=== PATIENT | female | born 1975 | race Caucasian/White ===

== ENCOUNTER 2021-12-11 10:50 | Outpatient (REF) | payer BC, SELFPAY ==
[2021-12-11 10:55] LABS: MANUAL DIFF FLAG NO
[2021-12-11 11:07] LABS: Basophils Absolute Auto 0.1 X10*3/uL (0.0-0.2); Basophils Percent Auto 0.5 % (0-2); Eosinophils Absolute Auto 0.2 X10*3/uL (0.0-0.4); Eosinophils Percent Auto 2.1 % (0-4); Hemoglobin 12.8 g/dl (12.0-16.0); Imm Gran Abs Auto 0.04 X10*3/uL (0.00-0.03); Imm Gran Pct Auto 0.4 % (0.0-0.4); Lymphocytes Absolute Auto 2.3 X10*3/uL (1.2-4.9); Lymphocytes Percent Auto 25.3 % (20-40); Mean Corpuscular Hemoglobin 31.3 pg (27.0-33.0); Mean Corpuscular Volume 97.8 fL (80.0-98.0); Mean Platelet Volume 9.9 fL (9.4-12.3); Monocytes Absolute Auto 0.8 X10*3/uL (0.1-1.2); Monocytes Percent Auto 8.7 % (2-11); Neutrophils Absolute Auto 5.8 x10*3/uL (2.0-8.3); Platelet Count 385 X10*3/uL (160-400); Red Blood Count 4.09 X10*6/uL (4.20-5.50); Red Cell Distribution Width 13.3 % (11.0-16.0); White Blood Count 9.2 X10*3/uL (4.8-10.8)
[2021-12-11 11:18] LABS: Alanine Aminotransferase 53 U/L (0-31); Albumin Level 4.5 g/dL (3.5-5.0); Alkaline Phosphatase 79 U/L (39-117); Anion Gap 13 (12-20); Aspartate Amino Transferase 45 U/L (5-31); Bilirubin Total 0.3 mg/dL (0.0-1.0); Blood Urea Nitrogen 18 mg/dL (9-16); Calcium 9.5 mg/dL (8.4-10.2); Carbon Dioxide 22 mmol/L (22-29); Chloride 108 mmol/L (96-108); Cholesterol 228 mg/dL; Estimated Glomerular Filt Rate > 60; Glucose Fasting 88 mg/dL (60-99); HDL Cholesterol 63 mg/dL; LDL Cholesterol Calculated 144 mg/dl; Potassium 4.3 mmol/L (3.3-5.1); Sodium 139 mmol/L (135-145); Total Protein 7.5 g/dL (6.5-8.0); Triglycerides 109 mg/dL
[2021-12-11 11:35] LABS: Appearance Urine HAZY; Color Urine YELLOW; Glucose Urine UA NEG (NEG); Leukocyte Esterase Urine NEG (NEG); Nitrite Urine NEG (NEG); Specific Gravity - Urine 1.015 (1.005-1.025); Urine Blood TRACE (NEG); Urine Ketones NEG (NEG); Urine Protein NEG (NEG-TRACE)
[2021-12-11 13:19] LABS: Bacteria Urine TRACE /LPF; Squamous Epithelial Cell Urine 3+ /LPF
[2021-12-11 13:20] LABS: RBC Urine 0 /HPF (0)
== END 2021-12-11 10:51 | disposition home or self-care (01) ==
LOC: HO.LNP 10:50
PROVIDERS: Visit Provider Internal Medicine
DX: Z00.00 Encounter for general adult medical examination without abnormal findings (principal); D72.828 Other elevated white blood cell count
CPT/HCPCS: 80053; 80061; 81001; 85025

== ENCOUNTER 2021-12-18 11:25 | Outpatient (REF) | payer BC, SELFPAY ==
[2021-12-18 12:05] LABS: Alanine Aminotransferase 49 U/L (0-31); Albumin Level 4.2 g/dL (3.5-5.0); Alkaline Phosphatase 90 U/L (39-117); Aspartate Amino Transferase 74 U/L (5-31); Bilirubin Direct < 0.2 mg/dL (0.0-0.5); Bilirubin Total 0.3 mg/dL (0.0-1.0)
== END 2021-12-18 11:26 | disposition home or self-care (01) ==
LOC: HO.LNP 11:25
PROVIDERS: PCP Internal Medicine; Visit Provider Internal Medicine
DX: R79.89 Other specified abnormal findings of blood chemistry (principal)
CPT/HCPCS: 80076

== ENCOUNTER 2023-07-31 13:59 | Inpatient (IN) | payer BC, SELFPAY ==
[2023-07-31] VITALS (38 sets, daily range): BP systolic 72–162; BP diastolic 30–130; PULSE 24–98; RESP 16–24; TEMP 32.5–36.4; O2SAT 58–100; BMI 22.1
--- NOTE | 2023-07-31 | ECG_ITS ---
Test Reason : arrythmia Blood Pressure : / mmHG Vent. Rate : 099 BPM Atrial Rate : 099 BPM P-R Int : 192 ms QRS Dur : 114 ms QT Int : 456 ms P-R-T Axes : 069 066 187 degrees QTc Int : 585 ms Sinus rhythm with sinus arrhythmia with Fusion complexes some beats suggestive of idioventricular rhythm Marked ST abnormality, possible inferior subendocardial injury Marked ST abnormality, possible anterior subendocardial injury Prolonged QT Abnormal ECG When compared to the previous EKG of same day, changes noted. Referred By: Agueda Doan Electronically Signed By:TERRANCE MCGILL
--- NOTE | ~2023-07-31 | XR_ITS ---
EXAMINATION: XR CHEST CLINICAL INFORMATION: Intubation. COMPARISON: CT chest 07/31/2023 at 7:00 PM. TECHNIQUE: Frontal view of the chest was obtained. FINDINGS: Endotracheal tube terminates at 2.7 cm above the bella. Normal appearance of the cardiomediastinal silhouette. Multifocal airspace opacities, more prominent in the right lower lobe are again noted best visualized on CT chest from earlier on same day. No pleural effusion. No pneumothorax. No acute osseous findings. XR/XR chest 1V IMPRESSION: 1. Endotracheal tube terminates at 2.7 cm above the bella. 2. Multifocal airspace opacities, more prominent in the right lower lobe are better visualized on CT chest from earlier on same day.
--- NOTE | ~2023-07-31 | XR_ITS ---
EXAMINATION: XR CHEST CLINICAL INFORMATION: Line placement. COMPARISON: Chest radiograph 07/31/2023 at 9:24 PM. TECHNIQUE: Frontal view of the chest was obtained. FINDINGS: The endotracheal tube terminates at 3.5 cm above the bella. Left IJ CVC catheter tip projects at the level of the superior cavoatrial junction. An enteric tube courses into the abdomen and terminates outside of the field of view. Normal appearance of the cardiomediastinal silhouette. Multifocal airspace opacities, more prominent in the right lower lobe are no significantly changed, and best characterized on recent CT chest from earlier on the same day. No pleural effusion or pneumothorax. No acute osseous findings. XR/XR chest 1V IMPRESSION: 1. The endotracheal tube terminates at 3.5 cm above the bella. 2. Left IJ CVC catheter tip projects at the level of the superior cavoatrial junction. 3. No significant change in the multifocal airspace opacities. 4. No pneumothorax.
--- NOTE | ~2023-07-31 | CT_ITS ---
EXAMINATION: CT ABDOMEN AND PELVIS WITH CONTRAST CLINICAL INFORMATION: Leukocytosis and transaminitis. COMPARISON: None available. TECHNIQUE: Multidetector volumetric images were obtained from the superior aspect of the liver through the pubic symphysis following administration 85 mL of Omnipaque 350 intravenous contrast. Sagittal and coronal reformatted images were obtained on the technologist's workstation. Oral contrast: No This CT examination was performed using dose optimization techniques as appropriate, variously including the following: *Automated exposure control *Adjustment of mA and/or kV according to patient size (this includes techniques or standardized protocols for targeted exams where dose is matched to indication/reason for exam; i.e. extremities or head) *Use of iterative reconstruction technique DLP: 330 mGy-cm FINDINGS: LUNG BASES: There are bibasilar scattered groundglass opacities. LIVER, GALLBLADDER, AND BILIARY TREE: There is hepatomegaly, with a longitudinal span of 28.0 cm (7:38). There is geographic hepatic steatosis. No focal hepatic lesion or biliary ductal dilatation is present. The gallbladder is unremarkable with no evidence of radiopaque gallstones, gallbladder wall thickening, or obvious pericholecystic inflammatory changes. PANCREAS: There is fat stranding adjacent to the pancreatic head. Within the pancreatic body, a 1.9 x 1.4 cm low-attenuation fluid collection is seen, likely a pseudocyst. There are peripancreatic fluid collections, most pronounced adjacent to pancreatic head, the tail portion and within the central mesentery. These show respective dimensions of 2.2 x 1.4 cm, 4.9 x 4.1 cm and 3.9 x 2.3 cm (3:40, 26 and 45). No pancreatic mass or ductal dilatation is noted. SPLEEN: Unremarkable. ADRENAL GLANDS: The right adrenal gland is unremarkable. The lateral limb of the left adrenal gland contains a 1.7 x 1.2 cm nodule (3:23). KIDNEYS AND URETERS: The kidneys are normal in size, shape, and attenuation. No hydronephrosis, hydroureter, or calculi seen. No perinephric stranding. BLADDER: Unremarkable. GASTROINTESTINAL TRACT: The small and large bowel are unremarkable. The appendix is unremarkable. ABDOMINAL WALL: There is a small fat-containing umbilical hernia. LYMPH NODES: Adjacent to the left iliac bifurcation (7:45), a 2.6 x 1.9 cm reniform lymph node is seen. VASCULAR: There is moderate aortoiliac atherosclerotic calcification. No abdominal aortic aneurysm or dissection is seen. PELVIC VISCERA: The uterus and adnexa are unremarkable. An intrauterine device is noted. OSSEOUS STRUCTURES: There is mild anterior spondylosis at T9-T10. There is no acute or aggressive osseous finding. FREE FLUID: A further low to intermediate density fluid collection is seen within the left paracolic gutter. A tiny amount of free fluid tracks adjacent to the ascending colon. CT/CT abdomen pelvis w IV con IMPRESSION: 1. Findings are consistent with acute pancreatitis, with scattered acute fluid collections adjacent to the pancreatic head and tail, in the mesenteric root and in the bilateral paracolic gutters, left greater than right. 2. A 1.9 cm pancreatic body probable pseudocyst is noted. 3. There is marked hepatomegaly, and hepatic steatosis is seen. 4. A 1.7 cm nodule is seen within the lateral limb of the left adrenal gland. Current ACR WHITE PAPER RECOMMENDATIONS regarding incidental adrenal mass is include; - Imaging can characterize adrenal adenomas with high accuracy but cannot be used to distinguish hyperfunctioning from nonhyperfunctioning masses - Current guidelines from the [place] Association of Clinical Endocrinologists and the [place] Association of Endocrine Surgeons recommend an initial biochemical evaluation of all adrenal incidentalomas to exclude pheochromocytoma, subclinical Stuyvesant?s syndrome, and hyperaldosteronism. 5. Adjacent to the left iliac bifurcation, a 1.9 cm in short axis diameter lymph node is seen. This is nonspecific and should be managed on a clinical basis. Recommend continued attention on imaging follow-up. 6. No acute or aggressive osseous finding is seen. Fleischner guidelines were followed.
--- NOTE | ~2023-07-31 | XR_ITS ---
EXAMINATION: CHEST 2 VIEWS CLINICAL INFORMATION: pain. COMPARISON: No recent pertinent prior studies are available for comparison. TECHNIQUE: AP frontal and lateral views of the chest obtained FINDINGS: The lungs are well expanded. Linear basilar markings more likely due to scarring or atelectasis at the right base. No focal infiltrate, effusion, edema, or pneumothorax. Cardiac and mediastinal silhouettes are within normal limits for technique. No acute bony abnormality seen XR/XR chest 2V IMPRESSION: Linear basilar markings more likely due to scarring or atelectasis.
--- NOTE | ~2023-07-31 | XR_ITS ---
EXAMINATION: XR CHEST CLINICAL INFORMATION: Hypoxia COMPARISON: Multiple priors with the last chest x-ray of 07/31/2023 TECHNIQUE: Frontal view of the chest was obtained. FINDINGS: An endotracheal tube terminates 3.7 cm above the bella. An enteric tube courses below the diaphragm, the tip is external to the [id number]; the tube is coiled into the gastric fundus. Multiple cardiac leads and wires overlie the chest. Left internal jugular approach central venous catheter tip projects over the expected location of the superior cavoatrial junction. Cardiomediastinal silhouette is stable with normal cardiac size. There is no evidence of pneumothorax or significant pleural effusions. The lungs are mildly hypoexpanded. Patchy opacities are noted at the lung bases; multifocal groundglass opacities are better seen on the CT scan of the chest obtained on 07/31/2023. The findings are not as well appreciated on the plain radiographs. Mild interstitial and pulmonary vasculature prominence is noted which may suggest mild interstitial edema/pulmonary congestion. XR/XR chest 1V IMPRESSION: Endotracheal tube terminates 3.7 cm above the bella. Patchy bibasilar opacities. Multifocal groundglass opacities with basilar prominence are better seen on the chest CT of 07/31/2023. Probable mild interstitial edema/pulmonary venous congestion.
--- NOTE | ~2023-07-31 | CT_ITS ---
EXAMINATION: CT CHEST WITHOUT CONTRAST CLINICAL INFORMATION: Shortness of breath. COMPARISON: CT scan the abdomen which included the lung bases are clear this evening. TECHNIQUE: Multidetector volumetric imaging was performed from the thoracic inlet through the lung bases without contrast. Sagittal and coronal reformatted images were obtained on the technologist workstation. Soft tissue and lung algorithms evaluated. Thick slab MIP images were performed to increase nodule conspicuity. This CT examination was performed using dose optimization techniques as appropriate, variously including the following: *Automated exposure control *Adjustment of mA and/or kV according to patient size (this includes techniques or standardized protocols for targeted exams where dose is matched to indication/reason for exam; i.e. extremities or head) *Use of iterative reconstruction technique DLP: 207 mGy-cm. FINDINGS: LUNG: There is worsened patchy bilateral groundglass airspace disease more so on the right lower lobe be present as well in the right middle lobe, right upper lobe, dependent left lower lobe, and left upper lobe/lingula infectious or inflammatory causes would be strongly favored with this distribution. Subtle air bronchograms are now seen at the right lung base which is new from earlier today suggesting interval worsening. MEDIASTINUM: The central vascular structures are unremarkable. No hilar or mediastinal lymphadenopathy. CORONARY ARTERY CALCIFICATION: Absent PERICARDIUM/PLEURA: No significant effusion. No pleural mass or thickening. THYROID/VISUALIZED LOWER NECK: Unremarkable. CHEST WALL/AXILLA: Unremarkable. VISUALIZED UPPER ABDOMEN: Diffuse fatty infiltration of the liver with peripancreatic changes better seen on the abdominal CT scan performed earlier today BONES: Unremarkable CT/CT chest wo IV con IMPRESSION: Worsening patchy bilateral groundglass airspace disease more so in the right lower lobe. Infectious or inflammatory causes would be strongly favored with this distribution.
--- NOTE | 2023-07-31 15:47 | ED.GENADULT ---
HPI - General Adult General Chief complaint: General Medical Stated complaint: cold like symptoms Time Seen by Provider: 07/31/23 16:32 Source: patient, family and RN notes reviewed Mode of arrival: wheelchair Limitations: no limitations History of Present Illness HPI narrative: 47-year-old female with past medical history of asthma, GERD, tobacco use, alcohol abuse, chronic back pains, leg numbness is here today for increased fatigue, insomnia and feeling of weakness. Patient states that her in May and she has been grieving his that since. Patient states that she did not eat anything for over 3 weeks. In the last 4 days patient started eating and getting her appetite back. Patient experienced nausea without vomiting. Denies any abdominal pain or cramping. Denies any urinary frequency, however patient reports that she has been incontinent of both stool and urine due to inability to make it quickly to the bathroom. Patient states that she is very weak. Patient smokes heavily every day. Patient states that she used to drink alcohol, however she reports that she has not for the last month or so. Patient denies using any drugs. Takes omeprazole [id number] for GERD, has been taking ibuprofen for her back pain. Related Data Home Medications Medication Instructions Recorded Confirmed albuterol sulfate 90 mcg/actuation 2 puff inhalation Q4H PRN 08/01/23 08/01/23 aerosol inhaler Shortness Of Breath Or Wheezing fluticasone 250 mcg-salmeterol 50 1 ea inhalation BID 08/01/23 08/01/23 mcg/dose blistr powdr for inhalation (Advair Diskus) ibuprofen 800 mg tablet 800 mg PO QID PRN Pain 08/01/23 08/01/23 loratadine 10 mg tablet (Claritin) 10 mg PO DAILY PRN Allergy Symptoms 08/01/23 08/01/23 omeprazole 20 mg capsule,delayed 20 mg PO DAILY@0630 08/01/23 08/01/23 release Allergies Allergy/AdvReac Type Severity Reaction Status Date / Time amoxicillin Allergy Gastrointestinal Verified 07/31/23 15:47 Upset avocado Allergy Anaphylaxis Verified 07/31/23 15:47 honey Allergy Anaphylaxis Verified 07/31/23 15:47 Review of Systems Constitutional: Constitutional: Reports fatigue, Reports malaise, Denies weight gain, Denies weight loss and Reports other Eyes: Eyes: Reports as per HPI ENT: Reports system reviewed and no additional complaints, except as documented, Denies dysphagia and Denies odynophagia Cardiovascular: Cardiovascular: Reports no additional cardiovascular complaints and Reports dyspnea Respiratory: Respiratory: Reports cough and Reports dyspnea Gastrointestinal: Gastrointestinal: Denies abdominal pain, Denies belching, Denies melena, Denies bloating, Denies change in bowel habits, Denies dysphagia, Denies excessive flatus, Denies dyspepsia, Denies heartburn, Denies diarrhea, Denies loose stools, Reports nausea, Denies odynophagia and Denies vomiting Genitourinary: Genitourinary: Reports no additional female genitourinary complaints Musculoskeletal: Musculoskeletal: Reports no additional musculoskeletal complaints Integumentary/Breasts: Skin/Breast: Reports system reviewed and no additional complaints, except as docu Neurologic: Reports system reviewed and no additional complaints, except as documented Psychiatric: Psychiatric: Reports no additional psychiatric complaints Endocrine: Endocrine: Reports no additional endocrine complaints and Reports fatigue PMFSH Past Medical History Medical History (Updated 08/02/23 @ 10:24 by Timmy Lujan MD) GERD (gastroesophageal reflux disease) Back problem Asthma Social History Social History Household Members Other:: none recent loss of Housing: House Unable to assess alcohol history related to: Unable to respond Patient Tobacco Use Status: Current everyday Tobacco user Tobacco use type: Cigarette Smoked in Last 30 Days: Yes Use of substances other than those prescribed or required for medical reasons: Unable to respond Currently Displaying Signs/Symptoms of Drug Intoxication Withdrawal: No Spiritual Healthcare Practices: unable to respond Islam Healthcare Practices: unable to assess Advance Directives: No Advance Directives Information Provided: Yes (health care proxy daughter) Recently lost weight without trying: Yes Nutrition Risks: Anorexia, Emaciation/Cachexia and Poor intake 0-25% >4 days Patient : No : No Poor oral hygiene: No service: No Physical Exam ED Vital Signs: Vital Signs - 24 hr 07/31/23 17:49 07/31/23 18:14 07/31/23 18:27 Temperature 97.5 F Pulse Rate 62 66 66 Respiratory Rate 16 16 18 Blood Pressure 88/41 L 95/45 L Pulse Oximetry 100 95 Oxygen Delivery Method Room Air Room Air Oxygen Flow Rate 07/31/23 19:21 07/31/23 19:25 07/31/23 19:26 Temperature 97.5 F Pulse Rate 67 Respiratory Rate 20 Blood Pressure 85/43 L Pulse Oximetry 94 74 L 100 Oxygen Delivery Method Room Air Room Air Non-Rebreather Mask Oxygen Flow Rate 10 07/31/23 19:35 07/31/23 19:43 07/31/23 19:51 Temperature Pulse Rate 67 68 67 Respiratory Rate 23 H 18 Blood Pressure 84/41 L 85/43 L 92/38 L Pulse Oximetry 100 100 Oxygen Delivery Method Non-Rebreather Mask Non-Rebreather Mask Oxygen Flow Rate 10 10 07/31/23 20:06 Temperature Pulse Rate 66 Respiratory Rate 16 Blood Pressure 83/41 L Pulse Oximetry 100 Oxygen Delivery Method Non-Rebreather Mask Oxygen Flow Rate 10 BMI result Body Mass Index 22.1 Const General: ill appearing Nutritional Appearance: thin Orientation/consciousness: patient oriented x3 HENMT Head: Yes normal to inspection, Yes normocephalic and Yes atraumatic Face and sinus: Yes normal facial exam Mouth: Normal oral and palatal mucosa present Throat: Yes posterior oropharynx normal, Yes tonsils normal and Yes uvula midline Eyes General: appearance normal, both eyes and all related structures Eyelids: Yes eyelids normal Conjunctivae: conjunctivae normal Sclerae: sclerae normal Pupils: Equal, round and reactive pupils present Neck Neck: Yes normal visual inspection, Yes full ROM and Yes trachea midline Thyroid: Thyroid normal Chest Chest palpation & inspection: normal inspection of the chest Resp Effort & Inspection: normal respiratory effort, able to speak in complete sentences, no tracheal deviation and symmetric chest movement Auscultation: diminished lung sounds (Bilateral bases) Cardio Rate: bradycardic Rhythm: regular rhythm Heart sounds: S1 normal heart sound present and S2 normal heart sound present GI Inspection: Yes normal to inspection and No distended Palpation (GI): Soft to palpation, not firm, nontender and Hepatosplenomegaly present Auscultation: normal bowel sounds General: Yes no CVA tenderness Back/Spine/Pelvis Back: no CVA tenderness Skin General skin exam: elasticity normal, turgor normal and dry skin Neuro General: patient oriented x3 Cranial nerves: Yes Equal, round and reactive pupils present Extrem General: Yes normal to inspection, Yes no clubbing, cyanosis or edema, Yes no pedal edema and Yes no calf tenderness Psych Appearance: grossly normal Mental Status: mental status grossly normal Affect: Labile affect present Attitude: cooperative Thought content: Normal thought content present Course Course Course Narrative: RME- 47 year old female presents for evaluation of failure to thrive. She reports increasing weakness and poor PO intake since her in May. She reports that she is now unable to ambulate without assistance due to weakness. She reports chronic back pain and soiling herself. She is not truly incontinent but cannot get up to get to the bathroom. Plan for labs and a UA. She is not suicidal 47-year-old female with past medical history of asthma, GERD, tobacco use, alcohol abuse, chronic back pains, leg numbness is here today for increased fatigue, insomnia and feeling of weakness. Patient states that her in May and she has been grieving his that since. Patient states that she did not eat anything for over 3 weeks. In the last 4 days patient started eating and getting her appetite back. Patient experienced nausea without vomiting. Denies any abdominal pain or cramping. Denies any urinary frequency, however patient reports that she has been incontinent of both stool and urine due to inability to make it quickly to the bathroom. Patient states that she is very weak. Patient smokes heavily every day. Patient states that she used to drink alcohol, however she reports that she has not for the last month or so. Patient denies using any drugs. Takes omeprazole [id number] for GERD, has been taking ibuprofen for her back pain. Reevaluation(s) Reevaluation #1: Leukocytosis with shift, bicarb 10, lactic acid 9.8, anion gap 29, AST 196, ALT 79. Sepsis protocol started at 17:16, will repeat CT scan of the chest suspicion for atypical pneumonia. CT of abdomen showed pancreatitis. Lipase is normal. Spoke with Dr. Quesada who came and assessed patient. Patient will be admitted to ICU. Patient is getting weaker, respiratory rate declining. Blood pressure continues to be low, Levophed started. Awaiting ICU bed and admission. Respiratory rate dropped to 12. Patient's mentation is decreasing. Page to retirement benefits specialist, working on admission. Patient's heart rate down to 24, PEA and CPR was started. Dr. West in to help intubate the patient. Patient was intubated premedicated with etomidate and rocuronium. Glidoscope used to intubate the patient. Patient returned to spontaneous circulation with heart rate 80s to 90s. Critical care/retirement benefits specialist CHILANGO Romeo at the bedside. Patient will be transferred to ICU for placement of central line. Spoke to patient's daughter and discussed with her patient's condition. Still unsure the real source of infection suspicion for atypical pneumonia and pancreatitis. Will treat with antibiotics accordingly. Patient did receive a 1st antibiotic immediately after receiving results of her 1st lactic acid. Spoke with Dr. Quesada and made him aware of patient's condition. Levophed drip continues, blood pressure frequently monitored. Chest x-ray post intubation showed accurate placement. Reevaluation #2: Dr. West's Note: infrastructure technician noted that the patient heart rate went down to 24 beats per minute. When I got to the room, the patient had no pulse and CPR was started. She was given a mg of epinephrine IV dye assisted her breathing with the [id number]. Respiratory therapy then took over supporting respirations. The patient's jaw was clenched tight and I was not able to intubate her without RSI. She was given etomidate 20 mg IV and rocuronium 40 mg IV. Patient was then intubated using the glide scope, cords were visualized and the ET tube was passed through the cords. There was a positive color change on the end-tidal CO2 device. Patient then had return of spontaneous circulation in a normal heart rate. Patient's blood pressures were 160/130, Levophed was decreased from 0.15 to 10 but then needed to be increased again secondary to hypotension. ICU is aware of the patient's change in condition. Time: 21:03 Medications Administered Generic Name Dose Route Start Last Admin Trade Name Ina PRN Reason Stop Dose Admin Albuterol/Ipratropium 3 ml 08/01/23 12:00 08/02/23 07:59 Albuterol/Iprat 2.5/0.5mg 3 Ml Ampul.Neb INHALE 3 ml RQ4H WHILE AWAKE REESE Administration Chlorhexidine Gluconate 15 ml 08/01/23 09:00 08/02/23 09:03 Chlorhexidine Gluc Oral Rinse 15 Ml Mouthwash BUCCAL 15 ml TID REESE Administration Heparin Sodium (Porcine) 5,000 unit 08/01/23 23:00 08/02/23 11:21 Heparin Sodium,Porcine 5,000 Unit/Ml Vial SUBCUT 5,000 unit Q12H REESE Administration Norepinephrine Bitartrate 8 mg in 250 mls @ 0 mls/hr 07/31/23 19:45 08/02/23 10:19 Levophed IV 0.18 mcg/kg/min .Q0M REESE 19.14 mls/hr Administration Protocol Per Protocol Propofol 1,000 mg in 100 mls @ 0 mls/hr 07/31/23 22:45 08/02/23 11:15 Diprivan IVCONT 0 mcg/kg/min .Q0M REESE 0 mls/hr Titration Protocol Per Protocol Potassium Phosphate 15 mmol in 250 mls @ 62.5 mls/hr 08/02/23 08:00 08/02/23 07:54 Kphos IV 08/02/23 11:59 62.5 mls/hr ONCE ONE Administration Ceftriaxone Sodium 1 gm/ 50 mls @ 100 mls/hr 08/02/23 08:30 08/02/23 09:47 Sodium Chloride IV Infused Q24H REESE Infusion Omeprazole 40 mg 08/02/23 06:30 08/02/23 05:16 Omeprazole/Na Bicarb Oral Susp 20 Mg/10 Ml Ud Cup PO 40 mg DAILY@0630 REESE Administration Thiamine HCl 100 mg 08/02/23 09:00 08/02/23 09:03 Thiamine Hcl 100 Mg Tablet PO 100 mg DAILY REESE Administration Discontinued Medications Generic Name Dose Route Start Last Admin Trade Name Freq PRN Reason Stop Dose Admin Albuterol Sulfate 2.5 mg 07/31/23 18:10 07/31/23 18:13 Albuterol Sulfate (0.083%) 2.5 Mg/3 Ml Vial.Neb INHALE 07/31/23 18:11 2.5 mg ONCE ONE Administration Etomidate 20 mg 07/31/23 22:21 07/31/23 20:54 Etomidate 20 Mg/10 Ml Vial IVPUSH 07/31/23 22:22 20 mg ONCE ONE Administration Heparin Sodium (Porcine) 5,000 unit 07/31/23 21:00 08/01/23 14:17 Heparin Sodium,Porcine 5,000 Unit/Ml Vial SUBCUT 5,000 unit Q8H REESE Administration Hydrocortisone Sodium Succinate 100 mg 07/31/23 23:31 07/31/23 23:49 Hydrocortisone Sod Succ/Pf 100 Mg Vial IVPUSH 07/31/23 23:32 100 mg ONCE ONE Administration Sodium Chloride 1,000 mls @ 999 mls/hr 07/31/23 17:00 07/31/23 17:56 Ns IV 07/31/23 18:00 Infused .Q1H1M REESE Infusion Sodium Chloride 1,700.97 mls @ 1,700.97 mls/hr 07/31/23 17:16 07/31/23 19:46 Ns 30 ml/kg infuse over 1 hr (1700.97 ml) 07/31/23 18:15 Infused IV Infusion .Q1H STA Ceftriaxone Sodium 1 gm/ 100 mls @ 200 mls/hr 07/31/23 17:16 07/31/23 18:16 Sodium Chloride IV 07/31/23 17:45 Infused ONCE ONE Infusion Meropenem 1 gm/ Sodium 100 mls @ 200 mls/hr 07/31/23 21:00 08/01/23 00:10 Chloride IV 07/31/23 21:29 Infused ONCE ONE Infusion Doxycycline Hyclate 100 mg/ 250 mls @ 166.67 mls/hr 07/31/23 19:51 07/31/23 21:01 Sodium Chloride IV 07/31/23 21:20 0 mls/hr ONCE ONE Infusion Epinephrine 5 mg/ Dextrose 255 mls @ 0 mls/hr 07/31/23 22:15 08/01/23 17:38 IVCONT Infused .Q0M REESE Titration Protocol Per Protocol Sodium Bicarbonate 150 meq/ 1,000 mls @ 100 mls/hr 07/31/23 23:00 08/01/23 08:30 Dextrose IV Infused .Q10H REESE Infusion Potassium Chloride 40 meq in 100 mls @ 50 mls/hr 07/31/23 23:43 08/01/23 01:51 Potassium Chloride/H20 IV 08/01/23 01:42 Infused ONCE ONE Infusion Potassium Chloride 40 meq in 100 mls @ 50 mls/hr 08/01/23 02:03 08/01/23 04:20 Potassium Chloride/H20 IV 08/01/23 04:02 Infused ONCE ONE Infusion Potassium Chloride 40 meq in 100 mls @ 50 mls/hr 08/01/23 04:58 08/01/23 08:01 Potassium Chloride/H20 IV 08/01/23 06:57 Infused ONCE ONE Infusion Sodium Bicarbonate 150 meq/ 1,000 mls @ 100 mls/hr 08/01/23 08:00 08/01/23 17:32 Dextrose IV 08/01/23 17:59 Infused .Q10H ONE Infusion Doxycycline Hyclate 100 mg/ 250 mls @ 166.67 mls/hr 08/01/23 08:45 08/02/23 09:03 Sodium Chloride IV Infused Q12H REESE Infusion Meropenem 1 gm/ Sodium 100 mls @ 200 mls/hr 08/01/23 10:00 08/02/23 02:42 Chloride IV Infused Q8H REESE Infusion Thiamine HCl 100 mg/ Sodium 101 mls @ 202 mls/hr 08/01/23 09:30 08/01/23 10:20 Chloride IV Infused DAILY REESE Infusion Potassium Chloride 40 meq in 100 mls @ 50 mls/hr 08/01/23 10:59 08/01/23 13:18 Potassium Chloride/H20 IV 08/01/23 12:58 Infused ONCE ONE Infusion Linezolid 600 mg in 300 mls @ 300 mls/hr 08/01/23 13:00 08/02/23 01:49 Zyvox/D5w IV Infused Q12H REESE Infusion Potassium Chloride 40 meq in 100 mls @ 50 mls/hr 08/01/23 18:05 08/01/23 19:34 Potassium Chloride/H20 IV 08/01/23 20:04 Infused ONCE ONE Infusion Potassium Chloride 40 meq in 100 mls @ 50 mls/hr 08/01/23 19:30 08/01/23 21:44 Potassium Chloride/H20 IV 08/01/23 21:29 Infused ONCE ONE Infusion Potassium Phosphate 15 mmol in 250 mls @ 62.5 mls/hr 08/01/23 22:50 08/02/23 03:04 Kphos IV 08/02/23 02:49 Infused ONCE ONE Infusion Albumin Human 100 mls @ 100 mls/hr 08/02/23 08:00 08/02/23 10:21 Kedbumin 25 % IV 08/02/23 09:59 Infused Q1H REESE Infusion Iohexol 85 ml 07/31/23 17:42 07/31/23 17:42 Iohexol 350 Mg/Ml 100 Ml Infus..Btl IV 07/31/23 17:43 85 ml ONCE ONE Administration Lorazepam 1 mg 08/01/23 14:00 08/01/23 14:17 Lorazepam 2 Mg/Ml Vial IVPUSH 1 mg Q4H REESE Administration Pantoprazole Sodium 40 mg 08/01/23 06:30 08/01/23 05:56 Pantoprazole Sodium 40 Mg/10 Ml Vial IVPUSH 40 mg DAILY@0630 REESE Administration Potassium Chloride 40 meq 07/31/23 23:38 07/31/23 23:49 Potassium Chloride Packet 20 Meq Packet OG-TUBE 07/31/23 23:39 40 meq ONCE ONE Administration Potassium Chloride 40 meq 08/01/23 02:03 08/01/23 02:13 Potassium Chloride Packet 20 Meq Packet OG-TUBE 08/01/23 02:04 40 meq ONCE ONE Administration Potassium Chloride 40 meq 08/01/23 04:58 08/01/23 05:14 Potassium Chloride Packet 20 Meq Packet OG-TUBE 08/01/23 04:59 40 meq ONCE ONE Administration Potassium Chloride 40 meq 08/01/23 10:59 08/01/23 11:15 Potassium Chloride Packet 20 Meq Packet PO 08/01/23 11:00 40 meq ONCE ONE Administration Potassium Chloride 40 meq 08/01/23 17:10 08/01/23 17:25 Potassium Chloride Packet 20 Meq Packet PO 08/01/23 17:11 40 meq ONCE STA Administration Rocuronium [place] 40 mg 07/31/23 22:21 07/31/23 20:54 Rocuronium [place] 50 Mg/5 Ml Vial IVPUSH 07/31/23 22:22 40 mg ONCE ONE Administration Sodium Bicarbonate 50 meq 07/31/23 22:54 07/31/23 23:15 Sodium Bicarbonate 8.4% 50 Meq/50 Ml Syringe IVPUSH 07/31/23 22:55 50 meq ONCE ONE Administration Procedures Intubation Time out performed: No sedative: Etomidate Mg Given: 20 paralytic: Rocuronium Mg Given: 40 Laryngoscope: fiber optic video scope ET Tube Size: 7.5 ET Tube Uncuffed: No Tube Secured Depth (cm): 23 Tube Placement Confirmation: visualized tube passing through cords Patient Tolerated Procedure: no complications Intubation Complications: none Medical Decision Making Medical Decision Making MDM Narrative: 47-year-old female with past medical history of asthma, GERD, tobacco use, alcohol abuse, chronic back pains, leg numbness is here today for increased fatigue, insomnia and feeling of weakness. Patient states that her in May and she has been grieving his that since. Patient states that she did not eat anything for over 3 weeks. In the last 4 days patient started eating and getting her appetite back. Patient experienced nausea without vomiting. Denies any abdominal pain or cramping. Denies any urinary frequency, however patient reports that she has been incontinent of both stool and urine due to inability to make it quickly to the bathroom. Patient states that she is very weak. Patient smokes heavily every day. Patient states that she used to drink alcohol, however she reports that she has not for the last month or so. Patient denies using any drugs. Takes omeprazole [id number] for GERD, has been taking ibuprofen for her back pain. Patient is hypotensive her, labs ordered in triage. Will order chest x-ray, CT scan of abdomen and pelvis. Leukocytosis with shift, bicarb 10, lactic acid 9.8, anion gap 29, AST 196, ALT 79. Sepsis protocol started at 17:16, will repeat CT scan of the chest suspicion for atypical pneumonia. CT of abdomen showed pancreatitis. Lipase is normal. Spoke with Dr. Quesada who came and assessed patient. Patient will be admitted to ICU. Patient is getting weaker, respiratory rate declining. Blood pressure continues to be low, Levophed started. Awaiting ICU bed and admission. Respiratory rate dropped to 12. Patient's mentation is decreasing. Page to retirement benefits specialist, working on admission. Patient's heart rate down to 24, PEA and CPR was started. Dr. West in to help intubate the patient. Differential Diagnosis Differential Diagnoses: The differential diagnosis associated with the presentation includes Atypical Pneumonia, UTI, pancreatitis, sepsis, Congestive heart failure, Admission/Observation Consideration of admission/observation: Escalation of care including admission/observation considered Consult Healthcare Provider Management of the patient was discussed with: Applique Cutter (General Dentist/Owner) Lab Data [facility] Lab Attestation statement: I reviewed the patient's lab results. 08/02/23 05:22 08/02/23 05:22 Labs: Lab Results 07/31/23 07/31/23 07/31/23 Range/Units 16:17 16:53 18:16 WBC 34.0 H* (4.8-10.8) X10*3/uL RBC 3.14 L D (4.20-5.50) X10*6/uL Hgb 10.2 L D (12.0-16.0) g/dl Hct 28.5 L D (37.0-47.0) % MCV 90.8 (80.0-98.0) fL MCH 32.5 (27.0-33.0) pg MCHC 35.8 H (31.0-35.0) g/dl RDW 15.5 (11.0-16.0) % Plt Count 351 (160-400) X10*3/uL MPV 10.1 (9.4-12.3) fL Immature Gran % (Auto) 2.1 H (0.0-0.4) % Neut % (Auto) 91.5 H (45-73) % Lymph % (Auto) 4.5 L (20-40) % [place] % (Auto) 1.5 L (2-11) % Eos % (Auto) 0.0 (0-4) % Baso % (Auto) 0.4 (0-2) % Lymph # (Auto) 1.5 (1.2-4.9) X10*3/uL [place] # (Auto) 0.5 (0.1-1.2) X10*3/uL Eos # (Auto) 0.0 (0.0-0.4) X10*3/uL Baso # (Auto) 0.1 (0.0-0.2) X10*3/uL Abs Immat Gran (auto) 0.70 H (0.00-0.03) X10*3/uL Absolute Neuts (auto) 31.1 H (2.0-8.3) x10*3/uL Absolute Nucleated RBC 0.140 H (0.0-0.012) X10*3/uL Nucleated RBC % (auto) 0.4 H (0.0-0.2) /100WBC VBG pH (7.32-7.43) VBG pCO2 mmHg VBG pO2 mmHg VBG HCO3 (22-26) mmol/L VBG O2 Saturation % VBG Base Excess mmol/L Sodium 127 L (135-145) mmol/L Potassium 3.4 D (3.3-5.1) mmol/L Chloride 90 L (96-108) mmol/L Carbon Dioxide 11 L (22-29) mmol/L Anion Gap 29 H (12-20) BUN 18 H (9-16) mg/dL Creatinine 1.14 (0.5-1.4) mg/dL Estim Creat Clear Calc 51.5 Estimated GFR 52 Random Glucose 142 H (60-115) mg/dL Lactic Acid 9.8 H* (0.5-2.0) mmol/L Lactic Acid F/U @ 2Hr (0.5-2.0) mmol/L Calcium 7.8 L D (8.4-10.2) mg/dL Total Bilirubin 1.1 H 0.9 (0.0-1.0) mg/dL AST 196 H (5-31) U/L ALT 79 H (0-31) U/L Alkaline Phosphatase 181 H (39-117) U/L Total Protein 7.3 (6.5-8.0) g/dL Albumin 3.3 L (3.5-5.0) g/dL Lipase 50 (8-78) U/L Salicylates < 5.0 L (15-30) mg/dL Acetaminophen < 3 (<30) mcg/mL Ethyl Alcohol < 10 mg/dL Influenza Type A (PCR) NEGATIVE (Negative) Influenza Type B (PCR) NEGATIVE (Negative) RSV RNA Qual (PCR) NEGATIVE (Negative) SARS-CoV-2 RNA (RT-PCR) NEGATIVE (Negative) 07/31/23 07/31/23 Range/Units 19:27 19:31 WBC (4.8-10.8) X10*3/uL RBC (4.20-5.50) X10*6/uL Hgb (12.0-16.0) g/dl Hct (37.0-47.0) % MCV (80.0-98.0) fL MCH (27.0-33.0) pg MCHC (31.0-35.0) g/dl RDW (11.0-16.0) % Plt Count (160-400) X10*3/uL MPV (9.4-12.3) fL Immature Gran % (Auto) (0.0-0.4) % Neut % (Auto) (45-73) % Lymph % (Auto) (20-40) % [place] % (Auto) (2-11) % Eos % (Auto) (0-4) % Baso % (Auto) (0-2) % Lymph # (Auto) (1.2-4.9) X10*3/uL [place] # (Auto) (0.1-1.2) X10*3/uL Eos # (Auto) (0.0-0.4) X10*3/uL Baso # (Auto) (0.0-0.2) X10*3/uL Abs Immat Gran (auto) (0.00-0.03) X10*3/uL Absolute Neuts (auto) (2.0-8.3) x10*3/uL Absolute Nucleated RBC (0.0-0.012) X10*3/uL Nucleated RBC % (auto) (0.0-0.2) /100WBC VBG pH 7.19 L* (7.32-7.43) VBG pCO2 30 mmHg VBG pO2 70 mmHg VBG HCO3 12 L (22-26) mmol/L VBG O2 Saturation 92.0 % VBG Base Excess -14.7 mmol/L Sodium (135-145) mmol/L Potassium (3.3-5.1) mmol/L Chloride (96-108) mmol/L Carbon Dioxide (22-29) mmol/L Anion Gap (12-20) BUN (9-16) mg/dL Creatinine (0.5-1.4) mg/dL Estim Creat Clear Calc Estimated GFR Random Glucose (60-115) mg/dL Lactic Acid (0.5-2.0) mmol/L Lactic Acid F/U @ 2Hr 7.1 H* (0.5-2.0) mmol/L Calcium (8.4-10.2) mg/dL Total Bilirubin (0.0-1.0) mg/dL AST (5-31) U/L ALT (0-31) U/L Alkaline Phosphatase (39-117) U/L Total Protein (6.5-8.0) g/dL Albumin (3.5-5.0) g/dL Lipase (8-78) U/L Salicylates (15-30) mg/dL Acetaminophen (<30) mcg/mL Ethyl Alcohol mg/dL Influenza Type A (PCR) (Negative) Influenza Type B (PCR) (Negative) RSV RNA Qual (PCR) (Negative) SARS-CoV-2 RNA (RT-PCR) (Negative) Independent Interpretation I performed an independent interpretation of an: EKG Radiology Impression Discussion of test interpretation with radiology: I have reviewed the radiologist's reading. Radiologist Impression: Chest x-ray FINDINGS: The lungs are well expanded. Linear basilar markings more likely due to scarring or atelectasis at the right base. No focal infiltrate, effusion, edema, or pneumothorax. Cardiac and mediastinal silhouettes are within normal limits for technique. No acute bony abnormality seen XR/XR chest 2V IMPRESSION: Linear basilar markings more likely due to scarring or atelectasis. Discharge Plan Discharge Clinical Impression: Sepsis, Atypical pneumonia, Pancreatitis, acute Patient Disposition: Admitted As Inpatient Interventions: Admission Worksheet (ED) Last Done: 07/31/23 21:50 Discharge Date/Time: 07/31/23 22:00
--- NOTE | 2023-07-31 15:49 | ECG_ITS ---
Test Reason : WEAKNESS Blood Pressure : / mmHG Vent. Rate : 052 BPM Atrial Rate : 052 BPM P-R Int : 110 ms QRS Dur : 108 ms QT Int : 486 ms P-R-T Axes : -13 056 -16 degrees QTc Int : 451 ms Sinus bradycardia with short CA ST & T wave abnormality, consider inferolateral ischemia Abnormal ECG No previous ECGs available Referred By: Lan Jones Electronically Signed By:TERRANCE MCGILL
[2023-07-31 16:47] LABS: Alanine Aminotransferase 79 U/L (0-31); Albumin Level 3.3 g/dL (3.5-5.0); Alkaline Phosphatase 181 U/L (39-117); Anion Gap 29 (12-20); Aspartate Amino Transferase 196 U/L (5-31); Bilirubin Total 1.1 mg/dL (0.0-1.0); Blood Urea Nitrogen 18 mg/dL (9-16); Calcium 7.8 mg/dL (8.4-10.2); Carbon Dioxide 11 mmol/L (22-29); Chloride 90 mmol/L (96-108); Creatinine Clr Calc Pharmacy 51.5; Estimated Glomerular Filt Rate 52; Ethanol < 10 mg/dL; Glucose Random 142 mg/dL (60-115); Lipase 50 U/L (8-78); Potassium 3.4 mmol/L (3.3-5.1); Sodium 127 mmol/L (135-145); Total Protein 7.3 g/dL (6.5-8.0)
[2023-07-31 16:52] LABS: Acetaminophen LAB < 3 mcg/mL (<30); Salicylate < 5.0 mg/dL (15-30)
[2023-07-31] MEDS: 0.9 % Sodium Chloride 1,000 ML 999 ML IV (16:55)
--- NOTE | 2023-07-31 16:55 | PC.NURSE ---
IV placed in left fore arm by VACUUM DRIER OPERATOR, verbal order from VACUUM DRIER OPERATOR to give 1 liter NS using pressure bag. BP 75/52, Paper Folding Machine Operator aware of low Bp`WS
[2023-07-31 16:58] LABS: MANUAL DIFF FLAG NO
[2023-07-31 17:00] LABS: Influenza A PCR NEGATIVE (Negative); Influenza B PCR NEGATIVE (Negative); Resp Syncy Virus RNA Qual PCR NEGATIVE (Negative); SARS COV2 PCR INHOUSE NEGATIVE (Negative)
[2023-07-31 17:00] LABS: Basophils Absolute Auto 0.1 X10*3/uL (0.0-0.2); Basophils Percent Auto 0.4 % (0-2); Hematocrit 28.5 % (37.0-47.0); Hemoglobin 10.2 g/dl (12.0-16.0); Imm Gran Pct Auto 2.1 % (0.0-0.4); Lymphocytes Absolute Auto 1.5 X10*3/uL (1.2-4.9); Lymphocytes Percent Auto 4.5 % (20-40); Mean Corpuscular HGB Conc 35.8 g/dl (31.0-35.0); Mean Corpuscular Hemoglobin 32.5 pg (27.0-33.0); Mean Corpuscular Volume 90.8 fL (80.0-98.0); Mean Platelet Volume 10.1 fL (9.4-12.3); Monocytes Absolute Auto 0.5 X10*3/uL (0.1-1.2); Monocytes Percent Auto 1.5 % (2-11); NRBC Pct Auto 0.4 /100WBC (0.0-0.2); Neutrophils Absolute Auto 31.1 x10*3/uL (2.0-8.3); Neutrophils Percent Auto 91.5 % (45-73); Platelet Count 351 X10*3/uL (160-400); Red Blood Count 3.14 X10*6/uL (4.20-5.50); Red Cell Distribution Width 15.5 % (11.0-16.0); SCAN SMEAR FLAG 1
[2023-07-31 17:16] LABS: Lactic Acid 9.8 mmol/L (0.5-2.0)
[2023-07-31] MEDS: iohexoL 350 MG/ML 100 ML INFUS..BTL 85 ML IV (17:42)
[2023-07-31] MEDS: 0.9 % Sodium Chloride 1,700.97 ML 1700.97 ML IV (17:45)
[2023-07-31] MEDS: cefTRIAXone sodium 1 GM in 0.9 % Sodium Chloride 100 ML IV (17:46)
--- NOTE | 2023-07-31 17:50 | PC.NURSE ---
pt a&ox3, iv abx hung per order, ivf hung per order, monitor and storage bin tender intact sinus jerry 60s, pt continues to be hypotensive as noted in vitals, call wu within reach, will continue to monitor
[2023-07-31] MEDS: Albuterol Sulfate (0.083%) 2.5 MG/3 ML VIAL.NEB INHALE (18:13)
--- NOTE | 2023-07-31 18:27 | PC.NURSE ---
patient a&ox3, nutrition therapist sinus jerry 60s, ivf running additional iv site started by RN CLINICAL APPEALS, pt continues to be hypotensive, family at bedside, call wu within reach, will continue to monitor
[2023-07-31 18:31] LABS: Bilirubin Total 0.9 mg/dL (0.0-1.0)
[2023-07-31 18:57] LABS: Reflex Lactate? Lactic Acid Added
--- NOTE | 2023-07-31 19:30 | PC.NURSE ---
this rn and credit adjuster at bedside pt noted to to have spo2 of 74% RA. this rn placed pt on non rebreather at 10lpm rachel test clerk and dr hannah to bedside. on non rebreather pt spo2 100%
[2023-07-31 19:39] LABS: Venous Blood Gas Refer to POC result
[2023-07-31 19:40] LABS: VBG Base Excess -14.7 mmol/L; VBG HCO3 12 mmol/L (22-26); VBG pCO2 30 mmHg; VBG pH 7.19 (7.32-7.43); VBG pO2 70 mmHg
[2023-07-31] MEDS: Norepinephrine Bitartrate/D5W 8 MG/250 ML PLAST..BAG 5.32 MG IV (19:43)
[2023-07-31 19:51] LABS: ~Lactic Acid-LAB USE ONLY 7.1 mmol/L (0.5-2.0)
--- NOTE | 2023-07-31 19:52 | P.HPCC_ITS ---
History of Present Illness Date of Service: 07/31/23 Attending physician on admission: Josue Quesada Chief Complaint: weakness 47-year-old female who was a chronic alcoholic but claims to have stopped a few weeks ago has had actually more of a subacute story where she has had anorexia progressive weakness to the point where then she had to be on cane but it was a diffuse weakness ultimately having to be supported by other people at her home and then finally came here because she could not even make it to the bathroom anymore but she was not complaining of dyspnea and was not in respiratory distress she had a sort of a slow drawl to her speech and a funny movement as though she could not support her head when talking to me but the disc claimed outside of asthma any other active history she said no diabetes no thyroid replacement and adeno she is she is lost weight as result of this combined issue and when looking at her vital sign she had an excellent oxygen saturation she was not making significant respiratory effort and metabolically the renal function was preserved and that she was mildly hyponatremic and only mildly hypokalemic initially with potassium of 3.4 after going to see another patient I was called again saying that she looked worse oxygen saturation had dropped into the 80s and she had to be placed on a non-rebreather and again she did not look distressed but just all of a sudden weaker and more lethargic she was supine with eyes closed and then again briefly thereafter after stepping away they called a rapid response she became bradycardic more hypoxic and she needed urgently to be intubated at that point and was given a IV epinephrine dose and and then eventually came to the ICU where central line was placed without complications and after a sepsis protocol was called because because of relative hypotension along with the 34,000 white count and that and no apparent origin she received 30 cc/kilos of normal saline and her CT scan of her chest I reviewed and there was a right basilar infiltrate which appear to be a mixture of ground-glass and some nodularity no true consolidation mainly right base ever so slightly left base and the abdominal CT did definitely was some fat stranding surrounding the pancreas and the looked like there was a walled-off fluid collection in the in the body of the pancreas and even a little closer to the tail upon read drawing the blood we found that she had a profound metabolic acidosis with positive anion gap is certainly mainly consisting of lactic acidosis and had a potassium of 1.1 with an EKG demonstrating very severe diffuse ST segment depression with prolonged QT interval probably due to the U wave and the and but it was about 560 to almost 600 milliseconds and we were having a lot of accelerated idioventricular rhythm episodes all nonsustained and clearly an electrolyte repletion was necessary and we were giving potassium at the rate of 20 mEq per hour +40 mEq once every 2-3 hours in her GI tract in addition and patient is now sedated and intubated with ectopy calming ST segment depression is calming as the potassium gradually replete but the origin of this given her history still skates me know is 3 of laxative abuse or or diuretic use or abuse and her urine tox screen was negative I thought surely her bradycardia and relatively hypokinesia the no response to that degree of metabolic acidosis I thought for sure responses were blunted by some substance abuse everything was negative including alcohol salicylate and acetaminophen Review of Systems 2 Review of Systems: Yes Unobtainable due to mental status PMFSH Past Medical History Medical History (Updated 07/31/23 @ 21:[address] [facility]) GERD (gastroesophageal reflux disease) Back problem Asthma Social History Social History Smoked in Last 30 Days: Yes Use of substances other than those prescribed or required for medical reasons: No Advance Directives: No Advance Directives Information Provided: Yes Patient : No Meds Allergies Allergy/AdvReac Type Severity Reaction Status Date / Time amoxicillin Allergy Gastrointestinal Verified 07/31/23 15:47 Upset avocado Allergy Anaphylaxis Verified 07/31/23 15:47 honey Allergy Anaphylaxis Verified 07/31/23 15:47 Active Medications: Current Medications Norepinephrine Bitartrate (Levophed) 8 mg in 250 mls @ 0 mls/hr IV .Q0M [facility]; Protocol Last Admin: 07/31/23 19:43 Dose: 0.05 mcg/kg/min, 5.32 mls/hr Physical Exam 2 Vital Signs: Vital Signs: Last Vital Signs Temp 97.5 F 07/31/23 19:21 Pulse 68 07/31/23 19:43 Resp 20 07/31/23 19:21 BP 85/43 L 07/31/23 19:43 Pulse Ox 94 07/31/23 19:21 O2 Del Method Room Air 07/31/23 19:21 BMI result Body Mass Index 22.1 she was hypotensive requiring Levophed support normal sinus rhythm sedated and intubated positive neck vein distension and eventually after central line CVP was approximately 10 palpable bilateral carotid upstrokes no rubs no gallops abdominal exam nontender but she had an immense liver which felt like it was replaced and clearly by CT scan there was significant steatosis skin without significant livedo or acrocyanosis Results Labs 07/31/23 16:53 08/01/23 05:14 Labs: Laboratory Results - last 24 hr 07/31/23 07/31/23 07/31/23 16:17 16:53 18:16 MCV 90.8 MCH 32.5 MCHC 35.8 H RDW 15.5 Plt Count 351 MPV 10.1 Immature Gran % (Auto) 2.1 H Neut % (Auto) 91.5 H Lymph % (Auto) 4.5 L Love % (Auto) 1.5 L Eos % (Auto) 0.0 Baso % (Auto) 0.4 Lymph # (Auto) 1.5 Love # (Auto) 0.5 Eos # (Auto) 0.0 Baso # (Auto) 0.1 Abs Immat Gran (auto) 0.70 H Absolute Neuts (auto) 31.1 H Absolute Nucleated RBC 0.140 H Nucleated RBC % (auto) 0.4 H VBG pH VBG pCO2 VBG pO2 VBG HCO3 VBG O2 Saturation VBG Base Excess Anion Gap 29 H Estim Creat Clear Calc 51.5 Estimated GFR 52 Random Glucose 142 H Lactic Acid 9.8 H* Lactic Acid F/U @ 2Hr Calcium 7.8 L D Total Bilirubin 1.1 H 0.9 AST 196 H ALT 79 H Alkaline Phosphatase 181 H Total Protein 7.3 Albumin 3.3 L Lipase 50 Salicylates < 5.0 L Acetaminophen < 3 Ethyl Alcohol < 10 Influenza Type A (PCR) NEGATIVE Influenza Type B (PCR) NEGATIVE RSV RNA Qual (PCR) NEGATIVE SARS-CoV-2 RNA (RT-PCR) NEGATIVE 07/31/23 07/31/23 19:27 19:31 MCV MCH MCHC RDW Plt Count MPV Immature Gran % (Auto) Neut % (Auto) Lymph % (Auto) Love % (Auto) Eos % (Auto) Baso % (Auto) Lymph # (Auto) Love # (Auto) Eos # (Auto) Baso # (Auto) Abs Immat Gran (auto) Absolute Neuts (auto) Absolute Nucleated RBC Nucleated RBC % (auto) VBG pH 7.19 L* VBG pCO2 30 VBG pO2 70 VBG HCO3 12 L VBG O2 Saturation 92.0 VBG Base Excess -14.7 Anion Gap Estim Creat Clear Calc Estimated GFR Random Glucose Lactic Acid Lactic Acid F/U @ 2Hr 7.1 H* Calcium Total Bilirubin AST ALT Alkaline Phosphatase Total Protein Albumin Lipase Salicylates Acetaminophen Ethyl Alcohol Influenza Type A (PCR) Influenza Type B (PCR) RSV RNA Qual (PCR) SARS-CoV-2 RNA (RT-PCR) Imaging Radiologist's Impressions: Impressions Chest X-Ray 07/31/23 17:06 IMPRESSION: Linear basilar markings more likely due to scarring or atelectasis. Abdomen/Pelvis CT 07/31/23 17:48 IMPRESSION: 1. Findings are consistent with acute pancreatitis, with scattered acute fluid collections adjacent to the pancreatic head and tail, in the mesenteric root and in the bilateral paracolic gutters, left greater than right. 2. A 1.9 cm pancreatic body probable pseudocyst is noted. 3. There is marked hepatomegaly, and hepatic steatosis is seen. 4. A 1.7 cm nodule is seen within the lateral limb of the left adrenal gland. Current ACR WHITE PAPER RECOMMENDATIONS regarding incidental adrenal mass is include; - Imaging can characterize adrenal adenomas with high accuracy but cannot be used to distinguish hyperfunctioning from nonhyperfunctioning masses - Current guidelines from the [place] [employer] of Clinical Endocrinologists and the [place] Association of Endocrine Surgeons recommend an initial biochemical evaluation of all adrenal incidentalomas to exclude pheochromocytoma, subclinical Henrieville?s syndrome, and hyperaldosteronism. 5. Adjacent to the left iliac bifurcation, a 1.9 cm in short axis diameter lymph node is seen. This is nonspecific and should be managed on a clinical basis. Recommend continued attention on imaging follow-up. 6. No acute or aggressive osseous finding is seen. Fleischner guidelines were followed. Chest CT 07/31/23 19:11 IMPRESSION: Worsening patchy bilateral groundglass airspace disease more so in the right lower lobe. Infectious or inflammatory causes would be strongly favored with this distribution. Assessment and Plan (1) Pancreatitis, acute: Status: Acute (2) Atypical pneumonia: Status: Acute (3) Sepsis: Status: Acute Plan replete potassium as aggressively as I can and watch for resolution of the elevated lactate but empirically until cultures return cover her for this atypical pneumonia as well as the possibility that the process in the liver Total time managing care of this patient today: 120 minutes.
[2023-07-31] MEDS: Doxycycline Hyclate 100 MG in 0.9 % Sodium Chloride 250 ML 166.67 MG IV (20:06)
--- NOTE | 2023-07-31 20:25 | PC.NURSE ---
this rn assumed care of pt @ 1900. this rn to bedside pt daughter at bedside. ed techs attempting blood work. this rn discussed low bps with rachel vice squad police officer. vice squad police officer contacted seam finisher regarding plan [plan to admit to iuc. per daughter pt less responsive this rn made vice squad police officer aware of this statement by daughter as this rn unsure of level of responsiveness prior to coming on to shift. pt medicated according to dairn COOK HELPER PRESERVES to bedside. this rn and media relations director changed pt at this time pt incontinence urine and bm. this rn and media relations director placed 16 hungarian temp sensing wade catheter 10ml balloon inflated with 300ml immediate urine output.
[2023-07-31] MEDS: Rocuronium Bromide 50 MG/5 ML VIAL 40 MG IVPUSH (20:54)
[2023-07-31] MEDS: Etomidate 20 MG/10 ML VIAL IVPUSH (20:54)
[2023-07-31] MEDS: EPINEPHrine 5 MG in Dextrose 5 % 250 ML 34.7 MG IVCONT (21:01)
--- NOTE | 2023-07-31 21:30 | PC.NURSE ---
this rn, 2 additional rns, and dredge hand at bedside bp @ 2038 72/32 HR 61 @ 2043 HR 24 on monitor returning to 70s multiple RNs attempted pulse checks at this time no unable to find pulse. miguel a lopez called at this time chest compressions initiated. rachel clinical research director and dr damon to bedside. respiratory called @2044 epi given, vtach on the monitor bp 84/33 @2046 pulse present at pulse check @2048 HR 128 RR 21 BP 151/111 @2050 HR 97 RR 13 @2052 HR 95 BP 157/122 @2053 HR 95 100% bagged- 20mg etomidate given, 40mg Rocuronium given @2055 intubated 7.5, 22 @ the lip. provider did not place OG tube-HR 96 RR 21 100% @2100 epi gtt initiated- due to pharmacist order placement unable to scan med pharmacist called charge entry and ICU nurse aware @2101 doxycycline held due to limited iv access and pt need for high alert meds not compatible
[2023-07-31 21:31] LABS: Reflex Lactate? 2 Y
[2023-07-31 21:42] LABS: Appearance Urine Cloudy; Color Urine Dark Yellow; Glucose Urine UA Negative (Negative); Leukocyte Esterase Urine Trace (Negative); Nitrite Urine Negative (Negative); Specific Gravity - Urine 1.015 (1.005-1.025); UMIC TRIGGER UACC YES; Urine Blood Large (3+) (Negative); Urine Ketones Negative (Negative); Urine Protein 100 (2+) mg/dL (Neg-Trace)
[2023-07-31 21:48] LABS: Bacteria Urine None Seen (None Seen); RBC Urine 0-2 /HPF (0-2); WBC Urine 0-5 /HPF (0-5)
--- NOTE | 2023-07-31 22:00 | PC.NURSE ---
bedside report given to agricultural agent. this carnallite plant operatormedical collector delvin rn and RT for transport. unable to hang and administer potassium due to lack of of pump nurse discharge and icu nurse aware. unable to scan epi gtt due to pharmacy placement of order this rn contacted icu to relay message then spoke with pharmacist pharmacist assisted this rn in documentation in mar manually under document unscheduled nurse discharge made aware
[2023-07-31 22:25] LABS: Amphetamine Screen Urine Not Detected (Not Detect); Barbiturates, Urine Not Detected (Not Detect); Benzodiazepines Screen Urine Not Detected (Not Detect); Cannabinoid Screen Urine Not Detected (Not Detect); Cocaine Screen Urine Not Detected (Not Detect); Fentanyl, urine Not Detected (Not Detect); Opiate Screen Urine Not Detected (Not Detect); Phencyclidine Screen Urine Not Detected (Not Detect)
--- NOTE | 2023-07-31 22:31 | W.PM.CCHP ---
Procedures Date of Service Date of Service: 07/31/23 <Agueda Doan NP - Last Filed: 07/31/23 23:12> 08/01/23 <Josue Quesada MD - Last Filed: 08/01/23 08:34> Central Line Placement Left IJ: Central Line Comments: The left neck was widely prepped and draped in full sterile fashion.? Under US? guidance, the left IJ vein was cannulated on the 1st pass of the 18 g thin wall needle, with return of dark, nonpulsatile blood. ? The wire was threaded without incident.? The 16 cm x 7 Kinyarwanda triple-lumen CVC was advanced into the vein up to the hub via the Seldinger technique without incident.? There was good blood return x3.? The catheter was sutured x2 and a Biopatch and dry sterile dressing were applied. <Agueda Doan NP - Last Filed: 07/31/23 23:12> Consent for Procedure: Emergent-no informed consent obtained <Agueda Doan NP - Last Filed: 07/31/23 23:12> Time out performed: Yes <Agueda Doan NP - Last Filed: 07/31/23 23:12> Sterile Technique Used: Yes <Agueda Doan NP - Last Filed: 07/31/23 23:12> Patient placed on monitor/pulse ox: Yes <Agueda Doan NP - Last Filed: 07/31/23 23:12> prep: mask, gown and gloves <Agueda Doan NP - Last Filed: 07/31/23 23:12> Central line prep: Chlorhexidine scrub and sterile drapes applied <Agueda Doan NP - Last Filed: 07/31/23 23:12> Ultrasound used for placement: Yes <Agueda Doan NP - Last Filed: 07/31/23 23:12> Central line lumen inserted: triple <Agueda Doan NP - Last Filed: 07/31/23 23:12> Post procedure: sutured in place, good blood return, all ports aspirated, flushed, capped and sterile dressing applied <Agueda Doan NP - Last Filed: 07/31/23 23:12> Post procedure x-ray: tip of catheter in good position and no pneumothorax seen <Agueda Doan NP - Last Filed: 07/31/23 23:12> Patient tolerated procedure: well and no complications <Agueda Doan NP - Last Filed: 07/31/23 23:12> Complications: none <Agueda Doan NP - Last Filed: 07/31/23 23:12>
[2023-07-31 22:57] LABS: VBG Base Excess -17.8 mmol/L; VBG HCO3 11 mmol/L (22-26); VBG pCO2 35 mmHg; VBG pH 7.08 (7.32-7.43); VBG pO2 77 mmHg
[2023-07-31 23:08] LABS: ~Lactic Acid-LAB USE ONLY 7.5 mmol/L (0.5-2.0)
[2023-07-31] MEDS: Sodium Bicarbonate 8.4% 150 MEQ in Dextrose 5 % 850 ML 100 MEQ IV (23:12)
[2023-07-31] MEDS: Sodium Bicarbonate 8.4% 50 MEQ/50 ML SYRINGE IVPUSH (23:15)
[2023-07-31 23:21] LABS: Troponin-I High Sensitivity 21.7 ng/L (<3.5-17.0)
[2023-07-31] MEDS: Heparin Sodium,Porcine 5,000 UNIT/ML VIAL 5000 UNIT SUBCUT (23:26)
[2023-07-31 23:32] LABS: Erythrocyte Sedimentation Rate 9 MM/HR (0-20)
[2023-07-31 23:34] LABS: Blood Urea Nitrogen 17 mg/dL (9-16); Creatinine Clr Calc Pharmacy 54.9; Estimated Glomerular Filt Rate 55; Glucose Random 217 mg/dL (60-115); Phosphorus 5.7 mg/dL (2.7-4.5)
[2023-07-31 23:35] LABS: Sodium 130 mmol/L (135-145)
[2023-07-31 23:35] LABS: Cortisol Random 36.6 ug/dL
[2023-07-31 23:36] LABS: Anion Gap 22 (12-20); Carbon Dioxide 11 mmol/L (22-29); Chloride 98 mmol/L (96-108)
[2023-07-31 23:37] LABS: Calcium 6.1 mg/dL (8.4-10.2); Potassium 1.1 mmol/L (3.3-5.1)
[2023-07-31 23:44] LABS: Amylase 70 U/L (28-100); Magnesium 2.4 mg/dL (1.6-2.6)
[2023-07-31 23:49] LABS: Venous Blood Gas Refer to POC result
[2023-07-31] MEDS: Potassium Chloride/H20 40 MEQ/100 ML PIGGYBACK 50 MEQ IV (23:49)
[2023-07-31] MEDS: Potassium Chloride Packet 20 MEQ PACKET 40 MEQ OG-TUBE (23:49)
[2023-07-31] MEDS: Hydrocortisone Sod Succ/PF 100 MG VIAL IVPUSH (23:49)
[2023-07-31 23:50] LABS: Venous Blood Gas Refer to POC result
[2023-08-01] VITALS (64 sets, daily range): BP systolic 81–125; BP diastolic 42–72; PULSE 68–107; RESP 14–26; TEMP 32.5–38.2; O2SAT 95–100; BMI 21.0
--- NOTE | 2023-08-01 | ECG_ITS ---
Test Reason : rhythm change Blood Pressure : / mmHG Vent. Rate : 075 BPM Atrial Rate : 000 BPM P-R Int : 000 ms QRS Dur : 108 ms QT Int : 356 ms P-R-T Axes : 000 066 232 degrees QTc Int : 397 ms Atrial fibrillation Incomplete left bundle branch block Nonspecific ST and T wave abnormality Abnormal ECG When compared to the previous EKG of Jul, rhythm change Referred By: Agueda Doan Electronically Signed By:TERRANCE MCGILL
[2023-08-01 01:08] LABS: Anion Gap 21 (12-20); Blood Urea Nitrogen 17 mg/dL (9-16); Calcium 6.2 mg/dL (8.4-10.2); Carbon Dioxide 14 mmol/L (22-29); Chloride 98 mmol/L (96-108); Creatinine Clr Calc Pharmacy 54.9; Estimated Glomerular Filt Rate 55; Glucose Random 197 mg/dL (60-115); Potassium 1.3 mmol/L (3.3-5.1); Sodium 132 mmol/L (135-145)
[2023-08-01 01:26] LABS: TSH reflex Free T4 0.67 uIU/mL (0.32-4.0)
[2023-08-01] MEDS: Potassium Chloride Packet 20 MEQ PACKET 40 MEQ OG-TUBE ×2 (02:13→05:14)
[2023-08-01] MEDS: Potassium Chloride/H20 40 MEQ/100 ML PIGGYBACK 50 MEQ IV ×4 (02:15→19:43)
[2023-08-01] MEDS: propofoL 1,000 MG/100 ML VIAL 10.21 MG IVCONT (02:34)
[2023-08-01 03:15] LABS: VBG Base Excess -10.9 mmol/L; VBG HCO3 15 mmol/L (22-26); VBG pCO2 36 mmHg; VBG pH 7.23 (7.32-7.43); VBG pO2 68 mmHg
[2023-08-01 03:15] LABS: Venous Blood Gas Refer to POC result
[2023-08-01 03:26] LABS: Lactic Acid 7.1 mmol/L (0.5-2.0)
[2023-08-01 03:32] LABS: Anion Gap 24 (12-20); Blood Urea Nitrogen 18 mg/dL (9-16); Calcium 6.3 mg/dL (8.4-10.2); Carbon Dioxide 15 mmol/L (22-29); Chloride 99 mmol/L (96-108); Creatinine Clr Calc Pharmacy 52.9; Estimated Glomerular Filt Rate 53; Glucose Random 243 mg/dL (60-115); Potassium 1.6 mmol/L (3.3-5.1); Sodium 136 mmol/L (135-145)
[2023-08-01] MEDS: Norepinephrine Bitartrate/D5W 8 MG/250 ML PLAST..BAG 49.97 MG IV (03:44)
--- NOTE | 2023-08-01 04:30 | PC.NURSE ---
2130 pt arrived to the ICU via own bed, intubated, sedated, on levo drip at 0.14mcg/kg/min and Epi drip at 0.2mcg
--- NOTE | 2023-08-01 04:40 | PC.NURSE ---
Addendum entered by Gretchen Hoffman RN 08/01/23 05:26: approximately 0230- propofol drip was started at 30mcg/kg, bec pt started to move.Levo drip titrated according to protocol d/t low MAP. EPI drip was paused at 2241 and never been resumed. Potassium level is improving slowly from 1.1 to 1.3 and 1.6. Last rechecked done approx 0515am pending results. Turned and repositioned in bed. Mouth care done. pt had dry blood to her mouth. Original Note: Acquired care at 2130. Pt arrived to ICU via own bed from ED,accompanied by ED staff and RT. Intubated in ED, size 7.5 ETT tube cuffed ,23 to the lip. came with Levo drip at rate of 0.14mcg/kg/min and EPI drip at 0.2mcg/kg/min. NSR on monitor with frequent artifacts. Had few beats of Vtach intermittently around 2200. MD Benitez and CHILANGO Romeo at bedside. 12 leads EKG done and showed NSR with arrythmias. Had only 2 peripheral IV G22 on both arms. TLC to left IJ was inserted successfully under sterile technique.Grossman with core temp was inserted in ED. OG was also inserted and placement was verified by xray to both.Labs were drawn thru the TLC. Potassium level was critical 1.1. Pt given Potassium replacement of 40meq powder and 40 meq IV infusion times 2. Sodium bicarb 50 meq IVP was given and 150 meq IV infusion given at 100ml an hour subsequently. Approximately 2355 pt went into afib which was confirmed by another EKG then converted back to NSR at 0055.
[2023-08-01 05:07] LABS: Reflex Lactate? Lactic Acid Added
[2023-08-01] MEDS: Heparin Sodium,Porcine 5,000 UNIT/ML VIAL 5000 UNIT SUBCUT ×3 (05:14→23:00)
[2023-08-01 05:21] LABS: VBG Base Excess -9.9 mmol/L; VBG HCO3 15 mmol/L (22-26); VBG pCO2 31 mmHg; VBG pH 7.29 (7.32-7.43); VBG pO2 64 mmHg
[2023-08-01 05:52] LABS: Anion Gap 22 (12-20); Beta-Hydroxybutyrate 0.16 mmol/L (0.02-0.27); Blood Urea Nitrogen 17 mg/dL (9-16); Calcium 6.3 mg/dL (8.4-10.2); Carbon Dioxide 16 mmol/L (22-29); Chloride 98 mmol/L (96-108); Creatinine Clr Calc Pharmacy 52.9; Estimated Glomerular Filt Rate 53; Glucose Random 262 mg/dL (60-115); Magnesium 2.1 mg/dL (1.6-2.6); Potassium 1.7 mmol/L (3.3-5.1); Sodium 134 mmol/L (135-145)
[2023-08-01] MEDS: Pantoprazole Sodium 40 MG/10 ML VIAL IVPUSH (05:56)
[2023-08-01 07:27] LABS: Reflex Lactate? 2 Y
[2023-08-01 07:44] LABS: Venous Blood Gas Refer to POC result
[2023-08-01] MEDS: propofoL 1,000 MG/100 ML VIAL 17.01 MG IVCONT ×2 (07:50→23:52)
[2023-08-01] MEDS: Sodium Bicarbonate 8.4% 150 MEQ in Dextrose 5 % 850 ML 100 MEQ IV (08:31)
[2023-08-01] MEDS: Chlorhexidine Gluc Oral Rinse 15 ML MOUTHWASH BUCCAL ×3 (08:31→19:50)
[2023-08-01] MEDS: Norepinephrine Bitartrate/D5W 8 MG/250 ML PLAST..BAG 45.71 MG IV (08:40)
--- NOTE | 2023-08-01 08:49 | P.PNCC_ITS ---
Subjective Subjective Date of Service: 08/01/23 Interval History: this 47-year-old female who presented with a subacute story of progressive weakness anorexia and weight loss unable to hold things down with a background of asthma as well as alcoholism that claiming she stopped a month ago because of abdominal discomfort noted to have a huge liver with steatosis and CT scan showing fat stranding surrounding the pancreas implying pancreatitis but with negative lipase and amylase but evidence of what looks like some walled-off either adeno cyst or phlegmon in the pancreas and will probably have to get a GI opinion and aggressively following the potassium repletion as well as hopeful resolution of the lactic acid as I would check a procalcitonin to screen for evidence of a bacterial source of infection and it more complete respiratory pathogen panel by PCR is pending and I am covering with doxycycline for the chest and with meropenem for the for the abdomen Critical Care Time (minutes): 45 Physical Exam 2 Vital Signs: Vital Signs: Last Vital Signs Temp 99.5 F 08/01/23 07:00 Pulse 87 08/01/23 08:40 Resp 24 H 08/01/23 07:00 BP 90/46 L 08/01/23 08:40 Pulse Ox 100 08/01/23 07:00 O2 Del Method Mechanical Ventil ation 08/01/23 07:00 O2 Flow Rate 10 07/31/23 20:45 FiO2 30 08/01/23 08:02 BMI result Body Mass Index 21.0 vital signs stable just 107/57 with a mean of 7 the and pressure on Levophed with an oxygen saturation of 100% and normal sinus rhythm at rate 88 with what looks like some resolution of those ST segments and no ectopy will sedated and intubated marked hepatomegaly but abdomen is soft with positive bowel sounds nontender and chest without adventitious sounds bedside echo with the preserved LV and RV function no primary valve or pericardial disease Objective Data Labs 07/31/23 16:53 08/01/23 05:14 Labs: Laboratory Results - last 24 hr 07/31/23 07/31/23 07/31/23 16:17 16:53 18:16 WBC 34.0 H* RBC 3.14 L D Hgb 10.2 L D Hct 28.5 L D MCV 90.8 MCH 32.5 MCHC 35.8 H RDW 15.5 Plt Count 351 MPV 10.1 Immature Gran % (Auto) 2.1 H Neut % (Auto) 91.5 H Lymph % (Auto) 4.5 L Mchenry % (Auto) 1.5 L Eos % (Auto) 0.0 Baso % (Auto) 0.4 Lymph # (Auto) 1.5 Mchenry # (Auto) 0.5 Eos # (Auto) 0.0 Baso # (Auto) 0.1 Abs Immat Gran (auto) 0.70 H Absolute Neuts (auto) 31.1 H Absolute Nucleated RBC 0.140 H Nucleated RBC % (auto) 0.4 H ESR Hold Purple Top VBG pH VBG pCO2 VBG pO2 VBG HCO3 VBG O2 Saturation VBG Base Excess Sodium 127 L Potassium 3.4 D Chloride 90 L Carbon Dioxide 11 L Anion Gap 29 H BUN 18 H Creatinine 1.14 Estim Creat Clear Calc 51.5 Estimated GFR 52 Random Glucose 142 H Lactic Acid 9.8 H* Lactic Acid F/U @ 2Hr Lactic Acid F/U @ 4Hr Calcium 7.8 L D Phosphorus Magnesium Total Bilirubin 1.1 H 0.9 AST 196 H ALT 79 H Alkaline Phosphatase 181 H Troponin I High Sens Total Protein 7.3 Albumin 3.3 L Amylase Lipase 50 Beta-Hydroxybutyrate TSH Random Cortisol Urine Color Urine Appearance Urine pH Ur Specific [place] Urine Protein Urine Glucose (UA) Urine Ketones Urine Blood Urine Nitrite Ur Leukocyte Esterase Urine RBC Urine WBC Ur Squamous Epith Cells Urine Bacteria Hyaline Casts Salicylates < 5.0 L Urine Opiates Screen Urine Fentanyl Screen Acetaminophen < 3 Ur Barbiturates Screen Ur Phencyclidine Scrn Ur Amphetamines Screen U Benzodiazepines Scrn Urine Cocaine Screen U Marijuana (THC) Screen Ethyl Alcohol < 10 Influenza Type A (PCR) NEGATIVE Influenza Type B (PCR) NEGATIVE RSV RNA Qual (PCR) NEGATIVE SARS-CoV-2 RNA (RT-PCR) NEGATIVE 07/31/23 07/31/23 07/31/23 19:27 19:31 21:33 WBC RBC Hgb Hct MCV MCH MCHC RDW Plt Count MPV Immature Gran % (Auto) Neut % (Auto) Lymph % (Auto) Mchenry % (Auto) Eos % (Auto) Baso % (Auto) Lymph # (Auto) Mchenry # (Auto) Eos # (Auto) Baso # (Auto) Abs Immat Gran (auto) Absolute Neuts (auto) Absolute Nucleated RBC Nucleated RBC % (auto) ESR Hold Purple Top VBG pH 7.19 L* VBG pCO2 30 VBG pO2 70 VBG HCO3 12 L VBG O2 Saturation 92.0 VBG Base Excess -14.7 Sodium Potassium Chloride Carbon Dioxide Anion Gap BUN Creatinine Estim Creat Clear Calc Estimated GFR Random Glucose Lactic Acid Lactic Acid F/U @ 2Hr 7.1 H* Lactic Acid F/U @ 4Hr Calcium Phosphorus Magnesium Total Bilirubin AST ALT Alkaline Phosphatase Troponin I High Sens Total Protein Albumin Amylase Lipase Beta-Hydroxybutyrate TSH Random Cortisol Urine Color Dark Yellow Urine Appearance Cloudy Urine pH 6.0 Ur Specific [place] 1.015 Urine Protein 100 (2+) H Urine Glucose (UA) Negative Urine Ketones Negative Urine Blood Large (3+) H Urine Nitrite Negative Ur Leukocyte Esterase Trace H Urine RBC 0-2 Urine WBC 0-5 Ur Squamous Epith Cells 11-20 Urine Bacteria None Seen Hyaline Casts 3-5 Salicylates Urine Opiates Screen Not Detected Urine Fentanyl Screen Not Detected Acetaminophen Ur Barbiturates Screen Not Detected Ur Phencyclidine Scrn Not Detected Ur Amphetamines Screen Not Detected U Benzodiazepines Scrn Not Detected Urine Cocaine Screen Not Detected U Marijuana (THC) Screen Not Detected Ethyl Alcohol Influenza Type A (PCR) Influenza Type B (PCR) RSV RNA Qual (PCR) SARS-CoV-2 RNA (RT-PCR) 07/31/23 07/31/23 08/01/23 22:45 22:47 00:37 WBC RBC Hgb Hct MCV MCH MCHC RDW Plt Count MPV Immature Gran % (Auto) Neut % (Auto) Lymph % (Auto) Mchenry % (Auto) Eos % (Auto) Baso % (Auto) Lymph # (Auto) Mchenry # (Auto) Eos # (Auto) Baso # (Auto) Abs Immat Gran (auto) Absolute Neuts (auto) Absolute Nucleated RBC Nucleated RBC % (auto) ESR 9 Hold Purple Top VBG pH 7.08 L* VBG pCO2 35 VBG pO2 77 VBG HCO3 11 L VBG O2 Saturation 90.0 VBG Base Excess -17.8 Sodium 130 L 132 L Potassium 1.1 L* D 1.3 L* Chloride 98 98 Carbon Dioxide 11 L 14 L Anion Gap 22 H 21 H BUN 17 H 17 H Creatinine 1.07 1.07 Estim Creat Clear Calc 54.9 54.9 Estimated GFR 55 55 Random Glucose 217 H 197 H Lactic Acid Lactic Acid F/U @ 2Hr Lactic Acid F/U @ 4Hr 7.5 H* Calcium 6.1 L D 6.2 L Phosphorus 5.7 H Magnesium 2.4 Total Bilirubin AST ALT Alkaline Phosphatase Troponin I High Sens 21.7 H Total Protein Albumin Amylase 70 Lipase Beta-Hydroxybutyrate TSH Cancelled 0.67 Random Cortisol 36.6 Urine Color Urine Appearance Urine pH Ur Specific [place] Urine Protein Urine Glucose (UA) Urine Ketones Urine Blood Urine Nitrite Ur Leukocyte Esterase Urine RBC Urine WBC Ur Squamous Epith Cells Urine Bacteria Hyaline Casts Salicylates Urine Opiates Screen Urine Fentanyl Screen Acetaminophen Ur Barbiturates Screen Ur Phencyclidine Scrn Ur Amphetamines Screen U Benzodiazepines Scrn Urine Cocaine Screen U Marijuana (THC) Screen Ethyl Alcohol Influenza Type A (PCR) Influenza Type B (PCR) RSV RNA Qual (PCR) SARS-CoV-2 RNA (RT-PCR) 08/01/23 08/01/23 08/01/23 03:03 03:08 05:14 WBC RBC Hgb Hct MCV MCH MCHC RDW Plt Count MPV Immature Gran % (Auto) Neut % (Auto) Lymph % (Auto) Mchenry % (Auto) Eos % (Auto) Baso % (Auto) Lymph # (Auto) Mchenry # (Auto) Eos # (Auto) Baso # (Auto) Abs Immat Gran (auto) Absolute Neuts (auto) Absolute Nucleated RBC Nucleated RBC % (auto) ESR Hold Purple Top VBG pH 7.23 L 7.29 L VBG pCO2 36 31 VBG pO2 68 64 VBG HCO3 15 L 15 L VBG O2 Saturation 94.0 90.0 VBG Base Excess -10.9 -9.9 Sodium 136 134 L Potassium 1.6 L* D 1.7 L* Chloride 99 98 Carbon Dioxide 15 L 16 L Anion Gap 24 H 22 H BUN 18 H 17 H Creatinine 1.11 1.11 Estim Creat Clear Calc 52.9 52.9 Estimated GFR 53 53 Random Glucose 243 H 262 H Lactic Acid 7.1 H* Lactic Acid F/U @ 2Hr 8.0 H* Lactic Acid F/U @ 4Hr Calcium 6.3 L 6.3 L Phosphorus Magnesium 2.1 Total Bilirubin AST ALT Alkaline Phosphatase Troponin I High Sens Total Protein Albumin Amylase Lipase Beta-Hydroxybutyrate 0.16 TSH Random Cortisol Urine Color Urine Appearance Urine pH Ur Specific [place] Urine Protein Urine Glucose (UA) Urine Ketones Urine Blood Urine Nitrite Ur Leukocyte Esterase Urine RBC Urine WBC Ur Squamous Epith Cells Urine Bacteria Hyaline Casts Salicylates Urine Opiates Screen Urine Fentanyl Screen Acetaminophen Ur Barbiturates Screen Ur Phencyclidine Scrn Ur Amphetamines Screen U Benzodiazepines Scrn Urine Cocaine Screen U Marijuana (THC) Screen Ethyl Alcohol Influenza Type A (PCR) Influenza Type B (PCR) RSV RNA Qual (PCR) SARS-CoV-2 RNA (RT-PCR) 08/01/23 07:59 WBC RBC Hgb Hct MCV MCH MCHC RDW Plt Count MPV Immature Gran % (Auto) Neut % (Auto) Lymph % (Auto) Mchenry % (Auto) Eos % (Auto) Baso % (Auto) Lymph # (Auto) Mchenry # (Auto) Eos # (Auto) Baso # (Auto) Abs Immat Gran (auto) Absolute Neuts (auto) Absolute Nucleated RBC Nucleated RBC % (auto) ESR Hold Purple Top SEE NOTE VBG pH VBG pCO2 VBG pO2 VBG HCO3 VBG O2 Saturation VBG Base Excess Sodium Potassium Chloride Carbon Dioxide Anion Gap BUN Creatinine Estim Creat Clear Calc Estimated GFR Random Glucose Lactic Acid Lactic Acid F/U @ 2Hr Lactic Acid F/U @ 4Hr Calcium Phosphorus Magnesium Total Bilirubin AST ALT Alkaline Phosphatase Troponin I High Sens Total Protein Albumin Amylase Lipase Beta-Hydroxybutyrate TSH Random Cortisol Urine Color Urine Appearance Urine pH Ur Specific [place] Urine Protein Urine Glucose (UA) Urine Ketones Urine Blood Urine Nitrite Ur Leukocyte Esterase Urine RBC Urine WBC Ur Squamous Epith Cells Urine Bacteria Hyaline Casts Salicylates Urine Opiates Screen Urine Fentanyl Screen Acetaminophen Ur Barbiturates Screen Ur Phencyclidine Scrn Ur Amphetamines Screen U Benzodiazepines Scrn Urine Cocaine Screen U Marijuana (THC) Screen Ethyl Alcohol Influenza Type A (PCR) Influenza Type B (PCR) RSV RNA Qual (PCR) SARS-CoV-2 RNA (RT-PCR) Progress Note: A&P Assessment and plan (1) Pancreatitis, acute: Status: Acute (2) Atypical pneumonia: Status: Acute (3) Sepsis: Status: Acute (4) Hypokalemia due to loss of potassium: Status: Acute (5) Hyponatremia: Status: Acute (6) Nonsustained ventricular tachycardia: Status: Acute Plan continued electrolyte replacement mainly the potassium and following lactic acid initiating a procalcitonin as we await culture results and the respiratory pathogen panel towards which and I am going to continue with the doxycycline and meropenem IV fluid replacement and Levophed support of blood pressure and ventilator support Quality Stroke Does the patient have a stroke diagnosis?: No VTE Prior VTE?: No VTE Risk Level:: Medical - moderate - high VTE Device Contraindication: N/A - Device Ordered VTE Drug Contraindication: N/A - Med Ordered
--- NOTE | 2023-08-01 08:54 | PHA.MEDREC ---
Pharmacy Consult ? Medication Reconciliation Pharmacy has completed the medication reconciliation. Called patient's daughter to confirm meds. Daughter knows pt's meds.
[2023-08-01] MEDS: Doxycycline Hyclate 100 MG in 0.9 % Sodium Chloride 250 ML 166.67 MG IV ×2 (08:58→19:44)
[2023-08-01 09:16] LABS: ~Lactic Acid-LAB USE ONLY 9.3 mmol/L (0.5-2.0)
[2023-08-01 09:26] LABS: Hemoglobin 8.1 g/dl (12.0-16.0); NRBC Pct Auto 0.6 /100WBC (0.0-0.2)
[2023-08-01 09:31] LABS: Hematocrit 21.9 % (37.0-47.0); Mean Corpuscular Hemoglobin 33.1 pg (27.0-33.0); Mean Corpuscular Volume 89.4 fL (80.0-98.0); Mean Platelet Volume 10.2 fL (9.4-12.3); Platelet Count 310 X10*3/uL (160-400); Red Blood Count 2.45 X10*6/uL (4.20-5.50); Red Cell Distribution Width 15.8 % (11.0-16.0)
[2023-08-01 09:42] LABS: WBC ABN SCTR FOR CBC 1
[2023-08-01] MEDS: Thiamine HCL 100 MG in 0.9 % Sodium Chloride 100 ML 202 MG IV (09:49)
[2023-08-01 09:51] LABS: White Blood Count 38.8 X10*3/uL (4.8-10.8)
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
[2023-08-01 10:01] LABS: Potassium Urine Random 39.8 mmol/L
[2023-08-01 10:03] LABS: TSH reflex Free T4 0.47 uIU/mL (0.32-4.0)
[2023-08-01 10:09] LABS: VBG Base Excess -9.7 mmol/L; VBG HCO3 15 mmol/L (22-26); VBG pCO2 28 mmHg; VBG pH 7.32 (7.32-7.43); VBG pO2 92 mmHg
[2023-08-01 10:09] LABS: Venous Blood Gas Refer to POC result
[2023-08-01 10:19] LABS: Anion Gap 23 (12-20); Beta-Hydroxybutyrate 0.17 mmol/L (0.02-0.27); Blood Urea Nitrogen 16 mg/dL (9-16); Calcium 6.2 mg/dL (8.4-10.2); Carbon Dioxide 16 mmol/L (22-29); Chloride 100 mmol/L (96-108); Creatinine Clr Calc Pharmacy 55.9; Estimated Glomerular Filt Rate 57; Glucose Random 255 mg/dL (60-115); Lipase 47 U/L (8-78); Magnesium 2.1 mg/dL (1.6-2.6); Potassium 2.1 mmol/L (3.3-5.1); Sodium 137 mmol/L (135-145)
[2023-08-01 10:20] LABS: Adenovirus PCR Not Detected (Not Detect.); Bordetella parapertussis PCR Not Detected (Not Detect.); Bordetella pertussis PCR Not Detected (Not Detect.); Chlamydia pneumoniae PCR Not Detected (Not Detect.); Coronavirus 229E PCR Not Detected (Not Detect.); Coronavirus HKU1 PCR Not Detected (Not Detect.); Coronavirus NL63 PCR Not Detected (Not Detect.); Coronavirus OC43 PCR Not Detected (Not Detect.); Human metapneumovirus PCR Not Detected (Not Detect.); Influenza A PCR Not Detected (Not Detect.); Influenza B PCR Not Detected (Not Detect.); Mycoplasma pneumoniae PCR Not Detected (Not Detect.); Parainfluenza 1 PCR Not Detected (Not Detect.); Parainfluenza 2 PCR Not Detected (Not Detect.); Parainfluenza 3 PCR Not Detected (Not Detect.); Parainfluenza 4 PCR Not Detected (Not Detect.); RSV PCR Not Detected (Not Detect.); Rhino/Enterovirus PCR Not Detected (Not Detect.); SARS-CoV-2 PCR Not Detected (Not Detect.)
[2023-08-01 10:30] LABS: Procalcitonin 2.03 ng/mL
[2023-08-01] MEDS: Potassium Chloride Packet 20 MEQ PACKET 40 MEQ PO ×2 (11:15→17:25)
[2023-08-01 11:22] LABS: Band Neutrophils Percent 33 % (3-5); Lymphocytes Absolute Manual 0.8 X10*3/uL (1.2-4.9); Lymphocytes Percent Manual 2 % (20-40); Macrocytosis 1+ (5-14) /OIF; Microcytosis 1+ (5-14) /OIF; Neutrophils Percent Manual 65 % (45-73); RBC Morphology NOTED
[2023-08-01 11:23] LABS: Large Platelet PRESENT; Platelet Estimate NORMAL (NORMAL); Platelet Morphology Comment NOTED
[2023-08-01 11:24] LABS: Basophilic Stippling 1+ (0-2) /OIF; Hypochromasia 1+ (5-14) /OIF; Stomatocytes 1+ (5-14) /OIF; Target Cells 1+ (5-14) /OIF; Toxic Vacuolation PRESENT
[2023-08-01] MEDS: Albuterol/Iprat 2.5/0.5MG 3 ML AMPUL.NEB INHALE ×3 (11:40→19:17)
[2023-08-01] MEDS: propofoL 1,000 MG/100 ML VIAL 20.41 MG IVCONT (13:11)
[2023-08-01] MEDS: Norepinephrine Bitartrate/D5W 8 MG/250 ML PLAST..BAG 47.84 MG IV (13:44)
[2023-08-01] MEDS: LORazepam 2 MG/ML VIAL 1 MG IVPUSH (14:17)
[2023-08-01] MEDS: Linezolid/D5W 600 MG/300 ML PIGGYBACK 300 MG IV (14:18)
[2023-08-01 14:25] LABS: Venous Blood Gas Refer to POC result
[2023-08-01 14:25] LABS: VBG HCO3 23 mmol/L (22-26); VBG pCO2 31 mmHg; VBG pH 7.47 (7.32-7.43); VBG pO2 62 mmHg
[2023-08-01 14:28] LABS: INTERNATIONAL NORM RATIO 1.3 (0.9-1.1); Prothrombin Time 16.4 SEC (11.1-13.3)
[2023-08-01 14:30] LABS: D Dimer High Sensitivity 631 NG/ML
[2023-08-01 14:31] LABS: Partial Thromboplastin Time 24.4 SEC (26.0-36.4)
[2023-08-01 14:38] LABS: Anion Gap 21 (12-20); Blood Urea Nitrogen 18 mg/dL (9-16); Calcium 6.3 mg/dL (8.4-10.2); Carbon Dioxide 21 mmol/L (22-29); Chloride 99 mmol/L (96-108); Creatinine Clr Calc Pharmacy 55.9; Estimated Glomerular Filt Rate 57; Glucose Random 125 mg/dL (60-115); Lactate Dehydrogenase 555 U/L (122-220); Potassium 2.8 mmol/L (3.3-5.1); Sodium 138 mmol/L (135-145)
[2023-08-01 14:45] LABS: Lactic Acid 5.9 mmol/L (0.5-2.0)
[2023-08-01 16:16] LABS: Reflex Lactate? Lactic Acid Added
[2023-08-01 17:03] LABS: Cancel Lactic Acid Canceled
[2023-08-01 17:28] LABS: Venous Blood Gas Refer to POC result
[2023-08-01 17:29] LABS: VBG Base Excess -1.5 mmol/L; VBG HCO3 21 mmol/L (22-26); VBG pCO2 31 mmHg; VBG pH 7.44 (7.32-7.43); VBG pO2 60 mmHg
[2023-08-01 17:32] LABS: Hemoglobin 7.6 g/dl (12.0-16.0); Mean Corpuscular HGB Conc 37.1 g/dl (31.0-35.0); Mean Corpuscular Volume 89.1 fL (80.0-98.0); Mean Platelet Volume 10.4 fL (9.4-12.3); NRBC Pct Auto 0.4 /100WBC (0.0-0.2); Platelet Count 246 X10*3/uL (160-400); Red Cell Distribution Width 15.9 % (11.0-16.0)
[2023-08-01 17:34] LABS: White Blood Count 34.2 X10*3/uL (4.8-10.8)
[2023-08-01 17:35] LABS: Hematocrit 20.5 % (37.0-47.0)
[2023-08-01 18:02] LABS: Alanine Aminotransferase 52 U/L (0-31); Albumin Level 2.4 g/dL (3.5-5.0); Alkaline Phosphatase 158 U/L (39-117); Anion Gap 22 (12-20); Aspartate Amino Transferase 115 U/L (5-31); Bilirubin Total 0.7 mg/dL (0.0-1.0); Blood Urea Nitrogen 19 mg/dL (9-16); Calcium 6.2 mg/dL (8.4-10.2); Carbon Dioxide 20 mmol/L (22-29); Chloride 97 mmol/L (96-108); Creatinine Clr Calc Pharmacy 50.2; Estimated Glomerular Filt Rate 50; Glucose Random 102 mg/dL (60-115); Magnesium 1.9 mg/dL (1.6-2.6); Phosphorus 1.3 mg/dL (2.7-4.5); Potassium 2.3 mmol/L (3.3-5.1); Sodium 137 mmol/L (135-145)
[2023-08-01] MEDS: Potassium Chloride/H20 40 MEQ/100 ML PIGGYBACK 100 MEQ IV (18:19)
[2023-08-01] MEDS: propofoL 1,000 MG/100 ML VIAL 13.61 MG IVCONT (18:19)
[2023-08-01] MEDS: Norepinephrine Bitartrate/D5W 8 MG/250 ML PLAST..BAG 36.15 MG IV (18:32)
[2023-08-01 22:10] LABS: VBG Base Excess -0.8 mmol/L; VBG HCO3 21 mmol/L (22-26); VBG pCO2 28 mmHg; VBG pH 7.49 (7.32-7.43); VBG pO2 41 mmHg
[2023-08-01 22:38] LABS: Anion Gap 21 (12-20); Blood Urea Nitrogen 19 mg/dL (9-16); Calcium 6.3 mg/dL (8.4-10.2); Carbon Dioxide 20 mmol/L (22-29); Chloride 101 mmol/L (96-108); Creatinine Clr Calc Pharmacy 49.7; Estimated Glomerular Filt Rate 50; Glucose Random 109 mg/dL (60-115); Magnesium 1.8 mg/dL (1.6-2.6); Phosphorus < 0.7 mg/dL (2.7-4.5); Potassium 4.9 mmol/L (3.3-5.1); Sodium 137 mmol/L (135-145)
[2023-08-01] MEDS: Potassium Phosphate/NS 15 MMOL/250 ML PLAST..BAG 62.5 MMOL IV (23:02)
[2023-08-02] VITALS (45 sets, daily range): BP systolic 85–125; BP diastolic 48–76; PULSE 86–103; RESP 12–21; TEMP 35–37.7; O2SAT 94–100; BMI 22.8
[2023-08-02 00:28] LABS: Venous Blood Gas Refer to POC result
[2023-08-02] MEDS: Norepinephrine Bitartrate/D5W 8 MG/250 ML PLAST..BAG 38.27 MG IV (00:45)
[2023-08-02] MEDS: Linezolid/D5W 600 MG/300 ML PIGGYBACK 300 MG IV (00:47)
[2023-08-02 02:36] LABS: Anion Gap 19 (12-20); Blood Urea Nitrogen 19 mg/dL (9-16); Calcium 6.2 mg/dL (8.4-10.2); Carbon Dioxide 19 mmol/L (22-29); Chloride 102 mmol/L (96-108); Creatinine Clr Calc Pharmacy 51.5; Estimated Glomerular Filt Rate 52; Glucose Random 121 mg/dL (60-115); Magnesium 1.7 mg/dL (1.6-2.6); Phosphorus 1.8 mg/dL (2.7-4.5); Potassium 4.5 mmol/L (3.3-5.1); Sodium 135 mmol/L (135-145)
[2023-08-02] MEDS: propofoL 1,000 MG/100 ML VIAL 17.01 MG IVCONT (03:51)
[2023-08-02] MEDS: Omeprazole/Na Bicarb Oral Susp 20 MG/10 ML UD Cup 40 MG PO (05:16)
[2023-08-02 05:29] LABS: VBG Base Excess -0.9 mmol/L; VBG HCO3 22 mmol/L (22-26); VBG pCO2 30 mmHg; VBG pH 7.47 (7.32-7.43); VBG pO2 46 mmHg
[2023-08-02 05:33] LABS: Venous Blood Gas Refer to POC result
[2023-08-02 06:24] LABS: Basophils Absolute Auto 0.1 X10*3/uL (0.0-0.2); Basophils Percent Auto 0.5 % (0-2); Eosinophils Absolute Auto 0.2 X10*3/uL (0.0-0.4); Eosinophils Percent Auto 0.7 % (0-4); Hemoglobin 7.5 g/dl (12.0-16.0); Imm Gran Abs Auto 1.33 X10*3/uL (0.00-0.03); Imm Gran Pct Auto 4.7 % (0.0-0.4); Lymphocytes Absolute Auto 4.2 X10*3/uL (1.2-4.9); Lymphocytes Percent Auto 14.9 % (20-40); MANUAL DIFF FLAG SCAN; Mean Corpuscular HGB Conc 36.9 g/dl (31.0-35.0); Mean Corpuscular Hemoglobin 33.6 pg (27.0-33.0); Mean Platelet Volume 10.7 fL (9.4-12.3); Monocytes Absolute Auto 0.7 X10*3/uL (0.1-1.2); Monocytes Percent Auto 2.5 % (2-11); NRBC Pct Auto 0.4 /100WBC (0.0-0.2); Neutrophils Absolute Auto 21.7 x10*3/uL (2.0-8.3); Neutrophils Percent Auto 76.7 % (45-73); Platelet Count 212 X10*3/uL (160-400); Red Blood Count 2.23 X10*6/uL (4.20-5.50); Red Cell Distribution Width 15.9 % (11.0-16.0); SCAN SMEAR FLAG 1; White Blood Count 28.3 X10*3/uL (4.8-10.8)
[2023-08-02 06:28] LABS: Alanine Aminotransferase 48 U/L (0-31); Albumin Level 2.4 g/dL (3.5-5.0); Alkaline Phosphatase 177 U/L (39-117); Anion Gap 20 (12-20); Aspartate Amino Transferase 119 U/L (5-31); Bilirubin Total 0.7 mg/dL (0.0-1.0); Blood Urea Nitrogen 19 mg/dL (9-16); Calcium 6.3 mg/dL (8.4-10.2); Carbon Dioxide 19 mmol/L (22-29); Chloride 102 mmol/L (96-108); Creatinine Clr Calc Pharmacy 58.7; Estimated Glomerular Filt Rate 60; Glucose Random 95 mg/dL (60-115); Magnesium 1.8 mg/dL (1.6-2.6); Phosphorus 1.7 mg/dL (2.7-4.5); Potassium 4.3 mmol/L (3.3-5.1); Sodium 137 mmol/L (135-145); Total Protein 5.2 g/dL (6.5-8.0)
[2023-08-02 06:33] LABS: Hematocrit 20.3 % (37.0-47.0)
[2023-08-02 07:41] LABS: SLIDE REVIEW VERIFIED
[2023-08-02] MEDS: Albumin Human 25 % 100 ML IV ×2 (07:52→09:03)
[2023-08-02] MEDS: Potassium Phosphate/NS 15 MMOL/250 ML PLAST..BAG 62.5 MMOL IV (07:54)
[2023-08-02] MEDS: Doxycycline Hyclate 100 MG in 0.9 % Sodium Chloride 250 ML 166.67 MG IV (07:57)
[2023-08-02] MEDS: Albuterol/Iprat 2.5/0.5MG 3 ML AMPUL.NEB INHALE ×4 (07:59→20:30)
[2023-08-02] MEDS: Thiamine HCL 100 MG TABLET PO (09:03)
[2023-08-02] MEDS: cefTRIAXone sodium 1 GM in 0.9 % Sodium Chloride 50 ML IV (09:03)
[2023-08-02] MEDS: Chlorhexidine Gluc Oral Rinse 15 ML MOUTHWASH BUCCAL (09:03)
[2023-08-02] MEDS: propofoL 1,000 MG/100 ML VIAL 8.51 MG IVCONT (10:18)
[2023-08-02] MEDS: Norepinephrine Bitartrate/D5W 8 MG/250 ML PLAST..BAG 19.14 MG IV (10:19)
--- NOTE | 2023-08-02 10:21 | P.PNCC_ITS ---
Subjective Subjective Date of Service: 08/02/23 Interval History: 47-year-old lady with underlying anorexia with progressive weakness admitted on 08/01/2023 with failure to thrive with profound hypophosphatemia and hypokalemia further complicated by hypoxia and acute respiratory failure requiring intubation and ventilatory/pressor support. No events overnight. Critical Care Time (minutes): 60 Physical Exam 2 Vital Signs: Vital Signs: Last Vital Signs Temp 98.1 F 08/02/23 10:00 Pulse 92 08/02/23 10:19 Resp 15 08/02/23 10:00 BP 99/66 08/02/23 10:19 Pulse Ox 100 08/02/23 10:00 O2 Del Method Mechanical Ventil ation 08/02/23 10:00 O2 Flow Rate 10 07/31/23 20:45 FiO2 21 08/02/23 10:00 BMI result Body Mass Index 22.8 Const: General: no acute distress and other (Sedated on the vent) N utritional Appearance: cachectic Eyes: Sclerae: sclerae normal EOM: EOMs intact bilaterally Neck: Neck: Yes no lymphadenopathy, Yes trachea midline and Yes supple Resp: Effort & Inspection: normal respiratory effort and no respiratory distress Auscultation: clear to auscultation bilaterally Cardio: Rate: regular rate Rhythm: regular rhythm Heart sounds: no gallops, no murmurs and no rubs GI: Palpation (GI): Soft to palpation and Other GI palpation findings present ( Nontender) Auscultation: normal bowel sounds Extrem: General: Yes no pedal edema, No clubbing and No cyanosis Objective Data Labs 08/02/23 05:22 08/02/23 05:22 Labs: Laboratory Results - last 24 hr 08/01/23 08/01/23 08/01/23 09:14 09:17 14:10 WBC RBC Hgb Hct MCV MCH MCHC RDW Plt Count MPV Immature Gran % (Auto) Neut % (Auto) Lymph % (Auto) [place] % (Auto) Eos % (Auto) Baso % (Auto) Lymph # (Auto) [place] # (Auto) Eos # (Auto) Baso # (Auto) Abs Immat Gran (auto) Absolute Neuts (auto) Absolute Nucleated RBC Nucleated RBC % (auto) Neutrophils % (Manual) 65 Band Neutrophils % 33 H Lymphocytes % (Manual) 2 L Abs Neuts (Manual) 38.0 H Lymphocytes # (Manual) 0.8 L Toxic Vacuolation PRESENT Platelet Estimate NORMAL Large Platelets PRESENT Plt Morphology Comment NOTED RBC Morphology NOTED Hypochromasia 1+ (5-14) Basophilic Stippling 1+ (0-2) Microcytosis 1+ (5-14) Macrocytosis 1+ (5-14) Target Cells 1+ (5-14) Stomatocytes 1+ (5-14) Smear Tech's Comments PT 16.4 H INR 1.3 H APTT 24.4 L D-Dimer High Sensitivty 631 VBG pH VBG pCO2 VBG pO2 VBG HCO3 VBG O2 Saturation VBG Base Excess Sodium 138 Potassium 2.8 L D Chloride 99 Carbon Dioxide 21 L Anion Gap 21 H BUN 18 H Creatinine 1.05 Estim Creat Clear Calc 55.9 Estimated GFR 57 Random Glucose 125 H Lactic Acid 5.9 H* Lactic Acid F/U @ 2Hr Calcium 6.3 L Phosphorus Magnesium Total Bilirubin AST ALT Alkaline Phosphatase Lactate Dehydrogenase 555 H Total Protein Albumin Procalcitonin 2.03 Respiratory Panel [place] See Note Adenovirus (Rapid PCR) Not Detected B.pert (TEM-PCR) Not Detected B.parapertussis DNA PCR Not Detected C. pneumoniae DNA (PCR) Not Detected Coronavirus OC43 (PCR) Not Detected Coronavirus HKU1 (PCR) Not Detected Coronavirus 229E (PCR) Not Detected Coronavirus NL63 (PCR) Not Detected Human Metapneumovir PCR Not Detected Influenza A (RT-PCR) Not Detected Influenza B (RT-PCR) Not Detected M. pneumoniae (PCR) Not Detected Parainfluenza 1 (PCR) Not Detected Parainfluenza 2 (PCR) Not Detected Parainfluenza 3 (PCR) Not Detected Parainfluenza 4 (PCR) Not Detected RSV (PCR) Not Detected Entero/Rhino (PCR) Not Detected SARS-CoV-2 RNA (RT-PCR) Not Detected Blood Type Antibody Screen 08/01/23 08/01/23 08/01/23 14:18 16:26 17:19 WBC 34.2 H* RBC 2.30 L Hgb 7.6 L Hct 20.5 L* MCV 89.1 MCH 33.0 MCHC 37.1 H RDW 15.9 Plt Count 246 MPV 10.4 Immature Gran % (Auto) Neut % (Auto) Lymph % (Auto) [place] % (Auto) Eos % (Auto) Baso % (Auto) Lymph # (Auto) [place] # (Auto) Eos # (Auto) Baso # (Auto) Abs Immat Gran (auto) Absolute Neuts (auto) Absolute Nucleated RBC 0.120 H Nucleated RBC % (auto) 0.4 H Neutrophils % (Manual) Band Neutrophils % Lymphocytes % (Manual) Abs Neuts (Manual) Lymphocytes # (Manual) Toxic Vacuolation Platelet Estimate Large Platelets Plt Morphology Comment RBC Morphology Hypochromasia Basophilic Stippling Microcytosis Macrocytosis Target Cells Stomatocytes Smear Tech's Comments PT INR APTT D-Dimer High Sensitivty VBG pH 7.47 H VBG pCO2 31 VBG pO2 62 VBG HCO3 23 VBG O2 Saturation 97.0 VBG Base Excess 0.0 Sodium 137 Potassium 2.3 L* Chloride 97 Carbon Dioxide 20 L Anion Gap 22 H BUN 19 H Creatinine 1.17 Estim Creat Clear Calc 50.2 Estimated GFR 50 Random Glucose 102 Lactic Acid Lactic Acid F/U @ 2Hr 8.0 H* Calcium 6.2 L Phosphorus 1.3 L Magnesium 1.9 Total Bilirubin 0.7 AST 115 H ALT 52 H Alkaline Phosphatase 158 H Lactate Dehydrogenase Total Protein 5.0 L Albumin 2.4 L Procalcitonin Respiratory Panel [place] Adenovirus (Rapid PCR) B.pert (TEM-PCR) B.parapertussis DNA PCR C. pneumoniae DNA (PCR) Coronavirus OC43 (PCR) Coronavirus HKU1 (PCR) Coronavirus 229E (PCR) Coronavirus NL63 (PCR) Human Metapneumovir PCR Influenza A (RT-PCR) Influenza B (RT-PCR) M. pneumoniae (PCR) Parainfluenza 1 (PCR) Parainfluenza 2 (PCR) Parainfluenza 3 (PCR) Parainfluenza 4 (PCR) RSV (PCR) Entero/Rhino (PCR) SARS-CoV-2 RNA (RT-PCR) Blood Type Antibody Screen 08/01/23 08/01/23 08/02/23 17:24 22:05 02:05 WBC RBC Hgb Hct MCV MCH MCHC RDW Plt Count MPV Immature Gran % (Auto) Neut % (Auto) Lymph % (Auto) [place] % (Auto) Eos % (Auto) Baso % (Auto) Lymph # (Auto) [place] # (Auto) Eos # (Auto) Baso # (Auto) Abs Immat Gran (auto) Absolute Neuts (auto) Absolute Nucleated RBC Nucleated RBC % (auto) Neutrophils % (Manual) Band Neutrophils % Lymphocytes % (Manual) Abs Neuts (Manual) Lymphocytes # (Manual) Toxic Vacuolation Platelet Estimate Large Platelets Plt Morphology Comment RBC Morphology Hypochromasia Basophilic Stippling Microcytosis Macrocytosis Target Cells Stomatocytes Smear Tech's Comments PT INR APTT D-Dimer High Sensitivty VBG pH 7.44 H 7.49 H VBG pCO2 31 28 VBG pO2 60 41 VBG HCO3 21 L 21 L VBG O2 Saturation 92.0 72.0 VBG Base Excess -1.5 -0.8 Sodium 137 135 Potassium 4.9 D 4.5 Chloride 101 102 Carbon Dioxide 20 L 19 L Anion Gap 21 H 19 BUN 19 H 19 H Creatinine 1.18 1.14 Estim Creat Clear Calc 49.7 51.5 Estimated GFR 50 52 Random Glucose 109 121 H Lactic Acid Lactic Acid F/U @ 2Hr Calcium 6.3 L 6.2 L Phosphorus < 0.7 L* 1.8 L Magnesium 1.8 1.7 Total Bilirubin AST ALT Alkaline Phosphatase Lactate Dehydrogenase Total Protein Albumin Procalcitonin Respiratory Panel [place] Adenovirus (Rapid PCR) B.pert (TEM-PCR) B.parapertussis DNA PCR C. pneumoniae DNA (PCR) Coronavirus OC43 (PCR) Coronavirus HKU1 (PCR) Coronavirus 229E (PCR) Coronavirus NL63 (PCR) Human Metapneumovir PCR Influenza A (RT-PCR) Influenza B (RT-PCR) M. pneumoniae (PCR) Parainfluenza 1 (PCR) Parainfluenza 2 (PCR) Parainfluenza 3 (PCR) Parainfluenza 4 (PCR) RSV (PCR) Entero/Rhino (PCR) SARS-CoV-2 RNA (RT-PCR) Blood Type Antibody Screen 08/02/23 08/02/23 08/02/23 05:22 05:24 07:00 WBC 28.3 H RBC 2.23 L Hgb 7.5 L Hct 20.3 L* MCV 91.0 MCH 33.6 H MCHC 36.9 H RDW 15.9 Plt Count 212 MPV 10.7 Immature Gran % (Auto) 4.7 H Neut % (Auto) 76.7 H Lymph % (Auto) 14.9 L [place] % (Auto) 2.5 Eos % (Auto) 0.7 Baso % (Auto) 0.5 Lymph # (Auto) 4.2 [place] # (Auto) 0.7 Eos # (Auto) 0.2 Baso # (Auto) 0.1 Abs Immat Gran (auto) 1.33 H Absolute Neuts (auto) 21.7 H Absolute Nucleated RBC 0.120 H Nucleated RBC % (auto) 0.4 H Neutrophils % (Manual) Band Neutrophils % Lymphocytes % (Manual) Abs Neuts (Manual) Lymphocytes # (Manual) Toxic Vacuolation Platelet Estimate Large Platelets Plt Morphology Comment RBC Morphology Hypochromasia Basophilic Stippling Microcytosis Macrocytosis Target Cells Stomatocytes Smear Tech's Comments VERIFIED PT INR APTT D-Dimer High Sensitivty VBG pH 7.47 H VBG pCO2 30 VBG pO2 46 VBG HCO3 22 VBG O2 Saturation 77.0 VBG Base Excess -0.9 Sodium 137 Potassium 4.3 Chloride 102 Carbon Dioxide 19 L Anion Gap 20 BUN 19 H Creatinine 1.00 Estim Creat Clear Calc 58.7 Estimated GFR 60 Random Glucose 95 Lactic Acid Lactic Acid F/U @ 2Hr Calcium 6.3 L Phosphorus 1.7 L Magnesium 1.8 Total Bilirubin 0.7 AST 119 H ALT 48 H Alkaline Phosphatase 177 H Lactate Dehydrogenase Total Protein 5.2 L Albumin 2.4 L Procalcitonin Respiratory Panel [place] Adenovirus (Rapid PCR) B.pert (TEM-PCR) B.parapertussis DNA PCR C. pneumoniae DNA (PCR) Coronavirus OC43 (PCR) Coronavirus HKU1 (PCR) Coronavirus 229E (PCR) Coronavirus NL63 (PCR) Human Metapneumovir PCR Influenza A (RT-PCR) Influenza B (RT-PCR) M. pneumoniae (PCR) Parainfluenza 1 (PCR) Parainfluenza 2 (PCR) Parainfluenza 3 (PCR) Parainfluenza 4 (PCR) RSV (PCR) Entero/Rhino (PCR) SARS-CoV-2 RNA (RT-PCR) Blood Type O Positive Antibody Screen NEGATIVE Microbiology Microbiology Results: Microbiology 07/31/23 16:53 Blood - Venous Blood Culture - Preliminary No growth after 24 hours. 07/31/23 16:17 Blood - Venous Blood Culture - Preliminary No growth after 24 hours. Progress Note: A&P Assessment and plan (1) Failure to thrive in adult: Status: Acute (2) Hypophosphatemia: Status: Acute (3) Refeeding syndrome: Status: Acute (4) Acute respiratory failure: Status: Acute Plan Assessment: 47-year-old lady with underlying anorexia admitted with failure to thrive, profound hypokalemia and hypophosphatemia, now requiring vasopressor and ventilatory support Plan: Neuro: No acute issues. Cardiac: Continue to titrate off pressors as tolerated Pulmonary: Continue to titrate off ventilatory support as tolerated. Renal: Hyperkalemia and hyperphosphatemia improving. Continue to monitor electrolytes, renal indices, and urine output. Endo: No acute issues. GI: No acute issues. ID: No acute issues Heme/Onc: No acute issues. Psych: No acute issues. Miscellaneous: No acute issues. Prophylaxis: Heparin, famotidine Diet: Tube feeds Critical care time spent: 60 minutes Quality Stroke Does the patient have a stroke diagnosis?: No VTE Prior VTE?: No VTE Risk Level:: Medical - moderate - high VTE Device Contraindication: N/A - Device Ordered VTE Drug Contraindication: N/A - Med Ordered
[2023-08-02] MEDS: Heparin Sodium,Porcine 5,000 UNIT/ML VIAL 5000 UNIT SUBCUT ×2 (11:21→23:00)
--- NOTE | 2023-08-02 11:36 | MHC.CLN ---
Addendum entered by Rossy Gama RD 08/02/23 11:42: PATIENT EXTUBATED; TUBE FEEDING DISCONTINUED. FOLLOW FOR DIET ADVANCEMENT AND PO INTAKE. Original Note: NUTRITION PATIENT IS INTUBATED AND SEDATED. DX INCLUDE PANCREATITIS, SEPSIS, REFEEDING SYNDROME, ACUTE RESPIRATORY FAILURE. TUBE FEED=JEVITY 1.0 AT MAX RATE 40 ML PER HOUR. PROVIDES 1018 KCALS (1243 KCALS WITH SEDATION, 21.3 KCALS/KG; 43 G PROTEIN (.74 G/KG); 819 ML FREE WATER (14 ML/KG). MONITOR FOR REFEEDING. ADVANCE TUBE FEEDING ABLE TO MEET ESTIMATED NUTRITIONAL NEEDS. FOLLOW WITH TEAM.
[2023-08-02 12:32] LABS: Anion Gap 18 (12-20); Blood Urea Nitrogen 17 mg/dL (9-16); Calcium 6.5 mg/dL (8.4-10.2); Carbon Dioxide 20 mmol/L (22-29); Chloride 105 mmol/L (96-108); Creatinine Clr Calc Pharmacy 68.3; Estimated Glomerular Filt Rate > 60; Glucose Random 91 mg/dL (60-115); Magnesium 1.8 mg/dL (1.6-2.6); Potassium 3.9 mmol/L (3.3-5.1); Sodium 139 mmol/L (135-145)
[2023-08-03] VITALS (35 sets, daily range): BP systolic 88–150; BP diastolic 49–75; PULSE 89–107; RESP 13–20; TEMP 36.8–37.6; O2SAT 87–98; BMI 24.3
[2023-08-03] MEDS: Norepinephrine Bitartrate/D5W 8 MG/250 ML PLAST..BAG 14.88 MG IV (01:31)
[2023-08-03 06:24] LABS: Venous Blood Gas Refer to POC result
[2023-08-03 06:24] LABS: VBG Base Excess 0.2 mmol/L; VBG HCO3 23 mmol/L (22-26); VBG pCO2 30 mmHg; VBG pH 7.48 (7.32-7.43); VBG pO2 65 mmHg
[2023-08-03 06:37] LABS: Hemoglobin 7.2 g/dl (12.0-16.0); Mean Corpuscular HGB Conc 34.6 g/dl (31.0-35.0); Mean Corpuscular Hemoglobin 32.4 pg (27.0-33.0); Mean Corpuscular Volume 93.7 fL (80.0-98.0); Mean Platelet Volume 10.7 fL (9.4-12.3); NRBC Pct Auto 0.4 /100WBC (0.0-0.2); Platelet Count 158 X10*3/uL (160-400); Red Blood Count 2.22 X10*6/uL (4.20-5.50); White Blood Count 21.8 X10*3/uL (4.8-10.8)
[2023-08-03 06:40] LABS: Hematocrit 20.8 % (37.0-47.0)
[2023-08-03 06:47] LABS: Alanine Aminotransferase 54 U/L (0-31); Albumin Level 2.8 g/dL (3.5-5.0); Alkaline Phosphatase 185 U/L (39-117); Anion Gap 18 (12-20); Aspartate Amino Transferase 166 U/L (5-31); Bilirubin Total 0.9 mg/dL (0.0-1.0); Blood Urea Nitrogen 11 mg/dL (9-16); Calcium 7.2 mg/dL (8.4-10.2); Carbon Dioxide 21 mmol/L (22-29); Chloride 106 mmol/L (96-108); Creatinine Clr Calc Pharmacy 85.2; Estimated Glomerular Filt Rate > 60; Glucose Random 113 mg/dL (60-115); Magnesium 1.6 mg/dL (1.6-2.6); Phosphorus 2.3 mg/dL (2.7-4.5); Potassium 3.1 mmol/L (3.3-5.1); Sodium 142 mmol/L (135-145); Total Protein 5.3 g/dL (6.5-8.0)
--- NOTE | 2023-08-03 07:00 | CA_ITS ---
Transthoracic Echocardiogram Patient (Last, First, Middle): Melissa Hopper, Gender: Female Date of : 1975 Age: 47 Procedure Date: 08/03/2023 Procedure Type: Transthoracic Echocardiogram Location: ICU Height: 160.02 cm Weight: 62.14 kg BSA: 1.65 m2 Heart Rate: bpm BP: 95 / 57 mmHg Sales Technician: AMOS Referring MD: Timmy Lujan MD Symptoms: ? cardiomyopathy Study Quality: Adequate Conclusions: - Normal left ventricular size, thickness, systolic function, and wall motion. The visually estimated ejection fraction is between 55-60%. Diastolic function is normal for age. - Normal right ventricular cavity size and systolic function. Findings Left Ventricle Normal left ventricular size, thickness, systolic function, and wall motion. The visually estimated ejection fraction is between 55-60%. Diastolic function is normal for age. Right Ventricle Normal right ventricular cavity size and systolic function. Atria Both atria are normal in size. Aortic Valve Normal aortic valve structure and function. There is no aortic valve stenosis. There is no aortic valve regurgitation. Mitral Valve Normal mitral valve structure and function. There is no mitral valve regurgitation. There is no mitral valve stenosis. Pulmonic Valve The pulmonic valve is likely normal. Tricuspid Valve Normal tricuspid valve structure. There is no tricuspid valve regurgitation. Normal right atrial pressure. There is no evidence of pulmonary hypertension. Venous The inferior vena cava is normal in size and collapses greater than 50% with inspiration. Pericardium/Pleural There is no evidence of pericardial effusion. Prior Study Comparison No prior study available for comparison. Measurements 2D Linear Measurements IVSd: 0.67 0.6-0.9/0.6-1.0 cm LVIDd: 4.58 3.9-5.3/4.2-5.9 cm LVIDd Index: 2.78 2.4-3.2/2.2-3.1 cm/m2 LVIDs: 2.72 2.0-3.6 cm LVPWd: 0.82 0.7-1.1 cm LA Diam: 3.00 2.7-3.8/3.0-4.0 cm LAIDs Index: 1.82 1.5-2.3 cm/m2 LV Mass: 132.79 67-162/88-224 g LV Mass Index: 80.48 43-95/49-115 g/m2 LVOT Diam: 1.80 3.0+(-)1.3 cm 2D Systolic Function EF 4C: 56.40 >55% EF 2C: 62.40 >55% EF BiP: 59.00 >55% Mitral Valve MV Pk E: 0.84 MV PK A: 0.67 MV Decel Time: 234.00 E/A: 1.30 E'Lateral: 13.30 E'Medial: 10.60 E/E' Med: 8.00 E/E' Lat: 6.30 PHT: 68.00 MVA PHT: 3.24 Decel [place]: 3.61 Aortic Valve AoV Pk Valentín: 1.42 AoV Mn Valentín: 1.03 AoV VTI: 0.26 AoV Pk Grad: 8.00 Aov Mn Grad: 5.00 LVOT LVOT Diam: 1.80 LVOT Area: 2.54 Diastolic Function MV Pk E: 0.84 MV Pk A: 0.67 E/A: 1.30 E'Medial: 10.60 E/E' Med: 8.00 E' Laterial: 13.30 E/E' Lat: 6.30 Right Ventricle TAPSE (mm): 23.30 TVS' Valentín: 11.80 Tricuspid Valve TR Pk Valentín: 2.29 TR Pk Grad: 21.00 RVSP: 24.00 Great Vessels Aorta Sinus of Valsalva: 2.80 2.0-3.5 cm Ao Asc: 2.60 2.1-3.4 cm Pulmonary Valve PV Pk Valentín: 0.92 Peak PV Grad: 3.00 Updated in Other Vendor System with Status of Final Noble West MD electronically signed on 08/03/2023 12:51:35 PM with status of Final
[2023-08-03] MEDS: cefTRIAXone sodium 1 GM in 0.9 % Sodium Chloride 50 ML IV (07:22)
[2023-08-03 07:32] LABS: Band Neutrophils Percent 8 % (3-5); Eosinophils Absolute Manual 0.2 X10*3/uL (0.0-0.4); Eosinophils Percent Manual 1 % (0-4); Lymphocytes Absolute Manual 2.6 X10*3/uL (1.2-4.9); Lymphocytes Percent Manual 12 % (20-40); Metamyelocytes Absolute 0.2 X10*3/uL; Metamyelocytes Percent 1 %; Monocytes Absolute Manual 0.4 X10*3/uL (0.1-1.2); Monocytes Percent Manual 2 % (2-11); Neutrophils Absolute Manual 18.3 X10*3/uL (2.0-8.3); Neutrophils Percent Manual 76 % (45-73)
[2023-08-03 07:33] LABS: Macrocytosis 1+ (5-14) /OIF; RBC Morphology NOTED
[2023-08-03 07:35] LABS: Stomatocytes 1+ (5-14) /OIF; Target Cells 1+ (5-14) /OIF
[2023-08-03 07:36] LABS: Toxic Vacuolation PRESENT
[2023-08-03 07:37] LABS: Large Platelet PRESENT; Platelet Estimate NORMAL (NORMAL); Platelet Morphology Comment NOTED
[2023-08-03] MEDS: Albuterol/Iprat 2.5/0.5MG 3 ML AMPUL.NEB INHALE ×4 (07:49→18:26)
[2023-08-03] MEDS: Thiamine HCL 100 MG TABLET PO (08:30)
[2023-08-03] MEDS: Potassium Phosphate/NS 15 MMOL/250 ML PLAST..BAG 62.5 MMOL IV ×2 (08:30→12:54)
[2023-08-03] MEDS: Heparin Sodium,Porcine 5,000 UNIT/ML VIAL 5000 UNIT SUBCUT ×2 (09:55→22:59)
--- NOTE | 2023-08-03 10:26 | P.PNCC_ITS ---
Subjective Subjective Date of Service: 08/03/23 Interval History: 47-year-old lady with underlying anorexia with progressive weakness admitted on 08/01/2023 with failure to thrive with profound hypophosphatemia and hypokalemia further complicated by hypoxia and acute respiratory failure requiring intubation and ventilatory/pressor support. Extubated 08/02/2023. Continues to require pressor support. No events overnight. Critical Care Time (minutes): 60 Physical Exam 2 Vital Signs: Vital Signs: Last Vital Signs Temp 99.5 F 08/03/23 10:00 Pulse 97 08/03/23 10:00 Resp 18 08/03/23 10:00 BP 99/61 08/03/23 10:00 Pulse Ox 95 08/03/23 10:00 O2 Del Method Room Air 08/03/23 10:00 O2 Flow Rate 10 07/31/23 20:45 FiO2 21 08/02/23 11:38 BMI result Body Mass Index 24.3 Const: General: no acute distress, alert and awake Eyes: Sclerae: sclerae normal EOM: EOMs intact bilaterally Neck: Neck: Yes no lymphadenopathy, Yes trachea midline and Yes supple Resp: Effort & Inspection: normal respiratory effort and no respiratory distress Auscultation: clear to auscultation bilaterally Cardio: Rate: tachycardic Rhythm: regular rhythm Heart sounds: no gallops, no murmurs and no rubs GI: Palpation (GI): Soft to palpation and Other GI palpation findings present ( Nontender) Auscultation: normal bowel sounds Extrem: General: Yes no pedal edema, No clubbing and No cyanosis Objective Data Labs 08/03/23 06:06 08/03/23 06:06 Labs: Laboratory Results - last 24 hr 08/02/23 08/03/23 08/03/23 12:09 06:06 06:18 WBC 21.8 H RBC 2.22 L Hgb 7.2 L Hct 20.8 L* MCV 93.7 MCH 32.4 MCHC 34.6 RDW 16.0 Plt Count 158 L D MPV 10.7 Immature Gran % (Auto) Cancelled Neut % (Auto) Cancelled Lymph % (Auto) Cancelled [place] % (Auto) Cancelled Eos % (Auto) Cancelled Baso % (Auto) Cancelled Lymph # (Auto) Cancelled [place] # (Auto) Cancelled Eos # (Auto) Cancelled Baso # (Auto) Cancelled Abs Immat Gran (auto) Cancelled Absolute Neuts (auto) Cancelled Absolute Nucleated RBC 0.080 H Nucleated RBC % (auto) 0.4 H Neutrophils % (Manual) 76 H Band Neutrophils % 8 H Lymphocytes % (Manual) 12 L Monocytes % (Manual) 2 Eosinophils % (Manual) 1 Metamyelocytes % 1 Abs Neuts (Manual) 18.3 H Lymphocytes # (Manual) 2.6 Monocytes # (Manual) 0.4 Eosinophils # (Manual) 0.2 Metamyelocytes # 0.2 Toxic Vacuolation PRESENT Platelet Estimate NORMAL Large Platelets PRESENT Plt Morphology Comment NOTED RBC Morphology NOTED Macrocytosis 1+ (5-14) Target Cells 1+ (5-14) Stomatocytes 1+ (5-14) VBG pH 7.48 H VBG pCO2 30 VBG pO2 65 VBG HCO3 23 VBG O2 Saturation Not Reportable VBG Base Excess 0.2 Sodium 139 142 Potassium 3.9 3.1 L D Chloride 105 106 Carbon Dioxide 20 L 21 L Anion Gap 18 18 BUN 17 H 11 Creatinine 0.86 0.69 Estim Creat Clear Calc 68.3 85.2 Estimated GFR > 60 > 60 Random Glucose 91 113 Calcium 6.5 L 7.2 L D Phosphorus 3.0 2.3 L Magnesium 1.8 1.6 Total Bilirubin 0.9 AST 166 H ALT 54 H Alkaline Phosphatase 185 H Total Protein 5.3 L Albumin 2.8 L Microbiology Microbiology Results: Microbiology 07/31/23 16:53 Blood - Venous Blood Culture - Preliminary No growth after 48 hours. 07/31/23 16:17 Blood - Venous Blood Culture - Preliminary No growth after 48 hours. Progress Note: A&P Assessment and plan (1) Refeeding syndrome: Status: Acute (2) Hypophosphatemia: Status: Acute (3) Failure to thrive in adult: Status: Acute (4) Nonsustained ventricular tachycardia: Status: Acute (5) Pancreatitis, acute: Status: Acute Plan Assessment: 47-year-old lady with underlying anorexia admitted with failure to thrive, profound hypokalemia and hypophosphatemia, now requiring vasopressor and ventilatory support Plan: Neuro: No acute issues. Cardiac: Continue to titrate off pressors as tolerated. Possible underlying anorexia related cardiomyopathy. 2D echocardiogram is pending. Pulmonary: Respiratory failure resolved, extubated on 08/02/2023. Renal: Hypokalemia and hypophosphatemia are improving. Continue to monitor electrolytes, renal indices, and urine output. Endo: No acute issues. GI: No acute issues. ID: No acute issues Heme/Onc: No acute issues. Psych: No acute issues. Miscellaneous: No acute issues. Prophylaxis: Heparin Diet: Regular Critical care time spent: 60 minutes Quality Stroke Does the patient have a stroke diagnosis?: No VTE Prior VTE?: No VTE Risk Level:: Medical - moderate - high VTE Device Contraindication: N/A - Device Ordered VTE Drug Contraindication: N/A - Med Ordered
--- NOTE | 2023-08-03 10:56 | MHC.CLN ---
F/U PT IS MODERATE MALNOURISHED PT WITH MILDLY DEPLETED SUBCUTANEOUS FAT AND MUSCLE MASS WITH CHRONIC POOR PO INTAKE FOR 3 WEEKS PER PT. DISCUSSED AT ROUNDS WITH [id number] NSG REPORTED PT ONLY TAKING BITES DIET RX: CHOPPED-APPROPRIATE PT RECEIVING ENSURE TID TO INCREASE KCALS SPOKE WITH PT REGARDING NUTRITION STATUS PT REPORTED POOR INTAKE X 3 WEEKS R/T LOSS OF SPOUSE ENCOURAGED PT TO DRINK NUTRITION SUPPLEMENT AND DISCUSSED POSSIBILITY OF PPN IF PO INTAKE DOES NOT IMPROVE MONITOR PO INTAKE CLOSELY, LYTES K+, MG, PHOS R/T RE-FEEDING
--- NOTE | 2023-08-03 12:04 | P.CDIM_ITS ---
PROVIDER RESPONSE TEXT: To clarify, the appropriate diagnosis supported by the clinical indicators: Atypical pneumonia: Ruled out QUERY TEXT: PHYSICIAN'S DOCUMENTATION REQUEST Date of Query: 08/03/2023 11:43 AM EST Patient Name: Melissa Hopper Admit Date: 08/01/2023 Dear Timmy Lujan, A review of the medical record indicates additional documentation may be needed. Please review below and update the documentation accordingly. Clinical Indicators: ICU H&P 07/31 & ICU progress note 08/01 - Atypical pneumonia oxygen dropped into the 80's, non-breather, became more hypoxic, urgently intubated, ICU admit. CT 07/31 - Worsening patchy bilateral ground glass airspace disease more so in the right lower lobe. Based on the above, could you clarify in the Progress Notes further specificity regarding the pneumon ia: Atypical pneumonia suspected, probable, possible, resolving, not treating etc. Other (explain) Clinically unable to determine (explain) Thank you, Orin Zaldivar, CCS, CDIS Use of terms such as suspected, likely, concern for, or probable (associated with a specific diagnosi s that is being evaluated, monitored, or treated as if it exists) are acceptable and can be coded in the inpatient se tting, when documented at the time of discharge. Please use your independent medical judgment in providing your response. THIS QUERY IS PART OF THE PERMANENT MEDICAL RECORD
[2023-08-03 12:08] LABS: Calcium, Ionized 3.6 mg/dL (4.7-5.5)
--- NOTE | 2023-08-03 15:26 | MHC.CM.PN ---
Pt has been extubated: extremely weak/deconditioned and with continued electrolyte abnormalities: RD following for anorexia - pt may require PPN or TPN - MD to review needs on 08/04. D/C plan was for a return to home: this will depend on pt's functional abilities which cannot be accurately tested at this time. CM to follow.
[2023-08-04] VITALS (35 sets, daily range): BP systolic 79–109; BP diastolic 33–67; PULSE 63–111; RESP 15–94; TEMP 36.4–37.7; O2SAT 88–94; BMI 23.5
[2023-08-04] MEDS: Norepinephrine Bitartrate/D5W 8 MG/250 ML PLAST..BAG 6.38 MG IV (02:02)
[2023-08-04 05:26] LABS: Hemoglobin 7.5 g/dl (12.0-16.0); NRBC Pct Auto 0.7 /100WBC (0.0-0.2); PLT CLUMP 1
[2023-08-04 05:28] LABS: Hematocrit 22.4 % (37.0-47.0); Mean Corpuscular HGB Conc 33.5 g/dl (31.0-35.0); Mean Corpuscular Hemoglobin 32.3 pg (27.0-33.0); Mean Corpuscular Volume 96.6 fL (80.0-98.0); Red Blood Count 2.32 X10*6/uL (4.20-5.50); Red Cell Distribution Width 15.9 % (11.0-16.0)
[2023-08-04 05:39] LABS: WBC ABN SCTR FOR CBC 1; White Blood Count 24.2 X10*3/uL (4.8-10.8)
[2023-08-04 05:41] LABS: Alanine Aminotransferase 50 U/L (0-31); Albumin Level 2.6 g/dL (3.5-5.0); Alkaline Phosphatase 217 U/L (39-117); Anion Gap 14 (12-20); Aspartate Amino Transferase 110 U/L (5-31); Bilirubin Total 0.8 mg/dL (0.0-1.0); Blood Urea Nitrogen 7 mg/dL (9-16); Calcium 7.4 mg/dL (8.4-10.2); Carbon Dioxide 23 mmol/L (22-29); Chloride 109 mmol/L (96-108); Creatinine Clr Calc Pharmacy 101.3; Estimated Glomerular Filt Rate > 60; Glucose Random 129 mg/dL (60-115); Magnesium 1.5 mg/dL (1.6-2.6); Phosphorus 2.7 mg/dL (2.7-4.5); Potassium 2.7 mmol/L (3.3-5.1); Sodium 143 mmol/L (135-145); Total Protein 5.2 g/dL (6.5-8.0)
[2023-08-04] MEDS: Potassium Phosphate/NS 15 MMOL/250 ML PLAST..BAG 62.5 MMOL IV (06:04)
[2023-08-04] MEDS: Magnesium Sulfate/D5W 1 GM/100 ML PIGGYBACK IV (06:05)
[2023-08-04] MEDS: Albumin Human 25 % 100 ML IV ×3 (06:07→17:05)
[2023-08-04] MEDS: Omeprazole 20 MG CAPSULE.DR PO (06:29)
[2023-08-04 06:37] LABS: Band Neutrophils Percent 5 % (3-5); Lymphocytes Absolute Manual 2.9 X10*3/uL (1.2-4.9); Lymphocytes Percent Manual 12 % (20-40); Metamyelocytes Absolute 0.2 X10*3/uL; Metamyelocytes Percent 1 %; Monocytes Absolute Manual 0.2 X10*3/uL (0.1-1.2); Monocytes Percent Manual 1 % (2-11); Myelocytes Absolute 0.2 X10*/uL; Myelocytes Percent 1 %; Neutrophils Absolute Manual 20.6 X10*3/uL (2.0-8.3); Neutrophils Percent Manual 80 % (45-73)
[2023-08-04 06:39] LABS: Basophilic Stippling 1+ (0-2) /OIF; Target Cells 1+ (5-14) /OIF; Toxic Granulation PRESENT
[2023-08-04 06:40] LABS: Large Platelet PRESENT; Macrocytosis 1+ (5-14) /OIF; Platelet Estimate SLIGHTLY DECREASED (NORMAL); Platelet Morphology Comment NOTED; Polychromasia 1+ (0-2) /OIF; RBC Morphology NOTED; Spherocytes 1+ (0-2) /OIF
[2023-08-04 06:41] LABS: Mean Platelet Volume 11.6 fL (9.4-12.3); Platelet Count 118 X10*3/uL (160-400)
[2023-08-04] MEDS: Potassium Chloride/H20 10 MEQ/100 ML PIGGYBACK 100 MEQ IV (07:45)
[2023-08-04] MEDS: cefTRIAXone sodium 1 GM in 0.9 % Sodium Chloride 50 ML IV (07:57)
[2023-08-04] MEDS: Albuterol/Iprat 2.5/0.5MG 3 ML AMPUL.NEB INHALE ×2 (07:59→13:58)
[2023-08-04] MEDS: Heparin Sodium,Porcine 5,000 UNIT/ML VIAL 5000 UNIT SUBCUT (09:46)
[2023-08-04] MEDS: Thiamine HCL 100 MG TABLET PO (09:46)
--- NOTE | 2023-08-04 10:33 | MHC.CLN ---
F/U PT IS MODERATE MALNOURISHED PT WITH MILDLY DEPLETED SUBCUTANEOUS FAT AND MUSCLE MASS WITH CHRONIC POOR PO INTAKE FOR 3 WEEKS PER PT. DISCUSSED AT ROUNDS WITH [id number] NSG REPORTED PT CONTINUES TO ONLY TAKE BITES WITH MEALS DIET RX: CHOPPED-APPROPRIATE PT RECEIVING ENSURE TID TO INCREASE KCALS SPOKE WITH PT REGARDING NUTRITION STATUS PT REPORTED POOR INTAKE X 3 WEEKS R/T LOSS OF SPOUSE ENCOURAGED PT TO DRINK NUTRITION SUPPLEMENT TPN TO START TODAY PER MD DISCUSSED WITH PHARMACY RECOMMEND TPN AT 35ML/HR TO PROVIDE 596KCALS, 126G DEXTROSE, 42G PROTEIN MONITOR PO INTAKE CLOSELY, LYTES K+, MG, PHOS R/T RE-FEEDING SEE ALSO FULL CLINICAL NUTRITION ASSESSMENT
--- NOTE | 2023-08-04 11:00 | MHC.CM.PN ---
EMR REVIEWED, PER ICU ROUNDS PT EXTUBATED 08/02, PT REMAINS ON LEVOPHED, PLAN TO CONT ELECTROLYTE REPLACEMENT AND ANTIC PT WILL BE STARTED ON TPN, PT WILL NEED PT EVAL FOR DISPO, CM WILL CONT TO FOLLOW DC NEEDS.
--- NOTE | 2023-08-04 11:40 | PM.CCPN ---
Subjective Subjective Date of Service: 08/04/23 Interval History: 47-year-old lady with underlying anorexia with progressive weakness admitted on 08/01/2023 with failure to thrive with profound hypophosphatemia and hypokalemia further complicated by hypoxia and acute respiratory failure requiring intubation and ventilatory/pressor support. Extubated 08/02/2023. Continues to require pressor support. No events overnight. Pressor support requirements are improving. Critical Care Time (minutes): 45 Physical Exam Vital Signs: Vital Signs: Last Vital Signs Temp 97.5 F 08/04/23 08:00 Pulse 92 08/04/23 11:02 Resp 16 08/04/23 11:00 BP 95/57 L 08/04/23 11:02 Pulse Ox 88 L 08/04/23 11:00 O2 Del Method Room Air 08/04/23 11:00 O2 Flow Rate 1 08/04/23 06:00 FiO2 21 08/02/23 11:38 BMI result Body Mass Index 23.5 Const: General: no acute distress, alert and awake Eyes: Sclerae: sclerae normal EOM: EOMs intact bilaterally Neck: Neck: Yes no lymphadenopathy, Yes trachea midline and Yes supple Resp: Effort & Inspection: normal respiratory effort and no respiratory distress Auscultation: clear to auscultation bilaterally Cardio: Rate: regular rate Rhythm: regular rhythm Heart sounds: no gallops, no murmurs and no rubs GI: Palpation (GI): Soft to palpation and Other GI palpation findings present ( Nontender) Auscultation: normal bowel sounds Extrem: General: Yes no pedal edema, No clubbing and No cyanosis Objective Data Labs 08/04/23 04:37 08/04/23 04:33 Labs: Laboratory Results - last 24 hr 08/01/23 08/02/23 08/04/23 09:14 05:22 04:33 WBC RBC Hgb Hct MCV MCH MCHC RDW Plt Count MPV Immature Gran % (Auto) Neut % (Auto) Lymph % (Auto) [place] % (Auto) Eos % (Auto) Baso % (Auto) Lymph # (Auto) [place] # (Auto) Eos # (Auto) Baso # (Auto) Abs Immat Gran (auto) Absolute Neuts (auto) Absolute Nucleated RBC Nucleated RBC % (auto) Neutrophils % (Manual) Band Neutrophils % Lymphocytes % (Manual) Monocytes % (Manual) Metamyelocytes % Myelocytes % Abs Neuts (Manual) Lymphocytes # (Manual) Monocytes # (Manual) Metamyelocytes # Myelocytes # Toxic Granulation Platelet Estimate Large Platelets Plt Morphology Comment RBC Morphology Polychromasia Basophilic Stippling Macrocytosis Spherocytes Target Cells Smear Path Review Sodium 143 Potassium 2.7 L Chloride 109 H Carbon Dioxide 23 Anion Gap 14 BUN 7 L Creatinine 0.58 Estim Creat Clear Calc 101.3 Estimated GFR > 60 Random Glucose 129 H Calcium 7.4 L Ionized Calcium 3.6 L Phosphorus 2.7 Magnesium 1.5 L Total Bilirubin 0.8 AST 110 H ALT 50 H Alkaline Phosphatase 217 H Total Protein 5.2 L Albumin 2.6 L 08/04/23 04:37 WBC 24.2 H RBC 2.32 L Hgb 7.5 L Hct 22.4 L MCV 96.6 MCH 32.3 MCHC 33.5 RDW 15.9 Plt Count 118 L D MPV 11.6 Immature Gran % (Auto) Cancelled Neut % (Auto) Cancelled Lymph % (Auto) Cancelled [place] % (Auto) Cancelled Eos % (Auto) Cancelled Baso % (Auto) Cancelled Lymph # (Auto) Cancelled [place] # (Auto) Cancelled Eos # (Auto) Cancelled Baso # (Auto) Cancelled Abs Immat Gran (auto) Cancelled Absolute Neuts (auto) Cancelled Absolute Nucleated RBC 0.180 H Nucleated RBC % (auto) 0.7 H Neutrophils % (Manual) 80 H Band Neutrophils % 5 Lymphocytes % (Manual) 12 L Monocytes % (Manual) 1 L Metamyelocytes % 1 Myelocytes % 1 Abs Neuts (Manual) 20.6 H Lymphocytes # (Manual) 2.9 Monocytes # (Manual) 0.2 Metamyelocytes # 0.2 Myelocytes # 0.2 Toxic Granulation PRESENT Platelet Estimate SLIGHTLY DECREASED Large Platelets PRESENT Plt Morphology Comment NOTED RBC Morphology NOTED Polychromasia 1+ (0-2) Basophilic Stippling 1+ (0-2) Macrocytosis 1+ (5-14) Spherocytes 1+ (0-2) Target Cells 1+ (5-14) Smear Path Review Sodium Potassium Chloride Carbon Dioxide Anion Gap BUN Creatinine Estim Creat Clear Calc Estimated GFR Random Glucose Calcium Ionized Calcium Phosphorus Magnesium Total Bilirubin AST ALT Alkaline Phosphatase Total Protein Albumin Microbiology Microbiology Results: Microbiology 07/31/23 16:53 Blood - Venous Blood Culture - Preliminary No growth after 48 hours. 07/31/23 16:17 Blood - Venous Blood Culture - Preliminary No growth after 48 hours. Progress Note: A&P Assessment and plan (1) Refeeding syndrome: Status: Acute (2) Failure to thrive in adult: Status: Acute Plan Assessment: 47-year-old lady with underlying anorexia admitted with failure to thrive, profound hypokalemia and hypophosphatemia, initially requiring vasopressor and ventilatory support Plan: Neuro: No acute issues. Cardiac: Continue to titrate off pressors as tolerated. 2D echocardiogram is normal. Pulmonary: Respiratory failure resolved, extubated on 08/02/2023. Renal: Hypokalemia and hypophosphatemia are improving. Continue to monitor electrolytes, renal indices, and urine output. Endo: No acute issues. GI: No acute issues. ID: No acute issues Heme/Onc: No acute issues. Psych: No acute issues. Miscellaneous: No acute issues. Prophylaxis: Heparin Diet: Regular/TPN Critical care time spent: 45 minutes Quality Stroke Does the patient have a stroke diagnosis?: No VTE Prior VTE?: No VTE Risk Level:: Medical - moderate - high VTE Device Contraindication: N/A - Device Ordered VTE Drug Contraindication: N/A - Med Ordered
[2023-08-04 19:51] LABS: Anion Gap 13 (12-20); Blood Urea Nitrogen 7 mg/dL (9-16); Calcium 7.8 mg/dL (8.4-10.2); Carbon Dioxide 22 mmol/L (22-29); Chloride 110 mmol/L (96-108); Creatinine Clr Calc Pharmacy 99.5; Estimated Glomerular Filt Rate > 60; Glucose Random 106 mg/dL (60-115); Magnesium 1.7 mg/dL (1.6-2.6); Phosphorus 2.4 mg/dL (2.7-4.5); Potassium 2.7 mmol/L (3.3-5.1); Sodium 142 mmol/L (135-145)
--- NOTE | 2023-08-04 20:13 | PM.EVENT ---
Documented by User: Saurav Haro NP 08/04/23 20:14 Event Note Date of Service: 08/04/23 Event Note: Patient lactic elevated to 3.2, No evidence of severe infection. Patient xray showing pulmonary edema. Will treat with lasix. Time Spent With Patient Time: Total time managing care of this patient today ____ minutes. Documented by User: Timmy Lujan MD 08/05/23 10:26 Event Note Date of Service: 08/05/23
[2023-08-05] VITALS (37 sets, daily range): BP systolic 85–168; BP diastolic 58–90; PULSE 96–113; RESP 18–32; TEMP 37.3–38; O2SAT 86–99; BMI 21.9
[2023-08-05] MEDS: Albumin Human 25 % 100 ML IV (00:48)
[2023-08-05 04:33] LABS: VBG Base Excess 0.9 mmol/L; VBG HCO3 23 mmol/L (22-26); VBG pCO2 30 mmHg; VBG pH 7.49 (7.32-7.43); VBG pO2 38 mmHg
[2023-08-05 04:52] LABS: Mean Corpuscular Hemoglobin 32.4 pg (27.0-33.0); Mean Platelet Volume 11.3 fL (9.4-12.3); Red Blood Count 2.04 X10*6/uL (4.20-5.50); Red Cell Distribution Width 15.7 % (11.0-16.0)
[2023-08-05 04:59] LABS: Hemoglobin 6.6 g/dl (12.0-16.0); NRBC Pct Auto 1.3 /100WBC (0.0-0.2); Platelet Count 84 X10*3/uL (160-400); White Blood Count 31.4 X10*3/uL (4.8-10.8)
[2023-08-05 05:01] LABS: HBc Num1 0.11 S/CO (0.00-0.79); HBsAGNum1 0.32 S/CO (0.00-0.99); HIV Num 1 3.44 S/CO (0.00-0.99); Hepatitis A Antibody IgM 0.13 Index (0-0.79); Hepatitis B Core Antibody Nonreactive (Nonreactive); Hepatitis B Surface Antigen Negative (Negative); ~HepC Num1 0.14 S/CO (0.00-0.79); ~Hepatitis A Antibody IgM Nonreactive (Nonreactive); ~Hepatitis B Surface Antibody NONREACTIVE (Nonreactive); ~Hepatitis C Antibody Nonreactive (Nonreactive)
[2023-08-05 05:10] LABS: Alanine Aminotransferase 36 U/L (0-31); Albumin Level 3.8 g/dL (3.5-5.0); Alkaline Phosphatase 174 U/L (39-117); Anion Gap 19 (12-20); Aspartate Amino Transferase 64 U/L (5-31); Bilirubin Total 1.2 mg/dL (0.0-1.0); Blood Urea Nitrogen 8 mg/dL (9-16); Calcium 8.2 mg/dL (8.4-10.2); Carbon Dioxide 21 mmol/L (22-29); Chloride 106 mmol/L (96-108); Cholesterol 131 mg/dL (<200); Creatinine Clr Calc Pharmacy 97.9; Estimated Glomerular Filt Rate > 60; Glucose Random 140 mg/dL (60-115); HDL Cholesterol 7 mg/dL (>40); LDL Cholesterol Calculated 59 mg/dL (<100); Magnesium 1.5 mg/dL (1.6-2.6); Potassium 2.7 mmol/L (3.3-5.1); Sodium 143 mmol/L (135-145); Total Protein 6.1 g/dL (6.5-8.0); Triglycerides 327 mg/dL (<150)
[2023-08-05 05:18] LABS: Venous Blood Gas Refer to POC result
[2023-08-05 05:42] LABS: Band Neutrophils Percent 5 % (3-5); Lymphocytes Absolute Manual 2.2 X10*3/uL (1.2-4.9); Lymphocytes Percent Manual 7 % (20-40); Metamyelocytes Absolute 1.6 X10*3/uL; Metamyelocytes Percent 5 %; Monocytes Absolute Manual 1.3 X10*3/uL (0.1-1.2); Monocytes Percent Manual 4 % (2-11); Neutrophils Absolute Manual 26.4 X10*3/uL (2.0-8.3); Neutrophils Percent Manual 79 % (45-73)
[2023-08-05 05:43] LABS: RBC Morphology NOTED
[2023-08-05 05:45] LABS: Hypochromasia 1+ (5-14) /OIF; Macrocytosis 1+ (5-14) /OIF; Polychromasia 1+ (0-2) /OIF; Target Cells 1+ (5-14) /OIF
[2023-08-05 05:46] LABS: Basophilic Stippling 1+ (0-2) /OIF; Stomatocytes 1+ (5-14) /OIF
[2023-08-05 05:47] LABS: Large Platelet PRESENT; Platelet Estimate DECREASED (NORMAL); Platelet Morphology Comment NOTED; Spherocytes 1+ (0-2) /OIF; Toxic Granulation PRESENT
[2023-08-05 06:12] LABS: HIV AB/AG Nonreactive (Nonreactive); HIV Num 2 0.04 S/CO; HIV Num 3 0.04 S/CO
[2023-08-05] MEDS: cefTRIAXone sodium 1 GM in 0.9 % Sodium Chloride 50 ML IV (08:14)
[2023-08-05] MEDS: Thiamine HCL 100 MG TABLET PO (08:14)
--- NOTE | 2023-08-05 10:26 | PM.CCPN ---
Subjective Subjective Date of Service: 08/05/23 Interval History: 47-year-old lady with underlying anorexia with progressive weakness admitted on 08/01/2023 with failure to thrive with profound hypophosphatemia and hypokalemia further complicated by hypoxia and acute respiratory failure requiring intubation and ventilatory/pressor support. Extubated 08/02/2023. Continues to require pressor support. No events overnight. Critical Care Time (minutes): 45 Physical Exam Vital Signs: Vital Signs: Last Vital Signs Temp 99.3 F 08/05/23 10:00 Pulse 109 H 08/05/23 10:00 Resp 18 08/05/23 10:00 BP 118/72 08/05/23 10:00 Pulse Ox 89 L 08/05/23 10:00 O2 Del Method Oxymask 08/05/23 10:00 O2 Flow Rate 7 08/05/23 10:00 FiO2 21 08/02/23 11:38 BMI result Body Mass Index 21.9 Const: General: no acute distress, alert and awake Eyes: Sclerae: sclerae normal EOM: EOMs intact bilaterally Neck: Neck: Yes no lymphadenopathy, Yes trachea midline and Yes supple Resp: Effort & Inspection: normal respiratory effort and no respiratory distress Auscultation: clear to auscultation bilaterally Cardio: Rate: tachycardic Rhythm: regular rhythm Heart sounds: no gallops, no murmurs and no rubs GI: Palpation (GI): Soft to palpation and Other GI palpation findings present ( Nontender) Auscultation: normal bowel sounds Extrem: General: Yes no pedal edema, No clubbing and No cyanosis Objective Data Labs 08/05/23 04:28 08/05/23 04:28 Labs: Laboratory Results - last 24 hr 08/02/23 08/04/23 08/04/23 07:00 14:23 19:14 WBC RBC Hgb Hct MCV MCH MCHC RDW Plt Count MPV Immature Gran % (Auto) Neut % (Auto) Lymph % (Auto) [place] % (Auto) Eos % (Auto) Baso % (Auto) Lymph # (Auto) [place] # (Auto) Eos # (Auto) Baso # (Auto) Abs Immat Gran (auto) Absolute Neuts (auto) Absolute Nucleated RBC Nucleated RBC % (auto) Neutrophils % (Manual) Band Neutrophils % Lymphocytes % (Manual) Monocytes % (Manual) Eosinophils % (Manual) Basophils % (Manual) Metamyelocytes % Abs Neuts (Manual) Lymphocytes # (Manual) Monocytes # (Manual) Eosinophils # (Manual) Basophils # (Manual) Metamyelocytes # Nucleated RBCs Toxic Granulation Dohle Bodies Platelet Estimate Large Platelets Plt Morphology Comment RBC Morphology Polychromasia Hypochromasia Basophilic Stippling Microcytosis Macrocytosis Spherocytes Target Cells Ovalocytes Stomatocytes VBG pH VBG pCO2 VBG pO2 VBG HCO3 VBG O2 Saturation VBG Base Excess Sodium 142 Potassium 2.7 L Chloride 110 H Carbon Dioxide 22 Anion Gap 13 BUN 7 L Creatinine 0.59 Estim Creat Clear Calc 99.5 Estimated GFR > 60 Random Glucose 106 Lactic Acid Lactic Acid F/U @ 2Hr Calcium 7.8 L Phosphorus 2.4 L Magnesium 1.7 Total Bilirubin AST ALT Alkaline Phosphatase Total Protein Albumin Triglycerides Cholesterol LDL Cholesterol, Calc HDL Cholesterol Stool Occult Blood Hepatitis A IgM Ab Nonreactive Hep Bs Antigen Negative Hep Bs Antibody NONREACTIVE Hep B Core Total Ab Nonreactive Hepatitis C Ab (EIA) Nonreactive HIV 1&2 Ab/P24 Ag 4thGn Nonreactive Blood Type O Positive Antibody Screen NEGATIVE Crossmatch See Detail 08/04/23 08/04/23 08/04/23 19:22 21:48 23:25 WBC 24.5 H 32.8 H* RBC 1.91 L 2.18 L Hgb 6.2 L* 7.2 L Hct 18.8 L* 21.3 L MCV 98.4 H 97.7 MCH 32.5 33.0 MCHC 33.0 33.8 RDW 16.1 H 15.9 Plt Count 85 L D 86 L MPV 10.4 11.3 Immature Gran % (Auto) Cancelled Cancelled Neut % (Auto) Cancelled Cancelled Lymph % (Auto) Cancelled Cancelled [place] % (Auto) Cancelled Cancelled Eos % (Auto) Cancelled Cancelled Baso % (Auto) Cancelled Cancelled Lymph # (Auto) Cancelled Cancelled [place] # (Auto) Cancelled Cancelled Eos # (Auto) Cancelled Cancelled Baso # (Auto) Cancelled Cancelled Abs Immat Gran (auto) Cancelled Cancelled Absolute Neuts (auto) Cancelled Cancelled Absolute Nucleated RBC 0.270 H 0.390 H Nucleated RBC % (auto) 1.1 H 1.2 H Neutrophils % (Manual) 83 H 85 H Band Neutrophils % 4 2 L Lymphocytes % (Manual) 8 L 11 L Monocytes % (Manual) 4 1 L Eosinophils % (Manual) 1 Basophils % (Manual) 1 Metamyelocytes % Abs Neuts (Manual) 21.3 H 28.5 H Lymphocytes # (Manual) 2.0 3.6 Monocytes # (Manual) 1.0 0.3 Eosinophils # (Manual) 0.2 Basophils # (Manual) 0.3 H Metamyelocytes # Nucleated RBCs 2 H Toxic Granulation PRESENT Dohle Bodies PRESENT Platelet Estimate DECREASED DECREASED Large Platelets PRESENT Plt Morphology Comment NORMAL NOTE RBC Morphology NOTED NOTED Polychromasia 1+ (0-2) 1+ (0-2) Hypochromasia 3+ (>30) 1+ (5-14) Basophilic Stippling 1+ (0-2) 1+ (0-2) Microcytosis 1+ (5-14) 1+ (5-14) Macrocytosis 1+ (5-14) 1+ (5-14) Spherocytes Target Cells 3+ (>30) Ovalocytes 1+ (5-14) Stomatocytes 1+ (5-14) VBG pH VBG pCO2 VBG pO2 VBG HCO3 VBG O2 Saturation VBG Base Excess Sodium Potassium Chloride Carbon Dioxide Anion Gap BUN Creatinine Estim Creat Clear Calc Estimated GFR Random Glucose Lactic Acid 3.2 H* Lactic Acid F/U @ 2Hr 2.0 Calcium Phosphorus Magnesium Total Bilirubin AST ALT Alkaline Phosphatase Total Protein Albumin Triglycerides Cholesterol LDL Cholesterol, Calc HDL Cholesterol Stool Occult Blood Hepatitis A IgM Ab Hep Bs Antigen Hep Bs Antibody Hep B Core Total Ab Hepatitis C Ab (EIA) HIV 1&2 Ab/P24 Ag 4thGn Blood Type Antibody Screen Crossmatch 08/05/23 08/05/23 08/05/23 04:27 04:28 08:04 WBC 31.4 H* RBC 2.04 L Hgb 6.6 L* Hct 20.0 L* MCV 98.0 MCH 32.4 MCHC 33.0 RDW 15.7 Plt Count 84 L MPV 11.3 Immature Gran % (Auto) Cancelled Neut % (Auto) Cancelled Lymph % (Auto) Cancelled [place] % (Auto) Cancelled Eos % (Auto) Cancelled Baso % (Auto) Cancelled Lymph # (Auto) Cancelled [place] # (Auto) Cancelled Eos # (Auto) Cancelled Baso # (Auto) Cancelled Abs Immat Gran (auto) Cancelled Absolute Neuts (auto) Cancelled Absolute Nucleated RBC 0.420 H Nucleated RBC % (auto) 1.3 H Neutrophils % (Manual) 79 H Band Neutrophils % 5 Lymphocytes % (Manual) 7 L Monocytes % (Manual) 4 Eosinophils % (Manual) Basophils % (Manual) Metamyelocytes % 5 Abs Neuts (Manual) 26.4 H Lymphocytes # (Manual) 2.2 Monocytes # (Manual) 1.3 H Eosinophils # (Manual) Basophils # (Manual) Metamyelocytes # 1.6 Nucleated RBCs Toxic Granulation PRESENT Dohle Bodies Platelet Estimate DECREASED Large Platelets PRESENT Plt Morphology Comment NOTED RBC Morphology NOTED Polychromasia 1+ (0-2) Hypochromasia 1+ (5-14) Basophilic Stippling 1+ (0-2) Microcytosis Macrocytosis 1+ (5-14) Spherocytes 1+ (0-2) Target Cells 1+ (5-14) Ovalocytes Stomatocytes 1+ (5-14) VBG pH 7.49 H VBG pCO2 30 VBG pO2 38 VBG HCO3 23 VBG O2 Saturation 59.0 VBG Base Excess 0.9 Sodium 143 Potassium 2.7 L Chloride 106 Carbon Dioxide 21 L Anion Gap 19 BUN 8 L Creatinine 0.60 Estim Creat Clear Calc 97.9 Estimated GFR > 60 Random Glucose 140 H Lactic Acid Lactic Acid F/U @ 2Hr Calcium 8.2 L Phosphorus 3.0 Magnesium 1.5 L Total Bilirubin 1.2 H AST 64 H ALT 36 H Alkaline Phosphatase 174 H Total Protein 6.1 L Albumin 3.8 Triglycerides 327 H Cholesterol 131 LDL Cholesterol, Calc 59 HDL Cholesterol 7 L Stool Occult Blood POSITIVE Hepatitis A IgM Ab Hep Bs Antigen Hep Bs Antibody Hep B Core Total Ab Hepatitis C Ab (EIA) HIV 1&2 Ab/P24 Ag 4thGn Blood Type Antibody Screen Crossmatch Microbiology Microbiology Results: Microbiology 07/31/23 16:53 Blood - Venous Blood Culture - Preliminary No growth after 48 hours. 07/31/23 16:17 Blood - Venous Blood Culture - Preliminary No growth after 48 hours. Progress Note: A&P Assessment and plan (1) Acute respiratory failure: Status: Acute (2) Refeeding syndrome: Status: Acute (3) Hypophosphatemia: Status: Acute (4) Failure to thrive in adult: Status: Acute Plan Assessment: 47-year-old lady with underlying anorexia admitted with failure to thrive, profound hypokalemia and hypophosphatemia, initially requiring vasopressor and ventilatory support Plan: Neuro: No acute issues. Cardiac: Continue to titrate off pressors as tolerated. 2D echocardiogram is normal. Pulmonary: Respiratory failure resolved, extubated on 08/02/2023. Renal: Hypokalemia and hypophosphatemia are improving. Continue to monitor electrolytes, renal indices, and urine output. Endo: No acute issues. GI: No acute issues. ID: No acute issues Heme/Onc: No acute issues. Psych: ?MDD, psychiatry evaluation requested. Miscellaneous: No acute issues. Prophylaxis: Heparin Diet: Regular/TPN Critical care time spent: 45 minutes Quality Stroke Does the patient have a stroke diagnosis?: No VTE Prior VTE?: No VTE Risk Level:: Medical - moderate - high VTE Device Contraindication: N/A - Device Ordered VTE Drug Contraindication: N/A - Med Ordered
--- NOTE | 2023-08-05 10:33 | MHC.CLN ---
F/U PT IS MODERATE MALNOURISHED SEE FULL CLINICAL NUTRITION ASSESSMENT dated 08/04/23 DISCUSSED AT ROUNDS WITH [id number] NSG REPORTED CONTINUES WITH POOR PO PT WITH CHRONIC DIARRHEA AND +BLOOD IN STOOL DIET RX: CHOPPED-APPROPRIATE PT RECEIVING ENSURE TID TO INCREASE KCALS PROVIDES 1050KCALS, 60G PROTEIN WITH 100% ACCEPTANCE DISCUSSED WITH PHARMACY RECOMMEND TPN CONTINUE AT 35ML/HR PROVIDES 596KCALS (10.2KCALS/KG FOR RE-FEEDING), 126G DEXTROSE, 42G PROTEIN MONITOR PO INTAKE CLOSELY, LYTES K+, MG, PHOS R/T RE-FEEDING
--- NOTE | 2023-08-05 14:13 | MHC.SL.SWA ---
Speech Pathologist Impression: Risk of Aspiration Due to: Poor PO Intake Dysphasia Diet Status: Liquid Consistency and Strategies for Safe Swallow: Liquid Intake Recommendation: Thin Liquid Intake Strategies: Unrestricted Solid Food Consistency: Dietary Recommendations: Chopped/Advanced (NDD3) Additional Modifications to Solid Foods: Patient can advance to regular diet as tolerated. Currently on NDD3 per MD selection. Patient should take frequent O2 breaks with mask during meal due to respiratory status. Patient is able to feed self, however recommend periodic supervision due to food avoidance behaviors and need to monitor O2 sats and oxygen breaks. Oral Medication Intake: Whole with Liquid Please contact the pharmacy regarding appropriate crushable or liquid drug formulations that are available whenever modified delivery is recommended. Compensatory Strategies and Precautions to be Taken for Safe Swallow: Sitting Upright (90 deg) Alternate Liquids/Solids Supervision While Eating and Drinking for Safe Swallow: Intermittent Supervision Foods to Avoid: Swallowing Recommended Treatments: Recommendation for Speech: NA:Typical Evaluation Comment: Patient presents with all aspects of oral motor function WFL. Patient presents with swallow function mostly WFL, with the exception of slow mastication on more advanced solids. Patient noted to have oxygen desaturation during evaluation, requires frequent breaks for O2 when eating. Patient has history of eating disorder/anorexia/FTT. Recommend patient continue on current diet elected by physician (NDD3) but can advance to regular as tolerated, along with thin liquids, pills whole with puree. Patient will require at least periodic supervision during meals due to need for O2 mask breaks and food avoidance issues. No further [facility] services recommended at this time and will D/C. MD and RN advised of recommendations in person. Frequency/Duration: Date Range for Service Req: Timeline to reassess: Business Account Specialist Clinican/Clinical Fellow: No Supervisory Statement: I have reviewed and agree with the student/clinical fellow's documentation: No Speech Language Pathologist: Raven Felix M.A., [facility]
--- NOTE | 2023-08-05 15:03 | PM.PSYCN ---
History of Present Illness Date of Service: 08/05/2023 Chief Complaint: sepsis/atypical pneumonia/pancreatitis Reason for Consult: ?MDD Requesting physician: Timmy Lujan Sources of Information: patient interviewed and chart reviewed HPI Narrative: Patient is a 47-year-old female with underlying anorexia with progressive weakness admitted on 08/01/2023 with failure to thrive with profound hypophosphatemia and hypokalemia further complicated by hypoxia and acute respiratory failure requiring intubation and ventilatory/pressor support. Extubated 08/02/2023. Continues to require pressor support. Consult was place for ?MDD. During psychiatric consult, patient presents calm, cooperative and guarded. Pt reports after the passing of her in May 2023 she has not been able to eat or sleep. Pt stated, the sight of food was making me sick and I was sleeping for only an hour . Pt reports she was drinking four to six shots of alcohol a night but I stopped Halloween weekend because I knew I had to . She states seeing a grief counselor for a few sessions but stopped since her insurance would no longer cover the cost. denies any hx of inpatient psychiatric hospitalizations, psychiatric medications or therapy. Patient stated she would be open to seeing a therapist again but does not want any psychiatric medications at this time. denies suicidal ideation at this time. Past Psychiatric History: Pt reports grief counseling after the passing of her but ran out of sessions . Review of Systems Constitutional: Reports as per HPI Eyes: Reports as per HPI Reports as per HPI Cardiovascular: Reports as per HPI Respiratory: Reports as per HPI Gastrointestinal: Reports as per HPI Genitourinary: Reports as per HPI Musculoskeletal: Reports as per HPI Skin/Breast: Reports as per HPI Reports as per HPI Psychiatric: Reports as per HPI Endocrine: Reports as per HPI Hematologic/Lymphatic: Reports as per HPI Allergic/Immunologic: Reports as per HPI [facility] Medical History (Updated 08/05/23 @ 15:05 by Maritza Patterson NP) GERD (gastroesophageal reflux disease) Back problem Asthma Family History: denies. Social History: Lives alone, has 4 children. (1 biological and 3 step)y, works fulltime. Substance History: denies. reports drinking 4-6 shots of ETOH in May but stopped at the end of May. Trauma History: unknown. Diagnostics Vital Signs (24Hr): Vital Signs - 24 hr 08/04/23 15:30 08/04/23 15:42 08/04/23 16:00 Temperature 98.1 F Pulse Rate 97 100 102 H Respiratory Rate 18 21 H Blood Pressure 100/56 L 94/54 L Pulse Oximetry 90 L Oxygen Delivery Method Nasal Cannula Oxygen Flow Rate 2 08/04/23 17:00 08/04/23 17:28 08/04/23 17:39 Temperature Pulse Rate 97 63 96 Respiratory Rate 20 Blood Pressure 97/55 L 85/46 L Pulse Oximetry 91 L Oxygen Delivery Method Nasal Cannula Oxygen Flow Rate 2 08/04/23 18:00 08/04/23 19:00 08/04/23 20:00 Temperature 99.9 F Pulse Rate 99 102 H 107 H Respiratory Rate 20 23 H 21 H Blood Pressure 109/52 L 101/51 L 96/57 L Pulse Oximetry 90 L 90 L 94 Oxygen Delivery Method Nasal Cannula Nasal Cannula Nasal Cannula Oxygen Flow Rate 2 2 2 08/04/23 20:04 08/04/23 20:10 08/04/23 20:36 Temperature Pulse Rate 104 H 105 H 108 H Respiratory Rate 23 H Blood Pressure 91/43 L 79/33 L Pulse Oximetry Oxygen Delivery Method Oxygen Flow Rate 08/04/23 21:00 08/04/23 22:00 08/04/23 22:08 Temperature 99.9 F 100 F Pulse Rate 111 H 109 H 108 H Respiratory Rate 25 H 22 H Blood Pressure 107/67 107/62 107/62 Pulse Oximetry 91 L 92 Oxygen Delivery Method Oxymask Oxymask Oxygen Flow Rate 2 5 08/04/23 22:08 08/04/23 23:00 08/05/23 00:00 Temperature 99.9 F 99.9 F Pulse Rate 108 H 107 H 98 Respiratory Rate 33 H 19 Blood Pressure 107/62 104/63 113/68 Pulse Oximetry 93 94 Oxygen Delivery Method Oxymask Oxymask Oxygen Flow Rate 5 5 08/05/23 01:00 08/05/23 02:00 08/05/23 03:00 Temperature 100.0 F 100.0 F 99.9 F Pulse Rate 101 H 105 H 98 Respiratory Rate 24 H 24 H 20 Blood Pressure 98/64 117/58 L 122/69 Pulse Oximetry 91 L 92 92 Oxygen Delivery Method Oxymask Oxymask Oxymask Oxygen Flow Rate 5 5 5 08/05/23 04:00 08/05/23 05:00 08/05/23 05:48 Temperature 99.9 F 100.0 F Pulse Rate 105 H 104 H 110 H Respiratory Rate 25 H 24 H Blood Pressure 117/67 126/69 168/90 H Pulse Oximetry 90 L 90 L Oxygen Delivery Method Oxymask Oxymask Oxygen Flow Rate 5 5 08/05/23 06:00 08/05/23 06:13 08/05/23 06:33 Temperature 99.5 F 99.5 F 99.5 F Pulse Rate 104 H 101 H 98 Respiratory Rate 27 H 24 H 22 H Blood Pressure 131/68 130/71 123/78 Pulse Oximetry 93 Oxygen Delivery Method Oxymask Oxygen Flow Rate 5 08/05/23 07:00 08/05/23 08:00 08/05/23 08:07 Temperature 99.5 F 99.3 F Pulse Rate 96 113 H 96 Respiratory Rate 22 H 28 H Blood Pressure 128/86 116/67 85/66 L Pulse Oximetry 88 L 88 L Oxygen Delivery Method Room Air Oxymask Oxygen Flow Rate 7 08/05/23 08:39 08/05/23 08:46 08/05/23 09:00 Temperature 99.3 F 99.1 F Pulse Rate 109 H 105 H 109 H Respiratory Rate 23 H 20 29 H Blood Pressure 135/84 136/88 Pulse Oximetry 90 L Oxygen Delivery Method Oxymask Oxygen Flow Rate 7 08/05/23 10:00 08/05/23 11:00 08/05/23 12:00 Temperature 99.3 F 99.5 F 100.2 F Pulse Rate 109 H 99 102 H Respiratory Rate 18 28 H 27 H Blood Pressure 118/72 118/77 129/84 Pulse Oximetry 89 L 94 94 Oxygen Delivery Method Oxymask Oxymask Oxymask Oxygen Flow Rate 7 7 7 08/05/23 12:21 08/05/23 13:00 08/05/23 14:00 Temperature 99.7 F 99.9 F Pulse Rate 103 H 108 H 113 H Respiratory Rate 18 25 H 21 H Blood Pressure 124/80 135/69 Pulse Oximetry 90 L 86 L Oxygen Delivery Method Oxymask Oxymask Oxygen Flow Rate 7 10 BMI result Body Mass Index 21.9 Labs 08/05/23 04:28 08/05/23 04:28 Labs: Laboratory Results - last 48 hr 01/08/2508/02/23 08/04/23 05:22 07:00 04:33 WBC RBC Hgb Hct MCV MCH MCHC RDW Plt Count MPV Immature Gran % (Auto) Neut % (Auto) Lymph % (Auto) [place] % (Auto) Eos % (Auto) Baso % (Auto) Lymph # (Auto) [place] # (Auto) Eos # (Auto) Baso # (Auto) Abs Immat Gran (auto) Absolute Neuts (auto) Absolute Nucleated RBC Nucleated RBC % (auto) Neutrophils % (Manual) Band Neutrophils % Lymphocytes % (Manual) Monocytes % (Manual) Eosinophils % (Manual) Basophils % (Manual) Metamyelocytes % Myelocytes % Abs Neuts (Manual) Lymphocytes # (Manual) Monocytes # (Manual) Eosinophils # (Manual) Basophils # (Manual) Metamyelocytes # Myelocytes # Nucleated RBCs Toxic Granulation Dohle Bodies Platelet Estimate Large Platelets Plt Morphology Comment RBC Morphology Polychromasia Hypochromasia Basophilic Stippling Microcytosis Macrocytosis Spherocytes Target Cells Ovalocytes Stomatocytes Smear Path Review VBG pH VBG pCO2 VBG pO2 VBG HCO3 VBG O2 Saturation VBG Base Excess Sodium 143 Potassium 2.7 L Chloride 109 H Carbon Dioxide 23 Anion Gap 14 BUN 7 L Creatinine 0.58 Estim Creat Clear Calc 101.3 Estimated GFR > 60 Random Glucose 129 H Lactic Acid Lactic Acid F/U @ 2Hr Calcium 7.4 L Phosphorus 2.7 Magnesium 1.5 L Total Bilirubin 0.8 AST 110 H ALT 50 H Alkaline Phosphatase 217 H Total Protein 5.2 L Albumin 2.6 L Triglycerides Cholesterol LDL Cholesterol, Calc HDL Cholesterol Stool Occult Blood Hepatitis A IgM Ab Hep Bs Antigen Hep Bs Antibody Hep B Core Total Ab Hepatitis C Ab (EIA) HIV 1&2 Ab/P24 Ag 4thGn Blood Type O Positive Antibody Screen NEGATIVE Crossmatch See Detail 08/04/23 08/04/23 08/04/23 04:37 14:23 19:14 WBC 24.2 H RBC 2.32 L Hgb 7.5 L Hct 22.4 L MCV 96.6 MCH 32.3 MCHC 33.5 RDW 15.9 Plt Count 118 L D MPV 11.6 Immature Gran % (Auto) Cancelled Neut % (Auto) Cancelled Lymph % (Auto) Cancelled [place] % (Auto) Cancelled Eos % (Auto) Cancelled Baso % (Auto) Cancelled Lymph # (Auto) Cancelled [place] # (Auto) Cancelled Eos # (Auto) Cancelled Baso # (Auto) Cancelled Abs Immat Gran (auto) Cancelled Absolute Neuts (auto) Cancelled Absolute Nucleated RBC 0.180 H Nucleated RBC % (auto) 0.7 H Neutrophils % (Manual) 80 H Band Neutrophils % 5 Lymphocytes % (Manual) 12 L Monocytes % (Manual) 1 L Eosinophils % (Manual) Basophils % (Manual) Metamyelocytes % 1 Myelocytes % 1 Abs Neuts (Manual) 20.6 H Lymphocytes # (Manual) 2.9 Monocytes # (Manual) 0.2 Eosinophils # (Manual) Basophils # (Manual) Metamyelocytes # 0.2 Myelocytes # 0.2 Nucleated RBCs Toxic Granulation PRESENT Dohle Bodies Platelet Estimate SLIGHTLY DECREASED Large Platelets PRESENT Plt Morphology Comment NOTED RBC Morphology NOTED Polychromasia 1+ (0-2) Hypochromasia Basophilic Stippling 1+ (0-2) Microcytosis Macrocytosis 1+ (5-14) Spherocytes 1+ (0-2) Target Cells 1+ (5-14) Ovalocytes Stomatocytes Smear Path Review VBG pH VBG pCO2 VBG pO2 VBG HCO3 VBG O2 Saturation VBG Base Excess Sodium 142 Potassium 2.7 L Chloride 110 H Carbon Dioxide 22 Anion Gap 13 BUN 7 L Creatinine 0.59 Estim Creat Clear Calc 99.5 Estimated GFR > 60 Random Glucose 106 Lactic Acid Lactic Acid F/U @ 2Hr Calcium 7.8 L Phosphorus 2.4 L Magnesium 1.7 Total Bilirubin AST ALT Alkaline Phosphatase Total Protein Albumin Triglycerides Cholesterol LDL Cholesterol, Calc HDL Cholesterol Stool Occult Blood Hepatitis A IgM Ab Nonreactive Hep Bs Antigen Negative Hep Bs Antibody NONREACTIVE Hep B Core Total Ab Nonreactive Hepatitis C Ab (EIA) Nonreactive HIV 1&2 Ab/P24 Ag 4thGn Nonreactive Blood Type Antibody Screen Crossmatch 08/04/23 08/04/23 08/04/23 19:22 21:48 23:25 WBC 24.5 H 32.8 H* RBC 1.91 L 2.18 L Hgb 6.2 L* 7.2 L Hct 18.8 L* 21.3 L MCV 98.4 H 97.7 MCH 32.5 33.0 MCHC 33.0 33.8 RDW 16.1 H 15.9 Plt Count 85 L D 86 L MPV 10.4 11.3 Immature Gran % (Auto) Cancelled Cancelled Neut % (Auto) Cancelled Cancelled Lymph % (Auto) Cancelled Cancelled [place] % (Auto) Cancelled Cancelled Eos % (Auto) Cancelled Cancelled Baso % (Auto) Cancelled Cancelled Lymph # (Auto) Cancelled Cancelled [place] # (Auto) Cancelled Cancelled Eos # (Auto) Cancelled Cancelled Baso # (Auto) Cancelled Cancelled Abs Immat Gran (auto) Cancelled Cancelled Absolute Neuts (auto) Cancelled Cancelled Absolute Nucleated RBC 0.270 H 0.390 H Nucleated RBC % (auto) 1.1 H 1.2 H Neutrophils % (Manual) 83 H 85 H Band Neutrophils % 4 2 L Lymphocytes % (Manual) 8 L 11 L Monocytes % (Manual) 4 1 L Eosinophils % (Manual) 1 Basophils % (Manual) 1 Metamyelocytes % Myelocytes % Abs Neuts (Manual) 21.3 H 28.5 H Lymphocytes # (Manual) 2.0 3.6 Monocytes # (Manual) 1.0 0.3 Eosinophils # (Manual) 0.2 Basophils # (Manual) 0.3 H Metamyelocytes # Myelocytes # Nucleated RBCs 2 H Toxic Granulation PRESENT Dohle Bodies PRESENT Platelet Estimate DECREASED DECREASED Large Platelets PRESENT Plt Morphology Comment NORMAL NOTE RBC Morphology NOTED NOTED Polychromasia 1+ (0-2) 1+ (0-2) Hypochromasia 3+ (>30) 1+ (5-14) Basophilic Stippling 1+ (0-2) 1+ (0-2) Microcytosis 1+ (5-14) 1+ (5-14) Macrocytosis 1+ (5-14) 1+ (5-14) Spherocytes Target Cells 3+ (>30) Ovalocytes 1+ (5-14) Stomatocytes 1+ (5-14) Smear Path Review VBG pH VBG pCO2 VBG pO2 VBG HCO3 VBG O2 Saturation VBG Base Excess Sodium Potassium Chloride Carbon Dioxide Anion Gap BUN Creatinine Estim Creat Clear Calc Estimated GFR Random Glucose Lactic Acid 3.2 H* Lactic Acid F/U @ 2Hr 2.0 Calcium Phosphorus Magnesium Total Bilirubin AST ALT Alkaline Phosphatase Total Protein Albumin Triglycerides Cholesterol LDL Cholesterol, Calc HDL Cholesterol Stool Occult Blood Hepatitis A IgM Ab Hep Bs Antigen Hep Bs Antibody Hep B Core Total Ab Hepatitis C Ab (EIA) HIV 1&2 Ab/P24 Ag 4thGn Blood Type Antibody Screen Crossmatch 08/05/23 08/05/23 08/05/23 04:27 04:28 08:04 WBC 31.4 H* RBC 2.04 L Hgb 6.6 L* Hct 20.0 L* MCV 98.0 MCH 32.4 MCHC 33.0 RDW 15.7 Plt Count 84 L MPV 11.3 Immature Gran % (Auto) Cancelled Neut % (Auto) Cancelled Lymph % (Auto) Cancelled [place] % (Auto) Cancelled Eos % (Auto) Cancelled Baso % (Auto) Cancelled Lymph # (Auto) Cancelled [place] # (Auto) Cancelled Eos # (Auto) Cancelled Baso # (Auto) Cancelled Abs Immat Gran (auto) Cancelled Absolute Neuts (auto) Cancelled Absolute Nucleated RBC 0.420 H Nucleated RBC % (auto) 1.3 H Neutrophils % (Manual) 79 H Band Neutrophils % 5 Lymphocytes % (Manual) 7 L Monocytes % (Manual) 4 Eosinophils % (Manual) Basophils % (Manual) Metamyelocytes % 5 Myelocytes % Abs Neuts (Manual) 26.4 H Lymphocytes # (Manual) 2.2 Monocytes # (Manual) 1.3 H Eosinophils # (Manual) Basophils # (Manual) Metamyelocytes # 1.6 Myelocytes # Nucleated RBCs Toxic Granulation PRESENT Dohle Bodies Platelet Estimate DECREASED Large Platelets PRESENT Plt Morphology Comment NOTED RBC Morphology NOTED Polychromasia 1+ (0-2) Hypochromasia 1+ (5-14) Basophilic Stippling 1+ (0-2) Microcytosis Macrocytosis 1+ (5-14) Spherocytes 1+ (0-2) Target Cells 1+ (5-14) Ovalocytes Stomatocytes 1+ (5-14) Smear Path Review VBG pH 7.49 H VBG pCO2 30 VBG pO2 38 VBG HCO3 23 VBG O2 Saturation 59.0 VBG Base Excess 0.9 Sodium 143 Potassium 2.7 L Chloride 106 Carbon Dioxide 21 L Anion Gap 19 BUN 8 L Creatinine 0.60 Estim Creat Clear Calc 97.9 Estimated GFR > 60 Random Glucose 140 H Lactic Acid Lactic Acid F/U @ 2Hr Calcium 8.2 L Phosphorus 3.0 Magnesium 1.5 L Total Bilirubin 1.2 H AST 64 H ALT 36 H Alkaline Phosphatase 174 H Total Protein 6.1 L Albumin 3.8 Triglycerides 327 H Cholesterol 131 LDL Cholesterol, Calc 59 HDL Cholesterol 7 L Stool Occult Blood POSITIVE Hepatitis A IgM Ab Hep Bs Antigen Hep Bs Antibody Hep B Core Total Ab Hepatitis C Ab (EIA) HIV 1&2 Ab/P24 Ag 4thGn Blood Type Antibody Screen Crossmatch Imaging Radiology Impressions: ITS Impressions Chest X-Ray 07/31/23 17:06 IMPRESSION: Linear basilar markings more likely due to scarring or atelectasis. Abdomen/Pelvis CT 07/31/23 17:48 IMPRESSION: 1. Findings are consistent with acute pancreatitis, with scattered acute fluid collections adjacent to the pancreatic head and tail, in the mesenteric root and in the bilateral paracolic gutters, left greater than right. 2. A 1.9 cm pancreatic body probable pseudocyst is noted. 3. There is marked hepatomegaly, and hepatic steatosis is seen. 4. A 1.7 cm nodule is seen within the lateral limb of the left adrenal gland. Current ACR [employer] RECOMMENDATIONS regarding incidental adrenal mass is include; - Imaging can characterize adrenal adenomas with high accuracy but cannot be used to distinguish hyperfunctioning from nonhyperfunctioning masses - Current guidelines from the [place] [employer]ocrinologists and the [place] [employer] recommend an initial biochemical evaluation of all adrenal incidentalomas to exclude pheochromocytoma, subclinical Dawn?s syndrome, and hyperaldosteronism. 5. Adjacent to the left iliac bifurcation, a 1.9 cm in short axis diameter lymph node is seen. This is nonspecific and should be managed on a clinical basis. Recommend continued attention on imaging follow-up. 6. No acute or aggressive osseous finding is seen. Fleischner guidelines were followed. Chest CT 07/31/23 19:11 IMPRESSION: Worsening patchy bilateral groundglass airspace disease more so in the right lower lobe. Infectious or inflammatory causes would be strongly favored with this distribution. Chest X-Ray 07/31/23 21:40 IMPRESSION: 1. Endotracheal tube terminates at 2.7 cm above the bella. 2. Multifocal airspace opacities, more prominent in the right lower lobe are better visualized on CT chest from earlier on same day. Chest X-Ray 07/31/23 22:45 IMPRESSION: 1. The endotracheal tube terminates at 3.5 cm above the belal. 2. Left IJ CVC catheter tip projects at the level of the superior cavoatrial junction. 3. No significant change in the multifocal airspace opacities. 4. No pneumothorax. Chest X-Ray 08/01/23 09:44 IMPRESSION: Endotracheal tube terminates 3.7 cm above the bella. Patchy bibasilar opacities. Multifocal groundglass opacities with basilar prominence are better seen on the chest CT of 07/31/2023. Probable mild interstitial edema/pulmonary venous congestion. Mental Status Exam Mental Status Exam Narrative: Pt is alert and oriented; behavior is cooperative and calm; mood is described as okay ; eye contact appropriate; Speech is normal rate, volume and prosody and not pressured; thought process is organized; denies SI/HI. There is no evidence of perceptual disturbance. Medications Medications Current Medications Acetaminophen (Acetaminophen 325 Mg Tablet) 650 mg PO Q4H PRN PRN Reason: Pain, Mild (Pain Scale 1-3) Last Admin: 08/04/23 17:05 Dose: 650 mg Albuterol/Ipratropium (Albuterol/Iprat 2.5/0.5mg 3 Ml Ampul.Neb) 3 ml INHALE RQ4H WHILE AWAKE [facility] Last Admin: 08/05/23 12:20 Dose: 3 ml Heparin Sodium (Porcine) (Heparin Sodium,Porcine 5,000 Unit/Ml Vial) 5,000 unit SUBCUT Q12H [facility] Last Admin: 08/05/23 08:56 Dose: Not Given Norepinephrine Bitartrate (Levophed) 8 mg in 250 mls @ 0 mls/hr IV .Q0M [facility]; Protocol Last Titration: 08/05/23 08:07 Dose: 0.11 mcg/kg/min, 11.69 mls/hr Ceftriaxone Sodium 1 gm/ (Sodium Chloride) 50 mls @ 100 mls/hr IV Q24H [facility] Last Infusion: 08/05/23 08:54 Dose: Infused Nutrition (Parenteral) (Parenteral Nutrition) 840 mls @ 35 mls/hr IV .Q24H [facility]; Protocol Stop: 08/05/23 20:59 Last Admin: 08/04/23 21:57 Dose: 35 mls/hr Nutrition (Parenteral) (Parenteral Nutrition) 840 mls @ 35 mls/hr IV .Q24H [facility]; Protocol Stop: 08/06/23 20:59 Multivitamins/Minerals (Multivitamin With Minerals Liq 15 Ml Liquid) 15 ml PO DAILY [facility] Last Admin: 08/05/23 08:14 Dose: 15 ml Omeprazole (Omeprazole 20 Mg Jaquan.) 20 mg PO DAILY@0630 [facility] Last Admin: 08/05/23 06:35 Dose: 20 mg Pharmacy Consult (Consult Rx Parenteral Nutrition Ordering) 1 each MISCELLANE DAILY PRN PRN Reason: Consult order Thiamine HCl (Thiamine Hcl 100 Mg Tablet) 100 mg PO DAILY [facility] Last Admin: 08/05/23 08:14 Dose: 100 mg Allergies Allergies Allergy/AdvReac Type Severity Reaction Status Date / Time amoxicillin Allergy Gastrointestinal Verified 07/31/23 15:47 Upset avocado Allergy Anaphylaxis Verified 07/31/23 15:47 honey Allergy Anaphylaxis Verified 07/31/23 15:47 Assessment & Plan Assessment & Plan (1) Grief: Status: Acute Code(s): F43.21 - Adjustment disorder with depressed mood Plan Consult was place for ?MDD. During psychiatric consult, patient presents calm, cooperative and guarded. Pt reports after the passing of her in May 2023 she has not been able to eat or sleep. Pt stated, the sight of food was making me sick and I was sleeping for only an hour . Pt reports she was drinking four to six shots of alcohol a night but I stopped Halloween weekend because I knew I had to . She states seeing a grief counselor for a few sessions but stopped since her insurance would no longer cover the cost. denies any hx of inpatient psychiatric hospitalizations, psychiatric medications or therapy. Patient stated she would be open to seeing a therapist again but does not want any psychiatric medications at this time. denies suicidal ideation at this time. Recommendations: Referral to outpatient therapy. Referral to group grief counseling. Would recommend Care Team consult to determine if needing psychiatric inpatient level of care prior to discharge. Recommend obtaining collateral from family to determine if pt has ever expressed thought of self harm since loss of . Total time managing care of this patient today _30___ minutes. Patient educated on: medication risk/benefits and therapeutic strategies Informed Consent: understands
[2023-08-05] MEDS: Loratadine 10 MG TABLET PO (17:03)
[2023-08-06] VITALS (34 sets, daily range): BP systolic 94–129; BP diastolic 40–84; PULSE 94–116; RESP 18–32; TEMP 36.6–37.6; O2SAT 90–99; BMI 19.6
[2023-08-06 05:34] LABS: Legionella Ag Urine Not Detected (Not Detected)
[2023-08-06] MEDS: cefTRIAXone sodium 1 GM in 0.9 % Sodium Chloride 50 ML IV (07:50)
[2023-08-06] MEDS: Thiamine HCL 100 MG TABLET PO (08:23)
--- NOTE | 2023-08-06 10:37 | MHC.CLN ---
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
--- NOTE | 2023-08-06 11:21 | PM.CCPN ---
Subjective Subjective Date of Service: 08/06/23 Interval History: 47-year-old lady with underlying anorexia with progressive weakness admitted on 08/01/2023 with failure to thrive with profound hypophosphatemia and hypokalemia further complicated by hypoxia and acute respiratory failure requiring intubation and ventilatory/pressor support. Extubated 08/02/2023. No events overnight. Titrated off pressor support. Evaluated by Psychiatry. Critical Care Time (minutes): 45 Physical Exam Vital Signs: Vital Signs: Last Vital Signs Temp 99.0 F 08/06/23 11:00 Pulse 98 08/06/23 11:20 Resp 31 H 08/06/23 11:00 BP 94/40 L 08/06/23 11:20 Pulse Ox 94 08/06/23 11:00 O2 Del Method Nasal Cannula 08/06/23 11:00 O2 Flow Rate 6 08/06/23 11:00 FiO2 21 08/02/23 11:38 BMI result Body Mass Index 19.6 Const: General: no acute distress, alert and awake Eyes: Sclerae: sclerae normal EOM: EOMs intact bilaterally Neck: Neck: Yes no lymphadenopathy, Yes trachea midline and Yes supple Resp: Effort & Inspection: normal respiratory effort and no respiratory distress Auscultation: clear to auscultation bilaterally Cardio: Rate: regular rate Rhythm: regular rhythm Heart sounds: no gallops, no murmurs and no rubs GI: Palpation (GI): Soft to palpation and Other GI palpation findings present ( Nontender) Auscultation: normal bowel sounds Extrem: General: Yes no pedal edema, No clubbing and No cyanosis Objective Data Labs 08/06/23 04:58 08/06/23 04:58 Labs: Laboratory Results - last 24 hr 07/31/23 08/05/23 08/05/23 21:34 19:30 19:57 WBC 40.5 H* RBC 2.51 L D Hgb 8.2 L D Hct 24.2 L D MCV 96.4 MCH 32.7 MCHC 33.9 RDW 17.7 H Plt Count 103 L MPV TNP Immature Gran % (Auto) Cancelled Neut % (Auto) Cancelled Lymph % (Auto) Cancelled [place] % (Auto) Cancelled Eos % (Auto) Cancelled Baso % (Auto) Cancelled Lymph # (Auto) Cancelled [place] # (Auto) Cancelled Eos # (Auto) Cancelled Baso # (Auto) Cancelled Abs Immat Gran (auto) Cancelled Absolute Neuts (auto) Cancelled Absolute Nucleated RBC 0.740 H Nucleated RBC % (auto) 1.8 H Neutrophils % (Manual) 77 H Band Neutrophils % 3 Lymphocytes % (Manual) 16 L Monocytes % (Manual) 4 Metamyelocytes % Myelocytes % Abs Neuts (Manual) 32.4 H Lymphocytes # (Manual) 6.5 H Monocytes # (Manual) 1.6 H Metamyelocytes # Myelocytes # Nucleated RBCs Toxic Granulation PRESENT Dohle Bodies PRESENT Platelet Estimate SLIGHTLY DECREASED Large Platelets PRESENT Plt Morphology Comment NOTED RBC Morphology NOTED Polychromasia 1+ (0-2) Microcytosis 1+ (5-14) Macrocytosis 1+ (5-14) Spherocytes 1+ (0-2) Target Cells 1+ (5-14) Stomatocytes 1+ (5-14) Acanthocytes (Spur) 1+ (0-2) VBG pH VBG pCO2 VBG pO2 VBG HCO3 VBG O2 Saturation VBG Base Excess Sodium 141 Potassium 3.0 L Chloride 108 Carbon Dioxide 20 L Anion Gap 16 BUN 10 Creatinine 0.57 Estim Creat Clear Calc 103.0 Estimated GFR > 60 Random Glucose 158 H Calcium 9.0 D Phosphorus 2.2 L Magnesium 1.6 Total Bilirubin AST ALT Alkaline Phosphatase Total Protein Albumin 3.4 L Prealbumin C. difficile Tox B Gene NEGATIVE Ur L.pneumophila Ag Not Detected 08/06/23 08/06/23 04:58 04:59 WBC 37.4 H* RBC 2.39 L Hgb 7.6 L Hct 22.9 L MCV 95.8 MCH 31.8 MCHC 33.2 RDW 17.2 H Plt Count 114 L MPV 12.6 H Immature Gran % (Auto) Cancelled Neut % (Auto) Cancelled Lymph % (Auto) Cancelled [place] % (Auto) Cancelled Eos % (Auto) Cancelled Baso % (Auto) Cancelled Lymph # (Auto) Cancelled [place] # (Auto) Cancelled Eos # (Auto) Cancelled Baso # (Auto) Cancelled Abs Immat Gran (auto) Cancelled Absolute Neuts (auto) Cancelled Absolute Nucleated RBC 0.480 H Nucleated RBC % (auto) 1.3 H Neutrophils % (Manual) 73 Band Neutrophils % 13 H Lymphocytes % (Manual) 8 L Monocytes % (Manual) 2 Metamyelocytes % 3 Myelocytes % 1 Abs Neuts (Manual) 32.2 H Lymphocytes # (Manual) 3.0 Monocytes # (Manual) 0.7 Metamyelocytes # 1.1 Myelocytes # 0.4 Nucleated RBCs 1 H Toxic Granulation PRESENT Dohle Bodies PRESENT Platelet Estimate SLIGHTLY DECREASED Large Platelets PRESENT Plt Morphology Comment NOTED RBC Morphology NOTED Polychromasia 1+ (0-2) Microcytosis 1+ (5-14) Macrocytosis 1+ (5-14) Spherocytes 1+ (0-2) Target Cells 1+ (5-14) Stomatocytes 1+ (5-14) Acanthocytes (Spur) VBG pH 7.48 H VBG pCO2 33 VBG pO2 43 VBG HCO3 25 VBG O2 Saturation 68.0 VBG Base Excess 2.1 Sodium 142 Potassium 2.7 L Chloride 103 Carbon Dioxide 24 Anion Gap 18 BUN 11 Creatinine 0.55 Estim Creat Clear Calc 106.8 Estimated GFR > 60 Random Glucose 113 Calcium 9.2 Phosphorus 3.3 Magnesium 1.4 L* Total Bilirubin 1.8 H AST 63 H ALT 29 Alkaline Phosphatase 224 H Total Protein 6.5 Albumin 4.1 Prealbumin < 3.0 L C. difficile Tox B Gene Ur L.pneumophila Ag Microbiology Microbiology Results: Microbiology 08/04/23 19:21 Blood - Venous Blood Culture - Preliminary No growth after 24 hours. 08/04/23 19:29 Blood - Venous Blood Culture - Preliminary No growth after 24 hours. 07/31/23 16:53 Blood - Venous Blood Culture - Final No growth after 5 days. 07/31/23 16:17 Blood - Venous Blood Culture - Final No growth after 5 days. Progress Note: A&P Assessment and plan (1) Acute respiratory failure: Status: Acute (2) Grief: Status: Acute (3) Refeeding syndrome: Status: Acute (4) Hypophosphatemia: Status: Acute (5) Failure to thrive in adult: Status: Acute Plan Assessment: 47-year-old lady with underlying anorexia admitted with failure to thrive, profound hypokalemia and hypophosphatemia, initially requiring vasopressor and ventilatory support Plan: Neuro: No acute issues. Cardiac: Titrated off pressors. 2D echocardiogram is normal. Pulmonary: Respiratory failure resolved, extubated on 08/02/2023. Renal: Hypokalemia and hypophosphatemia are improving. Continue to monitor electrolytes, renal indices, and urine output. Endo: No acute issues. GI: No acute issues. ID: No acute issues Heme/Onc: No acute issues. Psych: Psychiatry evaluation appreciated. Miscellaneous: No acute issues. Prophylaxis: Heparin Diet: Regular/TPN Critical care time spent: 45 minutes Quality Stroke Does the patient have a stroke diagnosis?: No VTE Prior VTE?: No VTE Risk Level:: Medical - moderate - high VTE Device Contraindication: N/A - Device Ordered VTE Drug Contraindication: N/A - Med Ordered
--- NOTE | 2023-08-06 11:57 | MHC.CM.PN ---
Pt continues care in ICU: very fragile nutritional / electrolyte status d/t refeeding syndrome. Pt will need to be seen by psych once medically stable for ? inpt needs d/t profound depression. Pt had lived w/family and had no services prior to admission. CM to follow for changes in d/c plan
[2023-08-06] MEDS: Heparin Sodium,Porcine 5,000 UNIT/ML VIAL 5000 UNIT SUBCUT (23:09)
[2023-08-07] VITALS (29 sets, daily range): BP systolic 92–129; BP diastolic 49–74; PULSE 95–111; RESP 18–28; TEMP 36.7–37.6; O2SAT 90–99; BMI 21.0
[2023-08-07] MEDS: cefTRIAXone sodium 1 GM in 0.9 % Sodium Chloride 50 ML IV (08:14)
[2023-08-07] MEDS: Thiamine HCL 100 MG TABLET PO (08:17)
--- NOTE | 2023-08-07 10:02 | PM.CCPN ---
Subjective Subjective Date of Service: 08/07/23 Interval History: 47-year-old lady with underlying anorexia with progressive weakness admitted on 08/01/2023 with failure to thrive with profound hypophosphatemia and hypokalemia further complicated by hypoxia and acute respiratory failure requiring intubation and ventilatory/pressor support. Extubated 08/02/2023. Continues to require pressor support on and off. No events overnight. Back on pressor support. Critical Care Time (minutes): 45 Physical Exam Vital Signs: Vital Signs: Last Vital Signs Temp 98.8 F 08/07/23 09:00 Pulse 96 08/07/23 09:00 Resp 26 H 08/07/23 09:00 BP 109/70 08/07/23 09:00 Pulse Ox 97 08/07/23 09:00 O2 Del Method Oxymask 08/07/23 09:00 O2 Flow Rate 8 08/07/23 09:00 FiO2 21 08/02/23 11:38 BMI result Body Mass Index 21.0 Const: General: no acute distress, alert and awake Eyes: Sclerae: sclerae normal EOM: EOMs intact bilaterally Neck: Neck: Yes no lymphadenopathy, Yes trachea midline and Yes supple Resp: Effort & Inspection: normal respiratory effort and no respiratory distress Auscultation: clear to auscultation bilaterally Cardio: Rate: regular rate Rhythm: regular rhythm Heart sounds: no gallops, no murmurs and no rubs GI: Palpation (GI): Soft to palpation and Other GI palpation findings present ( Nontender) Auscultation: normal bowel sounds Extrem: General: Yes no pedal edema, No clubbing and No cyanosis Objective Data Labs 08/07/23 05:04 08/07/23 05:04 Labs: Laboratory Results - last 24 hr 08/06/23 08/06/23 08/07/23 11:34 19:14 05:04 WBC 33.8 H* RBC 2.33 L Hgb 7.5 L Hct 22.6 L MCV 97.0 MCH 32.2 MCHC 33.2 RDW 17.1 H Plt Count 204 D MPV 11.9 Immature Gran % (Auto) Cancelled Neut % (Auto) Cancelled Lymph % (Auto) Cancelled [place] % (Auto) Cancelled Eos % (Auto) Cancelled Baso % (Auto) Cancelled Lymph # (Auto) Cancelled [place] # (Auto) Cancelled Eos # (Auto) Cancelled Baso # (Auto) Cancelled Abs Immat Gran (auto) Cancelled Absolute Neuts (auto) Cancelled Absolute Nucleated RBC 0.470 H Nucleated RBC % (auto) 1.4 H Neutrophils % (Manual) 80 H Band Neutrophils % 14 H Lymphocytes % (Manual) 2 L Monocytes % (Manual) 1 L Basophils % (Manual) 1 Metamyelocytes % 1 Myelocytes % 1 Abs Neuts (Manual) 31.8 H Lymphocytes # (Manual) 0.7 L Monocytes # (Manual) 0.3 Basophils # (Manual) 0.3 H Metamyelocytes # 0.3 Myelocytes # 0.3 Nucleated RBCs 2 H Toxic Granulation PRESENT Toxic Vacuolation PRESENT Dohle Bodies PRESENT Platelet Estimate NORMAL Large Platelets PRESENT Plt Morphology Comment NOTED RBC Morphology NOTED Polychromasia 2+ (3-5) Macrocytosis 1+ (5-14) Spherocytes 1+ (0-2) Target Cells 1+ (5-14) VBG pH VBG pCO2 VBG pO2 VBG HCO3 VBG O2 Saturation VBG Base Excess Sodium 141 139 Potassium 3.8 D 3.7 Chloride 109 H 109 H Carbon Dioxide 19 L 18 L Anion Gap 17 16 BUN 11 11 Creatinine 0.52 0.49 L Estim Creat Clear Calc 108.0 119.9 Estimated GFR > 60 > 60 Random Glucose 125 H 121 H Calcium 9.7 9.5 Phosphorus 2.7 2.9 Magnesium 1.8 1.8 Total Bilirubin 1.1 H AST 72 H ALT 25 Alkaline Phosphatase 238 H Total Protein 6.5 Albumin 3.9 Blood Type O Positive Antibody Screen NEGATIVE 08/07/23 05:05 WBC RBC Hgb Hct MCV MCH MCHC RDW Plt Count MPV Immature Gran % (Auto) Neut % (Auto) Lymph % (Auto) [place] % (Auto) Eos % (Auto) Baso % (Auto) Lymph # (Auto) [place] # (Auto) Eos # (Auto) Baso # (Auto) Abs Immat Gran (auto) Absolute Neuts (auto) Absolute Nucleated RBC Nucleated RBC % (auto) Neutrophils % (Manual) Band Neutrophils % Lymphocytes % (Manual) Monocytes % (Manual) Basophils % (Manual) Metamyelocytes % Myelocytes % Abs Neuts (Manual) Lymphocytes # (Manual) Monocytes # (Manual) Basophils # (Manual) Metamyelocytes # Myelocytes # Nucleated RBCs Toxic Granulation Toxic Vacuolation Dohle Bodies Platelet Estimate Large Platelets Plt Morphology Comment RBC Morphology Polychromasia Macrocytosis Spherocytes Target Cells VBG pH 7.46 H VBG pCO2 28 VBG pO2 49 VBG HCO3 20 L VBG O2 Saturation 79.0 VBG Base Excess -2.4 Sodium Potassium Chloride Carbon Dioxide Anion Gap BUN Creatinine Estim Creat Clear Calc Estimated GFR Random Glucose Calcium Phosphorus Magnesium Total Bilirubin AST ALT Alkaline Phosphatase Total Protein Albumin Blood Type Antibody Screen Microbiology Microbiology Results: Microbiology 08/04/23 19:21 Blood - Venous Blood Culture - Preliminary No growth after 48 hours. 08/04/23 19:29 Blood - Venous Blood Culture - Preliminary No growth after 48 hours. 07/31/23 16:53 Blood - Venous Blood Culture - Final No growth after 5 days. 07/31/23 16:17 Blood - Venous Blood Culture - Final No growth after 5 days. Progress Note: A&P Assessment and plan (1) Grief: Status: Acute (2) Refeeding syndrome: Status: Acute (3) Hypophosphatemia: Status: Acute (4) Failure to thrive in adult: Status: Acute Plan Assessment: 47-year-old lady with underlying anorexia admitted with failure to thrive, profound hypokalemia and hypophosphatemia, initially requiring vasopressor and ventilatory support Plan: Neuro: No acute issues. Cardiac: Continue to titrate off pressors. 2D echocardiogram is normal. Pulmonary: Respiratory failure resolved, extubated on 08/02/2023. Renal: Hypokalemia and hypophosphatemia are improving. Continue to monitor electrolytes, renal indices, and urine output. Endo: No acute issues. GI: No acute issues. ID: No acute issues Heme/Onc: No acute issues. Psych: Psychiatry evaluation appreciated. Miscellaneous: No acute issues. Prophylaxis: Heparin Diet: Regular/TPN Critical care time spent: 45 minutes Quality Stroke Does the patient have a stroke diagnosis?: No VTE Prior VTE?: No VTE Risk Level:: Medical - moderate - high VTE Device Contraindication: N/A - Device Ordered VTE Drug Contraindication: N/A - Med Ordered
--- NOTE | 2023-08-07 10:40 | MHC.CLN ---
F/U CONTINUES WITH LITTLE TO NO PO INTAKE-HX ANOREXIA, PANCREATITIS, HX ETOH ABUSE, FTT, AND RE-FEEDING REVIEWED LABS-IMPROVED DISCUSSED WITH PHARMACY YESTERDAY PT RECEIVED TPN AT 45ML/HR PROVIDED 767KCALS (13KCALS/KG FOR RE-FEEDING), 162G DEXTROSE, 54G PROTEIN (.9G/KG) RECOMMEND TPN INCREASE TO 60ML/HR TODAY TO PROVIDE 1022KCALS (19KCALS/KG), 216G DEXTROSE, 72G PROTEIN (1.35G/KG) HOLD LIPIDS, CHECK TRIG LEVEL MONITOR PO INTAKE CLOSELY, LYTES K+, MG, PHOS R/T RE-FEEDING
[2023-08-08] VITALS (28 sets, daily range): BP systolic 92–126; BP diastolic 44–90; PULSE 94–110; RESP 16–26; TEMP 36.8–37.6; O2SAT 91–99; BMI 20.7
[2023-08-08 05:29] LABS: Hematocrit 22.7 % (37.0-47.0); Hemoglobin 7.3 g/dl (12.0-16.0); Mean Corpuscular HGB Conc 32.2 g/dl (31.0-35.0); Mean Corpuscular Hemoglobin 32.3 pg (27.0-33.0); Mean Corpuscular Volume 100.4 fL (80.0-98.0); Mean Platelet Volume 11.6 fL (9.4-12.3); Platelet Count 306 X10*3/uL (160-400); Red Blood Count 2.26 X10*6/uL (4.20-5.50); Red Cell Distribution Width 17.2 % (11.0-16.0); White Blood Count 29.3 X10*3/uL (4.8-10.8)
[2023-08-08 05:58] LABS: Band Neutrophils Percent 7 % (3-5); Eosinophils Percent Manual 1 % (0-4); Lymphocytes Absolute Manual 0.9 X10*3/uL (1.2-4.9); Lymphocytes Percent Manual 3 % (20-40); Metamyelocytes Absolute 2.1 X10*3/uL; Metamyelocytes Percent 7 %; Monocytes Absolute Manual 1.5 X10*3/uL (0.1-1.2); Monocytes Percent Manual 5 % (2-11); Myelocytes Absolute 0.3 X10*/uL; Myelocytes Percent 1 %; Neutrophils Absolute Manual 24.3 X10*3/uL (2.0-8.3); Neutrophils Percent Manual 76 % (45-73)
[2023-08-08 05:59] LABS: Eosinophils Absolute Manual 0.3 X10*3/uL (0.0-0.4)
[2023-08-08 06:00] LABS: Macrocytosis 1+ (5-14) /OIF; Platelet Estimate NORMAL (NORMAL); RBC Morphology NOTED
[2023-08-08 06:01] LABS: Large Platelet PRESENT; Platelet Morphology Comment NOTED
[2023-08-08 06:02] LABS: Spherocytes 1+ (0-2) /OIF
[2023-08-08 06:03] LABS: Target Cells 1+ (5-14) /OIF
[2023-08-08 06:04] LABS: Dohle Bodies PRESENT; Polychromasia 1+ (0-2) /OIF
[2023-08-08 06:07] LABS: Stomatocytes 1+ (5-14) /OIF
[2023-08-08] MEDS: Thiamine HCL 100 MG TABLET PO (08:06)
[2023-08-08] MEDS: Midodrine HCl 10 MG TABLET PO (09:50)
--- NOTE | 2023-08-08 10:02 | PM.CCPN ---
Subjective Subjective Date of Service: 08/08/23 Interval History: 47-year-old lady with underlying anorexia with progressive weakness admitted on 08/01/2023 with failure to thrive with profound hypophosphatemia and hypokalemia further complicated by hypoxia and acute respiratory failure requiring intubation and ventilatory/pressor support. Extubated 08/02/2023. Continues to require pressor support on and off. No events overnight. On/off pressor support. Critical Care Time (minutes): 45 Physical Exam Vital Signs: Vital Signs: Last Vital Signs Temp 98.6 F 08/08/23 09:00 Pulse 97 08/08/23 09:48 Resp 24 H 08/08/23 09:00 BP 110/58 L 08/08/23 09:48 Pulse Ox 94 08/08/23 09:00 O2 Del Method Oxymask 08/08/23 09:00 O2 Flow Rate 4 08/08/23 09:00 FiO2 21 08/02/23 11:38 BMI result Body Mass Index 20.7 Const: General: no acute distress and alert Nutritional Appearance: not obese Orientation/consciousness: Other orientation findings ( oriented) HEENT: Head: Yes atraumatic Eyes: General: appearance normal, both eyes and all related structures Sclerae: sclerae normal EOM: EOMs intact bilaterally Neck: Neck: Yes supple Lymphatic: no lymphadenopathy noted Resp: Effort & Inspection: normal respiratory effort and no use of accessory muscles Auscultation: clear to auscultation bilaterally Cardio: Rate: regular rate Rhythm: regular rhythm Heart sounds: no gallops, no murmurs and no rubs Skin: General skin exam: other ( warm) Extrem: General: No clubbing, No cyanosis and No edema Objective Data Labs 08/08/23 05:17 08/08/23 05:17 Labs: Laboratory Results - last 24 hr 08/08/23 08/08/23 05:17 05:21 WBC 29.3 H RBC 2.26 L Hgb 7.3 L Hct 22.7 L MCV 100.4 H MCH 32.3 MCHC 32.2 RDW 17.2 H Plt Count 306 D MPV 11.6 Immature Gran % (Auto) TNP Neut % (Auto) TNP Lymph % (Auto) TNP [place] % (Auto) TNP Eos % (Auto) TNP Baso % (Auto) TNP Lymph # (Auto) TNP [place] # (Auto) TNP Eos # (Auto) TNP Baso # (Auto) TNP Abs Immat Gran (auto) TNP Absolute Neuts (auto) TNP Absolute Nucleated RBC TNP Nucleated RBC % (auto) TNP Neutrophils % (Manual) 76 H Band Neutrophils % 7 H Lymphocytes % (Manual) 3 L Atypical Lymphs % (Man) Not Reportable Monocytes % (Manual) 5 Eosinophils % (Manual) 1 Basophils % (Manual) Not Reportable Metamyelocytes % 7 Myelocytes % 1 Promyelocytes % Not Reportable Blast Cells % (Manual) Not Reportable Plasma Cell % (Manual) Not Reportable Abs Neuts (Manual) 24.3 H Lymphocytes # (Manual) 0.9 L Atyp Lymphs # (Manual) MEDICAL COLLECTIONS REPRESENTATIVE Monocytes # (Manual) 1.5 H Eosinophils # (Manual) 0.3 Basophils # (Manual) MEDICAL COLLECTIONS REPRESENTATIVE Metamyelocytes # 2.1 Myelocytes # 0.3 Promyelocytes # MEDICAL COLLECTIONS REPRESENTATIVE Blast Cells # MEDICAL COLLECTIONS REPRESENTATIVE Plasma Cell # (Manual) MEDICAL COLLECTIONS REPRESENTATIVE Nucleated RBCs TNP Hypersegmented Neuts MEDICAL COLLECTIONS REPRESENTATIVE Smudge Cells MEDICAL COLLECTIONS REPRESENTATIVE Toxic Granulation MEDICAL COLLECTIONS REPRESENTATIVE Toxic Vacuolation MEDICAL COLLECTIONS REPRESENTATIVE Dohle Bodies PRESENT [place] Rods MEDICAL COLLECTIONS REPRESENTATIVE WBC Morphology Comment MEDICAL COLLECTIONS REPRESENTATIVE Platelet Estimate NORMAL Large Platelets PRESENT Giant Platelets MEDICAL COLLECTIONS REPRESENTATIVE Plt Morphology Comment NOTED RBC Morphology NOTED Polychromasia 1+ (0-2) Hypochromasia MEDICAL COLLECTIONS REPRESENTATIVE Basophilic Stippling MEDICAL COLLECTIONS REPRESENTATIVE Microcytosis MEDICAL COLLECTIONS REPRESENTATIVE Macrocytosis 1+ (5-14) Spherocytes 1+ (0-2) Pappenheimer Bodies MEDICAL COLLECTIONS REPRESENTATIVE Sickle Cells MEDICAL COLLECTIONS REPRESENTATIVE Target Cells 1+ (5-14) Tear Drop Cells MEDICAL COLLECTIONS REPRESENTATIVE Ovalocytes MEDICAL COLLECTIONS REPRESENTATIVE Stomatocytes 1+ (5-14) [place] Bodies MEDICAL COLLECTIONS REPRESENTATIVE [place] Cells MEDICAL COLLECTIONS REPRESENTATIVE Acanthocytes (Spur) MEDICAL COLLECTIONS REPRESENTATIVE Rouleaux MEDICAL COLLECTIONS REPRESENTATIVE Schistocytes MEDICAL COLLECTIONS REPRESENTATIVE VBG pH 7.39 VBG pCO2 34 VBG pO2 53 VBG HCO3 21 L VBG O2 Saturation 80.0 VBG Base Excess -2.6 Sodium 136 Potassium 3.3 Chloride 104 Carbon Dioxide 22 Anion Gap 13 BUN 13 Creatinine 0.46 L Estim Creat Clear Calc 127.8 Estimated GFR > 60 Random Glucose 119 H Calcium 9.1 Phosphorus 3.6 Magnesium 1.7 Total Bilirubin 0.9 AST 96 H ALT 29 Alkaline Phosphatase 213 H Total Protein 6.6 Albumin 3.6 Triglycerides 270 H Microbiology Microbiology Results: Microbiology 08/04/23 19:21 Blood - Venous Blood Culture - Preliminary No growth after 48 hours. 08/04/23 19:29 Blood - Venous Blood Culture - Preliminary No growth after 48 hours. 07/31/23 16:53 Blood - Venous Blood Culture - Final No growth after 5 days. 07/31/23 16:17 Blood - Venous Blood Culture - Final No growth after 5 days. Progress Note: A&P Assessment and plan (1) Grief: Status: Acute (2) Refeeding syndrome: Status: Acute (3) Hypophosphatemia: Status: Acute (4) Failure to thrive in adult: Status: Acute Plan Assessment: 47-year-old lady with underlying anorexia admitted with failure to thrive, profound hypokalemia and hypophosphatemia, initially requiring vasopressor and ventilatory support Plan: Neuro: No acute issues. Cardiac: Continue to titrate off pressors. 2D echocardiogram is normal. Started on midodrine. Pulmonary: Respiratory failure resolved, extubated on 08/02/2023. Renal: Hypokalemia and hypophosphatemia are improving. Continue to monitor electrolytes, renal indices, and urine output. Endo: No acute issues. GI: No acute issues. ID: No acute issues Heme/Onc: No acute issues. Psych: Psychiatry evaluation appreciated. Miscellaneous: No acute issues. Prophylaxis: Heparin Diet: Regular/TPN Critical care time spent: 45 minutes Quality Stroke Does the patient have a stroke diagnosis?: No VTE Prior VTE?: No VTE Risk Level:: Medical - moderate - high VTE Device Contraindication: N/A - Device Ordered VTE Drug Contraindication: N/A - Med Ordered
[2023-08-09] VITALS (17 sets, daily range): BP systolic 90–112; BP diastolic 46–68; PULSE 89–104; RESP 14–27; TEMP 36–37.3; O2SAT 92–99; BMI 19.6
[2023-08-09 05:19] LABS: Alanine Aminotransferase 34 U/L (0-31); Albumin Level 3.5 g/dL (3.5-5.0); Alkaline Phosphatase 219 U/L (39-117); Anion Gap 15 (12-20); Aspartate Amino Transferase 119 U/L (5-31); Bilirubin Total 0.8 mg/dL (0.0-1.0); Blood Urea Nitrogen 15 mg/dL (9-16); Calcium 9.2 mg/dL (8.4-10.2); Carbon Dioxide 19 mmol/L (22-29); Chloride 107 mmol/L (96-108); Estimated Glomerular Filt Rate > 60; Glucose Random 98 mg/dL (60-115); Magnesium 1.9 mg/dL (1.6-2.6); Phosphorus 3.2 mg/dL (2.7-4.5); Sodium 137 mmol/L (135-145); Total Protein 6.5 g/dL (6.5-8.0); Triglycerides 306 mg/dL (<150)
--- NOTE | 2023-08-09 08:05 | PM.CCPN ---
Subjective Subjective Date of Service: 08/09/23 Critical Care Time (minutes): 60 Physical Exam Vital Signs: Vital Signs: Last Vital Signs Temp 98.5 F 08/09/23 07:00 Pulse 99 08/09/23 07:45 Resp 20 08/09/23 07:00 BP 90/48 L 08/09/23 07:45 Pulse Ox 93 08/09/23 07:00 O2 Del Method Nasal Cannula, Hu midified O2 08/09/23 07:00 O2 Flow Rate 4 08/09/23 07:00 FiO2 21 08/02/23 11:38 BMI result Body Mass Index 19.6 Const: General: cooperative, healthy appearing, comfortable, no acute distress, well developed, alert, awake and Physically active Orientation/consciousness: patient oriented x3 HEENT: Head: Yes normal to inspection, Yes normocephalic and Yes atraumatic Eyes: General: appearance normal, both eyes and all related structures Neck: Neck: Yes normal visual inspection, Yes full ROM and Yes supple Chest: Chest palpation & inspection: normal inspection of the chest Resp: Other: no appreciable rales, rhonchi, wheezing Cardio: Rate: regular rate Rhythm: regular rhythm GI: Inspection: Yes normal to inspection, No Abdominal wall edema and No distended Palpation (GI): Soft to palpation, not firm, nontender, no guarding and not rigid Skin: General skin exam: no rashes or lesions noted Neuro: General: patient oriented x3, tone normal, moves all extremities and no focal motor deficits Extrem: General: Yes normal to inspection, Yes capillary refill normal and Yes no clubbing, cyanosis or edema Psych: Appearance: grossly normal Affect: Indifferent affect present Objective Data Labs 08/09/23 04:31 08/09/23 04:31 Labs: Laboratory Results - last 24 hr 08/09/23 08/09/23 04:31 04:52 WBC 29.3 H RBC 2.33 L Hgb 7.5 L Hct 23.4 L MCV 100.4 H MCH 32.2 MCHC 32.1 RDW 17.4 H Plt Count 417 H D MPV 10.8 Immature Gran % (Auto) Cancelled Neut % (Auto) Cancelled Lymph % (Auto) Cancelled [place] % (Auto) Cancelled Eos % (Auto) Cancelled Baso % (Auto) Cancelled Lymph # (Auto) Cancelled [place] # (Auto) Cancelled Eos # (Auto) Cancelled Baso # (Auto) Cancelled Abs Immat Gran (auto) Cancelled Absolute Neuts (auto) Cancelled Absolute Nucleated RBC 0.080 H Nucleated RBC % (auto) 0.3 H Neutrophils % (Manual) 79 H Band Neutrophils % 4 Lymphocytes % (Manual) 7 L Monocytes % (Manual) 3 Eosinophils % (Manual) 2 Metamyelocytes % 3 Myelocytes % 2 Abs Neuts (Manual) 24.3 H Lymphocytes # (Manual) 2.1 Monocytes # (Manual) 0.9 Eosinophils # (Manual) 0.6 H Metamyelocytes # 0.9 Myelocytes # 0.6 Nucleated RBCs 1 H Toxic Granulation PRESENT Platelet Estimate SLIGHTLY INCREASED Large Platelets PRESENT Plt Morphology Comment NORMAL RBC Morphology NOTED Polychromasia 2+ (3-5) Hypochromasia 2+ (15-30) Basophilic Stippling 1+ (0-2) Microcytosis 1+ (5-14) Macrocytosis 1+ (5-14) Spherocytes 1+ (0-2) Target Cells 1+ (5-14) Acanthocytes (Spur) 1+ (0-2) Schistocytes 1+ (0-2) VBG pH 7.41 VBG pCO2 31 VBG pO2 49 VBG HCO3 20 L VBG O2 Saturation 75.0 VBG Base Excess -3.5 Sodium 137 Potassium 4.0 D Chloride 107 Carbon Dioxide 19 L Anion Gap 15 BUN 15 Creatinine 0.47 L Estim Creat Clear Calc 125.0 Estimated GFR > 60 Random Glucose 98 Calcium 9.2 Phosphorus 3.2 Magnesium 1.9 Total Bilirubin 0.8 AST 119 H ALT 34 H Alkaline Phosphatase 219 H Total Protein 6.5 Albumin 3.5 Triglycerides 306 H Microbiology Microbiology Results: Microbiology 08/04/23 19:21 Blood - Venous Blood Culture - Preliminary No growth after 48 hours. 08/04/23 19:29 Blood - Venous Blood Culture - Preliminary No growth after 48 hours. 07/31/23 16:53 Blood - Venous Blood Culture - Final No growth after 5 days. 07/31/23 16:17 Blood - Venous Blood Culture - Final No growth after 5 days. Progress Note: A&P Assessment and plan (1) Acute respiratory failure: Status: Acute (2) Refeeding syndrome: Status: Acute (3) Failure to thrive in adult: Status: Acute (4) Grief: Status: Acute (5) Anorexia: Status: Acute Plan Patient is a 47 Y F with anorexia, presenting on 08/01 w/ failure to thrive, c/b hypophosphatemia c/b acute hypoxic respiratory failure, s/p intubation, and shock, necessitating vasopressors Neuro: no acute issues Cardiac: shock, s/p vasopressors, now on midodrine; echocardiogram within normal R: acute hypoxic respiratory failure, intubated 08/01, extubated 08/02; now on nasal canula, wean as tolerated GI: anorexia, c/b failure to thrive; TPN and encouraging PO intake : anorexia c/b electrolyte disturbances; to monitor closely H: anemia, stable; to monitor closely ID: leukocytosis; empiric ceftriaxone c/f aspiration pneumonia P: anorexia, depression; to appreciate psychology recommendations Quality Stroke Does the patient have a stroke diagnosis?: No VTE Prior VTE?: No VTE Risk Level:: Medical - moderate - high VTE Device Contraindication: N/A - Device Ordered VTE Drug Contraindication: N/A - Med Ordered
[2023-08-09] MEDS: Thiamine HCL 100 MG TABLET PO (08:19)
--- NOTE | 2023-08-09 10:13 | MHC.CLN ---
F/U DISCUSSED AT ROUNDS WITH MD PO INTAKE 25% PER NSG REVIEWED LABS DISCUSSED WITH PHARMACY RECOMMEND TPN CONTINUE AT 60ML/HR PROVIDES 1022KCALS (19KCALS/KG), 216G DEXTROSE, 72G PROTEIN (1.35G/KG) HOLD LIPIDS, CHECK TRIG LEVEL MONITOR PO INTAKE CLOSELY, LYTES K+, MG, PHOS R/T RE-FEEDING
--- NOTE | 2023-08-09 16:21 | MHC.CM.PN ---
Pt remains in ICU: making slight gains: electrolytes beginning to stabilize and pt has more extremity movement. No plans to transfer out of unit. CM to follow for d/c needs - ? Inpt psych for depression?
[2023-08-09] MEDS: Midodrine HCl 10 MG TABLET PO (21:08)
[2023-08-09] MEDS: Heparin Sodium,Porcine 5,000 UNIT/ML VIAL 5000 UNIT SUBCUT (22:18)
[2023-08-10] VITALS (9 sets, daily range): BP systolic 93–116; BP diastolic 50–71; PULSE 94–112; RESP 17–23; TEMP 36.6–37.2; O2SAT 92–99; BMI 19.5
[2023-08-10 05:04] LABS: Hematocrit 22.9 % (37.0-47.0); Hemoglobin 7.2 g/dl (12.0-16.0); Mean Corpuscular HGB Conc 31.4 g/dl (31.0-35.0); Mean Corpuscular Hemoglobin 32.3 pg (27.0-33.0); Mean Corpuscular Volume 102.7 fL (80.0-98.0); Mean Platelet Volume 10.9 fL (9.4-12.3); NRBC Pct Auto 0.1 /100WBC (0.0-0.2); Platelet Count 508 X10*3/uL (160-400); Red Blood Count 2.23 X10*6/uL (4.20-5.50); Red Cell Distribution Width 17.3 % (11.0-16.0)
[2023-08-10 05:13] LABS: White Blood Count 31.9 X10*3/uL (4.8-10.8)
[2023-08-10 05:24] LABS: Band Neutrophils Percent 3 % (3-5); Eosinophils Absolute Manual 0.3 X10*3/uL (0.0-0.4); Eosinophils Percent Manual 1 % (0-4); Lymphocytes Percent Manual 3 % (20-40); Metamyelocytes Absolute 0.3 X10*3/uL; Metamyelocytes Percent 1 %; Monocytes Absolute Manual 0.3 X10*3/uL (0.1-1.2); Monocytes Percent Manual 1 % (2-11); Neutrophils Percent Manual 91 % (45-73)
[2023-08-10 05:26] LABS: Basophilic Stippling 1+ (0-2) /OIF; Hypochromasia 1+ (5-14) /OIF; Large Platelet PRESENT; Macrocytosis 1+ (5-14) /OIF; Microcytosis 1+ (5-14) /OIF; Platelet Estimate INCREASED (NORMAL); Platelet Morphology Comment NOTED; Polychromasia 2+ (3-5) /OIF; RBC Morphology NOTED; Schistocytes 1+ (0-2) /OIF; Spherocytes 1+ (0-2) /OIF; Target Cells 1+ (5-14) /OIF; Toxic Granulation PRESENT
[2023-08-10 05:27] LABS: Anion Gap 12 (12-20); Blood Urea Nitrogen 14 mg/dL (9-16); Calcium 8.8 mg/dL (8.4-10.2); Carbon Dioxide 17 mmol/L (22-29); Chloride 111 mmol/L (96-108); Creatinine Clr Calc Pharmacy 128.2; Estimated Glomerular Filt Rate > 60; Glucose Random 99 mg/dL (60-115); Phosphorus 3.6 mg/dL (2.7-4.5); Potassium 4.2 mmol/L (3.3-5.1); Sodium 136 mmol/L (135-145)
[2023-08-10] MEDS: Omeprazole 20 MG CAPSULE.DR PO (06:00)
[2023-08-10] MEDS: Thiamine HCL 100 MG TABLET PO (07:56)
[2023-08-10] MEDS: Midodrine HCl 10 MG TABLET PO ×3 (07:56→20:24)
[2023-08-10] MEDS: cefTRIAXone sodium 1 GM in 0.9 % Sodium Chloride 50 ML IV (07:56)
[2023-08-10] MEDS: Loratadine 10 MG TABLET PO (07:56)
[2023-08-10] MEDS: Multivitamin with Minerals Liq 15 ML LIQUID PO (07:56)
--- NOTE | 2023-08-10 08:27 | HO.PM.IMPN ---
Subjective Subjective Date of Service: 08/10/23 Interval History: no complaints Physical Exam Vital Signs: Vital Signs: Last Vital Signs Temp 97.8 F 08/10/23 08:00 Pulse 94 08/10/23 08:00 Resp 22 H 08/10/23 08:00 BP 104/59 L 08/10/23 08:00 Pulse Ox 98 08/10/23 08:00 O2 Del Method Nasal Cannula, Hu midified O2 08/10/23 06:01 O2 Flow Rate 4 08/10/23 08:00 FiO2 21 08/02/23 11:38 BMI result Body Mass Index 19.5 Const: General: cooperative, healthy appearing, comfortable, no acute distress, well developed, alert, awake and Physically active Orientation/consciousness: patient oriented x3 HEENT: Head: Yes normal to inspection, Yes normocephalic and Yes atraumatic Eyes: General: appearance normal, both eyes and all related structures Neck: Neck: Yes normal visual inspection, Yes full ROM and Yes supple Chest: Chest palpation & inspection: normal inspection of the chest Resp: Other: no appreciable rales, rhonchi, wheezing Cardio: Rate: regular rate Rhythm: regular rhythm GI: Inspection: Yes normal to inspection, No Abdominal wall edema and No distended Palpation (GI): Soft to palpation, not firm, nontender, no guarding and not rigid Skin: General skin exam: no rashes or lesions noted Neuro: General: patient oriented x3, tone normal, moves all extremities and no focal motor deficits Extrem: General: Yes normal to inspection, Yes capillary refill normal and Yes no clubbing, cyanosis or edema Psych: Appearance: grossly normal Affect: Indifferent affect present Objective Data Active Medications Acetaminophen (Acetaminophen 325 Mg Tablet) 650 mg PO Q4H PRN PRN Reason: Pain, Mild (Pain Scale 1-3) Last Admin: 08/09/23 07:33 Dose: 650 mg Documented By: GINA Albuterol/Ipratropium (Albuterol/Iprat 2.5/0.5mg 3 Ml Ampul.Neb) 3 ml INHALE Q6H PRN PRN Reason: Shortness of Breath/Wheezing Last Admin: 08/09/23 11:34 Dose: 3 ml Documented By: OTILIA Heparin Sodium (Porcine) (Heparin Sodium,Porcine 5,000 Unit/Ml Vial) 5,000 unit SUBCUT Q12H [facility] Last Admin: 08/09/23 22:18 Dose: 5,000 unit Documented By: ELIJAH Ceftriaxone Sodium 1 gm/ (Sodium Chloride) 50 mls @ 100 mls/hr IV Q24H [facility] Last Admin: 08/10/23 07:56 Dose: 100 mls/hr Documented By: CHANDLER Nutrition (Parenteral) (Parenteral Nutrition) 1,440 mls @ 60 mls/hr IV .Q24H [facility]; Protocol Stop: 08/10/23 20:59 Last Admin: 08/09/23 21:09 Dose: 60 mls/hr Documented By: ELIJAH Loratadine (Loratadine 10 Mg Tablet) 10 mg PO DAILY [facility] Last Admin: 08/10/23 07:56 Dose: 10 mg Documented By: CHANDLER Midodrine (Midodrine Hcl 10 Mg Tablet) 10 mg PO TID [facility] Last Admin: 08/10/23 07:56 Dose: 10 mg Documented By: CHANDLER Multivitamins/Minerals (Multivitamin With Minerals Liq 15 Ml Liquid) 15 ml PO DAILY [facility] Last Admin: 08/10/23 07:56 Dose: 15 ml Documented By: CHANDLER Omeprazole (Omeprazole 20 Mg Capsule.Dr) 20 mg PO DAILY@0630 [facility] Last Admin: 08/10/23 06:00 Dose: 20 mg Documented By: ELIJAH Pharmacy Consult (Consult Rx Parenteral Nutrition Ordering) 1 each MISCELLANE DAILY PRN PRN Reason: Consult order Thiamine HCl (Thiamine Hcl 100 Mg Tablet) 100 mg PO DAILY [facility] Last Admin: 08/10/23 07:56 Dose: 100 mg Documented By: CHANDLER Labs 08/10/23 04:52 08/10/23 04:52 Labs: Laboratory Results - last 24 hr 08/09/23 08/10/23 09:13 04:52 MCV 102.7 H MCH 32.3 MCHC 31.4 RDW 17.3 H Plt Count 508 H MPV 10.9 Immature Gran % (Auto) Cancelled Neut % (Auto) Cancelled Lymph % (Auto) Cancelled [place] % (Auto) Cancelled Eos % (Auto) Cancelled Baso % (Auto) Cancelled Lymph # (Auto) Cancelled [place] # (Auto) Cancelled Eos # (Auto) Cancelled Baso # (Auto) Cancelled Abs Immat Gran (auto) Cancelled Absolute Neuts (auto) Cancelled Absolute Nucleated RBC 0.020 H Nucleated RBC % (auto) 0.1 Neutrophils % (Manual) 91 H Band Neutrophils % 3 Lymphocytes % (Manual) 3 L Monocytes % (Manual) 1 L Eosinophils % (Manual) 1 Metamyelocytes % 1 Abs Neuts (Manual) 30.0 H Lymphocytes # (Manual) 1.0 L Monocytes # (Manual) 0.3 Eosinophils # (Manual) 0.3 Metamyelocytes # 0.3 Toxic Granulation PRESENT Platelet Estimate INCREASED Large Platelets PRESENT Plt Morphology Comment NOTED RBC Morphology NOTED Polychromasia 2+ (3-5) Hypochromasia 1+ (5-14) Basophilic Stippling 1+ (0-2) Microcytosis 1+ (5-14) Macrocytosis 1+ (5-14) Spherocytes 1+ (0-2) Target Cells 1+ (5-14) Schistocytes 1+ (0-2) Anion Gap 12 Estim Creat Clear Calc 128.2 Estimated GFR > 60 Random Glucose 99 Calcium 8.8 Phosphorus 3.6 Magnesium 2.0 Blood Type O Positive Antibody Screen NEGATIVE Microbiology Microbiology Results: Microbiology 08/04/23 19:29 Blood Culture - Final Blood - Venous No growth after 5 days. Assessment and Plan (1) Anorexia: Status: Acute Plan 47F PMH etoh dependence, gerd, mild intermittent asthma, presented 07/31/23 with weakness after not eating for several weeks due to depression from of in may 2023, in ED patient rapidly declined, acute hypoxia, severe electrolyte abnormalities, hypotension. patient was intubated, placed on pressors, given tpn, feeds, extubated successfully 08/02/23, weaned off pressors 08/09/23 and downgraded to medicine. patient still on TPN and eating about 25% of food, being followed by nutrition. major depression/grief complicated by anorexia complicated by acute hypoxic respitory failure, cardiogenic shock, severe hypokalemia, severe hypophostphatemia now on 4L NC, off iv pressors, on midodrine TPN, advancing solid diet, nutrition following monitor electrolytes on empiric ceftriaxone, no evidence of sepsis ?inpatient psych on discharge mild intermittent asthma prn albuterol, stable gerd ppi etoh dependence no withdrawal dvt prophylaxis - hep sq full code reason for continued hospitalization:hypoxia weaning o2, weaning TPN Quality Stroke Does the patient have a stroke diagnosis?: No VTE Prior VTE?: No VTE Risk Level:: Medical - moderate - high VTE Device Contraindication: N/A - Device Ordered VTE Drug Contraindication: N/A - Med Ordered
[2023-08-10] MEDS: Albuterol/Iprat 2.5/0.5MG 3 ML AMPUL.NEB INHALE ×2 (09:14→16:53)
--- NOTE | 2023-08-10 09:30 | MHC.CLN ---
F/U PO INTAKE 50% X2 MEALS YESTERDAY REVIEWED LABS DISCUSSED WITH PHARMACY RECOMMEND TPN CONTINUE AT 60ML/HR PROVIDES 1022KCALS (19KCALS/KG), 216G DEXTROSE, 72G PROTEIN (1.35G/KG) HOLD LIPIDS, CHECK TRIG LEVEL REPLETE LYTES NEEDED MONITOR PO INTAKE CLOSELY AND ENCOURAGE SUPPLEMENT, MONITOR LYTES K+, MG, PHOS R/T RE-FEEDING IF PO INTAKE 50% CONTINUES TODAY, CAN CONSIDER D/C TPN TOMORROW
[2023-08-10 10:04] LABS: Adenovirus F 40/41 Not Detected (Not Detect.); Astrovirus Not Detected (Not Detect.); Campylobacter Not Detected (Not Detect.); Cryptosporidium Not Detected (Not Detect.); Cyclospora cayetanensis Not Detected (Not Detect.); E. coli EAEC Not Detected (Not Detect.); E. coli EPEC Not Detected (Not Detect.); E. coli ETEC Not Detected (Not Detect.); E. coli STEC Not Detected (Not Detect.); Entamoeba histolytica Not Detected (Not Detect.); Giardia lamblia Not Detected (Not Detect.); Norovirus GI/GII Not Detected (Not Detect.); Plesiomonas shigelloides Not Detected (Not Detect.); Rotavirus A Not Detected (Not Detect.); Salmonella Not Detected (Not Detect.); Sapovirus Not Detected (Not Detect.); Shigella sp./EIEC Not Detected (Not Detect.); Vibrio Not Detected (Not Detect.); Vibrio Cholerae Not Detected (Not Detect.); Yersinia enterocolitica Not Detected (Not Detect.)
[2023-08-10] MEDS: Heparin Sodium,Porcine 5,000 UNIT/ML VIAL 5000 UNIT SUBCUT ×2 (11:16→20:24)
[2023-08-11] VITALS (9 sets, daily range): BP systolic 102–128; BP diastolic 58–78; PULSE 12–104; RESP 18–24; TEMP 36.2–37.1; O2SAT 91–96; BMI 20.9
--- NOTE | 2023-08-11 00:41 | PC.NURSE ---
TPN ordered, per pharmacy not available. Dr. Rodriguez notified, held TPN until tomorrow morning per MD.
[2023-08-11] MEDS: Omeprazole 20 MG CAPSULE.DR PO (06:16)
[2023-08-11 07:48] LABS: Hematocrit 23.2 % (37.0-47.0); Hematocrit 23.3 % (37.0-47.0); Hemoglobin 7.3 g/dl (12.0-16.0); Hemoglobin 7.4 g/dl (12.0-16.0); Mean Corpuscular HGB Conc 31.5 g/dl (31.0-35.0); Mean Corpuscular HGB Conc 31.8 g/dl (31.0-35.0); Mean Corpuscular Hemoglobin 31.9 pg (27.0-33.0); Mean Corpuscular Hemoglobin 32.3 pg (27.0-33.0); Mean Corpuscular Volume 101.3 fL (80.0-98.0); Mean Corpuscular Volume 101.7 fL (80.0-98.0); Mean Platelet Volume 10.6 fL (9.4-12.3); Mean Platelet Volume 10.8 fL (9.4-12.3); Platelet Count 616 X10*3/uL (160-400); Platelet Count 646 X10*3/uL (160-400); Red Blood Count 2.29 X10*6/uL (4.20-5.50); Red Cell Distribution Width 17.2 % (11.0-16.0); Red Cell Distribution Width 17.4 % (11.0-16.0); White Blood Count 28.8 X10*3/uL (4.8-10.8); White Blood Count 29.1 X10*3/uL (4.8-10.8)
[2023-08-11 08:06] LABS: Anion Gap 16 (12-20)
[2023-08-11 08:07] LABS: Alanine Aminotransferase 55 U/L (0-31); Albumin Level 3.3 g/dL (3.5-5.0); Alkaline Phosphatase 257 U/L (39-117); Aspartate Amino Transferase 150 U/L (5-31); Bilirubin Direct 0.3 mg/dL (0.0-0.5); Bilirubin Total 0.5 mg/dL (0.0-1.0); Blood Urea Nitrogen 12 mg/dL (9-16); Calcium 9.1 mg/dL (8.4-10.2); Carbon Dioxide 16 mmol/L (22-29); Chloride 112 mmol/L (96-108); Creatinine Clr Calc Pharmacy 133.5; Estimated Glomerular Filt Rate > 60; Glucose Fasting 61 mg/dL (60-99); Glucose Random 62 mg/dL (60-115); Iron 26 mcg/dL (30-160); Magnesium 1.9 mg/dL (1.6-2.6); Percent Iron Saturation 15 % (15-50); Phosphorus 3.5 mg/dL (2.7-4.5); Potassium 3.7 mmol/L (3.3-5.1); Sodium 140 mmol/L (135-145); Total Iron Binding Capacity 174 mcg/dL (228-428); Total Protein 6.9 g/dL (6.5-8.0); Unsaturated Iron Binding 148 ug/dL
[2023-08-11 09:22] LABS: Atypical Lymph Absolute Manual 0.3 x10*3/uL; Atypical Lymphs Percent Manual 1 % (0-6); Band Neutrophils Percent 3 % (3-5); Lymphocytes Absolute Manual 0.6 X10*3/uL (1.2-4.9); Lymphocytes Percent Manual 2 % (20-40); Metamyelocytes Absolute 0.3 X10*3/uL; Metamyelocytes Percent 1 %; Monocytes Absolute Manual 0.3 X10*3/uL (0.1-1.2); Monocytes Percent Manual 1 % (2-11); Myelocytes Absolute 1.2 X10*/uL; Myelocytes Percent 4 %; Neutrophils Absolute Manual 26.2 X10*3/uL (2.0-8.3); Neutrophils Percent Manual 88 % (45-73)
[2023-08-11 09:25] LABS: Macrocytosis 2+ (15-30) /OIF; RBC Morphology NOTED; Schistocytes 1+ (0-2) /OIF; Spherocytes 3+ (>5) /OIF
[2023-08-11 09:26] LABS: Basophilic Stippling 1+ (0-2) /OIF; Hypochromasia 1+ (5-14) /OIF; Polychromasia 1+ (0-2) /OIF
[2023-08-11 09:27] LABS: Large Platelet PRESENT; Platelet Estimate INCREASED (NORMAL); Platelet Morphology Comment NOTED
[2023-08-11] MEDS: Multivitamin with Minerals Liq 15 ML LIQUID PO (09:29)
[2023-08-11] MEDS: Loratadine 10 MG TABLET PO (09:29)
[2023-08-11] MEDS: Thiamine HCL 100 MG TABLET PO (09:29)
[2023-08-11] MEDS: cefTRIAXone sodium 1 GM in 0.9 % Sodium Chloride 50 ML IV (09:29)
[2023-08-11] MEDS: Midodrine HCl 10 MG TABLET PO ×3 (09:30→22:07)
--- NOTE | 2023-08-11 09:46 | MHC.CLN ---
F/U PO INTAKE 100% X2 MEALS YESTERDAY REVIEWED LABS DISCUSSED WITH PHARMACY PT DID NOT RECEIVE LAST BAG OF TPN LAST EVENING PER NSG MD TO D/C TPN R/T INCREASE IN PO SPOKE WITH PT, IN [facility]ITS AND CONFIRMED GOOD PO INTAKE. I AM FEELING BETTER MONITOR PO INTAKE CLOSELY AND ENCOURAGE SUPPLEMENT, MONITOR LYTES
--- NOTE | 2023-08-11 12:59 | HO.PM.IMPN ---
Subjective Subjective Date of Service: 08/11/23 Interval History: Seen and evaluated Feels better overall still weak in lower extremities eating better No reported events Review of Systems Review of Systems: Yes all other systems are reviewed and are negative Physical Exam Vital Signs: Vital Signs: Last Vital Signs Temp 97.5 F 08/11/23 11:07 Pulse 97 08/11/23 12:00 Resp 18 08/11/23 11:07 BP 110/67 08/11/23 12:00 Pulse Ox 94 08/11/23 12:00 O2 Del Method Room Air 08/11/23 11:07 O2 Flow Rate 4 08/10/23 12:00 FiO2 21 08/02/23 11:38 BMI result Body Mass Index 20.9 Const: Other: Constitutional : Awake, interactive, not in distress Neck : Normal inspection, Supple Cardiovascular : RRR, no JVP, no lower extremity edema Respiratory : good bilateral air entry, no crackles, wheezes or rhonchi Gastrointestinal: soft, lax, Normal bowel sounds, Non tender Skin : Warm, Dry Neurological : Alert & oriented x3, No focal deficit Objective Data Active Medications Acetaminophen (Acetaminophen 325 Mg Tablet) 650 mg PO Q4H PRN PRN Reason: Pain, Mild (Pain Scale 1-3) Last Admin: 08/09/23 07:33 Dose: 650 mg Documented By: GINA Albuterol/Ipratropium (Albuterol/Iprat 2.5/0.5mg 3 Ml Ampul.Neb) 3 ml INHALE Q6H PRN PRN Reason: Shortness of Breath/Wheezing Last Admin: 08/10/23 16:53 Dose: 3 ml Documented By: OTILIA Heparin Sodium (Porcine) (Heparin Sodium,Porcine 5,000 Unit/Ml Vial) 5,000 unit SUBCUT Q12H [facility] Last Admin: 08/10/23 20:24 Dose: 5,000 unit Documented By: HTAD Ceftriaxone Sodium 1 gm/ (Sodium Chloride) 50 mls @ 100 mls/hr IV Q24H [facility] Last Infusion: 08/11/23 10:07 Dose: Infused Documented By: MARVIN Nutrition (Parenteral) (Parenteral Nutrition) 1,440 mls @ 60 mls/hr IV .Q24H [facility]; Protocol Stop: 08/11/23 20:59 Last Admin: 08/11/23 00:00 Dose: Not Given Documented By: KADEN Non-Admin Reason: Physician Held Med Loratadine (Loratadine 10 Mg Tablet) 10 mg PO DAILY [facility] Last Admin: 08/11/23 09:29 Dose: 10 mg Documented By: MARVIN Midodrine (Midodrine Hcl 10 Mg Tablet) 10 mg PO TID [facility] Last Admin: 08/11/23 09:30 Dose: 10 mg Documented By: MARVIN Multivitamins/Minerals (Multivitamin With Minerals Liq 15 Ml Liquid) 15 ml PO DAILY [facility] Last Admin: 08/11/23 09:29 Dose: 15 ml Documented By: MARVIN Omeprazole (Omeprazole 20 Mg Capsule.Dr) 20 mg PO DAILY@0630 [facility] Last Admin: 08/11/23 06:16 Dose: 20 mg Documented By: MARVIN Thiamine HCl (Thiamine Hcl 100 Mg Tablet) 100 mg PO DAILY [facility] Last Admin: 08/11/23 09:29 Dose: 100 mg Documented By: MARVIN Labs 08/11/23 06:30 08/11/23 06:30 Labs: Laboratory Results - last 24 hr 08/11/23 08/11/23 08/11/23 06:30 06:30 06:30 MCV 101.3 H 101.7 H MCH 31.9 32.3 MCHC 31.5 RDW Plt Count MPV Immature Gran % (Auto) Neut % (Auto) Lymph % (Auto) [place] % (Auto) Eos % (Auto) Baso % (Auto) Lymph # (Auto) [place] # (Auto) Eos # (Auto) Baso # (Auto) Abs Immat Gran (auto) Absolute Neuts (auto) Absolute Nucleated RBC Nucleated RBC % (auto) Neutrophils % (Manual) Band Neutrophils % Lymphocytes % (Manual) Atypical Lymphs % (Man) Monocytes % (Manual) Metamyelocytes % Myelocytes % Abs Neuts (Manual) Lymphocytes # (Manual) Atyp Lymphs # (Manual) Monocytes # (Manual) Metamyelocytes # Myelocytes # Platelet Estimate Large Platelets Plt Morphology Comment RBC Morphology Polychromasia Hypochromasia Basophilic Stippling Macrocytosis Spherocytes Schistocytes Anion Gap Estim Creat Clear Calc Estimated GFR Random Glucose Fasting Glucose Calcium Phosphorus Magnesium Iron TIBC % Saturation Unsat Iron Binding Total Bilirubin Direct Bilirubin AST ALT Alkaline Phosphatase Total Protein Albumin 08/11/23 08/11/23 08/11/23 06:30 06:30 06:30 MCV MCH MCHC 31.8 RDW 17.4 H 17.2 H Plt Count 646 H D 616 H MPV 10.8 Immature Gran % (Auto) Neut % (Auto) Lymph % (Auto) [place] % (Auto) Eos % (Auto) Baso % (Auto) Lymph # (Auto) [place] # (Auto) Eos # (Auto) Baso # (Auto) Abs Immat Gran (auto) Absolute Neuts (auto) Absolute Nucleated RBC Nucleated RBC % (auto) Neutrophils % (Manual) Band Neutrophils % Lymphocytes % (Manual) Atypical Lymphs % (Man) Monocytes % (Manual) Metamyelocytes % Myelocytes % Abs Neuts (Manual) Lymphocytes # (Manual) Atyp Lymphs # (Manual) Monocytes # (Manual) Metamyelocytes # Myelocytes # Platelet Estimate Large Platelets Plt Morphology Comment RBC Morphology Polychromasia Hypochromasia Basophilic Stippling Macrocytosis Spherocytes Schistocytes Anion Gap Estim Creat Clear Calc Estimated GFR Random Glucose Fasting Glucose Calcium Phosphorus Magnesium Iron TIBC % Saturation Unsat Iron Binding Total Bilirubin Direct Bilirubin AST ALT Alkaline Phosphatase Total Protein Albumin 08/11/23 08/11/23 08/11/23 06:30 06:30 06:30 MCV MCH MCHC RDW Plt Count MPV 10.6 Immature Gran % (Auto) Cancelled Neut % (Auto) Cancelled Lymph % (Auto) Cancelled [place] % (Auto) Cancelled Eos % (Auto) Cancelled Baso % (Auto) Cancelled Lymph # (Auto) Cancelled [place] # (Auto) Cancelled Eos # (Auto) Cancelled Baso # (Auto) Cancelled Abs Immat Gran (auto) Cancelled Absolute Neuts (auto) Cancelled Absolute Nucleated RBC 0.000 0.000 Nucleated RBC % (auto) 0.0 0.0 Neutrophils % (Manual) 88 H Band Neutrophils % 3 Lymphocytes % (Manual) 2 L Atypical Lymphs % (Man) 1 Monocytes % (Manual) 1 L Metamyelocytes % 1 Myelocytes % 4 Abs Neuts (Manual) 26.2 H Lymphocytes # (Manual) 0.6 L Atyp Lymphs # (Manual) 0.3 Monocytes # (Manual) 0.3 Metamyelocytes # 0.3 Myelocytes # 1.2 Platelet Estimate INCREASED Large Platelets PRESENT Plt Morphology Comment NOTED RBC Morphology NOTED Polychromasia 1+ (0-2) Hypochromasia 1+ (5-14) Basophilic Stippling 1+ (0-2) Macrocytosis 2+ (15-30) Spherocytes 3+ (>5) Schistocytes 1+ (0-2) Anion Gap 16 Estim Creat Clear Calc 133.5 Estimated GFR > 60 Random Glucose 62 Fasting Glucose 61 Calcium 9.1 Phosphorus 3.5 Magnesium 1.9 Iron 26 L TIBC 174 L % Saturation 15 Unsat Iron Binding 148 Total Bilirubin 0.5 Direct Bilirubin 0.3 AST 150 H ALT 55 H Alkaline Phosphatase 257 H Total Protein 6.9 Albumin 3.3 L Microbiology Microbiology Results: Microbiology 08/04/23 19:21 Blood Culture - Final Blood - Venous No growth after 5 days. Assessment and Plan (1) Anorexia: Status: Acute (2) Grief: Status: Acute Plan 47F PMH etoh dependence, gerd, mild intermittent asthma, presented 07/31/23 with weakness after not eating for several weeks due to depression from of in may 2023, in ED patient rapidly declined, acute hypoxia, severe electrolyte abnormalities, hypotension. patient was intubated, placed on pressors, given tpn, feeds, extubated successfully 08/02/23, weaned off pressors 08/09/23 and downgraded to medicine. patient still on TPN and eating about 25% of food, being followed by nutrition. Major depression/grief complicated by anorexia complicated by acute hypoxic respitory failure, cardiogenic shock, severe hypokalemia, severe hypophostphatemia wEaned off O2 on midodrine DC TPN Advancing solid diet, nutrition team following monitor electrolytes DC ceftriaxone, no evidence of sepsis Care team evaluated her and recommended no need for inpatient stay PT rec rehab; pending placement mild intermittent asthma prn albuterol, stable gerd ppi etoh dependence no withdrawal dvt prophylaxis - hep sq full code reason for continued hospitalization advancing diet and pending safe discharge plan to rehab facility Quality Stroke Does the patient have a stroke diagnosis?: No VTE Prior VTE?: No VTE Risk Level:: Medical - moderate - high VTE Device Contraindication: N/A - Device Ordered VTE Drug Contraindication: N/A - Med Ordered
[2023-08-11] MEDS: Heparin Sodium,Porcine 5,000 UNIT/ML VIAL 5000 UNIT SUBCUT ×2 (13:23→22:08)
[2023-08-11] MEDS: Albuterol/Iprat 2.5/0.5MG 3 ML AMPUL.NEB INHALE (13:26)
--- NOTE | 2023-08-11 15:00 | MHC.CM.PN ---
PT recommends acute rehab, this CM met with pt to discuss and she is agreeable to going to acute rehab. Pt states [facility] [place] is first choice, acute rehab referrals placed. Pt denied by all 3 acute rehabs. Will look for STR placement. Hospitalist aware.
[2023-08-11] MEDS: Acetaminophen 325 MG TABLET 650 MG PO (15:40)
--- NOTE | 2023-08-11 16:14 | MHC.RECOVRN ---
Met with pt in 468 after pt was referred to Recovery by CARE Team. Pt seen by CARE and cleared. Pt had presented to the ED on 07/31/23 with weakness and not eating for several weeks due to depression from the of her in May 2023. Pt had reported hx alcohol use. In ED, pt rapidly declined and was admitted to ICU for pancreatitis, atypical pneumonia, and sepsis. Pt has since been downgraded to [facility]. Pt sitting in bed, awake, alert, easily engages in conversation. Pt reports last alcohol use in May of 2023. Pt reports she decided enough was enough and ceased use. Pt reports at that time she had mild withdrawal symptoms, denies hx seixures or DTs. Pt reports she had been drinking up to 6 shots vodka daily x 1 year. Pt reports she knew it was becoming problematic and needed to stop. Pt reports recovery has been going well, does not have recovery supports in place. Pt states I don't need it. Pt denies hx tx AUD, denies family hx HEAVENLY. Pt does not currently have concerns regarding alcohol use, states That isn't even why I came to the hospital. Pt reports her family is supportive, declines referrals at this time. Pt provided with written resources as well as t/w contact information if needed. Declines questions or concerns.
--- NOTE | 2023-08-11 20:50 | PC.NURSE ---
This Rn removed TLC from R IJ, cath intact,occlusive dressing applied, pressure held, pt instructed in to lay flat. pt placed on continuous O2 monitoring. call wu in reach safety precautions in place.
[2023-08-12] VITALS (8 sets, daily range): BP systolic 97–110; BP diastolic 58–73; PULSE 76–101; RESP 18–20; TEMP 36.4–37; O2SAT 96–99; BMI 20.2
[2023-08-12] MEDS: Omeprazole 20 MG CAPSULE.DR PO (06:00)
[2023-08-12 07:13] LABS: Basophils Absolute Auto 0.1 X10*3/uL (0.0-0.2); Basophils Percent Auto 0.3 % (0-2); Eosinophils Absolute Auto 0.2 X10*3/uL (0.0-0.4); Eosinophils Percent Auto 0.8 % (0-4); Hematocrit 24.2 % (37.0-47.0); Hemoglobin 7.6 g/dl (12.0-16.0); Imm Gran Abs Auto 0.88 X10*3/uL (0.00-0.03); Imm Gran Pct Auto 3.1 % (0.0-0.4); Lymphocytes Absolute Auto 2.4 X10*3/uL (1.2-4.9); Lymphocytes Percent Auto 8.5 % (20-40); MANUAL DIFF FLAG SCAN; Mean Corpuscular HGB Conc 31.4 g/dl (31.0-35.0); Mean Corpuscular Hemoglobin 31.4 pg (27.0-33.0); Mean Platelet Volume 10.1 fL (9.4-12.3); Monocytes Absolute Auto 1.5 X10*3/uL (0.1-1.2); Monocytes Percent Auto 5.2 % (2-11); Neutrophils Absolute Auto 23.1 x10*3/uL (2.0-8.3); Neutrophils Percent Auto 82.1 % (45-73); Platelet Count 791 X10*3/uL (160-400); Red Blood Count 2.42 X10*6/uL (4.20-5.50); Red Cell Distribution Width 17.1 % (11.0-16.0); SCAN SMEAR FLAG 1; White Blood Count 28.2 X10*3/uL (4.8-10.8)
[2023-08-12 07:32] LABS: Anion Gap 13 (12-20); Anion Gap 14 (12-20); Blood Urea Nitrogen 9 mg/dL (9-16); Calcium 9.3 mg/dL (8.4-10.2); Carbon Dioxide 14 mmol/L (22-29); Carbon Dioxide 15 mmol/L (22-29); Chloride 112 mmol/L (96-108); Estimated Glomerular Filt Rate > 60; Glucose Random 94 mg/dL (60-115); Glucose Random 95 mg/dL (60-115); Magnesium 1.7 mg/dL (1.6-2.6); Phosphorus 3.9 mg/dL (2.7-4.5); Potassium 3.8 mmol/L (3.3-5.1); Potassium 3.9 mmol/L (3.3-5.1); Sodium 135 mmol/L (135-145); Sodium 137 mmol/L (135-145)
[2023-08-12] MEDS: cefTRIAXone sodium 1 GM in 0.9 % Sodium Chloride 50 ML IV (07:44)
[2023-08-12] MEDS: Thiamine HCL 100 MG TABLET PO (07:44)
[2023-08-12] MEDS: Midodrine HCl 10 MG TABLET PO ×3 (07:44→21:23)
[2023-08-12] MEDS: Multivitamin with Minerals Liq 15 ML LIQUID PO (07:44)
[2023-08-12] MEDS: Loratadine 10 MG TABLET PO (07:44)
[2023-08-12 07:48] LABS: SLIDE REVIEW VERIFIED
--- NOTE | 2023-08-12 10:20 | HO.PM.IMPN ---
Subjective Subjective Date of Service: 08/12/23 Interval History: Seen and evaluated Feels better overall but still weak in lower extremities No reported events Review of Systems Review of Systems: Yes all other systems are reviewed and are negative Physical Exam Vital Signs: Vital Signs: Last Vital Signs Temp 98.0 F 08/12/23 07:16 Pulse 90 08/12/23 07:16 Resp 20 08/12/23 07:16 BP 99/58 L 08/12/23 07:16 Pulse Ox 96 08/12/23 07:16 O2 Del Method Room Air 08/12/23 07:16 O2 Flow Rate 4 08/10/23 12:00 FiO2 21 08/02/23 11:38 BMI result Body Mass Index 20.2 Const: Other: Constitutional : Awake, interactive, not in distress Neck : Normal inspection, Supple Cardiovascular : RRR, no JVP, no lower extremity edema Respiratory : good bilateral air entry, no crackles, wheezes or rhonchi Gastrointestinal: soft, lax, Normal bowel sounds, Non tender Skin : Warm, Dry Neurological : Alert & oriented x3, No focal deficit Objective Data Active Medications Acetaminophen (Acetaminophen 325 Mg Tablet) 650 mg PO Q4H PRN PRN Reason: Pain, Mild (Pain Scale 1-3) Last Admin: 08/11/23 15:40 Dose: 650 mg Documented By: JUAN Albuterol/Ipratropium (Albuterol/Iprat 2.5/0.5mg 3 Ml Ampul.Neb) 3 ml INHALE Q6H PRN PRN Reason: Shortness of Breath/Wheezing Last Admin: 08/11/23 13:26 Dose: 3 ml Documented By: INGRID Heparin Sodium (Porcine) (Heparin Sodium,Porcine 5,000 Unit/Ml Vial) 5,000 unit SUBCUT Q12H [facility] Last Admin: 08/11/23 22:08 Dose: 5,000 unit Documented By: JUAN Loratadine (Loratadine 10 Mg Tablet) 10 mg PO DAILY [facility] Last Admin: 08/12/23 07:44 Dose: 10 mg Documented By: DARIO Midodrine (Midodrine Hcl 10 Mg Tablet) 10 mg PO TID [facility] Last Admin: 08/12/23 07:44 Dose: 10 mg Documented By: DARIO Multivitamins/Minerals (Multivitamin With Minerals Liq 15 Ml Liquid) 15 ml PO DAILY [facility] Last Admin: 08/12/23 07:44 Dose: 15 ml Documented By: DARIO Omeprazole (Omeprazole 20 Mg Capsule.Dr) 20 mg PO DAILY@0630 [facility] Last Admin: 08/12/23 06:00 Dose: 20 mg Documented By: ZULAY Thiamine HCl (Thiamine Hcl 100 Mg Tablet) 100 mg PO DAILY [facility] Last Admin: 08/12/23 07:44 Dose: 100 mg Documented By: DARIO Labs 08/12/23 07:03 08/12/23 07:03 Labs: Laboratory Results - last 24 hr 08/12/23 08/12/23 08/12/23 07:03 07:03 07:03 MCV 100.0 H Cancelled MCH 31.4 Cancelled MCHC 31.4 RDW Plt Count MPV Immature Gran % (Auto) Neut % (Auto) Lymph % (Auto) [place] % (Auto) Eos % (Auto) Baso % (Auto) Lymph # (Auto) [place] # (Auto) Eos # (Auto) Baso # (Auto) Abs Immat Gran (auto) Absolute Neuts (auto) Absolute Nucleated RBC Nucleated RBC % (auto) Smear Tech's Comments Anion Gap Estim Creat Clear Calc Estimated GFR Random Glucose Calcium Phosphorus Magnesium 08/12/23 08/12/23 08/12/23 07:03 07:03 07:03 MCV MCH MCHC Cancelled RDW 17.1 H Cancelled Plt Count 791 H D Cancelled MPV 10.1 Immature Gran % (Auto) Neut % (Auto) Lymph % (Auto) [place] % (Auto) Eos % (Auto) Baso % (Auto) Lymph # (Auto) [place] # (Auto) Eos # (Auto) Baso # (Auto) Abs Immat Gran (auto) Absolute Neuts (auto) Absolute Nucleated RBC Nucleated RBC % (auto) Smear Tech's Comments Anion Gap Estim Creat Clear Calc Estimated GFR Random Glucose Calcium Phosphorus Magnesium 08/12/23 08/12/23 08/12/23 07:03 07:03 07:03 MCV MCH MCHC RDW Plt Count MPV Cancelled Immature Gran % (Auto) 3.1 H Neut % (Auto) 82.1 H Lymph % (Auto) 8.5 L [place] % (Auto) 5.2 Eos % (Auto) 0.8 Baso % (Auto) 0.3 Lymph # (Auto) 2.4 [place] # (Auto) 1.5 H Eos # (Auto) 0.2 Baso # (Auto) 0.1 Abs Immat Gran (auto) 0.88 H Absolute Neuts (auto) 23.1 H Absolute Nucleated RBC 0.000 Cancelled Nucleated RBC % (auto) 0.0 Cancelled Smear Tech's Comments VERIFIED Anion Gap 14 Estim Creat Clear Calc Estimated GFR Random Glucose Calcium Phosphorus Magnesium 08/12/23 08/12/23 08/12/23 07:03 07:03 07:03 MCV MCH MCHC RDW Plt Count MPV Immature Gran % (Auto) Neut % (Auto) Lymph % (Auto) [place] % (Auto) Eos % (Auto) Baso % (Auto) Lymph # (Auto) [place] # (Auto) Eos # (Auto) Baso # (Auto) Abs Immat Gran (auto) Absolute Neuts (auto) Absolute Nucleated RBC Nucleated RBC % (auto) Smear Tech's Comments Anion Gap 13 Estim Creat Clear Calc 126.0 126.0 Estimated GFR > 60 > 60 Random Glucose 95 Calcium Phosphorus Magnesium 08/12/23 08/12/23 07:03 07:03 MCV MCH MCHC RDW Plt Count MPV Immature Gran % (Auto) Neut % (Auto) Lymph % (Auto) [place] % (Auto) Eos % (Auto) Baso % (Auto) Lymph # (Auto) [place] # (Auto) Eos # (Auto) Baso # (Auto) Abs Immat Gran (auto) Absolute Neuts (auto) Absolute Nucleated RBC Nucleated RBC % (auto) Smear Tech's Comments Anion Gap Estim Creat Clear Calc Estimated GFR Random Glucose 94 Calcium 9.3 9.3 Phosphorus 3.9 Magnesium 1.7 Assessment and Plan (1) Anorexia: Status: Acute (2) Acute respiratory failure: Status: Acute Plan 47F PMH etoh dependence, gerd, mild intermittent asthma, presented 07/31/23 with weakness after not eating for several weeks due to depression from of in may 2023, in ED patient rapidly declined, acute hypoxia, severe electrolyte abnormalities, hypotension. patient was intubated, placed on pressors, given tpn, feeds, extubated successfully 08/02/23, weaned off pressors 1/8/24 and downgraded to medicine. patient still on TPN and eating about 25% of food, being followed by nutrition. Major depression/grief complicated by anorexia complicated by acute hypoxic respitory failure, cardiogenic shock, severe hypokalemia, severe hypophostphatemia weaned off O2 on midodrine DC TPN Advancing solid diet, nutrition team following monitor electrolytes DC ceftriaxone, no evidence of sepsis Care team evaluated her and recommended no need for inpatient stay Physical deconditioning PT rec rehab; pending placement mild intermittent asthma prn albuterol, stable gerd ppi etoh dependence no withdrawal dvt prophylaxis - hep sq full code reason for continued hospitalization advancing diet and pending safe discharge plan to rehab facility Quality Stroke Does the patient have a stroke diagnosis?: No VTE Prior VTE?: No VTE Risk Level:: Medical - moderate - high VTE Device Contraindication: N/A - Device Ordered VTE Drug Contraindication: N/A - Med Ordered
--- NOTE | 2023-08-12 10:42 | MHC.CM.PN ---
Local STR referrals placed, and due to pts insurance, we have gotten 8 denials so far. Will continue to expand and update STR referral as needed.
[2023-08-12] MEDS: Heparin Sodium,Porcine 5,000 UNIT/ML VIAL 5000 UNIT SUBCUT ×2 (11:39→21:22)
[2023-08-12] MEDS: Acetaminophen 325 MG TABLET 650 MG PO (13:08)
[2023-08-12] MEDS: Albuterol/Iprat 2.5/0.5MG 3 ML AMPUL.NEB INHALE (13:11)
--- NOTE | 2023-08-12 15:19 | P.CDIM_ITS ---
PROVIDER RESPONSE TEXT: To clarify, the appropriate diagnosis supported by the clinical indicators: Moderate QUERY TEXT: PHYSICIAN'S DOCUMENTATION REQUEST Date of Query: 08/12/2023 07:59 AM EST Patient Name: Melissa Hopper Admit Date: 08/01/2023 Dear Anastasia Arboleda, A review of the medical record indicates additional documentation may be needed. Please review below and update the documentation accordingly. Clinical indicators: Clinical nutrition notes dated 08/04 - Moderately malnourished with mildly depleted subcutaneous fat an d muscle mass. BMI 20 Poor PO intake TPN for nutrition If possible, please provide additional specificity regarding the severity any malnutrition using the above information: Mild Moderate Severe Other (explain) Clinically unable to determine (explain) Thank you, Orin Zaldivar, CCS, CDIS Use of terms such as suspected, likely, concern for, or probable (associated with a specific diagnosi s that is being evaluated, monitored, or treated as if it exists) are acceptable and can be coded in the inpatient se tting, when documented at the time of discharge. Please use your independent medical judgment in providing your response. THIS QUERY IS PART OF THE PERMANENT MEDICAL RECORD
--- NOTE | 2023-08-12 15:19 | P.CDIM_ITS ---
PROVIDER RESPONSE TEXT: To clarify, the appropriate diagnosis supported by the clinical indicators: Sepsis: resolved QUERY TEXT: PHYSICIAN'S DOCUMENTATION REQUEST Date of Query: 08/12/2023 07:47 AM EST Patient Name: Melissa Hopper Admit Date: 08/01/2023 Dear Anastasia Arboleda, A review of the medical record indicates additional documentation may be needed. Please review below and update the documentation accordingly. Consistency of a diagnosis documented within the medical record: Ed: 08/01 - Sepsis protocol started - respiratory rate dropped - HR down to 24, BP 74/30 Levophed sta rted. Clinical impression: Sepsis LA 9.8 WBC 34.0/38.8 Temp 97.5 HR 24/47 L Intubated, vent, antibiotics for suspected pneumonia/pancreatitis ICU H&P: Assessment and plan - Sepsis ICU progress note dated 08/01 - Assessment and plan - Sepsis - continue electrolyte replacement and f ollowing lactic acid, continue doxycycline and meropenem IV, IV fluid replacement and levophed support of blood pressure an d ventilator support. Sepsis Systemic manifestations of infection, with 2 or more SIRS criteria which include: Fever > 100.4?F or hypothermia < 96.8?F Leukocytosis - WBC > 12,000 or leukopenia, WBC < 4,000, or > 10% bands Tachycardia- > 90 beats/minute Tachypnea- RR > 20 breaths/minute or PaCO2 < 32mmHg Based on the above information and the recognized standard for sepsis, could you please clarify if th is diagnoses is still accurate and reflective of the patient's condition to ensure quality of the medical record. Sepsis resolved, suspected, possible, probable etc. After study Sepsis has been ruled out Other (explain) Clinically unable to determine (explain) Thank you, Orin Zaldivar, CCS, CDIS Use of terms such as suspected, likely, concern for, or probable (associated with a specific diagnosi s that is being evaluated, monitored, or treated as if it exists) are acceptable and can be coded in the inpatient se tting, when documented at the time of discharge. Please use your independent medical judgment in providing your response. THIS QUERY IS PART OF THE PERMANENT MEDICAL RECORD
[2023-08-12] MEDS: Lidocaine 4 % Patch ADH..PATCH 1 PATCH TRANSDERMA (18:43)
[2023-08-13] VITALS (8 sets, daily range): BP systolic 104–122; BP diastolic 60–73; PULSE 84–107; RESP 17–20; TEMP 36.4–37.1; O2SAT 97–98; BMI 19.7
[2023-08-13] MEDS: Omeprazole 20 MG CAPSULE.DR PO (06:31)
[2023-08-13 07:15] LABS: Basophils Absolute Auto 0.1 X10*3/uL (0.0-0.2); Basophils Percent Auto 0.2 % (0-2); Eosinophils Absolute Auto 0.2 X10*3/uL (0.0-0.4); Eosinophils Percent Auto 0.7 % (0-4); Hematocrit 24.3 % (37.0-47.0); Hemoglobin 7.5 g/dl (12.0-16.0); Imm Gran Abs Auto 0.43 X10*3/uL (0.00-0.03); Imm Gran Pct Auto 1.7 % (0.0-0.4); Lymphocytes Absolute Auto 2.5 X10*3/uL (1.2-4.9); Lymphocytes Percent Auto 9.6 % (20-40); MANUAL DIFF FLAG SCAN; Mean Corpuscular HGB Conc 30.9 g/dl (31.0-35.0); Mean Corpuscular Volume 100.4 fL (80.0-98.0); Mean Platelet Volume 10.3 fL (9.4-12.3); Monocytes Absolute Auto 1.8 X10*3/uL (0.1-1.2); Monocytes Percent Auto 7.2 % (2-11); Neutrophils Absolute Auto 20.6 x10*3/uL (2.0-8.3); Neutrophils Percent Auto 80.6 % (45-73); Platelet Count 948 X10*3/uL (160-400); Red Blood Count 2.42 X10*6/uL (4.20-5.50); Red Cell Distribution Width 16.8 % (11.0-16.0); SCAN SMEAR FLAG 1; White Blood Count 25.6 X10*3/uL (4.8-10.8)
[2023-08-13 07:29] LABS: Anion Gap 14 (12-20); Blood Urea Nitrogen 9 mg/dL (9-16); Calcium 9.1 mg/dL (8.4-10.2); Carbon Dioxide 15 mmol/L (22-29); Chloride 110 mmol/L (96-108); Creatinine Clr Calc Pharmacy 137.8; Estimated Glomerular Filt Rate > 60; Glucose Random 88 mg/dL (60-115); Magnesium 1.6 mg/dL (1.6-2.6); Phosphorus 4.2 mg/dL (2.7-4.5); Potassium 3.4 mmol/L (3.3-5.1); Sodium 136 mmol/L (135-145)
[2023-08-13 08:21] LABS: SLIDE REVIEW VERIFIED
[2023-08-13] MEDS: Multivitamin with Minerals Liq 15 ML LIQUID PO (08:39)
[2023-08-13] MEDS: Sodium Bicarbonate 650 MG TABLET PO ×3 (08:39→21:04)
[2023-08-13] MEDS: Lidocaine 4 % Patch ADH..PATCH 1 PATCH TRANSDERMA (08:39)
[2023-08-13] MEDS: Thiamine HCL 100 MG TABLET PO (08:39)
[2023-08-13] MEDS: Ferrous Sulfate 324 MG TABLET.DR PO ×2 (08:39→08:40)
[2023-08-13] MEDS: Midodrine HCl 10 MG TABLET PO ×3 (08:39→21:04)
[2023-08-13] MEDS: Loratadine 10 MG TABLET PO (08:40)
--- NOTE | 2023-08-13 08:44 | HO.PM.IMPN ---
Subjective Subjective Date of Service: 08/13/23 Interval History: Seen and evaluated Feels better overall still weak in lower extremities tolerating diet No reported events Review of Systems Review of Systems: Yes all other systems are reviewed and are negative Physical Exam Vital Signs: Vital Signs: Last Vital Signs Temp 97.6 F 08/13/23 07:16 Pulse 92 08/13/23 07:16 Resp 20 08/13/23 07:16 BP 117/73 08/13/23 07:16 Pulse Ox 97 08/13/23 07:16 O2 Del Method Room Air 08/13/23 07:16 O2 Flow Rate 4 08/10/23 12:00 FiO2 21 08/02/23 11:38 BMI result Body Mass Index 19.7 Const: Other: Constitutional : Awake, interactive, not in distress Neck : Normal inspection, Supple Cardiovascular : RRR, no JVP, no lower extremity edema Respiratory : good bilateral air entry, no crackles, wheezes or rhonchi Gastrointestinal: soft, lax, Normal bowel sounds, Non tender Skin : Warm, Dry Neurological : Alert & oriented x3, No focal deficit Objective Data Active Medications Acetaminophen (Acetaminophen 325 Mg Tablet) 650 mg PO Q4H PRN PRN Reason: Pain, Mild (Pain Scale 1-3) Last Admin: 08/12/23 13:08 Dose: 650 mg Documented By: DARIO Albuterol/Ipratropium (Albuterol/Iprat 2.5/0.5mg 3 Ml Ampul.Neb) 3 ml INHALE Q6H PRN PRN Reason: Shortness of Breath/Wheezing Last Admin: 08/12/23 13:11 Dose: 3 ml Documented By: PETER Ferrous Sulfate (Ferrous Sulfate 324 Mg Tablet.Dr) 324 mg PO DAILY [facility] Last Admin: 08/13/23 08:40 Dose: 324 mg Documented By: GALILEO Heparin Sodium (Porcine) (Heparin Sodium,Porcine 5,000 Unit/Ml Vial) 5,000 unit SUBCUT Q12H [facility] Last Admin: 08/12/23 21:22 Dose: 5,000 unit Documented By: COURT Lidocaine (Lidocaine 4 % Patch Adh..Patch) 1 patch TRANSDERMA DAILY [facility]; Protocol Last Admin: 08/13/23 08:39 Dose: 1 patch Documented By: GALILEO Loratadine (Loratadine 10 Mg Tablet) 10 mg PO DAILY [facility] Last Admin: 08/13/23 08:40 Dose: 10 mg Documented By: GALILEO Midodrine (Midodrine Hcl 10 Mg Tablet) 10 mg PO TID [facility] Last Admin: 08/13/23 08:39 Dose: 10 mg Documented By: GALILEO Multivitamins/Minerals (Multivitamin With Minerals Liq 15 Ml Liquid) 15 ml PO DAILY [facility] Last Admin: 08/13/23 08:39 Dose: 15 ml Documented By: GALILEO Omeprazole (Omeprazole 20 Mg Capsule.) 20 mg PO DAILY@0630 [facility] Last Admin: 08/13/23 06:31 Dose: 20 mg Documented By: COURT Sodium Bicarbonate (Sodium Bicarbonate 650 Mg Tablet) 650 mg PO TID [facility] Last Admin: 08/13/23 08:39 Dose: 650 mg Documented By: GALILEO Thiamine HCl (Thiamine Hcl 100 Mg Tablet) 100 mg PO DAILY [facility] Last Admin: 08/13/23 08:39 Dose: 100 mg Documented By: GALILEO Labs 08/13/23 06:36 08/13/23 06:36 Labs: Laboratory Results - last 24 hr 08/13/23 06:36 MCV 100.4 H MCH 31.0 MCHC 30.9 L RDW 16.8 H Plt Count 948 H MPV 10.3 Immature Gran % (Auto) 1.7 H Neut % (Auto) 80.6 H Lymph % (Auto) 9.6 L Maury % (Auto) 7.2 Eos % (Auto) 0.7 Baso % (Auto) 0.2 Lymph # (Auto) 2.5 Maury # (Auto) 1.8 H Eos # (Auto) 0.2 Baso # (Auto) 0.1 Abs Immat Gran (auto) 0.43 H Absolute Neuts (auto) 20.6 H Absolute Nucleated RBC 0.000 Nucleated RBC % (auto) 0.0 Smear Tech's Comments VERIFIED Anion Gap 14 Estim Creat Clear Calc 137.8 Estimated GFR > 60 Random Glucose 88 Calcium 9.1 Phosphorus 4.2 Magnesium 1.6 Assessment and Plan (1) Anorexia: Status: Acute (2) Hypophosphatemia: Status: Acute (3) Failure to thrive in adult: Status: Acute Plan 47F PMH etoh dependence, gerd, mild intermittent asthma, presented 07/31/23 with weakness after not eating for several weeks due to depression from of in may 2023, in ED patient rapidly declined, acute hypoxia, severe electrolyte abnormalities, hypotension. patient was intubated, placed on pressors, given tpn, feeds, extubated successfully 08/02/23, weaned off pressors 08/09/23 and downgraded to medicine. patient still on TPN and eating about 25% of food, being followed by nutrition. Major depression/grief complicated by anorexia complicated by acute hypoxic respitory failure, cardiogenic shock, severe hypokalemia, severe hypophostphatemia weaned off O2 on midodrine DC TPN Advancing solid diet, nutrition team following monitor electrolytes DC ceftriaxone, no evidence of sepsis Care team evaluated her and recommended no need for inpatient stay Physical deconditioning PT rec rehab; pending placement Metabolic acidosis check VBG Start Bicarbonate mild intermittent asthma prn albuterol, stable gerd ppi etoh dependence no withdrawal dvt prophylaxis - hep sq full code reason for continued hospitalization advancing diet and pending safe discharge plan to rehab facility Quality Stroke Does the patient have a stroke diagnosis?: No VTE Prior VTE?: No VTE Risk Level:: Medical - moderate - high VTE Device Contraindication: N/A - Device Ordered VTE Drug Contraindication: N/A - Med Ordered
--- NOTE | 2023-08-13 09:33 | MHC.CM.PN ---
Addendum entered by Cristine Villalobos 08/13/23 11:43: [facility] for [facility]. This CM met with pt to discuss going to STR further away, pt not in agreement with that. Pt asked this CM if she could go home with VNA and have her children stay with her instead. This CM brought this plan to the hospitalists attention, who is in agreement. Referral placed for [facility]. Original Note: [facility] is reviewing pts clinicals for [facility].
[2023-08-13 10:25] LABS: Venous Blood Gas Refer to POC result
[2023-08-13 10:27] LABS: VBG Base Excess -8.7 mmol/L; VBG HCO3 15 mmol/L (22-26); VBG pCO2 28 mmHg; VBG pH 7.34 (7.32-7.43); VBG pO2 49 mmHg
[2023-08-13 11:30] LABS: Folate 3.3 ng/mL (> or = 4.0); Vitamin B12 939 pg/mL (200-900)
[2023-08-13] MEDS: Heparin Sodium,Porcine 5,000 UNIT/ML VIAL 5000 UNIT SUBCUT ×2 (12:28→21:04)
--- NOTE | 2023-08-13 13:46 | MHC.CLN ---
F/U PO INTAKE GOOD DIET RX: REGULAR-APPROPRIATE PT RECEIVING MAGIC CUP WITH MEALS AND ENSURE MAX BID TO INCREASE KCALS MONITOR PO INTAKE CLOSELY AND ENCOURAGE SUPPLEMENT
[2023-08-13] MEDS: Folic Acid 1 MG TABLET 2 MG PO (13:50)
[2023-08-13] MEDS: Albuterol/Iprat 2.5/0.5MG 3 ML AMPUL.NEB INHALE (13:56)
--- NOTE | 2023-08-13 16:13 | MHC.CM.PN ---
Pt has been accepted by [facility], pt in agreement and states she will be ready for D/C tomorrow 08/14.
[2023-08-13] MEDS: Acetaminophen 325 MG TABLET 650 MG PO (16:46)
[2023-08-14 03:42] VITALS: BP 135/81; PULSE 87; RESP 20; TEMP 36.2; O2SAT 98
[2023-08-14] MEDS: Omeprazole 20 MG CAPSULE.DR PO (05:33)
[2023-08-14 06:00] VITALS: BMI 20.1
[2023-08-14 06:44] LABS: Basophils Absolute Auto 0.1 X10*3/uL (0.0-0.2); Basophils Percent Auto 0.4 % (0-2); Eosinophils Absolute Auto 0.2 X10*3/uL (0.0-0.4); Hematocrit 24.1 % (37.0-47.0); Hemoglobin 7.6 g/dl (12.0-16.0); Imm Gran Abs Auto 0.22 X10*3/uL (0.00-0.03); Imm Gran Pct Auto 1.1 % (0.0-0.4); Lymphocytes Absolute Auto 2.3 X10*3/uL (1.2-4.9); Lymphocytes Percent Auto 11.4 % (20-40); MANUAL DIFF FLAG SCAN; Mean Corpuscular HGB Conc 31.5 g/dl (31.0-35.0); Mean Corpuscular Hemoglobin 31.3 pg (27.0-33.0); Mean Corpuscular Volume 99.2 fL (80.0-98.0); Mean Platelet Volume 10.1 fL (9.4-12.3); Monocytes Absolute Auto 1.5 X10*3/uL (0.1-1.2); Monocytes Percent Auto 7.6 % (2-11); Neutrophils Absolute Auto 15.5 x10*3/uL (2.0-8.3); Neutrophils Percent Auto 78.5 % (45-73); Red Blood Count 2.43 X10*6/uL (4.20-5.50); Red Cell Distribution Width 16.4 % (11.0-16.0); SCAN SMEAR FLAG 1; White Blood Count 19.8 X10*3/uL (4.8-10.8)
[2023-08-14 06:49] LABS: Anion Gap 13 (12-20); Blood Urea Nitrogen 7 mg/dL (9-16); Calcium 9.2 mg/dL (8.4-10.2); Carbon Dioxide 16 mmol/L (22-29); Chloride 111 mmol/L (96-108); Creatinine Clr Calc Pharmacy 117.6; Estimated Glomerular Filt Rate > 60; Glucose Random 101 mg/dL (60-115); Magnesium 1.6 mg/dL (1.6-2.6); Phosphorus 3.7 mg/dL (2.7-4.5); Potassium 3.2 mmol/L (3.3-5.1); Sodium 137 mmol/L (135-145)
[2023-08-14 07:14] LABS: Platelet Count 1085 X10*3/uL (160-400)
[2023-08-14 07:22] LABS: SLIDE REVIEW VERIFIED
[2023-08-14] MEDS: Potassium Chloride Packet 20 MEQ PACKET 40 MEQ PO (07:59)
[2023-08-14 08:00] VITALS: BP 113/72; PULSE 92; RESP 18; TEMP 36.6; O2SAT 96
[2023-08-14] MEDS: Folic Acid 1 MG TABLET 2 MG PO (08:00)
[2023-08-14] MEDS: Loratadine 10 MG TABLET PO (08:00)
[2023-08-14] MEDS: Thiamine HCL 100 MG TABLET PO (08:00)
[2023-08-14] MEDS: Ferrous Sulfate 324 MG TABLET.DR PO (08:01)
[2023-08-14] MEDS: Multivitamin with Minerals Liq 15 ML LIQUID PO (08:01)
[2023-08-14] MEDS: Lidocaine 4 % Patch ADH..PATCH 1 PATCH TRANSDERMA (08:01)
[2023-08-14] MEDS: Sodium Bicarbonate 650 MG TABLET PO (08:01)
--- NOTE | 2023-08-14 09:48 | P.DS_ITS ---
DS: Providers Provider Date of Service: 08/14/23 Date of admission: 07/31/23 20:07 Date of discharge: 08/14/23 Primary care physician: Aron Kurtz MD Consults: 08/05/23 09:39 Consult to Psychiatry Routine Consulting Provider: Psych Covering Reason for consultation: MDD 08/11/23 07:42 Consult to Care Team Routine Comment: Reason for consultation: Depression 2/2 greif causing decrease PO intake and electrolytes imbalance DS: Diagnosis Discharge Diagnosis (1) Anorexia: Status: Acute (2) Hypophosphatemia: Status: Acute (3) Failure to thrive in adult: Status: Acute (4) Iron deficiency anemia: Status: Acute (5) Grief: Status: Acute (6) Acute respiratory failure: Status: Acute (7) Refeeding syndrome: Status: Acute (8) Hyponatremia: Status: Acute (9) Hypokalemia due to loss of potassium: Status: Acute DS: Summary Hospital Course Hospital Course: The patient had prolonged hospital stay. For full details please return to EMR. Admission note HPI by ICU provider 47-year-old female who was a chronic alcoholic but claims to have stopped a few weeks ago has had actually more of a subacute story where she has had anorexia progressive weakness to the point where then she had to be on cane but it was a diffuse weakness ultimately having to be supported by other people at her home and then finally came here because she could not even make it to the bathroom anymore but she was not complaining of dyspnea and was not in respiratory distress she had a sort of a slow drawl to her speech and a funny movement as though she could not support her head when talking to me but the disc claimed outside of asthma any other active history she said no diabetes no thyroid replacement and adeno she is she is lost weight as result of this combined issue and when looking at her vital sign she had an excellent oxygen saturation she was not making significant respiratory effort and metabolically the renal function was preserved and that she was mildly hyponatremic and only mildly hypokalemic initially with potassium of 3.4 after going to see another patient I was called again saying that she looked worse oxygen saturation had dropped into the 80s and she had to be placed on a non-rebreather and again she did not look distressed but just all of a sudden weaker and more lethargic she was supine with eyes closed and then again briefly thereafter after stepping away they called a rapid response she became bradycardic more hypoxic and she needed urgently to be intubated at that point and was given a IV epinephrine dose and and then eventually came to the ICU where central line was placed without complications and after a sepsis protocol was called because because of relative hypotension along with the 34,000 white count and that and no apparent origin she received 30 cc/kilos of normal saline and her CT scan of her chest I reviewed and there was a right basilar infiltrate which appear to be a mixture of ground-glass and some nodularity no true consolidation mainly right base ever so slightly left base and the abdominal CT did definitely was some fat stranding surrounding the pancreas and the looked like there was a walled-off fluid collection in the in the body of the pancreas and even a little closer to the tail upon read drawing the blood we found that she had a profound metabolic acidosis with positive anion gap is certainly mainly consisting of lactic acidosis and had a potassium of 1.1 with an EKG demonstrating very severe diffuse ST segment depression with prolonged QT interval probably due to the U wave and the and but it was about 560 to almost 600 milliseconds and we were having a lot of accelerated idioventricular rhythm episodes all nonsustained and clearly an electrolyte repletion was necessary and we were giving potassium at the rate of 20 mEq per hour +40 mEq once every 2-3 hours in her GI tract in addition and patient is now sedated and intubated with ectopy calming ST segment depression is calming as the potassium gradually replete but the origin of this given her history still skates me know is 3 of laxative abuse or or diuretic use or abuse and her urine tox screen was negative I thought surely her bradycardia and relatively hypokinesia the no response to that degree of metabolic acidosis I thought for sure responses were blunted by some substance abuse everything was negative including alcohol salicylate and acetaminophen Hospital course # Major depression/grief complicated by anorexia complicated by acute hypoxic respitory failure, cardiogenic shock, severe hypokalemia, severe hypophostphatemia Admitted to ICU where she was intubated and sedated while treated with IV antibiotics, IV Electrolytes, started on midodrine for low BP. She was started on TPN as solid diet was advanced with good tolerance and incre ased intake, nutrition team followed her during hospital stay. Seen by Psychiatry team who recommended no intervention at that point. She was seen by Care team who recommended no need for inpatient psychiatry stay. # Physical deconditioning PT rec rehab; patient will be going home with VNA and family care. # Low sodium bicarb VBG showing stable pH. Continue Bicarbonate for 1 more week and repeat BMP as outpatient. # Thrombocytosis Platelets were low on admission of 80s. increased during the hospital stay to higher levels than previously up to 1080K, discussed with dr Tanner from Hematology who believes this is a secondary thrombocytosis case from sepsis and STUART. No need for Aspirin. To repeat CBC next week. Plan Continue Midodrine 5 mg three times daily to improve low blood pressure, can be adjusted by PCP in a week or so to wean it down Continue supplements of Iron, Folic acid and Thiamine Sodium bicarbonate for 1 week and then will repeat blood work Increase physical activity as tolerated Increase dietary intake The patient will likely need less than 30 days in SNF. Time Attestation Discharge coordination time: Greater than 30 minutes Quality: Safe Use of Opioids Does Pt have an Active Cancer Diagnosis on the Problem List?: No Quality: Stroke Does the patient have a stroke diagnosis?: No Physical Exam Vital Signs: Vital Signs: Last Vital Signs Temp 97.8 F 08/14/23 08:00 Pulse 92 08/14/23 08:00 Resp 18 08/14/23 08:00 BP 113/72 08/14/23 08:00 Pulse Ox 96 08/14/23 08:00 O2 Del Method Room Air 08/14/23 08:00 O2 Flow Rate 4 08/10/23 12:00 FiO2 21 08/02/23 11:38 BMI result Body Mass Index 20.1 Const: Other: Constitutional : Awake, interactive, not in distress Neck : Normal inspection, Supple Cardiovascular : RRR, no JVP, no lower extremity edema Respiratory : good bilateral air entry, no crackles, wheezes or rhonchi Gastrointestinal: soft, lax, Normal bowel sounds, Non tender Skin : Warm, Dry Neurological : Alert & oriented x3, No focal deficit DS: Data Data Completed and Pending Labs on day of discharge: Laboratory Results - last 24 hr 08/13/23 08/13/23 08/14/23 10:18 10:21 06:06 WBC 19.8 H RBC Hgb Hct MCV MCH MCHC RDW Plt Count MPV Immature Gran % (Auto) Neut % (Auto) Lymph % (Auto) [place] % (Auto) Eos % (Auto) Baso % (Auto) Lymph # (Auto) [place] # (Auto) Eos # (Auto) Baso # (Auto) Abs Immat Gran (auto) Absolute Neuts (auto) Absolute Nucleated RBC Nucleated RBC % (auto) Smear Tech's Comments VBG pH 7.34 VBG pCO2 28 VBG pO2 49 VBG HCO3 15 L VBG O2 Saturation 72.0 VBG Base Excess -8.7 Sodium Potassium Chloride Carbon Dioxide Anion Gap BUN Creatinine Estim Creat Clear Calc Estimated GFR Random Glucose Calcium Phosphorus Magnesium Vitamin B12 939 H Folate 3.3 L 08/14/23 08/14/23 08/14/23 06:06 06:06 06:06 WBC Cancelled RBC 2.43 L Cancelled Hgb 7.6 L Cancelled Hct 24.1 L MCV MCH MCHC RDW Plt Count MPV Immature Gran % (Auto) Neut % (Auto) Lymph % (Auto) [place] % (Auto) Eos % (Auto) Baso % (Auto) Lymph # (Auto) [place] # (Auto) Eos # (Auto) Baso # (Auto) Abs Immat Gran (auto) Absolute Neuts (auto) Absolute Nucleated RBC Nucleated RBC % (auto) Smear Tech's Comments VBG pH VBG pCO2 VBG pO2 VBG HCO3 VBG O2 Saturation VBG Base Excess Sodium Potassium Chloride Carbon Dioxide Anion Gap BUN Creatinine Estim Creat Clear Calc Estimated GFR Random Glucose Calcium Phosphorus Magnesium Vitamin B12 Folate 08/14/23 08/14/23 08/14/23 06:06 06:06 06:06 WBC RBC Hgb Hct Cancelled MCV 99.2 H Cancelled MCH 31.3 Cancelled MCHC 31.5 RDW Plt Count MPV Immature Gran % (Auto) Neut % (Auto) Lymph % (Auto) [place] % (Auto) Eos % (Auto) Baso % (Auto) Lymph # (Auto) [place] # (Auto) Eos # (Auto) Baso # (Auto) Abs Immat Gran (auto) Absolute Neuts (auto) Absolute Nucleated RBC Nucleated RBC % (auto) Smear Tech's Comments VBG pH VBG pCO2 VBG pO2 VBG HCO3 VBG O2 Saturation VBG Base Excess Sodium Potassium Chloride Carbon Dioxide Anion Gap BUN Creatinine Estim Creat Clear Calc Estimated GFR Random Glucose Calcium Phosphorus Magnesium Vitamin B12 Folate 08/14/23 08/14/23 08/14/23 06:06 06:06 06:06 WBC RBC Hgb Hct MCV MCH MCHC Cancelled RDW 16.4 H Cancelled Plt Count 1085 H* Cancelled MPV 10.1 Immature Gran % (Auto) Neut % (Auto) Lymph % (Auto) [place] % (Auto) Eos % (Auto) Baso % (Auto) Lymph # (Auto) [place] # (Auto) Eos # (Auto) Baso # (Auto) Abs Immat Gran (auto) Absolute Neuts (auto) Absolute Nucleated RBC Nucleated RBC % (auto) Smear Tech's Comments VBG pH VBG pCO2 VBG pO2 VBG HCO3 VBG O2 Saturation VBG Base Excess Sodium Potassium Chloride Carbon Dioxide Anion Gap BUN Creatinine Estim Creat Clear Calc Estimated GFR Random Glucose Calcium Phosphorus Magnesium Vitamin B12 Folate 08/14/23 08/14/23 08/14/23 06:06 06:06 06:06 WBC RBC Hgb Hct MCV MCH MCHC RDW Plt Count MPV Cancelled Immature Gran % (Auto) 1.1 H Neut % (Auto) 78.5 H Lymph % (Auto) 11.[address] [place] % (Auto) 7.6 Eos % (Auto) 1.0 Baso % (Auto) 0.4 Lymph # (Auto) 2.3 [place] # (Auto) 1.5 H Eos # (Auto) 0.2 Baso # (Auto) 0.1 Abs Immat Gran (auto) 0.22 H Absolute Neuts (auto) 15.5 H Absolute Nucleated RBC 0.000 Cancelled Nucleated RBC % (auto) 0.0 Cancelled Smear Tech's Comments VERIFIED VBG pH VBG pCO2 VBG pO2 VBG HCO3 VBG O2 Saturation VBG Base Excess Sodium 137 Potassium Chloride Carbon Dioxide Anion Gap BUN Creatinine Estim Creat Clear Calc Estimated GFR Random Glucose Calcium Phosphorus Magnesium Vitamin B12 Folate 08/14/23 08/14/23 08/14/23 06:06 06:06 06:06 WBC RBC Hgb Hct MCV MCH MCHC RDW Plt Count MPV Immature Gran % (Auto) Neut % (Auto) Lymph % (Auto) [place] % (Auto) Eos % (Auto) Baso % (Auto) Lymph # (Auto) [place] # (Auto) Eos # (Auto) Baso # (Auto) Abs Immat Gran (auto) Absolute Neuts (auto) Absolute Nucleated RBC Nucleated RBC % (auto) Smear Tech's Comments VBG pH VBG pCO2 VBG pO2 VBG HCO3 VBG O2 Saturation VBG Base Excess Sodium Cancelled Potassium 3.2 L Cancelled Chloride 111 H Cancelled Carbon Dioxide 16 L Anion Gap BUN Creatinine Estim Creat Clear Calc Estimated GFR Random Glucose Calcium Phosphorus Magnesium Vitamin B12 Folate 08/14/23 08/14/23 08/14/23 06:06 06:06 06:06 WBC RBC Hgb Hct MCV MCH MCHC RDW Plt Count MPV Immature Gran % (Auto) Neut % (Auto) Lymph % (Auto) [place] % (Auto) Eos % (Auto) Baso % (Auto) Lymph # (Auto) [place] # (Auto) Eos # (Auto) Baso # (Auto) Abs Immat Gran (auto) Absolute Neuts (auto) Absolute Nucleated RBC Nucleated RBC % (auto) Smear Tech's Comments VBG pH VBG pCO2 VBG pO2 VBG HCO3 VBG O2 Saturation VBG Base Excess Sodium Potassium Chloride Carbon Dioxide Cancelled Anion Gap 13 Cancelled BUN 7 L Cancelled Creatinine 0.49 L Estim Creat Clear Calc Estimated GFR Random Glucose Calcium Phosphorus Magnesium Vitamin B12 Folate 08/14/23 08/14/23 08/14/23 06:06 06:06 06:06 WBC RBC Hgb Hct MCV MCH MCHC RDW Plt Count MPV Immature Gran % (Auto) Neut % (Auto) Lymph % (Auto) [place] % (Auto) Eos % (Auto) Baso % (Auto) Lymph # (Auto) [place] # (Auto) Eos # (Auto) Baso # (Auto) Abs Immat Gran (auto) Absolute Neuts (auto) Absolute Nucleated RBC Nucleated RBC % (auto) Smear Tech's Comments VBG pH VBG pCO2 VBG pO2 VBG HCO3 VBG O2 Saturation VBG Base Excess Sodium Potassium Chloride Carbon Dioxide Anion Gap BUN Creatinine Cancelled Estim Creat Clear Calc 117.6 Cancelled Estimated GFR > 60 Cancelled Random Glucose 101 Calcium Phosphorus Magnesium Vitamin B12 Folate 08/14/23 08/14/23 06:06 06:06 WBC RBC Hgb Hct MCV MCH MCHC RDW Plt Count MPV Immature Gran % (Auto) Neut % (Auto) Lymph % (Auto) [place] % (Auto) Eos % (Auto) Baso % (Auto) Lymph # (Auto) [place] # (Auto) Eos # (Auto) Baso # (Auto) Abs Immat Gran (auto) Absolute Neuts (auto) Absolute Nucleated RBC Nucleated RBC % (auto) Smear Tech's Comments VBG pH VBG pCO2 VBG pO2 VBG HCO3 VBG O2 Saturation VBG Base Excess Sodium Potassium Chloride Carbon Dioxide Anion Gap BUN Creatinine Estim Creat Clear Calc Estimated GFR Random Glucose Cancelled Calcium 9.2 Cancelled Phosphorus 3.7 Magnesium 1.6 Vitamin B12 Folate Imaging Chest x-ray: Radiologist's impression: ITS Impressions Chest X-Ray 07/31/23 17:06 IMPRESSION: Linear basilar markings more likely due to scarring or atelectasis. Abdomen/Pelvis CT 07/31/23 17:48 IMPRESSION: 1. Findings are consistent with acute pancreatitis, with scattered acute fluid collections adjacent to the pancreatic head and tail, in the mesenteric root and in the bilateral paracolic gutters, left greater than right. 2. A 1.9 cm pancreatic body probable pseudocyst is noted. 3. There is marked hepatomegaly, and hepatic steatosis is seen. 4. A 1.7 cm nodule is seen within the lateral limb of the left adrenal gland. Current [employer] RECOMMENDATIONS regarding incidental adrenal mass is include; - Imaging can characterize adrenal adenomas with high accuracy but cannot be used to distinguish hyperfunctioning from nonhyperfunctioning masses - Current guidelines from the [place] [employer]in[employer] and the [place] [employer] recommend an initial biochemical evaluation of all adrenal incidentalomas to exclude pheochromocytoma, subclinical Waterflow?s syndrome, and hyperaldosteronism. 5. Adjacent to the left iliac bifurcation, a 1.9 cm in short axis diameter lymph node is seen. This is nonspecific and should be managed on a clinical basis. Recommend continued attention on imaging follow-up. 6. No acute or aggressive osseous finding is seen. Fleischner guidelines were followed. Chest CT 07/31/23 19:11 IMPRESSION: Worsening patchy bilateral groundglass airspace disease more so in the right lower lobe. Infectious or inflammatory causes would be strongly favored with this distribution. Chest X-Ray 07/31/23 21:40 IMPRESSION: 1. Endotracheal tube terminates at 2.7 cm above the bella. 2. Multifocal airspace opacities, more prominent in the right lower lobe are better visualized on CT chest from earlier on same day. Chest X-Ray 07/31/23 22:45 IMPRESSION: 1. The endotracheal tube terminates at 3.5 cm above the bella. 2. Left IJ CVC catheter tip projects at the level of the superior cavoatrial junction. 3. No significant change in the multifocal airspace opacities. 4. No pneumothorax. Chest X-Ray 08/01/23 09:44 IMPRESSION: Endotracheal tube terminates 3.7 cm above the bella. Patchy bibasilar opacities. Multifocal groundglass opacities with basilar prominence are better seen on the chest CT of 07/31/2023. Probable mild interstitial edema/pulmonary venous congestion. Chest X-Ray 08/04/23 19:35 IMPRESSION: Newly developed ARDS/pulmonary edema. Discharge Plan Discharge Anticipated Discharge Date/Time: 08/14/23 09:33 Patient Disposition: Xfer [facility] Discharge Diagnosis: Pneumonia Electrolytes imbalance Referrals: [facility] [Outside] - 1 Week Aron Kurtz MD [Primary Care Provider] - 1 Week Discharge Medications: New lidocaine [Lidocaine Pain Relief] 4 % Adhesive Patch,Medicated 1 patch transdermal DAILY Qty: 15 0RF Protocol: Apply to: Apply to: back sodium bicarbonate 650 mg Tablet 1,300 mg PO BID Qty: 28 0RF ferrous sulfate 324 mg (65 mg iron) Tablet,Delayed Release (Dr/Ec) 324 mg PO DAILY Qty: 90 0RF folic acid 1 mg Tablet 1 mg PO DAILY Qty: 90 0RF thiamine mononitrate (vit B1) 100 mg Tablet 100 mg PO DAILY Qty: 90 0RF midodrine 5 mg tablet 5 mg PO TID Qty: 90 0RF Rx Instructions: do not give last dose of day after 6PM or within 4 hrs of bedtime Continued fluticasone propion-salmeterol [Advair Diskus] 250-50 mcg/dose blister with device 1 ea inhalation BID ibuprofen 800 mg tablet 800 mg PO QID PRN (Reason: Pain) omeprazole 20 mg Capsule,Delayed Release(Dr/Ec) 20 mg PO DAILY@0630 albuterol sulfate 90 mcg/actuation HFA aerosol inhaler 2 puff INHALATION Q4H PRN (Reason: Shortness Of Breath Or Wheezing) loratadine [Claritin] 10 mg Tablet 10 mg PO DAILY PRN (Reason: Allergy Symptoms) No Action hydroxyurea [Hydrea] 500 mg capsule 1,000 mg PO DAILY Qty: 3 0RF Discharge Orders: Discharge Order (Routine); Ordered 08/14/23 Ordered By: Anastasia Arboleda Diet: Advance to usual diet Activity on Discharge: As tolerated Stand Alone Forms: Patient Portal Discharge page Other Ambulatory Orders: Basic Metabolic Panel (Routine) Timeframe: 1 Week Facility: [facility] - Location: Laboratory Ordered By: Anastasia Arboleda Complete Blood Count Auto Diff (Routine) Timeframe: 1 Week Facility: [facility] - Location: Laboratory Ordered By: Anastasia Arboleda Care Plan Goals: Read below Health Concerns: Read below Plan of Treatment: Read below Assessment: You were treated for aspiration pneumonia, Electrolytes imbalance and weight loss requiring stay in ICU for IV antibiotics and electrolytes. improved during hospital stay but still requiring physical therapy at time of discharge. Continue Midodrine 5 mg three times daily to improve low blood pressure, can be adjusted by PCP in a week or so to wean it down Continue supplements of Iron, Folic acid and Thiamine Sodium bicarbonate for 1 week and then will repeat blood work Increase physical activity as tolerated Increase dietary intake Discharge Date/Time: 08/14/23 12:34
--- NOTE | 2023-08-14 10:06 | MHC.CM.PN ---
CM received a call from Pts daughter, Janis, who expressed concern about pt going home and not having people there to care for her. The daughter and son have been going over daily, but are not able to stay there all of the time. I spoke to pt., she is currently not getting up to use the bathroom, is using a bed bullock. Step daughter is with pt and she expressed concern over pt being home alone. Pt in agreement to CM sending out more referrals to see if she can get [facility] to accept her ins. CM will follow. Provider made aware.
--- NOTE | 2023-08-14 10:24 | P.PNIM_ITS ---
Subjective Subjective Date of Service: 08/14/23 Interval History: Seen and evaluated Feels better overall weak in lower extremities tolerating diet No reported events Review of Systems Review of Systems: Yes all other systems are reviewed and are negative Physical Exam 2 Vital Signs: Vital Signs: Last Vital Signs Temp 97.8 F 08/14/23 08:00 Pulse 92 08/14/23 08:00 Resp 18 08/14/23 08:00 BP 113/72 08/14/23 08:00 Pulse Ox 96 08/14/23 08:00 O2 Del Method Room Air 08/14/23 08:00 O2 Flow Rate 4 08/10/23 12:00 FiO2 21 08/02/23 11:38 BMI result Body Mass Index 20.1 Const: Other: Constitutional : Awake, interactive, not in distress Neck : Normal inspection, Supple Cardiovascular : RRR, no JVP, no lower extremity edema Respiratory : good bilateral air entry, no crackles, wheezes or rhonchi Gastrointestinal: soft, lax, Normal bowel sounds, Non tender Skin : Warm, Dry Neurological : Alert & oriented x3, No focal deficit Objective Data Active Medications Acetaminophen (Acetaminophen 325 Mg Tablet) 650 mg PO Q4H PRN PRN Reason: Pain, Mild (Pain Scale 1-3) Last Admin: 08/13/23 16:46 Dose: 650 mg Documented By: JASON Ferrous Sulfate (Ferrous Sulfate 324 Mg Tablet.) 324 mg PO DAILY [facility] Last Admin: 08/14/23 08:01 Dose: 324 mg Documented By: THAD Folic Acid (Folic Acid 1 Mg Tablet) 2 mg PO DAILY [facility] Last Admin: 08/14/23 08:00 Dose: 2 mg Documented By: THAD Heparin Sodium (Porcine) (Heparin Sodium,Porcine 5,000 Unit/Ml Vial) 5,000 unit SUBCUT Q12H [facility] Last Admin: 08/13/23 21:04 Dose: 5,000 unit Documented By: JASON Lidocaine (Lidocaine 4 % Patch Adh..Patch) 1 patch TRANSDERMA DAILY [facility]; Protocol Last Admin: 08/14/23 08:01 Dose: 1 patch Documented By: THAD Loratadine (Loratadine 10 Mg Tablet) 10 mg PO DAILY [facility] Last Admin: 08/14/23 08:00 Dose: 10 mg Documented By: THAD Midodrine (Midodrine Hcl 10 Mg Tablet) 10 mg PO TID [facility] Last Admin: 08/13/23 21:04 Dose: 10 mg Documented By: JASON Multivitamins/Minerals (Multivitamin With Minerals Liq 15 Ml Liquid) 15 ml PO DAILY [facility] Last Admin: 08/14/23 08:01 Dose: 15 ml Documented By: THAD Omeprazole (Omeprazole 20 Mg Capsule.Dr) 20 mg PO DAILY@0630 [facility] Last Admin: 08/14/23 05:33 Dose: 20 mg Documented By: ANUSHA Sodium Bicarbonate (Sodium Bicarbonate 650 Mg Tablet) 650 mg PO TID [facility] Last Admin: 08/14/23 08:01 Dose: 650 mg Documented By: THAD Thiamine HCl (Thiamine Hcl 100 Mg Tablet) 100 mg PO DAILY [facility] Last Admin: 08/14/23 08:00 Dose: 100 mg Documented By: THAD Labs 08/14/23 06:06 08/14/23 06:06 Labs: Laboratory Results - last 24 hr 08/13/23 08/13/23 08/14/23 10:18 10:21 06:06 MCV 99.2 H MCH MCHC RDW Plt Count MPV Immature Gran % (Auto) Neut % (Auto) Lymph % (Auto) Frederick % (Auto) Eos % (Auto) Baso % (Auto) Lymph # (Auto) Frederick # (Auto) Eos # (Auto) Baso # (Auto) Abs Immat Gran (auto) Absolute Neuts (auto) Absolute Nucleated RBC Nucleated RBC % (auto) Smear Tech's Comments VBG pH 7.34 VBG pCO2 28 VBG pO2 49 VBG HCO3 15 L VBG O2 Saturation 72.0 VBG Base Excess -8.7 Anion Gap Estim Creat Clear Calc Estimated GFR Random Glucose Calcium Phosphorus Magnesium Vitamin B12 939 H Folate 3.3 L 08/14/23 08/14/23 08/14/23 06:06 06:06 06:06 MCV Cancelled MCH 31.3 Cancelled MCHC 31.5 Cancelled RDW 16.4 H Plt Count MPV Immature Gran % (Auto) Neut % (Auto) Lymph % (Auto) Frederick % (Auto) Eos % (Auto) Baso % (Auto) Lymph # (Auto) Frederick # (Auto) Eos # (Auto) Baso # (Auto) Abs Immat Gran (auto) Absolute Neuts (auto) Absolute Nucleated RBC Nucleated RBC % (auto) Smear Tech's Comments VBG pH VBG pCO2 VBG pO2 VBG HCO3 VBG O2 Saturation VBG Base Excess Anion Gap Estim Creat Clear Calc Estimated GFR Random Glucose Calcium Phosphorus Magnesium Vitamin B12 Folate 08/14/23 08/14/23 08/14/23 06:06 06:06 06:06 MCV MCH MCHC RDW Cancelled Plt Count 1085 H* Cancelled MPV 10.1 Cancelled Immature Gran % (Auto) 1.1 H Neut % (Auto) 78.5 H Lymph % (Auto) 11.4 L Frederick % (Auto) 7.6 Eos % (Auto) 1.0 Baso % (Auto) 0.4 Lymph # (Auto) 2.3 Frederick # (Auto) 1.5 H Eos # (Auto) 0.2 Baso # (Auto) 0.1 Abs Immat Gran (auto) 0.22 H Absolute Neuts (auto) 15.5 H Absolute Nucleated RBC 0.000 Nucleated RBC % (auto) Smear Tech's Comments VBG pH VBG pCO2 VBG pO2 VBG HCO3 VBG O2 Saturation VBG Base Excess Anion Gap Estim Creat Clear Calc Estimated GFR Random Glucose Calcium Phosphorus Magnesium Vitamin B12 Folate 08/14/23 08/14/23 08/14/23 06:06 06:06 06:06 MCV MCH MCHC RDW Plt Count MPV Immature Gran % (Auto) Neut % (Auto) Lymph % (Auto) Frederick % (Auto) Eos % (Auto) Baso % (Auto) Lymph # (Auto) Frederick # (Auto) Eos # (Auto) Baso # (Auto) Abs Immat Gran (auto) Absolute Neuts (auto) Absolute Nucleated RBC Cancelled Nucleated RBC % (auto) 0.0 Cancelled Smear Tech's Comments VERIFIED VBG pH VBG pCO2 VBG pO2 VBG HCO3 VBG O2 Saturation VBG Base Excess Anion Gap 13 Cancelled Estim Creat Clear Calc 117.6 Estimated GFR Random Glucose Calcium Phosphorus Magnesium Vitamin B12 Folate 08/14/23 08/14/23 08/14/23 06:06 06:06 06:06 MCV MCH MCHC RDW Plt Count MPV Immature Gran % (Auto) Neut % (Auto) Lymph % (Auto) Frederick % (Auto) Eos % (Auto) Baso % (Auto) Lymph # (Auto) Frederick # (Auto) Eos # (Auto) Baso # (Auto) Abs Immat Gran (auto) Absolute Neuts (auto) Absolute Nucleated RBC Nucleated RBC % (auto) Smear Tech's Comments VBG pH VBG pCO2 VBG pO2 VBG HCO3 VBG O2 Saturation VBG Base Excess Anion Gap Estim Creat Clear Calc Cancelled Estimated GFR > 60 Cancelled Random Glucose 101 Cancelled Calcium 9.2 Phosphorus Magnesium Vitamin B12 Folate 08/14/23 06:06 MCV MCH MCHC RDW Plt Count MPV Immature Gran % (Auto) Neut % (Auto) Lymph % (Auto) Frederick % (Auto) Eos % (Auto) Baso % (Auto) Lymph # (Auto) Frederick # (Auto) Eos # (Auto) Baso # (Auto) Abs Immat Gran (auto) Absolute Neuts (auto) Absolute Nucleated RBC Nucleated RBC % (auto) Smear Tech's Comments VBG pH VBG pCO2 VBG pO2 VBG HCO3 VBG O2 Saturation VBG Base Excess Anion Gap Estim Creat Clear Calc Estimated GFR Random Glucose Calcium Cancelled Phosphorus 3.7 Magnesium 1.6 Vitamin B12 Folate Assessment and Plan (1) Iron deficiency anemia: Status: Acute (2) Anorexia: Status: Acute (3) Acute respiratory failure: Status: Acute (4) Failure to thrive in adult: Status: Acute Plan 47F PMH etoh dependence, gerd, mild intermittent asthma, presented 07/31/23 with weakness after not eating for several weeks due to depression from of in may 2023, in ED patient rapidly declined, acute hypoxia, severe electrolyte abnormalities, hypotension. patient was intubated, placed on pressors, given tpn, feeds, extubated successfully 08/02/23, weaned off pressors 08/09/23 and downgraded to medicine. patient still on TPN and eating about 25% of food, being followed by nutrition. Major depression/grief complicated by anorexia complicated by acute hypoxic respitory failure, cardiogenic shock, severe hypokalemia, severe hypophostphatemia weaned off O2 solid diet, nutrition team following monitor electrolytes Care team evaluated her and recommended no need for inpatient stay Physical deconditioning PT rec rehab; pending placement Metabolic acidosis Bicarb of 16 Continue Bicarbonate Thrombocytosis Platelets were low on admission of 80s. increased during the hospital stay to higher levels than previously up to 1080K, discussed with dr Tanner from Hematology who believes this is a secondary thrombocytosis case from sepsis and STUART. No need for Aspirin. To repeat CBC next week. mild intermittent asthma prn albuterol, stable gerd ppi etoh dependence no withdrawal dvt prophylaxis - hep sq full code reason for continued hospitalization advancing diet and pending safe discharge plan to rehab facility Quality Stroke Does the patient have a stroke diagnosis?: No VTE Prior VTE?: No VTE Risk Level:: Medical - moderate - high VTE Device Contraindication: N/A - Device Ordered VTE Drug Contraindication: N/A - Med Ordered
[2023-08-14] MEDS: Midodrine HCl 10 MG TABLET PO (11:10)
--- NOTE | 2023-08-14 11:56 | MHC.CM.PN ---
Pt has been medically cleared for DC, she will transfer today via family transport to [facility] for STR.
== END 2023-08-14 12:34 | disposition skilled nursing facility (03) | DRG 720 ==
LOC: HO.ED 21:15 → HO.EDOVER 21:26 → HO.ICU 21:53 → HO.IMC 08-10 14:49
PROVIDERS: Anesthesiology; Emergency Medicine; Internal Medicine; Internal Medicine Cardiovascular Disease; Internal Medicine Critical Care Medicine; Internal Medicine Pulmonary Disease; Nurse Practitioner Family; Physician Assistant; Registered Nurse Community Health; Admitting Provider Nurse Practitioner Family; Emergency Provider Emergency Medicine Emergency Medical Services; PCP Internal Medicine; Visit Provider Student in an Organized Health Care Education/Training Program
DX: A41.9 Sepsis, unspecified organism (principal); J96.01 Acute respiratory failure with hypoxia; R57.0 Cardiogenic shock; I47.20 Ventricular tachycardia, unspecified; E44.0 Moderate protein-calorie malnutrition; K85.90 Acute pancreatitis without necrosis or infection, unspecified; F43.21 Adjustment disorder with depressed mood; E87.8 Other disorders of electrolyte and fluid balance, not elsewhere classified; E87.20 Acidosis, unspecified; K76.0 Fatty (change of) liver, not elsewhere classified; D75.839 Thrombocytosis, unspecified; E87.6 Hypokalemia; R62.7 Adult failure to thrive; F17.210 Nicotine dependence, cigarettes, uncomplicated; E83.39 Other disorders of phosphorus metabolism; J45.20 Mild intermittent asthma, uncomplicated; D50.9 Iron deficiency anemia, unspecified; E87.1 Hypo-osmolality and hyponatremia; F10.20 Alcohol dependence, uncomplicated; Z20.822 Contact with and (suspected) exposure to COVID-19; Z71.6 Tobacco abuse counseling; Z68.20 Body mass index [BMI] 20.0-20.9, adult; Z79.51 Long term (current) use of inhaled steroids; Z79.899 Other long term (current) drug therapy
CPT/HCPCS: 0241U; 36415; 71045; 71046; 71250; 74177; 80048; 80053; 80061; 80076; 80143; 80179; 80307; 81001; 82010; 82040; 82150; 82247; 82272; 82330; 82533; 82550; 82607; 82746; 82803; 83540; 83605; 83615; 83690; 83735; 84100; 84133; 84134; 84145; 84443; 84478; 84484; 85007; 85025; 85027; 85379; 85610; 85652; 85730; 86704; 86706; 86709; 86803; 86850; 86900; 86901; 86923; 87040; 87340; 87389; 87449; 87493; 87507; 87633; 92610; 93005; 93306; 94002; 94003; 94640; 94799; 97110; 97163; 97166; 97530; 99285; C1758; C9113; J0171; J0613; J0696; J1644; J1720; J1940; J2020; J2060; J2185; J2704; J3411; J3475; J3480; P9016; P9047; Q9967; S9485

== ENCOUNTER → 2023-07-31 15:49 | Outpatient (BNV) | payer BC, SELFPAY | PROVIDERS: Admitting Provider Nurse Practitioner Family; Emergency Provider Emergency Medicine Emergency Medical Services; PCP Internal Medicine; Visit Provider Internal Medicine | DX: I45.81 Long QT syndrome (principal); R00.1 Bradycardia, unspecified; R94.31 Abnormal electrocardiogram [ECG] [EKG] | CPT/HCPCS: 93010 ==

== ENCOUNTER 2023-07-31 20:07 | Outpatient (BNV) | payer BC, SELFPAY | END 2023-08-01 00:08 | PROVIDERS: Admitting Provider Nurse Practitioner Family; Emergency Provider Emergency Medicine Emergency Medical Services; PCP Internal Medicine; Visit Provider Internal Medicine | DX: I48.91 Unspecified atrial fibrillation (principal); R94.31 Abnormal electrocardiogram [ECG] [EKG] | CPT/HCPCS: 93010 ==

== ENCOUNTER 2023-07-31 20:07 | Outpatient (BNV) | payer BC, SELFPAY | END 2023-08-03 07:00 | PROVIDERS: Admitting Provider Nurse Practitioner Family; Emergency Provider Emergency Medicine Emergency Medical Services; PCP Internal Medicine; Visit Provider Internal Medicine Cardiovascular Disease | DX: I42.9 Cardiomyopathy, unspecified (principal) | CPT/HCPCS: 93306 ==

== ENCOUNTER → 2023-07-31 20:07 | Outpatient (BNV) | payer BC, SELFPAY | PROVIDERS: Admitting Provider Nurse Practitioner Family; Emergency Provider Emergency Medicine Emergency Medical Services; PCP Internal Medicine; Visit Provider Nurse Practitioner Family | DX: J96.01 Acute respiratory failure with hypoxia (principal); E87.8 Other disorders of electrolyte and fluid balance, not elsewhere classified; R62.7 Adult failure to thrive; F43.21 Adjustment disorder with depressed mood; R63.0 Anorexia | CPT/HCPCS: 36556; 99291; 99499 ==

== ENCOUNTER → 2023-07-31 20:07 | Outpatient (BNV) | payer BC, SELFPAY | PROVIDERS: Admitting Provider Nurse Practitioner Family; Emergency Provider Emergency Medicine Emergency Medical Services; PCP Internal Medicine; Visit Provider Internal Medicine | DX: J96.01 Acute respiratory failure with hypoxia (principal); R63.0 Anorexia; E83.39 Other disorders of phosphorus metabolism; R62.7 Adult failure to thrive; D50.9 Iron deficiency anemia, unspecified; F43.21 Adjustment disorder with depressed mood; E87.8 Other disorders of electrolyte and fluid balance, not elsewhere classified; E87.1 Hypo-osmolality and hyponatremia; E87.6 Hypokalemia | CPT/HCPCS: 99231; 99232; 99233; 99239 ==

== ENCOUNTER → 2023-07-31 20:07 | Outpatient (BNV) | payer BC, SELFPAY | PROVIDERS: Admitting Provider Nurse Practitioner Family; Emergency Provider Emergency Medicine Emergency Medical Services; PCP Internal Medicine; Visit Provider Registered Nurse | DX: F43.21 Adjustment disorder with depressed mood (principal) | CPT/HCPCS: 99252 ==

== ENCOUNTER → 2023-07-31 20:07 | Outpatient (BNV) | payer BC, SELFPAY | PROVIDERS: Admitting Provider Nurse Practitioner Family; Emergency Provider Emergency Medicine Emergency Medical Services; PCP Internal Medicine; Visit Provider Internal Medicine Pulmonary Disease | DX: E87.8 Other disorders of electrolyte and fluid balance, not elsewhere classified (principal); E83.39 Other disorders of phosphorus metabolism; F43.21 Adjustment disorder with depressed mood; R62.7 Adult failure to thrive | CPT/HCPCS: 99291 ==

== ENCOUNTER 2023-08-15 13:33 | Emergency (ER) | payer BC, SELFPAY ==
--- NOTE | ~2023-08-15 | XR_ITS ---
EXAMINATION: XR CHEST CLINICAL INFORMATION: Altered mental status COMPARISON: Chest radiograph 08/04/2023. TECHNIQUE: Frontal view of the chest was obtained. FINDINGS: Marked decrease in previous patchy bilateral airspace opacities with mild residual hazy opacities. No confluent consolidation. No pleural effusion or pneumothorax. Cardiomediastinal silhouette is unchanged. XR/XR chest 1V IMPRESSION: Compared to 08/04/2023, near resolution of previous patchy airspace opacities. No new, acute cardiopulmonary abnormality.
[2023-08-15 13:58] VITALS: BP 100/70; BP 126/81; PULSE 86; PULSE 98; RESP 18; TEMP 36.6; BMI 39.8
[2023-08-15 14:15] VITALS: O2SAT 99
[2023-08-15 14:55] LABS: Basophils Absolute Auto 0.1 X10*3/uL (0.0-0.2); Basophils Percent Auto 0.3 % (0-2); Eosinophils Absolute Auto 0.2 X10*3/uL (0.0-0.4); Hematocrit 25.2 % (37.0-47.0); Imm Gran Abs Auto 0.24 X10*3/uL (0.00-0.03); Imm Gran Pct Auto 1.1 % (0.0-0.4); Lymphocytes Percent Auto 13.3 % (20-40); MANUAL DIFF FLAG SCAN; Mean Corpuscular HGB Conc 31.7 g/dl (31.0-35.0); Mean Corpuscular Hemoglobin 31.3 pg (27.0-33.0); Mean Corpuscular Volume 98.4 fL (80.0-98.0); Mean Platelet Volume 9.7 fL (9.4-12.3); Monocytes Absolute Auto 1.7 X10*3/uL (0.1-1.2); Monocytes Percent Auto 7.6 % (2-11); Neutrophils Absolute Auto 17.5 x10*3/uL (2.0-8.3); Neutrophils Percent Auto 76.7 % (45-73); Red Blood Count 2.56 X10*6/uL (4.20-5.50); Red Cell Distribution Width 16.4 % (11.0-16.0); SCAN SMEAR FLAG 1; White Blood Count 22.8 X10*3/uL (4.8-10.8)
[2023-08-15 15:02] LABS: INTERNATIONAL NORM RATIO 1.2 (0.9-1.1); Prothrombin Time 14.8 SEC (11.1-13.3)
[2023-08-15 15:12] VITALS: BP 111/71; PULSE 92; RESP 16; TEMP 36.6; O2SAT 98
[2023-08-15 15:16] LABS: Anion Gap 16 (12-20); Blood Urea Nitrogen 5 mg/dL (9-16); Calcium 9.1 mg/dL (8.4-10.2); Carbon Dioxide 16 mmol/L (22-29); Chloride 109 mmol/L (96-108); Creatinine Clr Calc Pharmacy 155.8; Estimated Glomerular Filt Rate > 60; Glucose Random 88 mg/dL (60-115); Potassium 3.6 mmol/L (3.3-5.1); Sodium 137 mmol/L (135-145); Troponin-I High Sensitivity 3.9 ng/L (<3.5-17.0)
[2023-08-15 15:23] LABS: Platelet Count 1220 X10*3/uL (160-400)
[2023-08-15 15:24] LABS: SLIDE REVIEW VERIFIED
--- NOTE | 2023-08-15 17:01 | ED_ITS ---
HPI - General Adult General Chief complaint: Recheck/Abnormal Lab/Rx Stated complaint: ABD LABS FROM SNF PER EMS Time Seen by Provider: 08/15/23 16:58 Source: patient Mode of arrival: EMS Limitations: no limitations History of Present Illness HPI narrative: Patient with history of Major depression/grief complicated by anorexia complicated by acute hypoxic respitory failure, cardiogenic shock, severe hypokalemia, severe hypophostphatemia Admitted to ICU where she was intubated and sedated while treated with IV antibiotics, IV Electrolytes, started on midodrine for low BP just discharged to [facility] yesterday for deconditioning for rehab during stay in the ED patient noticed to have leukocytosis and thrombocytosis. On day of admission on 07/31 patient leukocyte counts were 34,000 at the time of discharge yesterday was 19.8 today was 22.8 also her platelet count for 1085 k and today was 1220 k patient otherwise feels good no fever has slight cough just has overall weakness [facility] staff were not sure about abnormal labs hence this and the patient here Related Data Home Medications Medication Instructions Recorded Confirmed albuterol sulfate 90 mcg/actuation 2 puff inhalation Q4H PRN 08/01/23 08/01/23 aerosol inhaler Shortness Of Breath Or Wheezing fluticasone 250 mcg-salmeterol 50 1 ea inhalation BID 08/01/23 08/01/23 mcg/dose blistr powdr for inhalation (Advair Diskus) ibuprofen 800 mg tablet 800 mg PO QID PRN Pain 08/01/23 08/01/23 loratadine 10 mg tablet (Claritin) 10 mg PO DAILY PRN Allergy Symptoms 08/01/23 08/01/23 omeprazole 20 mg capsule,delayed 20 mg PO DAILY@0630 08/01/23 08/01/23 release Previous Rx's Medication Instructions Recorded ferrous sulfate 324 mg (65 mg 324 mg PO DAILY #90 tabs 08/14/23 iron) tablet,delayed release folic acid 1 mg tablet 1 mg PO DAILY #90 tabs 08/14/23 lidocaine 4 % topical patch 1 patch transdermal DAILY #15 ea 08/14/23 (Lidocaine Pain Relief) midodrine 5 mg tablet 5 mg PO TID #90 tabs 08/14/23 sodium bicarbonate 650 mg tablet 1,300 mg (2 x 650 mg) PO BID #28 08/14/23 tabs thiamine mononitrate (vit B1) 100 100 mg PO DAILY #90 tabs 08/14/23 mg tablet hydroxyurea 500 mg capsule (Hydrea) 1,000 mg (2 x 500 mg) PO DAILY #3 08/15/23 caps Allergies Allergy/AdvReac Type Severity Reaction Status Date / Time amoxicillin Allergy Gastrointestinal Verified 07/31/23 15:47 Upset avocado Allergy Anaphylaxis Verified 07/31/23 15:47 honey Allergy Anaphylaxis Verified 07/31/23 15:47 Review of Systems 2 Review of Systems: Yes all other systems are reviewed and are negative PMFSH Past Medical History Onset Date is defined in the Problem List Problems that require an onset date and time if occurred within 24 hrs of arrival to the ED Aortic Dissection and Rupture; Neurologic impairment; Cardiopulmonary Arrest; Endotracheal Intubation; Insertion or Replacement of Mechanical Circulatory Assist Device Medical History GERD (gastroesophageal reflux disease) Back problem Asthma Social History Social History Household Members Other:: none recent loss of Housing: House Unable to assess alcohol history related to: Unable to respond Patient Tobacco Use Status: Current everyday Tobacco user Tobacco use type: Cigarette Smoked in Last 30 Days: Yes Use of substances other than those prescribed or required for medical reasons: No Advance Directives: No Advance Directives Information Provided: No service: No Physical Exam ED Vital Signs: Vital Signs - 24 hr 08/15/23 13:58 08/15/23 14:15 08/15/23 15:12 Temperature 97.8 F 97.8 F Pulse Rate 98 92 Respiratory Rate 18 16 Blood Pressure 126/81 111/71 Pulse Oximetry 99 98 Oxygen Delivery Method Room Air Room Air 08/15/23 19:29 Temperature 98.3 F Pulse Rate 101 H Respiratory Rate 16 Blood Pressure 117/77 Pulse Oximetry 98 Oxygen Delivery Method Room Air BMI result Body Mass Index 39.8 Appearance: Alert. Oriented X3. No acute distress. Overall generalized weakness Eyes: No pallor or icterus ENT: Pharynx normal. Oral Mucosa moist Neck: Normal inspection. Neck supple. CVS: Normal heart rate and rhythm. Pulses normal. Respiratory: No respiratory distress. Equal air entry bilateral, occasional bilateral rales + Abdomen: Soft and nontender. Bowel sounds are present, no mass palpable, no CVA tenderness Skin: Skin warm and dry. Normal skin color. Normal skin turgor. Extremities: No lower extremity edema. No calf tenderness Neuro: Oriented X 3. No motor deficit. No sensory deficit.No cerebellar signs , cranial nerves II-XII intact Medications Administered Discontinued Medications Generic Name Dose Route Start Last Admin Trade Name Freq PRN Reason Stop Dose Admin Hydroxyurea 1,000 mg 08/15/23 19:34 08/15/23 21:13 Hydroxyurea 500 Mg Capsule PO 08/15/23 19:35 1,000 mg ONCE ONE Administration Sodium Chloride 1,000 mls @ 999 mls/hr 08/15/23 17:06 08/15/23 20:55 Ns IV 08/15/23 18:06 Infused .Q1H1M ONE Infusion Medical Decision Making Medical Decision Making [facility] Narrative: Patient with thrombocytosis leukocytosis case discussed with Dr. valdovinos patient does have a reactive reaction secondary to iron deficiency anemia and recent sepsis okay to start on Hydrea 1 g daily for 3 days need to recheck her CBC in 3 days and follow-up Lab Data [facility] Lab Attestation statement: I reviewed the patient's lab results. 08/15/23 14:48 08/15/23 14:48 Labs: Lab Results 08/15/23 08/15/23 08/15/23 Range/Units 13:20 14:48 17:24 WBC 22.8 H (4.8-10.8) X10*3/uL RBC 2.56 L (4.20-5.50) X10*6/uL Hgb 8.0 L (12.0-16.0) g/dl Hct 25.2 L (37.0-47.0) % MCV 98.4 H (80.0-98.0) fL MCH 31.3 (27.0-33.0) pg MCHC 31.7 (31.0-35.0) g/dl RDW 16.4 H (11.0-16.0) % Plt Count 1220 H* (160-400) X10*3/uL MPV 9.7 (9.4-12.3) fL Immature Gran % (Auto) 1.1 H (0.0-0.4) % Neut % (Auto) 76.7 H (45-73) % Lymph % (Auto) 13.3 L (20-40) % Bates % (Auto) 7.6 (2-11) % Eos % (Auto) 1.0 (0-4) % Baso % (Auto) 0.3 (0-2) % Lymph # (Auto) 3.0 (1.2-4.9) X10*3/uL Bates # (Auto) 1.7 H (0.1-1.2) X10*3/uL Eos # (Auto) 0.2 (0.0-0.4) X10*3/uL Baso # (Auto) 0.1 (0.0-0.2) X10*3/uL Abs Immat Gran (auto) 0.24 H (0.00-0.03) X10*3/uL Absolute Neuts (auto) 17.5 H (2.0-8.3) x10*3/uL Absolute Nucleated RBC 0.000 (0.0-0.012) X10*3/uL Nucleated RBC % (auto) 0.0 (0.0-0.2) /100WBC Smear Tech's Comments VERIFIED PT 14.8 H (11.1-13.3) SEC INR 1.2 H (0.9-1.1) Sodium 137 (135-145) mmol/L Potassium 3.6 (3.3-5.1) mmol/L Chloride 109 H (96-108) mmol/L Carbon Dioxide 16 L (22-29) mmol/L Anion Gap 16 (12-20) BUN 5 L (9-16) mg/dL Creatinine 0.52 (0.5-1.4) mg/dL Estim Creat Clear Calc 155.8 Estimated GFR > 60 Random Glucose 88 (60-115) mg/dL Lactic Acid 0.7 (0.5-2.0) mmol/L Calcium 9.1 (8.4-10.2) mg/dL Phosphorus 3.7 (2.7-4.5) mg/dL Magnesium 1.5 L (1.6-2.6) mg/dL Total Creatine Kinase 13 L (26-140) U/L Troponin I High Sens 3.9 D (<3.5-17.0) ng/L TSH 3.84 (0.32-4.0) uIU/mL COVID-19 (BRITTANY) Negative (Negative) COVID-19 Clin Com See Note Discharge Plan Discharge Clinical Impression: Essential thrombocytosis Patient Disposition: Xfer Inpatient Rehab Fac Transfer Details: BACK TO [facility] [place] W/JEFF AMB Recheck CBC in 3 days her elevated counts are likely secondary to reactive thrombocytosis Additional Instructions: Take Hydrea 1 g daily for 3 days CBC after that and follow with engineering instructor Prescriptions: New hydroxyurea [Hydrea] 500 mg capsule 1,000 mg PO DAILY Qty: 3 0RF No Action fluticasone propion-salmeterol [Advair Diskus] 250-50 mcg/dose blister with device 1 ea inhalation BID ibuprofen 800 mg tablet 800 mg PO QID PRN (Reason: Pain) omeprazole 20 mg Capsule,Delayed Release(Dr/Ec) 20 mg PO DAILY@0630 albuterol sulfate 90 mcg/actuation HFA aerosol inhaler 2 puff INHALATION Q4H PRN (Reason: Shortness Of Breath Or Wheezing) loratadine [Claritin] 10 mg Tablet 10 mg PO DAILY PRN (Reason: Allergy Symptoms) lidocaine [Lidocaine Pain Relief] 4 % Adhesive Patch,Medicated 1 patch transdermal DAILY Qty: 15 0RF Protocol: Apply to: Apply to: back sodium bicarbonate 650 mg Tablet 1,300 mg PO BID Qty: 28 0RF ferrous sulfate 324 mg (65 mg iron) Tablet,Delayed Release (Dr/Ec) 324 mg PO DAILY Qty: 90 0RF folic acid 1 mg Tablet 1 mg PO DAILY Qty: 90 0RF thiamine mononitrate (vit B1) 100 mg Tablet 100 mg PO DAILY Qty: 90 0RF midodrine 5 mg tablet 5 mg PO TID Qty: 90 0RF Rx Instructions: do not give last dose of day after 6PM or within 4 hrs of bedtime Referrals: [facility] [Outside] Melissa Tanner MD [Physician] - 5 days
[2023-08-15] MEDS: 0.9 % Sodium Chloride 1,000 ML 999 ML IV (17:39)
[2023-08-15 17:41] LABS: Lactic Acid 0.7 mmol/L (0.5-2.0)
[2023-08-15 17:48] LABS: Magnesium 1.5 mg/dL (1.6-2.6); Phosphorus 3.7 mg/dL (2.7-4.5)
[2023-08-15 18:03] LABS: COVID-19 Test Negative (Negative); IDNOW Serial# 152EDE1D
[2023-08-15 18:13] LABS: Thyroid Stimulating Hormone 3.84 uIU/mL (0.32-4.0)
[2023-08-15 19:29] VITALS: BP 117/77; PULSE 101; RESP 16; TEMP 36.8; O2SAT 98
[2023-08-15] MEDS: Hydroxyurea 500 MG CAPSULE 1000 MG PO (21:13)
== END 2023-08-15 21:30 ==
PROVIDERS: Emergency Provider Internal Medicine
DX: D47.3 Essential (hemorrhagic) thrombocythemia (principal); R79.89 Other specified abnormal findings of blood chemistry; R41.82 Altered mental status, unspecified; Z11.52 Encounter for screening for COVID-19; F17.200 Nicotine dependence, unspecified, uncomplicated; Z79.899 Other long term (current) drug therapy
CPT/HCPCS: 36415; 71045; 80048; 82550; 83605; 83735; 84100; 84443; 84484; 85025; 85610; 87040; 87635; 96360; 96361; 99284

== ENCOUNTER 2023-08-18 14:00 | Outpatient (RCR) | payer BC, SELFPAY ==
--- NOTE | 2023-08-17 11:29 | MHC.HEMONC ---
Triage call from Tio from [facility] [place]. She states pt platelet count is elevated to 1317. Hydroxyurea is ordered for pt to start, but it has not been delivered to the rehab facility yet, so pt has not started. Tio is questioning whether pt needs to be brought to ED. Discussed with Dr Tanner, and pt is scheduled for consult 08/18. Per Dr Tanner, pt does not need to go to ED, and will just come in for consult as scheduled.
[2023-08-18 13:52] VITALS: BP 120/75; PULSE 101; O2SAT 100; BMI 18.0
--- NOTE | 2023-08-18 13:53 | PM.HEMONCCN ---
Subjective - Subjective Chief complaint: Elevated blood counts Patient: new to practice Consult date: 08/18/23 Primary Care Provider: Dr. Dleta Kurtz HPI - Consult Narrative Reason for consult: Thrombocytosis Narrative: Melissa Hopper is a 47 year old female who has been referred for evaluation of worsening thrombocytosis. Patient was admitted to the hospital end of July 2023 for acute respiratory failure secondary to pneumonia. She presented with symptoms of worsening weakness, anorexia secondary to depression related to of her in May 2023. She was diagnosed with acute pancreatitis and pneumonia, she required intubation for acute hypoxic respiratory failure and cardiogenic shock. She was on TPN for a few days and gradually weaned off antibiotics. She has a history of alcohol dependence and chronic smoking. Platelet counts on the day of admission were normal at 350, they dropped to 85 K on 08/05/2023. Subsequently they started to rise and were slightly over a million on 08/14/2023. She was never told of elevated platelets before but she was told of elevated WBC count chronically. WBC count was 9.2 K in November 2021 and 14.5 K in October 2018. She is now recuperating in rehab, undergoing physical therapy. She is getting stronger daily and denies any complaints at this time such as headache, chest pain, shortness of breath or weakness. No personal history of thromboembolism. She received 1st dose of hydroxyurea today. Review of Systems - Constitutional Reports as per HPI, Reports fatigue, Reports lack of energy - Cardiovascular Reports no additional cardiovascular complaints - Respiratory Reports no additional respiratory complaints - Gastrointestinal Reports no additional gastrointestinal complaints [facility] Medical History: Medical History (Last Reviewed 08/18/23 @ 13:50 by Inga Hearn) Asthma Back problem GERD (gastroesophageal reflux disease) Social History: Social History (Last Updated 08/18/23 @ 13:51 by Inga Hearn) Living Situation History: Household Members: None Household Members Other:: none recent loss of Housing: House Do you presently have visiting nurse or other home services: Do you presently have visiting nurse or other home services comment: unable to assess Alcohol History: Unable to assess alcohol history related to: Unable to respond Alcohol History Details: 1. How often do you have a drink containing alcohol?: a. Never Tobacco History: Patient Tobacco Use Status: Current everyday Tobacco Tobacco use type: Cigarette Substance Use History: Use of substances other than those prescribed or required for medical reasons: No Domestic Abuse History: Do you feel safe in your current relationship?: No Current Relationship Homicidal Assessment: Do you have thoughts of harming others: None Do you have a plan to hurt others: No Plan Occupation Assessmet: service: No Current occupational status: employed Home Medications and Allergies Home Medications Medication Instructions Recorded Confirmed Type albuterol sulfate 90 mcg/actuation 2 puff inhalation Q4H PRN 08/01/23 08/18/23 History aerosol inhaler Shortness Of Breath Or Wheezing fluticasone 250 mcg-salmeterol 50 1 ea inhalation BID 08/01/23 08/18/23 History mcg/dose blistr powdr for inhalation (Advair Diskus) ibuprofen 800 mg tablet 800 mg PO QID PRN Pain 08/01/23 08/18/23 History loratadine 10 mg tablet (Claritin) 10 mg PO DAILY PRN Allergy Symptoms 08/01/23 08/18/23 History omeprazole 20 mg capsule,delayed 20 mg PO DAILY@0630 08/01/23 08/18/23 History release Allergies Allergy/AdvReac Type Severity Reaction Status Date / Time amoxicillin Allergy Gastrointestinal Verified 08/18/23 13:51 Upset avocado Allergy Anaphylaxis Verified 08/18/23 13:51 honey Allergy Anaphylaxis Verified 08/18/23 13:51 Physical Exam Vital signs: Vital Signs (72 hours) 08/18/23 13:52 Pulse Rate 101 H Blood Pressure 120/75 Pulse Oximetry 100 Oxygen Delivery Method Room Air - Constitutional Present: no acute distress, average body habitus, thin - Routine HEENT Exam Head: Present: normal inspection Eye: Present: EOMI - Routine Neck Exam Present: supple. Absent: lymphadenopathy - Routine Respiratory Exam Present: CTAB. Absent: accessory muscle use - Routine Cardiovascular Exam Cardiovascular: Present: RRR, S1, S2 - Routine Abdominal Exam Present: soft - Routine Extremities Exam Absent: calf tenderness - Routine Skin Exam Present: intact - Routine Neurological Exam Present: alert, oriented X3 Hem/Onc Consult Result - Labs Labs: Laboratory Tests 08/15/23 14:48 WBC 22.8 H RBC 2.56 L Hgb 8.0 L Hct 25.2 L MCV 98.4 H Plt Count 1220 H* Assessment and Plan Patient Active problem list reviewed?: Yes (1) Thrombocytosis Status: Acute Assessment and plan: 1. This is a 47-year-old woman with severe thrombocytosis, probably reactive. She had normal platelet counts before her admission in July 2023 for acute hypoxic respiratory failure secondary to pneumonia and pancreatitis. She had prolonged hospitalization secondary to intubation, she received TPN therapy for malnutrition. Her platelet counts flor from a magdaleno of 85 K to over a million over a course of a week. She did not have significant leukocytosis or erythrocytosis prior to admission to suggest myeloproliferative disorder. However because her platelet counts went over 1.2 million, I have recommended a few doses of Hydrea. Her platelet count today is 1.4 million done at an outside facility. Her WBC count is trending downward, today it is 18.8 K with a hemoglobin of 8.6 gram/dL. She has mild macrocytosis. She has history of alcoholism in the past. CT scan of the abdomen in July 2023 showed hepatomegaly but no splenomegaly or lymphadenopathy. She is feeling better overall and gaining her strength. She is undergoing physical therapy at [facility]. I have recommended baby aspirin for a few weeks. Repeat CBC next week. Follow-up in 3 weeks. - Time Spent With Patient Time Spent with Patient (in minutes): 30
--- NOTE | 2023-08-24 11:26 | MHC.HEMONC ---
Triage call from Mukesh from [facility]. He reported recent labs done 08/19 and 08/23. Reported labs to Dr Tanner, and she asked for repeat labs on Wednesday08/27/23. Call back to Mukesh to request labs on Wednesday.
== END 2023-10-10 | disposition home or self-care (01) ==
LOC: HO.ONC 14:00
PROVIDERS: Referring Provider Internal Medicine; Visit Provider Internal Medicine
DX: D75.839 Thrombocytosis, unspecified (principal); D75.89 Other specified diseases of blood and blood-forming organs; F10.21 Alcohol dependence, in remission

== ENCOUNTER → 2023-08-18 14:00 | Outpatient (BNV) | payer BC, SELFPAY | PROVIDERS: Referring Provider Internal Medicine; Visit Provider Internal Medicine | DX: D75.839 Thrombocytosis, unspecified (principal) | CPT/HCPCS: 99204 ==

== ENCOUNTER 2023-08-30 11:23 | Outpatient (AMB) | payer BC, SELFPAY ==
[2023-08-30 11:43] VITALS: BP 102/70; PULSE 105; O2SAT 99; BMI 17.9
--- NOTE | 2023-08-30 11:43 | HO.NEPHOV_ITS ---
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 She had significant metabolic acidosis with hypomagnesemia. This was partially corrected and the time of discharge and she is here for follow-up. [facility] Medical History GERD (gastroesophageal reflux disease) Back problem Asthma Social History Household Members: None Household Members Other:: none recent loss of Housing: House Unable to assess alcohol history related to: Unable to respond Patient Tobacco Use Status: Current everyday Tobacco user Tobacco use type: Cigarette service: No Current occupational status: employed Vital Signs 08/30/23 11:43 Height 5 ft 3 in Weight 101 lb BMI 17.9 BP 102/70 Blood Pressure Location Lt brachial Position Sitting Pulse 105 H Pulse Source Pulse Oximeter Pulse Oximetry (%) 99 Oxygen Delivery Method Room Air Physical Exam Vital Signs: Last Vital Signs Pulse 105 H 08/30/23 11:43 BP 102/70 08/30/23 11:43 Pulse Ox 99 08/30/23 11:43 Oxygen Delivery Method Room Air 08/30/23 11:43 BMI result Body Mass Index 17.9 Const General: comfortable Nutritional Appearance: well nourished Orientation/consciousness: patient oriented x3 HEENT Head: No normal to inspection Mouth: moist mucous membranes Neck Neck: Yes supple and Yes no JVD Resp Auscultation: clear to auscultation bilaterally, no rales and rub present Cardio Jugular venous distension: no JVD Palpation: no palpable S3 and no palpable S4 Heart sounds: no rubs GI Palpation (GI): Soft to palpation and nontender Percussion: No Fluid wave present General: Yes no CVA tenderness Back/Spine/Pelvis Back: no CVA tenderness Skin General skin exam: no rashes or lesions noted Neuro General: patient oriented x3 Extrem General: Yes no pedal edema and No clubbing Assessment & Plan Assessment & Plan (1) Hypomagnesemia: Code(s): E83.42 - Hypomagnesemia Plan Hypomagnesemia is most likely due to chronic alcohol use leading to renal wasting as well as the use of omeprazole. She will recheck serum magnesium. If levels are low she would require magnesium supplementation Encouraged to avoid alcohol intake. Renal function stable at this time. Orders: Orders Sodium Urine Random 08/30/23 E83.42 - Hypomagnesemia Total Protein Urine Random 08/30/23 E83.42 - Hypomagnesemia Creatinine Urine 08/30/23 E83.42 - Hypomagnesemia UA and rflx microscopic 08/30/23 E83.42 - Hypomagnesemia Chloride Urine Random 08/30/23 E83.42 - Hypomagnesemia Potassium Urine Random 08/30/23 E83.42 - Hypomagnesemia Coding Level of Care Code New Pt Level 4 (51021) Diagnoses Hypomagnesemia E83.42 Results Reviewed Nephrology Results: Hgb 8.0 g/dl (12.0-16.0) L 08/15/23 WBC 22.8 X10*3/uL (4.8-10.8) H 08/15/23 Plt Count 1220 X10*3/uL (160-400) H* 08/15/23 Sodium 137 mmol/L (135-145) 08/15/23 Potassium 3.6 mmol/L (3.3-5.1) 08/15/23 Chloride 109 mmol/L (96-108) H 08/15/23 Carbon Dioxide 16 mmol/L (22-29) L 08/15/23 BUN 5 mg/dL (9-16) L 08/15/23 Creatinine 0.52 mg/dL (0.5-1.4) 08/15/23 Calcium 9.1 mg/dL (8.4-10.2) 08/15/23 Phosphorus 3.7 mg/dL (2.7-4.5) 08/15/23 Urine Protein 100 (2+) mg/dL (Neg-Trace) H 07/31/23
== END 2023-08-30 12:10 | disposition home or self-care (01) ==
PROVIDERS: PCP Internal Medicine; Visit Provider Internal Medicine Hypertension Specialist
DX: E83.42 Hypomagnesemia (principal)
CPT/HCPCS: 99204

== ENCOUNTER → 2023-08-30 11:23 | Outpatient (BNVA) | payer BC, SELFPAY | PROVIDERS: Visit Provider Internal Medicine Hypertension Specialist ==

== ENCOUNTER 2023-10-07 13:45 | Outpatient (REF) | payer BC, SELFPAY ==
[2023-10-07 16:31] LABS: Basophils Absolute Auto 0.1 X10*3/uL (0.0-0.2); Basophils Percent Auto 0.2 % (0-2); Hematocrit 27.2 % (37.0-47.0); Hemoglobin 10.1 g/dl (12.0-16.0); Imm Gran Abs Auto 0.44 X10*3/uL (0.00-0.03); Imm Gran Pct Auto 1.5 % (0.0-0.4); Lymphocytes Absolute Auto 2.2 X10*3/uL (1.2-4.9); Lymphocytes Percent Auto 7.5 % (20-40); MANUAL DIFF FLAG SCAN; Mean Corpuscular HGB Conc 37.1 g/dl (31.0-35.0); Mean Corpuscular Hemoglobin 30.1 pg (27.0-33.0); Mean Platelet Volume 10.6 fL (9.4-12.3); Monocytes Absolute Auto 1.8 X10*3/uL (0.1-1.2); Neutrophils Absolute Auto 25.3 x10*3/uL (2.0-8.3); Neutrophils Percent Auto 84.8 % (45-73); Platelet Count 401 X10*3/uL (160-400); Red Blood Count 3.36 X10*6/uL (4.20-5.50); Red Cell Distribution Width 14.6 % (11.0-16.0); SCAN SMEAR FLAG 1; White Blood Count 29.9 X10*3/uL (4.8-10.8)
[2023-10-07 16:53] LABS: SLIDE REVIEW VERIFIED
== END 2023-10-07 13:46 | disposition home or self-care (01) ==
LOC: HO.HVNA 13:45
PROVIDERS: Visit Provider Internal Medicine
DX: R79.89 Other specified abnormal findings of blood chemistry (principal)
CPT/HCPCS: 36415; 85025

== ENCOUNTER 2023-10-08 16:30 | Inpatient (IN) | payer BC, SELFPAY ==
[2023-10-08] VITALS (8 sets, daily range): BP systolic 68–90; BP diastolic 28–50; PULSE 55–130; RESP 15–17; TEMP 35.9–36.6; O2SAT 94–96; BMI 17.7
--- NOTE | ~2023-10-08 | CT_ITS ---
EXAMINATION: CT ABDOMEN AND PELVIS WITHOUT CONTRAST CLINICAL INFORMATION: Question perforated viscus. COMPARISON: None available. TECHNIQUE: Multidetector volumetric imaging was performed from the superior aspect of the liver through the pubic symphysis. Sagittal and coronal reformatted images were obtained on the technologist's workstation. This CT examination was performed using dose optimization techniques as appropriate, variously including the following: *Automated exposure control *Adjustment of mA and/or kV according to patient size (this includes techniques or standardized protocols for targeted exams where dose is matched to indication/reason for exam; i.e. extremities or head) *Use of iterative reconstruction technique DLP: 407 mGy-cm FINDINGS: LUNG BASES: There is bibasilar dependent atelectasis and small bilateral pleural effusions. LIVER, GALLBLADDER, AND BILIARY TREE: The liver is enlarged but normal shape and diffusely originated with CVR hepatic steatosis. There is perihepatic ascites. Given significant hypodensity a focal lesion cannot be excluded. No intrahepatic ductal dilatation seen. The gallbladder is distended with some radiopaque density in the dependent segments. No wall thickening appreciated. PANCREAS: There is a 2.7 x 2.1 cm cyst in the body the pancreas measuring 7 Hounsfield units. There is a second hypodense area in the distal body the pancreas measuring 1.4 cm and 14 Hounsfield units likely is a second cyst. On the pancreas slightly bulbous but normal density. SPLEEN: Unremarkable. ADRENAL GLANDS: Unremarkable. KIDNEYS AND URETERS: The kidneys are normal size and cortical thickness. There is a 2 mm radiopaque calculi in the upper and midpole calyx right kidney likely tiny stones. There is no caliectasis. The left kidney is unremarkable. No perinephric fat stranding seen. BLADDER: Unremarkable. GASTROINTESTINAL TRACT: There are multiple prominent small bowel loops with air-fluid levels likely generalized ileus. There is diffuse ascites likely secondary to cirrhosis. There is no free air or pneumobilia. The stomach is distended with food and fluid within NG tube tip in the body the stomach. Appendix is not seen. ABDOMINAL WALL: There is diffuse abdominal wall edema but no evidence of herniation.. LYMPH NODES: Normal. VASCULAR: Unremarkable. PELVIC VISCERA: There is a balloon inflated Grossman's catheter in a nondistended pelvis. Also visualized and IUD in correct position within the endometrial canal. There is free fluid in the cul-de-sac. No adnexal mass. No abnormal pelvic lymph nodes seen. OSSEOUS STRUCTURES: No aggressive lytic or sclerotic process seen. CT/CT abdomen pelvis wo IV con IMPRESSION: 1. Diffuse ascites likely secondary to cirrhosis. There is no free air or pneumobilia seen. Diffuse hepatic steatosis. Given significant hypodense liver a focal liver lesion cannot be excluded 2. There are 2 simple cystic lesions in the body and distal body the pancreas. 3. Nonobstructive radiopaque calculi right kidney. 4. Distended gallbladder with radiopaque gallstones. No wall thickening seen. 5. Bilateral small pleural effusions with bibasilar atelectasis. NG tube, Grossman's catheter and IUD are in satisfactory position. 6. No perforated viscus suspected. There is no free air. There are mildly dilated small bowel loops likely generalized ileus. There is mildly dilated stomach. Fleischner guidelines were followed.
--- NOTE | ~2023-10-08 | XR_ITS ---
EXAMINATION: XR CHEST CLINICAL INFORMATION: Assess support tubes and lines COMPARISON: Baseline 10/08/2023 TECHNIQUE: Frontal view of the chest was obtained. FINDINGS: Interval placement of ET tube central line NG tube in good position. No pneumothorax. Extensive dense pulmonary edema pattern with air bronchograms perihilar location symmetrically. No pleural effusion. No other change. XR/XR chest 1V IMPRESSION: Satisfactory placement of ET tube and NG tube. Severe nonspecific alveolar pulmonary edema.
--- NOTE | ~2023-10-08 | XR_ITS ---
EXAMINATION: XR CHEST CLINICAL INFORMATION: Elevated white blood count with question of pneumonia COMPARISON: Multiple prior chest most recently 08/15/2023 CT chest 07/31/2023 TECHNIQUE: Frontal view of the chest was obtained. FINDINGS: The heart and pulmonary vessels appear normal. No infiltrates or effusions are seen. On the 08/04/2023 study there was diffuse airspace disease compatible with ARDS/pulmonary edema which has all cleared. There is a nodular density seen overlying the fifth anterior left rib which correlates with a possible pulmonary nodule seen at this location on the 07/31/2023 study. A dedicated follow-up chest CT is recommended for further evaluation. XR/XR chest 1V IMPRESSION: 1. No acute intrathoracic disease. 2. Left-sided pulmonary nodule. Dedicated chest CT is recommended for further evaluation.
--- NOTE | 2023-10-08 16:55 | ED.GENADULT ---
HPI - General Adult General Chief complaint: Recheck/Abnormal Lab/Rx Stated complaint: AND MAE ED VISIT D'T HIGH WBC COUNT Time Seen by Provider: 10/08/23 18:11 Source: patient Limitations: no limitations History of Present Illness HPI narrative: 47-year-old female thrombocytosis, etoh dependence, GERD, mild intermittent asthma, major depression with anorexia triggered by of her in May 2023, who presents emergency department for evaluation of vomiting x1 week with very poor food and fluid intake. The patient's visiting nurse did blood work on her today routine and she was found to have an elevated WBC. Her visiting nurse then sent the patient to the emergency department by ambulance for elevated WBC. Patient states that over the past week she has been vomiting multiple times a day and has not been able to hold food down but has been able to drink small amounts of water and Powerade. She states she has had multiple episodes of diarrhea with no blood in the diarrhea. She states she has a cough which is nonproductive. She denied fever, chills, rhinorrhea, sore throat, chest pain or shortness of breath. She denied frequency, urgency or dysuria. She states she is feeling very weak and fatigued. Patient was admitted to the hospital from 07/31/2023 until 08/14/2023 for major depression complicated by anorexia, hypophosphatemia, failure to thrive, iron deficiency anemia, acute respiratory failure secondary to right lower lobe pneumonia and pancreatitis requiring intubation. She had significant electrolyte abnormalities including hyponatremia , hypomagnesemia, hypokalemia. She had prolonged hospitalization secondary to intubation and TPN therapy for malnutrition. Patient states that she was sent from the hospital to a nursing facility and has been home for approximately 1 month. Related Data Home Medications Medication Instructions Recorded Confirmed albuterol sulfate 90 mcg/actuation 2 puff inhalation Q4H PRN 08/01/23 08/18/23 aerosol inhaler Shortness Of Breath Or Wheezing fluticasone 250 mcg-salmeterol 50 1 ea inhalation BID 08/01/23 08/18/23 mcg/dose blistr powdr for inhalation (Advair Diskus) ibuprofen 800 mg tablet 800 mg PO QID PRN Pain 08/01/23 08/18/23 loratadine 10 mg tablet (Claritin) 10 mg PO DAILY PRN Allergy Symptoms 08/01/23 08/18/23 omeprazole 20 mg capsule,delayed 20 mg PO DAILY@0630 08/01/23 08/18/23 release aspirin 81 mg tablet,delayed 81 mg PO DAILY 08/30/23 release docusate sodium 100 mg capsule 100 mg PO BID PRN 08/30/23 sennosides 8.6 mg capsule (senna) 8.6 mg PO BEDTIME 08/30/23 Previous Rx's Medication Instructions Recorded folic acid 1 mg tablet 1 mg PO DAILY #90 tabs 08/14/23 lidocaine 4 % topical patch 1 patch transdermal DAILY #15 ea 08/14/23 (Lidocaine Pain Relief) midodrine 5 mg tablet 5 mg PO TID #90 tabs 08/14/23 sodium bicarbonate 650 mg tablet 1,300 mg (2 x 650 mg) PO BID #28 08/14/23 tabs thiamine mononitrate (vit B1) 100 100 mg PO DAILY #90 tabs 08/14/23 mg tablet Allergies Allergy/AdvReac Type Severity Reaction Status Date / Time amoxicillin Allergy Gastrointestinal Verified 08/30/23 11:46 Upset avocado Allergy Anaphylaxis Verified 08/30/23 11:46 honey Allergy Anaphylaxis Verified 08/30/23 11:46 Review of Systems Review of Systems: Yes all other systems are reviewed and are negative [facility], [facility] Past Medical History FOR[facility], [facility] Narrative: Social history: Patient denies tobacco, alcohol and drug use Medical History GERD (gastroesophageal reflux disease) Back problem Asthma Social History Social History Household Members: None Household Members Other:: none recent loss of Housing: House Unable to assess alcohol history related to: Unable to respond Patient Tobacco Use Status: Current everyday Tobacco user Tobacco use type: Cigarette Smoked in Last 30 Days: Yes Use of substances other than those prescribed or required for medical reasons: Yes Advance Directives: No Advance Directives Information Provided: No Patient : No service: No Current occupational status: employed Physical Exam ED Vital Signs: Vital Signs - 24 hr 10/08/23 16:47 10/08/23 18:20 Temperature 97.1 F 98 F Pulse Rate 55 79 Respiratory Rate 17 16 Blood Pressure 88/50 L 87/43 L Pulse Oximetry 95 95 Oxygen Delivery Method Room Air BMI result Body Mass Index 17.7 Vital signs revealed a low blood pressure of 88/50, low pulse of 55 otherwise unremarkable Exam: General: Patient is awake, alert, answers questions, she is extremely thin appears skeletal Head: Normocephalic, atraumatic EENT: PERRL, Lids normal, sclera normal, conjunctiva normal, mouth revealed a black tongue with very dry mucous membranes Neck: Supple, no adenopathy Lung: breath sounds symmetric, no wheezing, rales or rhonchi Chest: symmetric movement, nontender Heart: regular rate and rhythm, normal S1, S2 no murmurs or rubs Abdomen: soft, non-tender, nondistended, normal bowel sounds Back: no vertebral tenderness, no CVAT Extremities: no deformities, moves all extremities symmetrically Neuro: Awake, alert, oriented, normal speech, cranial nerves intact, moves all extremities symmetrically Course Course Course Narrative: RME performed by Radha Taylor PA-C. Patient is a 47 year old assigned female at presenting to the emergency department due to elevated WBC count. 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 Labs and swabs ordered. Patient placed back in the waiting room pending room availability and results. Medications Administered Generic Name Dose Route Start Last Admin Trade Name Freq PRN Reason Stop Dose Admin Sodium Chloride 1,000 mls @ 150 mls/hr 10/08/23 19:00 10/08/23 19:31 Ns IVCONT 150 mls/hr .Q6H40M REESE Administration Potassium Chloride 10 meq in 100 mls @ 100 mls/hr 10/08/23 19:00 10/08/23 20:36 Potassium Chloride/H20 IV 10/08/23 22:59 100 mls/hr Q1H REESE Administration Discontinued Medications Generic Name Dose Route Start Last Admin Trade Name Freq PRN Reason Stop Dose Admin Magnesium Sulfate 2 gm in 50 mls @ 25 mls/hr 10/08/23 18:55 10/08/23 19:42 Magnesium Sulfate/H2o IV 10/08/23 20:54 25 mls/hr ONCE ONE Administration Potassium Chloride 40 meq 10/08/23 18:55 10/08/23 19:09 Potassium Chloride Packet 20 Meq Packet PO 10/08/23 18:56 40 meq ONCE ONE Administration Medical Decision Making Medical Decision Making MDM Narrative: 47-year-old female thrombocytosis, etoh dependence, GERD, mild intermittent asthma, major depression with anorexia triggered by of her in May 2023, who presents emergency department for evaluation of vomiting x1 week with very poor food and fluid intake, elevated WBCs. Vital signs revealed low heart rate and low blood pressure (which may be normal for her given her low BMI). Examination revealed very thin woman with weight of 45.35 kg. Patient's mouth exam revealed a black tongue and very dry mucous membranes otherwise exam was unremarkable pain. 19:18 Differential diagnosis: ?Includes but is not limited to aspiration pneumonia, electrolyte abnormalities, anemia, depression, anorexia, urinary tract infection Following evaluation was ordered: CBC, CMP, troponin, CK, magnesium, TSH with free T4, VBG, lactic acid, phosphorus, urinalysis, COVID-19, influenza, RSV, blood cultures x2, chest x-ray one view, EKG Course: 19:20 My interpretation patient's laboratory evaluation is as follows: WBC elevated 37,700 with 85 neutrophils 6 lymphocytes, 1.9 monocytes. Normocytic anemia with an H&H of 10 and 27.3. Platelet count normal 374,000 improved from 1,085,000 on 08/15/2023. INR is normal 1.2. Sodium low 123. Potassium low 1.7. Chloride low 82. Bicarb low 14. BUN creatinine elevated 75 and 5.72 compared to baseline of 5 and 0.52 08/15/2023. Calcium low 6.0. Magnesium low 1.4. Alk-phos elevated 285. CK elevated 147. High sensitive troponin I detectable but not elevated at 14.1. Albumin low 2.3. COVID-19, influenza and RSV negative. TSH was normal Chest x-ray on my interpretation was no acute disease. Twelve EKG did reveal accelerated junctional rhythm with a rate of 82, prolonged QT interval of [address] segment depressions 2, 3, AVF V3 through V6 -these changes are most likely related to her electrolyte abnormalities are not secondary to cardiac ischemia I did discuss the patient's presentation with the covering representative government relations, Dr. Mckenzie. He recommended the following: Normal saline at 150 mL/hr, magnesium 2 g IV, potassium chloride 10 mEq IV x4, potassium chloride 40 mEq orally every 2 hours x3 doses. He recommended repeating electrolyte, magnesium, phosphorus and calcium every 3 hours. 20:07 I did discuss the patient's presentation with the covering practice management consultant, Dr. Jono valladares and he did accept the patient into the intensive care unit for further management. Admission/Observation Consideration of admission/observation: Escalation of care including admission/observation considered Lab Data MDM Lab Attestation statement: I reviewed the patient's lab results. 10/08/23 17:29 10/08/23 17:29 Labs: Lab Results 10/08/23 10/08/23 10/08/23 Range/Units 17:29 19:19 19:44 WBC 37.7 H* (4.8-10.8) X10*3/uL RBC 3.36 L (4.20-5.50) X10*6/uL Hgb 10.0 L (12.0-16.0) g/dl Hct 27.3 L (37.0-47.0) % MCV 81.3 (80.0-98.0) fL MCH 29.8 (27.0-33.0) pg MCHC 36.6 H (31.0-35.0) g/dl RDW 14.6 (11.0-16.0) % Plt Count 374 (160-400) X10*3/uL MPV 10.8 (9.4-12.3) fL Immature Gran % (Auto) 2.7 H (0.0-0.4) % Neut % (Auto) 85.5 H (45-73) % Lymph % (Auto) 6.3 L (20-40) % [place] % (Auto) 5.0 (2-11) % Eos % (Auto) 0.2 (0-4) % Baso % (Auto) 0.3 (0-2) % Lymph # (Auto) 2.4 (1.2-4.9) X10*3/uL [place] # (Auto) 1.9 H (0.1-1.2) X10*3/uL Eos # (Auto) 0.1 (0.0-0.4) X10*3/uL Baso # (Auto) 0.1 (0.0-0.2) X10*3/uL Abs Immat Gran (auto) 1.01 H (0.00-0.03) X10*3/uL Absolute Neuts (auto) 32.3 H (2.0-8.3) x10*3/uL Absolute Nucleated RBC 0.000 (0.0-0.012) X10*3/uL Nucleated RBC % (auto) 0.0 (0.0-0.2) /100WBC Smear Tech's Comments VERIFIED Sodium 123 L (135-145) mmol/L Potassium 1.7 L* D (3.3-5.1) mmol/L Chloride 82 L D (96-108) mmol/L Carbon Dioxide 14 L (22-29) mmol/L Anion Gap 29 H (12-20) BUN 75 H (9-16) mg/dL Creatinine 5.72 H* (0.5-1.4) mg/dL Estim Creat Clear Calc 8.8 Estimated GFR 8 Random Glucose 66 (60-115) mg/dL Lactic Acid 2.0 (0.5-2.0) mmol/L Calcium 6.0 L* D (8.4-10.2) mg/dL Phosphorus 7.5 H (2.7-4.5) mg/dL Magnesium 1.4 L* 1.4 L* (1.6-2.6) mg/dL Total Bilirubin 1.4 H (0.0-1.0) mg/dL AST 46 H (5-31) U/L ALT 10 (0-31) U/L Alkaline Phosphatase 285 H (39-117) U/L Total Creatine Kinase 147 H (26-140) U/L Troponin I High Sens 14.1 D (<3.5-17.0) ng/L Total Protein 6.5 (6.5-8.0) g/dL Albumin 2.3 L (3.5-5.0) g/dL TSH 1.44 (0.32-4.0) uIU/mL Influenza Type A (PCR) NEGATIVE (Negative) Influenza Type B (PCR) NEGATIVE (Negative) RSV RNA Qual (PCR) NEGATIVE (Negative) SARS-CoV-2 RNA (RT-PCR) NEGATIVE (Negative) Independent Interpretation I performed an independent interpretation of an: EKG and Plain X-Ray Interpretation: My interpretation patient's 12 EKG is as follows: Junctional rhythm with a rate of 82, prolonged QRS duration of 104 milliseconds, prolonged QTC of 616 milliseconds, ST segment depression 2, 3 AVF and V3 through V6. My interpretation patient's chest x-ray is as follows: No acute disease Radiology Impression Discussion of test interpretation with radiology: I have reviewed the radiologist's reading. Radiologist Impression: XR chest 1V IMPRESSION: 1. No acute intrathoracic disease. 2. Left-sided pulmonary nodule. Dedicated chest CT is recommended for further evaluation. Dictated By: Sai Rodriguez MD External Record Review External record reviewed: Inpatient record Critical Care Time Critical Care Time Critical Care Time: Yes Total Critical Care Time: 60 Attestation: Critical Care: The patient was critically ill with a high probability of imminent or life threatening deterioration. I spent greater than 30 minutes of discontinuous time evaluating the patient,delivering critical care at the bedside, discussing and evaluating pertinent data with consultants. Critical care time does not include time spent performing separately billable procedures or teaching. Total time spent performing critical care was 60 minutes. Discharge Plan Discharge Patient Disposition: Admitted As Inpatient Prescriptions: No Action fluticasone propion-salmeterol [Advair Diskus] 250-50 mcg/dose blister with device 1 ea inhalation BID ibuprofen 800 mg tablet 800 mg PO QID PRN (Reason: Pain) omeprazole 20 mg Capsule,Delayed Release(Dr/Ec) 20 mg PO DAILY@0630 albuterol sulfate 90 mcg/actuation HFA aerosol inhaler 2 puff INHALATION Q4H PRN (Reason: Shortness Of Breath Or Wheezing) loratadine [Claritin] 10 mg Tablet 10 mg PO DAILY PRN (Reason: Allergy Symptoms) lidocaine [Lidocaine Pain Relief] 4 % Adhesive Patch,Medicated 1 patch transdermal DAILY Qty: 15 0RF Protocol: Apply to: Apply to: back sodium bicarbonate 650 mg Tablet 1,300 mg PO BID Qty: 28 0RF folic acid 1 mg Tablet 1 mg PO DAILY Qty: 90 0RF thiamine mononitrate (vit B1) 100 mg Tablet 100 mg PO DAILY Qty: 90 0RF midodrine 5 mg tablet 5 mg PO TID Qty: 90 0RF Rx Instructions: do not give last dose of day after 6PM or within 4 hrs of bedtime docusate sodium 100 mg capsule 100 mg PO BID PRN senna 8.6 mg capsule 8.6 mg PO BEDTIME aspirin 81 mg tablet,delayed release (DR/EC) 81 mg PO DAILY
[2023-10-08 17:52] LABS: Basophils Absolute Auto 0.1 X10*3/uL (0.0-0.2); Basophils Percent Auto 0.3 % (0-2); Eosinophils Absolute Auto 0.1 X10*3/uL (0.0-0.4); Eosinophils Percent Auto 0.2 % (0-4); Hematocrit 27.3 % (37.0-47.0); Imm Gran Abs Auto 1.01 X10*3/uL (0.00-0.03); Imm Gran Pct Auto 2.7 % (0.0-0.4); Lymphocytes Absolute Auto 2.4 X10*3/uL (1.2-4.9); Lymphocytes Percent Auto 6.3 % (20-40); MANUAL DIFF FLAG SCAN; Mean Corpuscular HGB Conc 36.6 g/dl (31.0-35.0); Mean Corpuscular Hemoglobin 29.8 pg (27.0-33.0); Mean Corpuscular Volume 81.3 fL (80.0-98.0); Mean Platelet Volume 10.8 fL (9.4-12.3); Monocytes Absolute Auto 1.9 X10*3/uL (0.1-1.2); Neutrophils Absolute Auto 32.3 x10*3/uL (2.0-8.3); Neutrophils Percent Auto 85.5 % (45-73); Platelet Count 374 X10*3/uL (160-400); Red Blood Count 3.36 X10*6/uL (4.20-5.50); Red Cell Distribution Width 14.6 % (11.0-16.0); SCAN SMEAR FLAG 1
[2023-10-08 17:56] LABS: White Blood Count 37.7 X10*3/uL (4.8-10.8)
[2023-10-08 17:57] LABS: Troponin-I High Sensitivity 14.1 ng/L (<3.5-17.0)
[2023-10-08 18:20] LABS: Alanine Aminotransferase 10 U/L (0-31); Albumin Level 2.3 g/dL (3.5-5.0); Alkaline Phosphatase 285 U/L (39-117); Anion Gap 29 (12-20); Aspartate Amino Transferase 46 U/L (5-31); Bilirubin Total 1.4 mg/dL (0.0-1.0); Blood Urea Nitrogen 75 mg/dL (9-16); Carbon Dioxide 14 mmol/L (22-29); Chloride 82 mmol/L (96-108); Creatinine Clr Calc Pharmacy 8.8; Estimated Glomerular Filt Rate 8; Glucose Random 66 mg/dL (60-115); Magnesium 1.4 mg/dL (1.6-2.6); Potassium 1.7 mmol/L (3.3-5.1); Sodium 123 mmol/L (135-145); Total Protein 6.5 g/dL (6.5-8.0)
[2023-10-08 18:22] LABS: SLIDE REVIEW VERIFIED
[2023-10-08 18:24] LABS: Influenza A PCR NEGATIVE (Negative); Influenza B PCR NEGATIVE (Negative); Resp Syncy Virus RNA Qual PCR NEGATIVE (Negative); SARS COV2 PCR INHOUSE NEGATIVE (Negative)
--- NOTE | 2023-10-08 18:39 | ECG_ITS ---
Test Reason : ABNORMAL LABS Blood Pressure : / mmHG Vent. Rate : 082 BPM Atrial Rate : 000 BPM P-R Int : 000 ms QRS Dur : 104 ms QT Int : 528 ms P-R-T Axes : 000 067 040 degrees QTc Int : 616 ms Accelerated Junctional rhythm ST & T wave abnormality, consider inferior ischemia and lateral ischemia Prolonged QT Abnormal ECG When compared with ECG of 01-AUG-2023 00:08, Junctional rhythm has replaced Atrial fibrillation Inverted T waves have replaced nonspecific T wave abnormality in Inferior leads QT has lengthened Please check electrolytes Referred By: Serge West Electronically Signed By:Noble West
[2023-10-08] MEDS: Potassium Chloride Packet 20 MEQ PACKET 40 MEQ PO (19:09)
[2023-10-08 19:14] LABS: Phosphorus 7.5 mg/dL (2.7-4.5)
[2023-10-08] MEDS: 0.9 % Sodium Chloride 1,000 ML 150 ML IVCONT (19:31)
[2023-10-08 19:33] LABS: TSH reflex Free T4 1.44 uIU/mL (0.32-4.0)
[2023-10-08] MEDS: Potassium Chloride/H20 10 MEQ/100 ML PIGGYBACK 100 MEQ IV ×5 (19:39→23:40)
[2023-10-08] MEDS: Magnesium Sulfate/H2O 2 GM/50 ML PIGGYBACK IV ×2 (19:42→23:02)
--- NOTE | 2023-10-08 19:44 | PC.NURSE ---
Assumed care of pt. Pt lying on stretcher, extremely frail, lethargic, AxO x4,. Pt denies pain at this time. Additional IV access obtained, medications started per orders. Planning for admission to ICU or transfer as available.
[2023-10-08 20:26] LABS: Magnesium 1.4 mg/dL (1.6-2.6)
--- NOTE | 2023-10-08 21:20 | MHC.EDTECH ---
Patient boosted in bed, repositioned, pillow adjusted under bottom/lower back. Stated she was more comfortable. All set
[2023-10-08 21:24] LABS: VBG Base Excess -9.8 mmol/L; VBG HCO3 13 mmol/L (22-26); VBG pCO2 24 mmHg; VBG pH 7.36 (7.32-7.43); VBG pO2 128 mmHg
[2023-10-08 21:28] LABS: Venous Blood Gas Refer to POC result
--- NOTE | 2023-10-08 21:34 | PHA.MEDREC ---
Pharmacy Consult ? Medication Reconciliation Pharmacy has completed the medication reconciliation. Patient reported medicaitons. Reports no longer taking ferrous sulfate, folic acid, sodium bicarb, or thiamine. Maribel Dick, PharmD
[2023-10-08] MEDS: Calcium Gluconate/NaCl,Iso-Osm 2 GM/100 ML PLAST..BAG IV ×2 (21:41→23:40)
[2023-10-08] MEDS: KCl 40 mEq in 0.9 % Sodium Chl 40 MEQ/1,000 ML IV.SOLN 150 MEQ IVCONT (21:48)
--- NOTE | 2023-10-08 21:48 | PM.CCHP ---
History of Present Illness Date of Service: 10/08/23 Attending physician on admission: Timmy Lujan Chief Complaint: Vomiting The patient is a 47-year-old female with a past medical history of major depressive disorder, anorexia, failure to thrive, ?iron deficiency anemia, GERD, and asthma who presented to the emergency department with complaints ?of vomiting x1 week with very poor food and fluid intake. The patient's visiting nurse did blood work on her today routine and she was found to have an elevated WBC. On arrival to the emergency department patient's blood pressure soft at 88/50, Alert and oriented x 3. ?Patient with significant electrolyte abnormalities sodium 123, potassium 1.7, chloride 82, serum bicarb 14, calcium 6, 7.5, magnesium 1.4, Other abnormalities: albumin 2.3, BUN 75, creatinine 5. 72, white count elevated to 37.7 Chest xray: No acute intrathoracic disease. But left-sided pulmonary nodule noted Patient admitted to ICU for hemodynamic monitoring of failure to thrive with significant electrolyte abnormalities Review of Systems Constitutional: Constitutional: Reports anorexia, Denies body ache(s), Denies chills, Reports fatigue, Denies headache(s), Reports lethargy and Reports poor appetite Eyes: Eyes: Denies change in vision and Denies loss of vision ENT: Denies headache(s) Cardiovascular: Cardiovascular: Denies Abdominal Distension, Denies chest pain, Denies lightheadedness, Denies Loss of Consciousness and Denies dyspnea Respiratory: Respiratory: Denies cough, Denies dyspnea and Denies wheezing Gastrointestinal: Gastrointestinal: Reports nausea, Reports vomiting and Denies hematemesis Musculoskeletal: Musculoskeletal: Denies myalgias Neurologic: Denies headache(s) and Denies loss of vision Endocrine: Endocrine: Reports fatigue Allergic/Immunologic: Allergic/Immunologic: Denies wheezing PMFSH Past Medical History Medical History (Updated 10/08/23 @ 22:14 by Saurav Haro NP) Failure to thrive in adult Iron deficiency anemia Anorexia Grief Nonsustained ventricular tachycardia GERD (gastroesophageal reflux disease) Back problem Asthma Social History Social History Household Members: None Household Members Other:: none recent loss of Housing: House Do you presently have visiting nurse or other home services: No Unable to assess alcohol history related to: Unable to respond Patient Tobacco Use Status: Never used Tobacco Tobacco use type: Cigarette Smoked in Last 30 Days: Yes Use of substances other than those prescribed or required for medical reasons: No Currently Displaying Signs/Symptoms of Drug Intoxication Withdrawal: No Advance Directives: No Advance Directives Information Provided: No Do you have thoughts of harming others: None Do you have a plan to hurt others: No Plan Recently lost weight without trying: Yes Eating poorly because of decreased appetite: Yes Nutrition Risks: Anorexia, Emaciation/Cachexia and Poor intake 0-25% >4 days Patient : No : No Poor oral hygiene: Yes service: No Current occupational status: employed Meds Allergies Allergy/AdvReac Type Severity Reaction Status Date / Time amoxicillin Allergy Gastrointestinal Verified 08/30/23 11:46 Upset avocado Allergy Anaphylaxis Verified 08/30/23 11:46 honey Allergy Anaphylaxis Verified 08/30/23 11:46 Active Medications: Current Medications Heparin Sodium (Porcine) (Heparin Sodium,Porcine 5,000 Unit/Ml Vial) 5,000 unit SUBCUT Q12H [facility] Potassium Chloride (Potassium Chloride/H20) 10 meq in 100 mls @ 100 mls/hr IV Q1H [facility] Stop: 10/08/23 22:59 Last Infusion: 10/08/23 21:44 Dose: Infused Calcium Gluconate (Calcium Gluconate) 2 gm in 100 mls @ 50 mls/hr IV ONCE ONE Stop: 10/08/23 23:22 Last Admin: 10/08/23 21:41 Dose: 50 mls/hr Magnesium Sulfate (Magnesium Sulfate/H2o) 2 gm in 50 mls @ 25 mls/hr IV ONCE ONE Stop: 10/08/23 23:22 Potassium Chloride/Sodium Chloride (Kcl 40 Meq In 0.9 % Sodium Chl) 40 meq in 1,000 mls @ 150 mls/hr IVCONT .Q6H40M [facility] Potassium Chloride (Potassium Chloride/H20) 10 meq in 100 mls @ 100 mls/hr IV Q1H [facility] Stop: 10/09/23 01:29 Albumin Human (Kedbumin 25 %) 100 mls @ 100 mls/hr IV ONCE ONE Stop: 10/08/23 22:24 Albumin Human (Kedbumin 25 %) 100 mls @ 100 mls/hr IV Q6H [facility] Stop: 10/09/23 16:29 Calcium Gluconate (Calcium Gluconate) 2 gm in 100 mls @ 50 mls/hr IV ONCE ONE Stop: 10/09/23 01:59 Potassium Chloride (Potassium Chloride Packet 20 Meq Packet) 40 meq PO Q2H [facility] Stop: 10/08/23 23:01 Home Medications Medication Instructions Recorded Confirmed Last Taken Type albuterol sulfate 90 mcg/actuation 2 puff inhalation Q4H PRN 08/01/23 10/08/23 07/31/23 History aerosol inhaler Shortness Of Breath Or Wheezing fluticasone 250 mcg-salmeterol 50 1 ea inhalation BID 08/01/23 10/08/23 10/08/23 History mcg/dose blistr powdr for inhalation (Advair Diskus) loratadine 10 mg tablet (Claritin) 10 mg PO DAILY PRN Allergy Symptoms 08/01/23 10/08/23 Unknown History omeprazole 20 mg capsule,delayed 20 mg PO DAILY@0630 08/01/23 10/08/23 Unknown History release lidocaine 4 % topical patch 1 patch transdermal DAILY PRN Pain 10/08/23 10/08/23 Unknown History (Lidocaine Pain Relief) midodrine 5 mg tablet 5 mg PO TID@0600,1200,1800 10/08/23 10/08/23 10/08/23 History Physical Exam Vital Signs: Vital Signs: Last Vital Signs Temp 98 F 10/08/23 18:20 Pulse 82 10/08/23 21:07 Resp 15 10/08/23 21:07 BP 84/29 L 10/08/23 21:07 Pulse Ox 94 10/08/23 21:07 O2 Del Method Room Air 10/08/23 21:07 BMI result Body Mass Index 17.7 ?General:? Alert oriented x3 no acute distress.? Severely thin Speech is well articulated, thought process is coherent.? Following all commands. ?HEENT:? Head is normocephalic, atraumatic, pupils equal round reactive to light accommodation bilaterally.? Extraocular movements appear intact.? Buccal mucosa is dry, Neck is supple ?Cardiac:?Sinus tach on tele. Clear S1-S2, no murmurs rubs or gallops. ?Pulmonary:? Clear to auscultation, no wheezes, rales or rhonchi. ?Abdomen:? ?Abdomen soft, non-tender, non-distended. Normal bowel sounds. No pulsatile mass. No hepatosplenomegaly. ?Musculoskeletal:? Moving all 4 extremities upon request a major joints, there is no crepitus or tenderness.? The strength is 5/5 bilaterally and throughout all 4 extremities.? Gait not assessed at this point. ?Neurologic:? cranial nerves 2-12 are grossly intact.? No focal deficits noted.Motor strength as above.?? ?Skin:? Intact, no lesions, edema, erythema, clubbing or cyanosis.? No ulcers. Vascular:? 2+ pulses upper and lower extremities distally.? Results Labs 10/09/23 07:20 10/09/23 07:20 Labs: Laboratory Results - last 24 hr 10/08/23 10/08/23 10/08/23 17:29 19:19 19:44 MCV 81.3 MCH 29.8 MCHC 36.6 H RDW 14.6 Plt Count 374 MPV 10.8 Immature Gran % (Auto) 2.7 H Neut % (Auto) 85.5 H Lymph % (Auto) 6.3 L [place] % (Auto) 5.0 Eos % (Auto) 0.2 Baso % (Auto) 0.3 Lymph # (Auto) 2.4 [place] # (Auto) 1.9 H Eos # (Auto) 0.1 Baso # (Auto) 0.1 Abs Immat Gran (auto) 1.01 H Absolute Neuts (auto) 32.3 H Absolute Nucleated RBC 0.000 Nucleated RBC % (auto) 0.0 Smear Tech's Comments VERIFIED VBG pH VBG pCO2 VBG pO2 VBG HCO3 VBG O2 Saturation VBG Base Excess Anion Gap 29 H Estim Creat Clear Calc 8.8 Estimated GFR 8 Random Glucose 66 Lactic Acid 2.0 Calcium 6.0 L* D Phosphorus 7.5 H Magnesium 1.4 L* 1.4 L* Total Bilirubin 1.4 H AST 46 H ALT 10 Alkaline Phosphatase 285 H Total Creatine Kinase 147 H Troponin I High Sens 14.1 D Total Protein 6.5 Albumin 2.3 L TSH 1.44 Influenza Type A (PCR) NEGATIVE Influenza Type B (PCR) NEGATIVE RSV RNA Qual (PCR) NEGATIVE SARS-CoV-2 RNA (RT-PCR) NEGATIVE 10/08/23 21:17 MCV MCH MCHC RDW Plt Count MPV Immature Gran % (Auto) Neut % (Auto) Lymph % (Auto) [place] % (Auto) Eos % (Auto) Baso % (Auto) Lymph # (Auto) [place] # (Auto) Eos # (Auto) Baso # (Auto) Abs Immat Gran (auto) Absolute Neuts (auto) Absolute Nucleated RBC Nucleated RBC % (auto) Smear Tech's Comments VBG pH 7.36 VBG pCO2 24 VBG pO2 128 VBG HCO3 13 L VBG O2 Saturation 100.0 VBG Base Excess -9.8 Anion Gap Estim Creat Clear Calc Estimated GFR Random Glucose Lactic Acid Calcium Phosphorus Magnesium Total Bilirubin AST ALT Alkaline Phosphatase Total Creatine Kinase Troponin I High Sens Total Protein Albumin TSH Influenza Type A (PCR) Influenza Type B (PCR) RSV RNA Qual (PCR) SARS-CoV-2 RNA (RT-PCR) Imaging Radiologist's Impressions: Impressions Chest X-Ray 10/08/23 18:45 IMPRESSION: 1. No acute intrathoracic disease. 2. Left-sided pulmonary nodule. Dedicated chest CT is recommended for further evaluation. Assessment and Plan (1) Failure to thrive in adult: Status: Acute (2) Malnutrition: Qualifiers: Protein-calorie malnutrition severity: severe Status: Acute (3) Leukocytosis: Status: Acute (4) Anorexia: Status: Acute (5) Hypocalcemia: Status: Acute (6) Acute hyponatremia: Status: Acute (7) Acute hypokalemia: Status: Acute (8) Hypomagnesemia: Status: Acute (9) Acute kidney injury: Status: Acute Plan 47-year-old female with a past medical history of major depressive disorder, anorexia, failure to thrive, ?iron deficiency anemia, GERD, and asthma admitted for failure to thrive and electrolytes abnormalities Plan: Neuro: No acute issues. Cardiac: ? Hypotension: ?No evidence of severe septic shock, no evidence of infection, lactic negative. ?Hypotension likely from failure to thrive with multiple electrolytes abnormalities. Start levophed and wean off as tolerated Pulmonary:? No acute issues Renal: ROMAN-nonoliguric ROMAN, likely from failure to thrive/dehydration. ?Place on continuous fluids and albumin replacement. ?Continue to renal indices Hypokalemia, hypocalcemia, hypomagnesemia, hyponatremia. ?No EKG changes. ?Or electrolyte abnormality due to underlying anorexia with failure to thrive. We will continue to replace electrolytes. Continue to monitor electrolytes, renal indices, and urine output. Endo: No acute issues. GI: No acute issues. ID: Leukocytosis: ?Patient does have a history of elevated leukocytosis baseline, but this time is elevated to 30s, there is no evidence of infection, no evidence of viral infection. ?Lactic is negative. ?Leukocytosis likely inflammatory response due to failure to thrive. ?We will continue to trend WBC Heme/Onc: No acute issues. Psych: No acute issues. Miscellaneous: No acute issues. Prophylaxis: subcut Heparin Diet: Regular diet Code status: FULL CODE ? Critical care time spent: 60 minutes Case discussed with attending Dr Lujan
--- NOTE | 2023-10-08 22:19 | PC.NURSE ---
Report given over phone and at bedside.
[2023-10-08] MEDS: Norepinephrine Bitartrate/D5W 8 MG/250 ML PLAST..BAG 4.25 MG IV (22:33)
[2023-10-08 23:01] LABS: Appearance Urine Turbid; Color Urine Dark Yellow; Glucose Urine UA 100 mg/dL (Negative); Leukocyte Esterase Urine Small (1+) (Negative); Nitrite Urine Negative (Negative); Specific Gravity - Urine >= 1.030 (1.005-1.025); UMIC TRIGGER UACC YES; Urine Blood Large (3+) (Negative); Urine Ketones Negative (Negative); Urine Protein 100 (2+) mg/dL (Neg-Trace)
[2023-10-08] MEDS: Albumin Human 25 % 100 ML IV ×2 (23:02→23:39)
[2023-10-08] MEDS: Sodium Bicarbonate 8.4% 50 MEQ/50 ML VIAL IVPUSH (23:03)
[2023-10-08 23:12] LABS: Bacteria Urine 3+ (None Seen); RBC Urine >20 /HPF (0-2); Squamous Epithelial Cell Urine >20 /HPF (0-2); UACC Culture Trigger YES
[2023-10-08] MEDS: Heparin Sodium,Porcine 5,000 UNIT/ML VIAL 5000 UNIT SUBCUT (23:40)
[2023-10-09] VITALS (39 sets, daily range): BP systolic 35–127; BP diastolic 15–77; PULSE 26–100; RESP 12–29; TEMP 34.8–37.5; O2SAT 89–100; BMI 17.7
[2023-10-09 00:25] LABS: VBG Base Excess -10.3 mmol/L; VBG HCO3 11 mmol/L (22-26); VBG pCO2 16 mmHg; VBG pH 7.44 (7.32-7.43); VBG pO2 61 mmHg
[2023-10-09 00:39] LABS: Phosphorus 6.7 mg/dL (2.7-4.5)
[2023-10-09] MEDS: Potassium Chloride/H20 10 MEQ/100 ML PIGGYBACK 100 MEQ IV ×13 (00:51→19:33)
[2023-10-09 01:05] LABS: Anion Gap 32 (12-20); Blood Urea Nitrogen 73 mg/dL (9-16); Calcium 6.8 mg/dL (8.4-10.2); Carbon Dioxide 12 mmol/L (22-29); Chloride 86 mmol/L (96-108); Creatinine Clr Calc Pharmacy 9.2; Estimated Glomerular Filt Rate 8; Glucose Random 42 mg/dL (60-115); Phosphorus 6.7 mg/dL (2.7-4.5); Potassium 2.2 mmol/L (3.3-5.1); Sodium 128 mmol/L (135-145)
[2023-10-09] MEDS: Dextrose 50 % 25 GM/50 ML SYRINGE IVPUSH (01:11)
[2023-10-09] MEDS: Sodium Bicarbonate 8.4% 50 MEQ/50 ML SYRINGE IVPUSH ×2 (01:18→02:21)
[2023-10-09] MEDS: levoFLOXacin/D5W 250 MG/50 ML PIGGYBACK 50 MG IV (01:36)
[2023-10-09] MEDS: Albumin Human 25 % 100 ML IV ×4 (02:24→22:44)
[2023-10-09] MEDS: Lactated Ringers 1,000 ML 150 ML IVCONT ×2 (04:15→11:03)
[2023-10-09 05:50] LABS: VBG Base Excess -7.3 mmol/L; VBG HCO3 13 mmol/L (22-26); VBG pCO2 15 mmHg; VBG pH 7.53 (7.32-7.43); VBG pO2 81 mmHg
[2023-10-09 07:27] LABS: Basophils Absolute Auto 0.1 X10*3/uL (0.0-0.2); Basophils Percent Auto 0.2 % (0-2); Eosinophils Absolute Auto 0.1 X10*3/uL (0.0-0.4); Eosinophils Percent Auto 0.2 % (0-4); Hemoglobin 7.2 g/dl (12.0-16.0); Imm Gran Abs Auto 0.73 X10*3/uL (0.00-0.03); Imm Gran Pct Auto 2.1 % (0.0-0.4); Lymphocytes Percent Auto 5.7 % (20-40); MANUAL DIFF FLAG SCAN; Mean Corpuscular HGB Conc 36.9 g/dl (31.0-35.0); Mean Corpuscular Hemoglobin 30.1 pg (27.0-33.0); Mean Corpuscular Volume 81.6 fL (80.0-98.0); Mean Platelet Volume 10.8 fL (9.4-12.3); Monocytes Absolute Auto 1.4 X10*3/uL (0.1-1.2); Monocytes Percent Auto 4.2 % (2-11); Neutrophils Absolute Auto 30.2 x10*3/uL (2.0-8.3); Neutrophils Percent Auto 87.6 % (45-73); Platelet Count 283 X10*3/uL (160-400); Red Blood Count 2.39 X10*6/uL (4.20-5.50); Red Cell Distribution Width 14.6 % (11.0-16.0); SCAN SMEAR FLAG 1
[2023-10-09 07:32] LABS: White Blood Count 34.4 X10*3/uL (4.8-10.8)
[2023-10-09 07:33] LABS: Hematocrit 19.5 % (37.0-47.0)
--- NOTE | 2023-10-09 07:40 | PC.NURSE ---
Pt admitted to ICU from ED at approx 2200. Upon initial assessment- pt A&Ox4 but drowsy with flat affect, follows commands, weakly MARS. Afebrile. NSR/ST on tele, frequent ectopy. Levophed ordered and titrated to maintain MAP > 50. Given numerous electrolyte replacements per MAR. 5L NC required to maintain SpO2 > 92%, non-productive cough, denies SOB. Poor PO intake but tolerating sips of water. Grossman catheter placed with minimal urine output, STRUCT[employer] F[employer]IC[employer] APPRENTICE Estrellita aware. Small BM on bedpan. Skin overall intact. Call wu in reach, bed locked in lowest position. Pt aware of plan of care.
[2023-10-09 07:59] LABS: SLIDE REVIEW VERIFIED
[2023-10-09 08:47] LABS: Alanine Aminotransferase 7 U/L (0-31); Albumin Level 3.1 g/dL (3.5-5.0); Alkaline Phosphatase 200 U/L (39-117); Anion Gap 26 (12-20); Aspartate Amino Transferase 34 U/L (5-31); Bilirubin Total 1.7 mg/dL (0.0-1.0); Blood Urea Nitrogen 77 mg/dL (9-16); Calcium 7.3 mg/dL (8.4-10.2); Carbon Dioxide 16 mmol/L (22-29); Chloride 91 mmol/L (96-108); Creatinine Clr Calc Pharmacy 10.5; Estimated Glomerular Filt Rate 10; Glucose Random 94 mg/dL (60-115); Magnesium 2.5 mg/dL (1.6-2.6); Phosphorus 3.9 mg/dL (2.7-4.5); Potassium 2.1 mmol/L (3.3-5.1); Sodium 131 mmol/L (135-145); Total Protein 5.8 g/dL (6.5-8.0)
[2023-10-09] MEDS: Heparin Sodium,Porcine 5,000 UNIT/ML VIAL 5000 UNIT SUBCUT (09:11)
[2023-10-09] MEDS: Hydrocortisone Sod Succ/PF 100 MG VIAL IVPUSH ×2 (10:01→18:10)
--- NOTE | 2023-10-09 10:42 | P.PNCC_ITS ---
Subjective Subjective Date of Service: 10/09/23 Interval History: 47-year-old lady with underlying anorexia with progressive weakness admitted on 10/08/2023 with failure to thrive with significant electrolyte abnormalities and acute kidney failure secondary to poor p.o. intake. Patient was started on electrolyte and pressor support. No events overnight. Critical Care Time (minutes): 45 Physical Exam 2 Vital Signs: Vital Signs: Last Vital Signs Temp 97.7 F 10/09/23 10:00 Pulse 95 10/09/23 10:00 Resp 17 10/09/23 10:00 BP 94/58 L 10/09/23 10:00 Pulse Ox 90 L 10/09/23 10:00 O2 Del Method Nasal Cannula 10/09/23 10:00 O2 Flow Rate 4 10/09/23 10:00 BMI result Body Mass Index 17.7 Const: General: no acute distress, alert and awake Nutritional Appearance: malnourished Eyes: Sclerae: sclerae normal EOM: EOMs intact bilaterally Neck: Neck: Yes no lymphadenopathy, Yes trachea midline and Yes supple Resp: Effort & Inspection: normal respiratory effort and no respiratory distress Auscultation: clear to auscultation bilaterally Cardio: Rate: regular rate Rhythm: regular rhythm Heart sounds: no gallops, no murmurs and no rubs GI: Palpation (GI): Soft to palpation and Other GI palpation findings present ( Nontender) Auscultation: normal bowel sounds Extrem: General: Yes no pedal edema, No clubbing and No cyanosis Objective Data Labs 10/09/23 07:20 10/09/23 07:20 Labs: Laboratory Results - last 24 hr 10/08/23 10/08/23 10/08/23 17:29 19:19 19:44 WBC 37.7 H* RBC 3.36 L Hgb 10.0 L Hct 27.3 L MCV 81.3 MCH 29.8 MCHC 36.6 H RDW 14.6 Plt Count 374 MPV 10.8 Immature Gran % (Auto) 2.7 H Neut % (Auto) 85.5 H Lymph % (Auto) 6.3 L [place] % (Auto) 5.0 Eos % (Auto) 0.2 Baso % (Auto) 0.3 Lymph # (Auto) 2.4 [place] # (Auto) 1.9 H Eos # (Auto) 0.1 Baso # (Auto) 0.1 Abs Immat Gran (auto) 1.01 H Absolute Neuts (auto) 32.3 H Absolute Nucleated RBC 0.000 Nucleated RBC % (auto) 0.0 Smear Tech's Comments VERIFIED VBG pH VBG pCO2 VBG pO2 VBG HCO3 VBG O2 Saturation VBG Base Excess Sodium 123 L Potassium 1.7 L* D Chloride 82 L D Carbon Dioxide 14 L Anion Gap 29 H BUN 75 H Creatinine 5.72 H* Estim Creat Clear Calc 8.8 Estimated GFR 8 Random Glucose 66 Lactic Acid 2.0 Calcium 6.0 L* D Phosphorus 7.5 H Magnesium 1.4 L* 1.4 L* Total Bilirubin 1.4 H AST 46 H ALT 10 Alkaline Phosphatase 285 H Total Creatine Kinase 147 H Troponin I High Sens 14.1 D Total Protein 6.5 Albumin 2.3 L TSH 1.44 Urine Color Urine Appearance Urine pH Ur Specific [place] Urine Protein Urine Glucose (UA) Urine Ketones Urine Blood Urine Nitrite Ur Leukocyte Esterase Urine RBC Urine WBC Ur Squamous Epith Cells Urine Bacteria Hyaline Casts Influenza Type A (PCR) NEGATIVE Influenza Type B (PCR) NEGATIVE RSV RNA Qual (PCR) NEGATIVE SARS-CoV-2 RNA (RT-PCR) NEGATIVE 10/08/23 10/08/23 10/09/23 21:17 22:46 00:00 WBC RBC Hgb Hct MCV MCH MCHC RDW Plt Count MPV Immature Gran % (Auto) Neut % (Auto) Lymph % (Auto) [place] % (Auto) Eos % (Auto) Baso % (Auto) Lymph # (Auto) [place] # (Auto) Eos # (Auto) Baso # (Auto) Abs Immat Gran (auto) Absolute Neuts (auto) Absolute Nucleated RBC Nucleated RBC % (auto) Smear Tech's Comments VBG pH 7.36 VBG pCO2 24 VBG pO2 128 VBG HCO3 13 L VBG O2 Saturation 100.0 VBG Base Excess -9.8 Sodium 128 L Potassium 2.2 L* D Chloride 86 L Carbon Dioxide 12 L Anion Gap 32 H BUN 73 H Creatinine 5.51 H* Estim Creat Clear Calc 9.2 Estimated GFR 8 Random Glucose 42 L* Lactic Acid Calcium 6.8 L D Phosphorus 6.7 H Magnesium Total Bilirubin AST ALT Alkaline Phosphatase Total Creatine Kinase Troponin I High Sens Total Protein Albumin TSH Urine Color Dark Yellow Urine Appearance Turbid Urine pH 5.0 Ur Specific [place] >= 1.030 H Urine Protein 100 (2+) H Urine Glucose (UA) 100 H Urine Ketones Negative Urine Blood Large (3+) H Urine Nitrite Negative Ur Leukocyte Esterase Small (1+) H Urine RBC >20 H Urine WBC 11-20 H Ur Squamous Epith Cells >20 Urine Bacteria 3+ Hyaline Casts 6-10 Influenza Type A (PCR) Influenza Type B (PCR) RSV RNA Qual (PCR) SARS-CoV-2 RNA (RT-PCR) 10/09/23 10/09/23 10/09/23 00:00 00:15 05:43 WBC RBC Hgb Hct MCV MCH MCHC RDW Plt Count MPV Immature Gran % (Auto) Neut % (Auto) Lymph % (Auto) [place] % (Auto) Eos % (Auto) Baso % (Auto) Lymph # (Auto) [place] # (Auto) Eos # (Auto) Baso # (Auto) Abs Immat Gran (auto) Absolute Neuts (auto) Absolute Nucleated RBC Nucleated RBC % (auto) Smear Tech's Comments VBG pH 7.44 H 7.53 H VBG pCO2 16 15 VBG pO2 61 81 VBG HCO3 11 L 13 L VBG O2 Saturation 87.0 99.0 VBG Base Excess -10.3 -7.3 Sodium Potassium Chloride Carbon Dioxide Anion Gap BUN Creatinine Estim Creat Clear Calc Estimated GFR Random Glucose Lactic Acid Calcium Phosphorus 6.7 H Magnesium 3.0 H Total Bilirubin AST ALT Alkaline Phosphatase Total Creatine Kinase Troponin I High Sens Total Protein Albumin TSH Urine Color Urine Appearance Urine pH Ur Specific [place] Urine Protein Urine Glucose (UA) Urine Ketones Urine Blood Urine Nitrite Ur Leukocyte Esterase Urine RBC Urine WBC Ur Squamous Epith Cells Urine Bacteria Hyaline Casts Influenza Type A (PCR) Influenza Type B (PCR) RSV RNA Qual (PCR) SARS-CoV-2 RNA (RT-PCR) 10/09/23 07:20 WBC 34.4 H* RBC 2.39 L D Hgb 7.2 L D Hct 19.5 L* D MCV 81.6 MCH 30.1 MCHC 36.9 H RDW 14.6 Plt Count 283 MPV 10.8 Immature Gran % (Auto) 2.1 H Neut % (Auto) 87.6 H Lymph % (Auto) 5.7 L [place] % (Auto) 4.2 Eos % (Auto) 0.2 Baso % (Auto) 0.2 Lymph # (Auto) 2.0 [place] # (Auto) 1.4 H Eos # (Auto) 0.1 Baso # (Auto) 0.1 Abs Immat Gran (auto) 0.73 H Absolute Neuts (auto) 30.2 H Absolute Nucleated RBC 0.000 Nucleated RBC % (auto) 0.0 Smear Tech's Comments VERIFIED VBG pH VBG pCO2 VBG pO2 VBG HCO3 VBG O2 Saturation VBG Base Excess Sodium 131 L Potassium 2.1 L* Chloride 91 L Carbon Dioxide 16 L Anion Gap 26 H BUN 77 H Creatinine 4.84 H* Estim Creat Clear Calc 10.5 Estimated GFR 10 Random Glucose 94 Lactic Acid Calcium 7.3 L D Phosphorus 3.9 Magnesium 2.5 Total Bilirubin 1.7 H AST 34 H ALT 7 Alkaline Phosphatase 200 H Total Creatine Kinase Troponin I High Sens Total Protein 5.8 L Albumin 3.1 L TSH Urine Color Urine Appearance Urine pH Ur Specific [place] Urine Protein Urine Glucose (UA) Urine Ketones Urine Blood Urine Nitrite Ur Leukocyte Esterase Urine RBC Urine WBC Ur Squamous Epith Cells Urine Bacteria Hyaline Casts Influenza Type A (PCR) Influenza Type B (PCR) RSV RNA Qual (PCR) SARS-CoV-2 RNA (RT-PCR) Progress Note: A&P Assessment and plan (1) Failure to thrive in adult: Status: Acute (2) Acute kidney injury: Status: Acute Plan Assessment: 47-year-old lady with underlying anorexia admitted with failure to thrive Plan: Neuro: No acute issues. Cardiac: Continue to titrate off pressors. Restart midodrine when able to take p.o.. Pulmonary: No acute issues. Renal: Electrolyte and renal function are improving. Continue to monitor electrolytes, renal indices, and urine output. Endo: No acute issues. GI: No acute issues. ID: No acute issues Heme/Onc: No acute issues. Psych: No acute issues. Miscellaneous: No acute issues. Prophylaxis: Heparin Diet: Regular/PPN Critical care time spent: 45 minutes Quality Stroke Does the patient have a stroke diagnosis?: No VTE Prior VTE?: No VTE Risk Level:: Medical - moderate - high VTE Device Contraindication: N/A - Device Ordered VTE Drug Contraindication: N/A - Med Ordered
--- NOTE | 2023-10-09 11:14 | MHC.CLN ---
RE: CONSULT PPN TO START PER MD PT RECEIVING REGULAR DIET REVIEWED LABS DISCUSSED WITH PHARMACY RECOMMEND PPN TO START AT 35ML/HR TO PROVIDE 428KCALS, 84G DEXTROSE, 36G PROTEIN FOR 3/10 RECOMMEND INCREASE PPN TO 55ML/HR TOPROVIDE 673KCALS, 132G DEXTROSE, 56G PROTEIN REPLETE LYTES NEEDED FULL NUTRITION ASSESSMENT TO FOLLOW
--- NOTE | 2023-10-09 11:59 | MHC.CM.PN ---
CM MET WITH PT AT BEDSIDE. PT LIVES ALONE BUT HAS FAMILY SUPPORT AND IS ACTIVE WITH [facility]. PT USES W/C PRIMARY SOURCE OF MOBILITY. PT WAS JUST RECENTLY AT [facility] , HAS BEEN HOME FOR A MONTH. +HCP. PCP DR. GEOFFREY COATES. DP: HOME WITH RESUMPTION OF [facility] VS STR? PENDING P.T. EVAL. PT STATES SHE WILL NEED A BLS TRANSPORT HOME. CM WILL CONTINUE TO FOLLOW FOR ANY CHANGE IN DC NEEDS/PLAN
[2023-10-09] MEDS: Lidocaine 4 % Patch ADH..PATCH 1 PATCH TRANSDERMA (12:54)
[2023-10-09 13:24] LABS: Venous Blood Gas Refer to POC result
[2023-10-09 14:20] LABS: Anion Gap 23 (12-20); Blood Urea Nitrogen 77 mg/dL (9-16); Calcium 7.8 mg/dL (8.4-10.2); Carbon Dioxide 18 mmol/L (22-29); Chloride 92 mmol/L (96-108); Creatinine Clr Calc Pharmacy 10.5; Estimated Glomerular Filt Rate 10; Glucose Random 124 mg/dL (60-115); Sodium 130 mmol/L (135-145)
[2023-10-09 15:16] LABS: CDiff Gene PCR NEGATIVE (Negative)
[2023-10-09] MEDS: Midodrine HCl 5 MG TABLET PO (15:19)
[2023-10-09] MEDS: Albuterol Sulfate (0.083%) 2.5 MG/3 ML VIAL.NEB INHALE ×2 (15:35→18:18)
[2023-10-09] MEDS: Norepinephrine Bitartrate/D5W 8 MG/250 ML PLAST..BAG 14.46 MG IV (17:47)
[2023-10-09] MEDS: Furosemide 40 MG/4 ML VIAL IVPUSH (18:05)
--- NOTE | 2023-10-09 18:05 | PM.EVENT ---
Event Note Date of Service: 10/09/23 Event Note: ROMAN due to tubular injury. C/W current supportive management. Shall closely follow along
--- NOTE | 2023-10-09 19:04 | PC.NURSE ---
At 1750 pt satting at 77% on 15L Multani, Nonrebreather mask place on top, RT at bedside and MD notified. Pt transition to High flow NC, IVF stopped and Lasix 40mg IVP given per MD order. 1810 Pt satting 94%. will continue to monitor.
[2023-10-09 20:20] LABS: Venous Blood Gas Refer to POC result
[2023-10-09 20:21] LABS: VBG Base Excess -14.8 mmol/L; VBG HCO3 10 mmol/L (22-26); VBG pCO2 23 mmHg; VBG pH 7.25 (7.32-7.43); VBG pO2 78 mmHg
[2023-10-09 20:41] LABS: Anion Gap 32 (12-20); Blood Urea Nitrogen 75 mg/dL (9-16); Carbon Dioxide 11 mmol/L (22-29); Chloride 93 mmol/L (96-108); Creatinine Clr Calc Pharmacy 10.3; Estimated Glomerular Filt Rate 10; Glucose Random 110 mg/dL (60-115); Magnesium 2.3 mg/dL (1.6-2.6); Phosphorus 5.2 mg/dL (2.7-4.5); Potassium 4.5 mmol/L (3.3-5.1); Sodium 131 mmol/L (135-145)
[2023-10-09] MEDS: Sodium Bicarbonate 8.4% 50 MEQ/50 ML VIAL IVPUSH ×3 (20:44→23:03)
[2023-10-09] MEDS: propofoL 200 MG/20 ML VIAL 50 MG IVPUSH (20:46)
[2023-10-09] MEDS: propofoL 1,000 MG/100 ML VIAL 8.17 MG IVCONT (20:47)
--- NOTE | 2023-10-09 21:42 | W.PM.CCHP ---
Procedures Date of Service Date of Service: 10/09/23 <Saurav Haro NP - Last Filed: 10/09/23 21:45> 10/10/23 <Timmy Lujan MD - Last Filed: 10/10/23 10:43> Intubation Intubation Comments: Patient with acute respiratory distress, refractory to on nasal cannula, requiring emergent intubation for hypoxemia. Patient intubated with 7 cuffed ET tube under glide scope guidance with visualization of vocal cords, without immediate complications. ET tube position verified with Chest XRAY. <Saurav Haro NP - Last Filed: 10/09/23 21:45> Consent for Procedure: Emergent-no informed consent obtained <Saurav Haro NP - Last Filed: 10/09/23 21:45> Time out performed: Yes <Saurav Haro NP - Last Filed: 10/09/23 21:45> Sedative: propofol <Saurav Haro NP - Last Filed: 10/09/23 21:45> Mg given: 50 <Saurav Haro NP - Last Filed: 10/09/23 21:45> Laryngoscope: fiber optic video scope <Saurav Haro NP - Last Filed: 10/09/23 21:45> ET tube size: 7 <Saurav Haro NP - Last Filed: 10/09/23 21:45> ET tube uncuffed: No <Saurav Haro NP - Last Filed: 10/09/23 21:45> Tube secured depth (cm): 24 <Saurav Haro NP - Last Filed: 10/09/23 21:45> Tube secured location: lips <Saurav Haro NP - Last Filed: 10/09/23 21:45> Tube placement confirmation: visualized tube passing through cords, equal breath sounds bilaterally, no breath sounds over epigastrium and confirmation by capnometry <Saurav Haro NP - Last Filed: 10/09/23 21:45> Patient tolerated procedure: well and no complications <Saurav Haro NP - Last Filed: 10/09/23 21:45> Intubation complications: none <Saurav Haro NP - Last Filed: 10/09/23 21:45>
[2023-10-09] MEDS: Norepinephrine Bitartrate/D5W 8 MG/250 ML PLAST..BAG 25.51 MG IV (21:48)
--- NOTE | 2023-10-09 21:49 | W.PM.CCHP ---
Procedures Date of Service Date of Service: 10/09/23 <Saurav Haro NP - Last Filed: 10/09/23 21:51> 10/10/23 <Timmy Lujan MD - Last Filed: 10/10/23 10:43> Central Line Placement Right IJ: Central Line Comments: Patient requiring high amounts of peripheral pressors,? emergent Central line placed Right internal jugular triple lumen central venous catheter placed in usual sterile conditions under ultrasound guidance for appropriate vascular access without immediate complications. Central line position verified with Chest XRAY. <Saurav Haro NP - Last Filed: 10/09/23 21:51> Consent for Procedure: Emergent-no informed consent obtained <Saurav Haro NP - Last Filed: 10/09/23 21:51> Time out performed: Yes <Saurav Haro NP - Last Filed: 10/09/23 21:51> Sterile Technique Used: Yes <Saurav Haro NP - Last Filed: 10/09/23 21:51> Patient placed on monitor/pulse ox: Yes <Saurav Haro NP - Last Filed: 10/09/23 21:51> prep: mask, gown and gloves <Saurav Haro NP - Last Filed: 10/09/23 21:51> Central line prep: Chlorhexidine scrub <Saurav Haro NP - Last Filed: 10/09/23 21:51> Local anesthesia used: other anesthetic (On propofol for vent sedation ) <Saurav Haro NP - Last Filed: 10/09/23 21:51> Ultrasound used for placement: Yes <Saurav Haro NP - Last Filed: 10/09/23 21:51> Central line lumen inserted: triple <Saurav Haro NP - Last Filed: 10/09/23 21:51> Post procedure: sutured in place, good blood return, all ports aspirated, flushed, capped and sterile dressing applied <Saurav Haro NP - Last Filed: 10/09/23 21:51> Post procedure x-ray: tip of catheter in good position and no pneumothorax seen <Saurav Haro NP - Last Filed: 10/09/23 21:51> Patient tolerated procedure: well <Saurav Haro NP - Last Filed: 10/09/23 21:51> Complications: none <Saurav Haro NP - Last Filed: 10/09/23 21:51>
[2023-10-09] MEDS: Parenteral Nutrition 840 ML 35 ML IV (21:56)
[2023-10-09 22:01] LABS: Mean Corpuscular HGB Conc 34.6 g/dl (31.0-35.0); Mean Corpuscular Hemoglobin 30.4 pg (27.0-33.0); Mean Corpuscular Volume 87.8 fL (80.0-98.0); Mean Platelet Volume 10.7 fL (9.4-12.3); NRBC Pct Auto 0.1 /100WBC (0.0-0.2); Platelet Count 215 X10*3/uL (160-400); Red Blood Count 1.81 X10*6/uL (4.20-5.50); Red Cell Distribution Width 15.7 % (11.0-16.0)
[2023-10-09 22:10] LABS: VBG Base Excess -15.4 mmol/L; VBG HCO3 12 mmol/L (22-26); VBG pCO2 40 mmHg; VBG pO2 155 mmHg
[2023-10-09 22:11] LABS: Hematocrit 15.9 % (37.0-47.0); Hemoglobin 5.5 g/dl (12.0-16.0); White Blood Count 54.3 X10*3/uL (4.8-10.8)
[2023-10-09 22:17] LABS: Venous Blood Gas Refer to POC result
[2023-10-09] MEDS: Calcium Gluconate/NaCl,Iso-Osm 1 GM/50 ML PLAST..BAG IV (22:37)
[2023-10-09] MEDS: Piperacillin Sodium/Tazobactam 3.375 GM in 0.9 % Sodium Chloride 50 ML IV (22:40)
[2023-10-09 22:48] LABS: Band Neutrophils Percent 24 % (3-5); Lymphocytes Absolute Manual 2.2 X10*3/uL (1.2-4.9); Lymphocytes Percent Manual 4 % (20-40); Metamyelocytes Absolute 1.1 X10*3/uL; Metamyelocytes Percent 2 %; Monocytes Absolute Manual 0.5 X10*3/uL (0.1-1.2); Monocytes Percent Manual 1 % (2-11); Neutrophils Absolute Manual 50.5 X10*3/uL (2.0-8.3); Neutrophils Percent Manual 69 % (45-73); RBC Morphology NOTED
[2023-10-09 22:49] LABS: Platelet Estimate NORMAL (NORMAL); Platelet Morphology Comment NORMAL; Target Cells 1+ (5-14) /OIF
[2023-10-09] MEDS: vancomycin HCL 750 MG in 0.9 % Sodium Chloride 250 ML 265 MG IV (22:55)
[2023-10-09 23:48] LABS: VBG Base Excess -17.8 mmol/L; VBG HCO3 10 mmol/L (22-26); VBG pCO2 35 mmHg; VBG pH 7.06 (7.32-7.43); VBG pO2 69 mmHg
[2023-10-10] VITALS (56 sets, daily range): BP systolic 0–212; BP diastolic 0–148; PULSE 0–138; RESP 18–31; TEMP 35.1–39.5; O2SAT 93–100; BMI 16.7
[2023-10-10] MEDS: Sodium Bicarbonate 8.4% 50 MEQ/50 ML SYRINGE IVPUSH ×3 (00:07→12:19)
[2023-10-10] MEDS: Sodium Bicarbonate 8.4% 50 MEQ/50 ML VIAL IVPUSH ×6 (00:25→15:04)
[2023-10-10] MEDS: Pantoprazole Sodium 40 MG/10 ML VIAL 80 MG IVPUSH (01:02)
[2023-10-10] MEDS: Tranexamic Acid 1,000 MG in 0.9 % Sodium Chloride 50 ML 360 MG IV (01:09)
[2023-10-10 01:19] LABS: VBG HCO3 11 mmol/L (22-26); VBG pCO2 26 mmHg; VBG pH 7.24 (7.32-7.43); VBG pO2 51 mmHg
[2023-10-10 03:08] LABS: Hematocrit 22.3 % (37.0-47.0); Hemoglobin 7.2 g/dl (12.0-16.0); Mean Corpuscular HGB Conc 32.3 g/dl (31.0-35.0); Mean Corpuscular Hemoglobin 29.3 pg (27.0-33.0); Mean Corpuscular Volume 90.7 fL (80.0-98.0); Mean Platelet Volume 11.4 fL (9.4-12.3); NRBC Pct Auto 0.2 /100WBC (0.0-0.2); Platelet Count 121 X10*3/uL (160-400); Red Blood Count 2.46 X10*6/uL (4.20-5.50); Red Cell Distribution Width 16.3 % (11.0-16.0)
[2023-10-10 03:09] LABS: WBC ABN SCTR FOR CBC 1
[2023-10-10 03:11] LABS: White Blood Count 43.8 X10*3/uL (4.8-10.8)
[2023-10-10 03:12] LABS: Glucose, Whole Blood 13 mg/dL (60-115)
[2023-10-10 03:12] LABS: Albumin Level 2.2 g/dL (3.5-5.0); Anion Gap 44 (12-20); Blood Urea Nitrogen 72 mg/dL (9-16); Calcium 6.6 mg/dL (8.4-10.2); Carbon Dioxide 11 mmol/L (22-29); Chloride 93 mmol/L (96-108); Estimated Glomerular Filt Rate 10; Glucose Random 30 mg/dL (60-115); Magnesium 2.4 mg/dL (1.6-2.6); Phosphorus 9.3 mg/dL (2.7-4.5); Potassium 4.7 mmol/L (3.3-5.1); Sodium 143 mmol/L (135-145)
[2023-10-10 03:15] LABS: Venous Blood Gas Refer to POC result
[2023-10-10] MEDS: Dextrose 50 % 25 GM/50 ML SYRINGE IVPUSH (03:15)
[2023-10-10 03:30] LABS: Atypical Lymph Absolute Manual 0.4 x10*3/uL; Atypical Lymphs Percent Manual 1 % (0-6); Band Neutrophils Percent 21 % (3-5); Basophils Abs Manual 0.4 X10*3/uL (0.0-0.2); Basophils Percent Manual 1 % (0-2); Lymphocytes Absolute Manual 0.9 X10*3/uL (1.2-4.9); Lymphocytes Percent Manual 2 % (20-40); Macrocytosis 1+ (5-14) /OIF; Metamyelocytes Absolute 2.2 X10*3/uL; Metamyelocytes Percent 5 %; Monocytes Absolute Manual 1.3 X10*3/uL (0.1-1.2); Monocytes Percent Manual 3 % (2-11); Myelocytes Absolute 0.4 X10*/uL; Myelocytes Percent 1 %; Neutrophils Absolute Manual 38.1 X10*3/uL (2.0-8.3); Neutrophils Percent Manual 66 % (45-73); RBC Morphology NOTED
[2023-10-10 03:31] LABS: Platelet Estimate SLIGHTLY DECREASED (NORMAL)
[2023-10-10 03:32] LABS: Acanthocytes 1+ (0-2) /OIF; Platelet Morphology Comment NORMAL
[2023-10-10 03:34] LABS: Spherocytes 2+ (3-5) /OIF; Target Cells 2+ (15-30) /OIF; Toxic Vacuolation PRESENT
[2023-10-10] MEDS: Calcium Gluconate/NaCl,Iso-Osm 2 GM/100 ML PLAST..BAG IV ×2 (03:34→08:12)
[2023-10-10 03:53] LABS: Venous Blood Gas Refer to POC result
[2023-10-10 03:56] LABS: Glucose, Whole Blood 129 mg/dL (60-115)
[2023-10-10] MEDS: Albumin Human 25 % 100 ML IV ×2 (04:00→09:45)
[2023-10-10 04:03] LABS: Venous Blood Gas Refer to POC result
[2023-10-10 06:09] LABS: VBG Base Excess -16.6 mmol/L; VBG HCO3 11 mmol/L (22-26); VBG pCO2 32 mmHg; VBG pH 7.13 (7.32-7.43); VBG pO2 74 mmHg
[2023-10-10] MEDS: Norepinephrine Bitartrate/D5W 8 MG/250 ML PLAST..BAG 34.02 MG IV (06:17)
[2023-10-10 06:21] LABS: Hematocrit 22.6 % (37.0-47.0); Hemoglobin 7.5 g/dl (12.0-16.0); Mean Corpuscular HGB Conc 33.2 g/dl (31.0-35.0); Mean Corpuscular Hemoglobin 29.6 pg (27.0-33.0); Mean Corpuscular Volume 89.3 fL (80.0-98.0); Mean Platelet Volume 10.6 fL (9.4-12.3); NRBC Pct Auto 0.2 /100WBC (0.0-0.2); Platelet Count 111 X10*3/uL (160-400); Red Blood Count 2.53 X10*6/uL (4.20-5.50); Red Cell Distribution Width 15.6 % (11.0-16.0)
[2023-10-10 06:22] LABS: WBC ABN SCTR FOR CBC 1
[2023-10-10 06:24] LABS: White Blood Count 41.9 X10*3/uL (4.8-10.8)
[2023-10-10 06:36] LABS: Alanine Aminotransferase 24 U/L (0-31); Albumin Level 2.8 g/dL (3.5-5.0); Alkaline Phosphatase 101 U/L (39-117); Anion Gap 46 (12-20); Aspartate Amino Transferase 128 U/L (5-31); Bilirubin Total 3.9 mg/dL (0.0-1.0); Blood Urea Nitrogen 70 mg/dL (9-16); Calcium 7.1 mg/dL (8.4-10.2); Carbon Dioxide 13 mmol/L (22-29); Chloride 90 mmol/L (96-108); Creatinine Clr Calc Pharmacy 10.5; Estimated Glomerular Filt Rate 10; Glucose Random 70 mg/dL (60-115); Magnesium 2.4 mg/dL (1.6-2.6); Phosphorus 11.2 mg/dL (2.7-4.5); Potassium 4.6 mmol/L (3.3-5.1); Sodium 144 mmol/L (135-145); Total Protein 4.1 g/dL (6.5-8.0)
[2023-10-10 07:05] LABS: Band Neutrophils Percent 17 % (3-5); Eosinophils Absolute Manual 0.4 X10*3/uL (0.0-0.4); Eosinophils Percent Manual 1 % (0-4); Lymphocytes Absolute Manual 3.8 X10*3/uL (1.2-4.9); Lymphocytes Percent Manual 9 % (20-40); Metamyelocytes Absolute 2.1 X10*3/uL; Metamyelocytes Percent 5 %; Myelocytes Absolute 1.3 X10*/uL; Myelocytes Percent 3 %; Neutrophils Absolute Manual 34.4 X10*3/uL (2.0-8.3); Neutrophils Percent Manual 65 % (45-73); Nucleated Red Blood Cells 1 /100WBC (0-0)
[2023-10-10 07:11] LABS: Acanthocytes 2+ (3-5) /OIF; Macrocytosis 1+ (5-14) /OIF; RBC Morphology NOTED; Schistocytes 1+ (0-2) /OIF
[2023-10-10 07:12] LABS: Burr Cells 3+ (>5) /OIF; Dohle Bodies PRESENT; Spherocytes 1+ (0-2) /OIF; Target Cells 1+ (5-14) /OIF
[2023-10-10 07:13] LABS: Platelet Estimate DECREASED (NORMAL); Platelet Morphology Comment NORMAL
--- NOTE | 2023-10-10 07:16 | PC.NURSE ---
Patient was intubated at 2045. TLC was placed at 2115. Levophed titrations outside of parameters were done with the WIRELESS STORE MANAGER at the bedside. RBC's were administered utilizing a pressure bag, per WIRELESS STORE MANAGER request. Critical glucose of 30, was confirmed with a POC of 13, per lab request. Caspofungin was not administered when ordered, medication was not available within the hospital, WIRELESS STORE MANAGER aware. Patient with 2200 ml of dark maroon output from OGT, and 2 large stools with dark maroon/black liquid stools. Bilateral feet cool and cyanotic, back and buttocks dusky at 0500, WIRELESS STORE MANAGER aware.
[2023-10-10 08:07] LABS: INTERNATIONAL NORM RATIO 3.5 (0.9-1.1); Prothrombin Time 43.2 SEC (11.1-13.3)
[2023-10-10] MEDS: Caspofungin Acetate 70 MG in 0.9 % Sodium Chloride 250 ML 250 MG IV (08:10)
[2023-10-10] MEDS: Chlorhexidine Gluc Oral Rinse 15 ML MOUTHWASH BUCCAL ×2 (08:13→16:26)
[2023-10-10 09:49] LABS: ABG Base Excess -18.8 mmol/L; ABG HCO3 9 mmol/L (22-26); ABG pCO2 28 mmHg (32-45); ABG pO2 68 mmHg (83-108)
--- NOTE | 2023-10-10 10:43 | P.PNCC_ITS ---
Subjective Subjective Date of Service: 10/10/23 Interval History: 47-year-old lady with underlying anorexia with progressive weakness admitted on 10/08/2023 with failure to thrive with significant electrolyte abnormalities and acute kidney failure secondary to poor p.o. intake. Patient was started on electrolyte and pressor support. Overnight with progressive oliguria to anuria resulting in worsening hypoxia requiring intubation and ventilatory support secondary to development of pulmonary edema. Also, with acute blood loss anemia secondary to GI bleed requiring transfusion of 4 units of packed red blood cells, platelets, and FFP likely secondary to erosive gastritis on the background vitamin K nutritional deficiency and systemic glucocorticoid use, now on PPI with Gastroenterology consulted. Furthermore, with progressive metabolic acidosis requiring bicarbonate support, empirically covered with broad-spectrum antibiotics. Critical Care Time (minutes): 90 Physical Exam 2 Vital Signs: Vital Signs: Last Vital Signs Temp 101.3 F H 10/10/23 10:19 Pulse 108 H 10/10/23 10:19 Resp 31 H 10/10/23 10:19 BP 94/31 L 10/10/23 10:19 Pulse Ox 97 10/10/23 08:00 O2 Del Method Mechanical Ventil ation 10/10/23 10:00 O2 Flow Rate 50 10/09/23 19:58 FiO2 70 10/10/23 10:00 BMI result Body Mass Index 16.7 Const: General: no acute distress and other (Sedated on the vent) N utritional Appearance: malnourished Eyes: Sclerae: sclerae normal EOM: EOMs intact bilaterally Neck: Neck: Yes no lymphadenopathy, Yes trachea midline and Yes supple Resp: Effort & Inspection: tachypneic Auscultation: crackles bilateral Cardio: Rate: tachycardic Rhythm: regular rhythm Heart sounds: no gallops, no murmurs and no rubs GI: Palpation (GI): Soft to palpation and Other GI palpation findings present ( Nontender) Auscultation: normal bowel sounds Extrem: General: No clubbing, No cyanosis and Yes edema (1+ bilateral) Objective Data Labs 10/10/23 06:01 10/10/23 06:01 Labs: Laboratory Results - last 24 hr 10/09/23 10/09/23 10/09/23 13:20 13:44 20:08 WBC RBC Hgb Hct MCV MCH MCHC RDW Plt Count MPV Immature Gran % (Auto) Neut % (Auto) Lymph % (Auto) Schleicher % (Auto) Eos % (Auto) Baso % (Auto) Lymph # (Auto) Schleicher # (Auto) Eos # (Auto) Baso # (Auto) Abs Immat Gran (auto) Absolute Neuts (auto) Absolute Nucleated RBC Nucleated RBC % (auto) Neutrophils % (Manual) Band Neutrophils % Lymphocytes % (Manual) Atypical Lymphs % (Man) Monocytes % (Manual) Eosinophils % (Manual) Basophils % (Manual) Metamyelocytes % Myelocytes % Abs Neuts (Manual) Lymphocytes # (Manual) Atyp Lymphs # (Manual) Monocytes # (Manual) Eosinophils # (Manual) Basophils # (Manual) Metamyelocytes # Myelocytes # Nucleated RBCs Toxic Vacuolation Dohle Bodies Platelet Estimate Plt Morphology Comment RBC Morphology Macrocytosis Spherocytes Target Cells [place] Cells Acanthocytes (Spur) Schistocytes Hold Purple Top PT INR O2 Saturation ABG pH at Pt Temp ABG pCO2 at Pt Temp ABG pO2 at Pt Temp ABG HCO3 ABG Base Excess (Actual) VBG pH VBG pCO2 VBG pO2 VBG HCO3 VBG O2 Saturation VBG Base Excess Sodium 130 L 131 L Potassium 3.0 L D 4.5 D Chloride 92 L 93 L Carbon Dioxide 18 L 11 L Anion Gap 23 H 32 H BUN 77 H 75 H Creatinine 4.82 H* 4.92 H* Estim Creat Clear Calc 10.5 10.3 Estimated GFR 10 10 POC Glucose Random Glucose 124 H 110 Calcium 7.8 L D 7.0 L D Phosphorus 5.2 H Magnesium 2.3 Total Bilirubin AST ALT Alkaline Phosphatase Total Protein Albumin 3.0 L C. difficile Tox B Gene NEGATIVE Blood Type Antibody Screen Crossmatch 10/09/23 10/09/23 10/09/23 20:15 21:55 22:01 WBC 54.3 H* RBC 1.81 L D Hgb 5.5 L* D Hct 15.9 L* MCV 87.8 D MCH 30.4 MCHC 34.6 RDW 15.7 Plt Count 215 MPV 10.7 Immature Gran % (Auto) Cancelled Neut % (Auto) Cancelled Lymph % (Auto) Cancelled Schleicher % (Auto) Cancelled Eos % (Auto) Cancelled Baso % (Auto) Cancelled Lymph # (Auto) Cancelled Schleicher # (Auto) Cancelled Eos # (Auto) Cancelled Baso # (Auto) Cancelled Abs Immat Gran (auto) Cancelled Absolute Neuts (auto) Cancelled Absolute Nucleated RBC 0.070 H Nucleated RBC % (auto) 0.1 Neutrophils % (Manual) 69 Band Neutrophils % 24 H Lymphocytes % (Manual) 4 L Atypical Lymphs % (Man) Monocytes % (Manual) 1 L Eosinophils % (Manual) Basophils % (Manual) Metamyelocytes % 2 Myelocytes % Abs Neuts (Manual) 50.5 H Lymphocytes # (Manual) 2.2 Atyp Lymphs # (Manual) Monocytes # (Manual) 0.5 Eosinophils # (Manual) Basophils # (Manual) Metamyelocytes # 1.1 Myelocytes # Nucleated RBCs Toxic Vacuolation Dohle Bodies Platelet Estimate NORMAL Plt Morphology Comment NORMAL RBC Morphology NOTED Macrocytosis Spherocytes Target Cells 1+ (5-14) [place] Cells Acanthocytes (Spur) Schistocytes Hold Purple Top PT INR O2 Saturation ABG pH at Pt Temp ABG pCO2 at Pt Temp ABG pO2 at Pt Temp ABG HCO3 ABG Base Excess (Actual) VBG pH 7.25 L 7.10 L* VBG pCO2 23 40 VBG pO2 78 155 VBG HCO3 10 L 12 L VBG O2 Saturation 94.0 99.0 VBG Base Excess -14.8 -15.4 Sodium Potassium Chloride Carbon Dioxide Anion Gap BUN Creatinine Estim Creat Clear Calc Estimated GFR POC Glucose Random Glucose Calcium Phosphorus Magnesium Total Bilirubin AST ALT Alkaline Phosphatase Total Protein Albumin C. difficile Tox B Gene Blood Type O Positive Antibody Screen NEGATIVE Crossmatch See Detail 10/09/23 10/10/23 10/10/23 23:38 01:09 01:11 WBC 43.8 H* RBC 2.46 L D Hgb 7.2 L D Hct 22.3 L D MCV 90.7 MCH 29.3 MCHC 32.3 RDW 16.3 H Plt Count 121 L D MPV 11.4 Immature Gran % (Auto) Cancelled Neut % (Auto) Cancelled Lymph % (Auto) Cancelled Schleicher % (Auto) Cancelled Eos % (Auto) Cancelled Baso % (Auto) Cancelled Lymph # (Auto) Cancelled Schleicher # (Auto) Cancelled Eos # (Auto) Cancelled Baso # (Auto) Cancelled Abs Immat Gran (auto) Cancelled Absolute Neuts (auto) Cancelled Absolute Nucleated RBC 0.070 H Nucleated RBC % (auto) 0.2 Neutrophils % (Manual) 66 Band Neutrophils % 21 H Lymphocytes % (Manual) 2 L Atypical Lymphs % (Man) 1 Monocytes % (Manual) 3 Eosinophils % (Manual) Basophils % (Manual) 1 Metamyelocytes % 5 Myelocytes % 1 Abs Neuts (Manual) 38.1 H Lymphocytes # (Manual) 0.9 L Atyp Lymphs # (Manual) 0.4 Monocytes # (Manual) 1.3 H Eosinophils # (Manual) Basophils # (Manual) 0.4 H Metamyelocytes # 2.2 Myelocytes # 0.4 Nucleated RBCs Toxic Vacuolation PRESENT Dohle Bodies Platelet Estimate SLIGHTLY DECREASED Plt Morphology Comment NORMAL RBC Morphology NOTED Macrocytosis 1+ (5-14) Spherocytes 2+ (3-5) Target Cells 2+ (15-30) [place] Cells Acanthocytes (Spur) 1+ (0-2) Schistocytes Hold Purple Top SEE NOTE PT INR O2 Saturation ABG pH at Pt Temp ABG pCO2 at Pt Temp ABG pO2 at Pt Temp ABG HCO3 ABG Base Excess (Actual) VBG pH 7.06 L* 7.24 L VBG pCO2 35 26 VBG pO2 69 51 VBG HCO3 10 L 11 L VBG O2 Saturation TNP 85.0 VBG Base Excess -17.8 -14.0 Sodium Potassium Chloride Carbon Dioxide Anion Gap BUN Creatinine Estim Creat Clear Calc Estimated GFR POC Glucose Random Glucose Calcium Phosphorus Magnesium Total Bilirubin AST ALT Alkaline Phosphatase Total Protein Albumin C. difficile Tox B Gene Blood Type Antibody Screen Crossmatch 10/10/23 10/10/23 10/10/23 01:19 03:07 03:54 WBC RBC Hgb Hct MCV MCH MCHC RDW Plt Count MPV Immature Gran % (Auto) Neut % (Auto) Lymph % (Auto) Schleicher % (Auto) Eos % (Auto) Baso % (Auto) Lymph # (Auto) Schleicher # (Auto) Eos # (Auto) Baso # (Auto) Abs Immat Gran (auto) Absolute Neuts (auto) Absolute Nucleated RBC Nucleated RBC % (auto) Neutrophils % (Manual) Band Neutrophils % Lymphocytes % (Manual) Atypical Lymphs % (Man) Monocytes % (Manual) Eosinophils % (Manual) Basophils % (Manual) Metamyelocytes % Myelocytes % Abs Neuts (Manual) Lymphocytes # (Manual) Atyp Lymphs # (Manual) Monocytes # (Manual) Eosinophils # (Manual) Basophils # (Manual) Metamyelocytes # Myelocytes # Nucleated RBCs Toxic Vacuolation Dohle Bodies Platelet Estimate Plt Morphology Comment RBC Morphology Macrocytosis Spherocytes Target Cells [place] Cells Acanthocytes (Spur) Schistocytes Hold Purple Top PT INR O2 Saturation ABG pH at Pt Temp ABG pCO2 at Pt Temp ABG pO2 at Pt Temp ABG HCO3 ABG Base Excess (Actual) VBG pH VBG pCO2 VBG pO2 VBG HCO3 VBG O2 Saturation VBG Base Excess Sodium 143 Potassium 4.7 Chloride 93 L Carbon Dioxide 11 L Anion Gap 44 H BUN 72 H Creatinine 4.62 H* Estim Creat Clear Calc 11.0 Estimated GFR 10 POC Glucose 13 L* 129 H Random Glucose 30 L* Calcium 6.6 L Phosphorus 9.3 H Magnesium 2.4 Total Bilirubin AST ALT Alkaline Phosphatase Total Protein Albumin 2.2 L C. difficile Tox B Gene Blood Type Antibody Screen Crossmatch 10/10/23 10/10/23 10/10/23 05:58 06:01 07:47 WBC 41.9 H* RBC 2.53 L Hgb 7.5 L Hct 22.6 L MCV 89.3 MCH 29.6 MCHC 33.2 RDW 15.6 Plt Count 111 L MPV 10.6 Immature Gran % (Auto) Cancelled Neut % (Auto) Cancelled Lymph % (Auto) Cancelled Schleicher % (Auto) Cancelled Eos % (Auto) Cancelled Baso % (Auto) Cancelled Lymph # (Auto) Cancelled Schleicher # (Auto) Cancelled Eos # (Auto) Cancelled Baso # (Auto) Cancelled Abs Immat Gran (auto) Cancelled Absolute Neuts (auto) Cancelled Absolute Nucleated RBC 0.070 H Nucleated RBC % (auto) 0.2 Neutrophils % (Manual) 65 Band Neutrophils % 17 H Lymphocytes % (Manual) 9 L Atypical Lymphs % (Man) Monocytes % (Manual) Eosinophils % (Manual) 1 Basophils % (Manual) Metamyelocytes % 5 Myelocytes % 3 Abs Neuts (Manual) 34.4 H Lymphocytes # (Manual) 3.8 Atyp Lymphs # (Manual) Monocytes # (Manual) Eosinophils # (Manual) 0.4 Basophils # (Manual) Metamyelocytes # 2.1 Myelocytes # 1.3 Nucleated RBCs 1 H Toxic Vacuolation Dohle Bodies PRESENT Platelet Estimate DECREASED Plt Morphology Comment NORMAL RBC Morphology NOTED Macrocytosis 1+ (5-14) Spherocytes 1+ (0-2) Target Cells 1+ (5-14) Mat[place] Cells 3+ (>5) Acanthocytes (Spur) 2+ (3-5) Schistocytes 1+ (0-2) Hold Purple Top PT 43.2 H D INR 3.5 H D O2 Saturation ABG pH at Pt Temp ABG pCO2 at Pt Temp ABG pO2 at Pt Temp ABG HCO3 ABG Base Excess (Actual) VBG pH 7.13 L* VBG pCO2 32 VBG pO2 74 VBG HCO3 11 L VBG O2 Saturation 95.0 VBG Base Excess -16.6 Sodium 144 Potassium 4.6 Chloride 90 L Carbon Dioxide 13 L Anion Gap 46 H BUN 70 H Creatinine 4.55 H* Estim Creat Clear Calc 10.5 Estimated GFR 10 POC Glucose Random Glucose 70 Calcium 7.1 L D Phosphorus 11.2 H Magnesium 2.4 Total Bilirubin 3.9 H AST 128 H ALT 24 Alkaline Phosphatase 101 Total Protein 4.1 L Albumin 2.8 L C. difficile Tox B Gene Blood Type Antibody Screen Crossmatch 10/10/23 09:41 WBC RBC Hgb Hct MCV MCH MCHC RDW Plt Count MPV Immature Gran % (Auto) Neut % (Auto) Lymph % (Auto) Schleicher % (Auto) Eos % (Auto) Baso % (Auto) Lymph # (Auto) Schleicher # (Auto) Eos # (Auto) Baso # (Auto) Abs Immat Gran (auto) Absolute Neuts (auto) Absolute Nucleated RBC Nucleated RBC % (auto) Neutrophils % (Manual) Band Neutrophils % Lymphocytes % (Manual) Atypical Lymphs % (Man) Monocytes % (Manual) Eosinophils % (Manual) Basophils % (Manual) Metamyelocytes % Myelocytes % Abs Neuts (Manual) Lymphocytes # (Manual) Atyp Lymphs # (Manual) Monocytes # (Manual) Eosinophils # (Manual) Basophils # (Manual) Metamyelocytes # Myelocytes # Nucleated RBCs Toxic Vacuolation Dohle Bodies Platelet Estimate Plt Morphology Comment RBC Morphology Macrocytosis Spherocytes Target Cells [place] Cells Acanthocytes (Spur) Schistocytes Hold Purple Top PT INR O2 Saturation 88.0 ABG pH at Pt Temp 7.10 L* ABG pCO2 at Pt Temp 28 L ABG pO2 at Pt Temp 68 L ABG HCO3 9 L ABG Base Excess (Actual) -18.8 VBG pH VBG pCO2 VBG pO2 VBG HCO3 VBG O2 Saturation VBG Base Excess Sodium Potassium Chloride Carbon Dioxide Anion Gap BUN Creatinine Estim Creat Clear Calc Estimated GFR POC Glucose Random Glucose Calcium Phosphorus Magnesium Total Bilirubin AST ALT Alkaline Phosphatase Total Protein Albumin C. difficile Tox B Gene Blood Type Antibody Screen Crossmatch Microbiology Microbiology Results: Microbiology 10/08/23 Unknown Urine clean catch - Urine farmer top Urine Culture - Preliminary Culture in progress. 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 Cardiac: Distributive shock, continue to titrate off pressor support as tolerated. Pulmonary: Acute hypoxic respiratory failure secondary to pulmonary edema now requiring ventilatory support. Continue titrate off as tolerated. Renal: Acute kidney injury. Oliguric. May require dialysis. Continue to monitor electrolytes, renal indices, and urine output. Metabolic acidosis, secondary to underlying ROMAN and likely lactic acidosis. Endo: No acute issues. GI: GI bleed, likely erosive gastritis on the background of vitamin K nutritional deficiency and systemic glucocorticoid use. On empiric PPI. Gastroenterology evaluation requested. ID: Sepsis is unlikely. Empirically covered with broad-spectrum antibiotics. Heme/Onc: Acute blood loss anemia secondary to GI bleed status post transfusion of 4 units of packed red blood cells and 1 unit platelets. Continue to monitor blood counts. Transfusion threshold of 7. Coagulopathy secondary to vitamin K nutritional deficiency, status post 2 units of FFP and vitamin K. Psych: No acute issues. Miscellaneous: No acute issues. Prophylaxis: pneumatic compression, ppi Diet: TPN Critical care time spent: 90 minutes Quality Stroke Does the patient have a stroke diagnosis?: No VTE Prior VTE?: No VTE Risk Level:: Medical - moderate - high VTE Device Contraindication: N/A - Device Ordered VTE Drug Contraindication: N/A - Med Ordered
[2023-10-10 11:04] LABS: Venous Blood Gas Refer to POC result
[2023-10-10 12:11] LABS: Lactic Acid 28.5 mmol/L (0.5-2.0)
[2023-10-10] MEDS: EPINEPHrine 1 MG/10 ML SYRINGE IVPUSH ×2 (12:19→12:34)
[2023-10-10] MEDS: EPINEPHrine 5 MG in Dextrose 5 % 250 ML 26.19 MG IVCONT (12:28)
--- NOTE | 2023-10-10 12:35 | PM.GICN ---
History of Present Illness Data of Consult Service Date: 10/10/23 Primary Care Provider: Delta Kurtz MD [facility] Past Medical History Medical History (Updated 10/10/23 @ 10:55 by Timmy Lujan MD) Failure to thrive in adult Iron deficiency anemia Anorexia Grief Nonsustained ventricular tachycardia GERD (gastroesophageal reflux disease) Back problem Asthma Social History Social History Household Members: None Household Members Other:: none recent loss of Housing: House Do you presently have visiting nurse or other home services: No Unable to assess alcohol history related to: Unable to respond Patient Tobacco Use Status: Never used Tobacco Tobacco use type: Cigarette Smoked in Last 30 Days: Yes Use of substances other than those prescribed or required for medical reasons: No Currently Displaying Signs/Symptoms of Drug Intoxication Withdrawal: No Advance Directives: No Advance Directives Information Provided: No Do you have thoughts of harming others: None Do you have a plan to hurt others: No Plan Recently lost weight without trying: Yes Eating poorly because of decreased appetite: Yes Nutrition Risks: Anorexia, Emaciation/Cachexia and Poor intake 0-25% >4 days Patient : No : No Poor oral hygiene: Yes service: No Current occupational status: employed Meds Allergies Allergy/AdvReac Type Severity Reaction Status Date / Time amoxicillin Allergy Gastrointestinal Verified 08/30/23 11:46 Upset avocado Allergy Anaphylaxis Verified 08/30/23 11:46 honey Allergy Anaphylaxis Verified 08/30/23 11:46 Active Medications: Current Medications Albuterol Sulfate (Albuterol Sulfate (0.083%) 2.5 Mg/3 Ml Vial.Neb) 2.5 mg INHALE Q4H PRN PRN Reason: Shortness of Breath Last Admin: 10/09/23 18:18 Dose: 2.5 mg Chlorhexidine Gluconate (Chlorhexidine Gluc Oral Rinse 15 Ml Mouthwash) 15 ml BUCCAL TID [facility] Last Admin: 10/10/23 08:13 Dose: 15 ml Dextrose (Dextrose 50 % 25 Gm/50 Ml Syringe) 25 gm IVPUSH Q15M PRN; Protocol PRN Reason: per Hypoglycemia Standing Ord. Heparin Sodium (Porcine) (Heparin Sodium,Porcine 5,000 Unit/Ml Vial) 5,000 unit SUBCUT Q12H [facility] Last Admin: 10/10/23 11:04 Dose: Not Given Norepinephrine Bitartrate (Levophed) 8 mg in 250 mls @ 0 mls/hr IV .Q0M [facility]; Protocol Last Titration: 10/10/23 12:16 Dose: 1 mcg/kg/min, 85.05 mls/hr Nutrition (Parenteral) (Parenteral Nutrition) 840 mls @ 35 mls/hr IV .Q24H [facility]; Protocol Stop: 10/10/23 20:59 Last Infusion: 10/10/23 03:20 Dose: 35 mls/hr Albumin Human (Kedbumin 25 %) 100 mls @ 100 mls/hr IV Q6H [facility] Stop: 10/10/23 16:44 Last Infusion: 10/10/23 12:15 Dose: Infused Propofol (Diprivan) 1,000 mg in 100 mls @ 0 mls/hr IVCONT .Q0M [facility]; Protocol Last Titration: 10/10/23 08:02 Dose: 0 mcg/kg/min, 0 mls/hr Nutrition (Parenteral) (Parenteral Nutrition) 1,200 mls @ 50 mls/hr IV .Q24H [facility]; Protocol Stop: 10/11/23 20:59 Epinephrine 5 mg/ Dextrose 255 mls @ 0 mls/hr IVCONT .Q0M [facility]; Protocol Lidocaine (Lidocaine 4 % Patch Adh..Patch) 1 patch TRANSDERMA DAILY [facility]; Protocol Last Admin: 10/10/23 08:34 Dose: Not Given Pantoprazole Sodium (Pantoprazole Sodium 40 Mg/10 Ml Vial) 40 mg IVPUSH BID@0630,1630 [facility] Last Admin: 10/10/23 05:45 Dose: Not Given Pharmacy Consult (Consult Rx Parenteral Nutrition Ordering) 1 each MISCELLANE DAILY PRN PRN Reason: Consult order Sodium Bicarbonate (Sodium Bicarbonate 8.4% 50 Meq/50 Ml Vial) 50 meq IVPUSH Q5M PRN PRN Reason: Hypotension Sodium Bicarbonate (Sodium Bicarbonate 8.4% 50 Meq/50 Ml Vial) 50 meq IVPUSH Q3H [facility] Stop: 10/11/23 08:31 Last Admin: 10/10/23 12:15 Dose: 50 meq Home Medications Medication Instructions Recorded Confirmed Last Taken Type albuterol sulfate 90 mcg/actuation 2 puff inhalation Q4H PRN 08/01/23 10/08/2307/31/23 History aerosol inhaler Shortness Of Breath Or Wheezing fluticasone 250 mcg-salmeterol 50 1 ea inhalation BID 08/01/23 10/08/23 10/08/23 History mcg/dose blistr powdr for inhalation (Advair Diskus) loratadine 10 mg tablet (Claritin) 10 mg PO DAILY PRN Allergy Symptoms 08/01/23 10/08/23 Unknown History omeprazole 20 mg capsule,delayed 20 mg PO DAILY@0630 08/01/23 10/08/23 Unknown History release lidocaine 4 % topical patch 1 patch transdermal DAILY PRN Pain 10/08/23 10/08/23 Unknown History (Lidocaine Pain Relief) midodrine 5 mg tablet 5 mg PO TID@0600,1200,1800 10/08/23 10/08/23 10/08/23 History Physical Exam Vital Signs: Vital Signs: Last Vital Signs Temp 102.2 F H 10/10/23 12:00 Pulse 119 H 10/10/23 12:16 Resp 28 H 10/10/23 12:00 BP 54/15 L 10/10/23 12:16 Pulse Ox 100 10/10/23 12:00 O2 Del Method Mechanical Ventil ation 10/10/23 12:00 O2 Flow Rate 50 10/09/23 19:58 FiO2 50 10/10/23 12:00 BMI result Body Mass Index 16.7 Results Labs 10/10/23 06:01 10/10/23 06:01 Labs: Short CBC 10/09/23 10/10/23 10/10/23 Range/Units 21:55 01:09 06:01 WBC 54.3 H* 43.8 H* 41.9 H* (4.8-10.8) X10*3/uL Hgb 5.5 L* D 7.2 L D 7.5 L (12.0-16.0) g/dl Hct 15.9 L* 22.3 L D 22.6 L (37.0-47.0) % Plt Count 215 121 L D 111 L (160-400) X10*3/uL BMP 10/09/23 10/09/23 10/10/23 13:44 20:08 01:19 Sodium 130 L 131 L 143 Potassium 3.0 L D 4.5 D 4.7 Chloride 92 L 93 L 93 L Carbon Dioxide 18 L 11 L 11 L BUN 77 H 75 H 72 H Creatinine 4.82 H* 4.92 H* 4.62 H* Calcium 7.8 L D 7.0 L D 6.6 L 10/10/23 06:01 Sodium 144 Potassium 4.6 Chloride 90 L Carbon Dioxide 13 L BUN 70 H Creatinine 4.55 H* Calcium 7.1 L D Liver Function 10/09/23 10/10/23 10/10/23 Range/Units 20:08 01:19 06:01 Total Bilirubin 3.9 H (0.0-1.0) mg/dL AST 128 H (5-31) U/L ALT 24 (0-31) U/L Alkaline Phosphatase 101 (39-117) U/L Albumin 3.0 L 2.2 L 2.8 L (3.5-5.0) g/dL Microbiology Microbiology Results: Microbiology 10/08/23 Unknown Urine clean catch - Urine farmer top Urine Culture - Preliminary Culture in progress. 10/08/23 19:44 Blood - Venous Blood Culture - Preliminary Prelim: Yeast Gram Stain only 10/08/23 19:44 Blood - Venous Blood Culture - Preliminary Prelim: Yeast Gram Stain only Procedures Date of Service Date of Service: 10/10/23
[2023-10-10 12:59] LABS: Reflex Lactate? Lactic Acid Added
--- NOTE | 2023-10-10 13:23 | PM.CCN ---
Critical Care Event Note Summary Date of Service: 10/10/23 Code activated: No Narrative: Discussion with patient's parentsheld and no chance for meaningful recovery discussed. Family requests code status to be changed to DNR. Code status updated. Critical Care Time (minutes): 0
[2023-10-10] MEDS: Norepinephrine Bitartrate/D5W 8 MG/250 ML PLAST..BAG 212.62 MG IV ×2 (13:31→14:58)
[2023-10-10 13:46] LABS: Mean Corpuscular HGB Conc 32.5 g/dl (31.0-35.0); Mean Corpuscular Hemoglobin 29.3 pg (27.0-33.0); Mean Corpuscular Volume 90.2 fL (80.0-98.0); Mean Platelet Volume 11.5 fL (9.4-12.3); NRBC Pct Auto 0.6 /100WBC (0.0-0.2); Red Blood Count 1.33 X10*6/uL (4.20-5.50); Red Cell Distribution Width 17.2 % (11.0-16.0)
[2023-10-10 13:47] LABS: Platelet Count 53 X10*3/uL (160-400); WBC ABN SCTR FOR CBC 1
[2023-10-10 13:50] LABS: Glucose, Whole Blood 70 mg/dL (60-115)
[2023-10-10 13:51] LABS: White Blood Count 39.7 X10*3/uL (4.8-10.8)
[2023-10-10 13:52] LABS: Hemoglobin 3.9 g/dl (12.0-16.0)
[2023-10-10 13:53] LABS: Venous Blood Gas Refer to POC result
[2023-10-10 13:53] LABS: VBG Base Excess -18.9 mmol/L; VBG HCO3 9 mmol/L (22-26); VBG pCO2 29 mmHg; VBG pH 7.07 (7.32-7.43); VBG pO2 148 mmHg
[2023-10-10 14:16] LABS: Band Neutrophils Percent 16 % (3-5); Lymphocytes Absolute Manual 5.2 X10*3/uL (1.2-4.9); Lymphocytes Percent Manual 13 % (20-40); Metamyelocytes Percent 5 %; Monocytes Absolute Manual 0.4 X10*3/uL (0.1-1.2); Monocytes Percent Manual 1 % (2-11); Myelocytes Absolute 0.8 X10*/uL; Myelocytes Percent 2 %; Neutrophils Percent Manual 62 % (45-73); Nucleated Red Blood Cells 2 /100WBC (0-0); Promyelocytes Absolute 0.4 X10*3/uL; Promyelocytes Percent 1 %
[2023-10-10 14:20] LABS: Acanthocytes 1+ (0-2) /OIF; Burr Cells 3+ (>5) /OIF; RBC Morphology NOTED; Schistocytes 1+ (0-2) /OIF
[2023-10-10 14:21] LABS: Hypochromasia 2+ (15-30) /OIF
[2023-10-10 14:22] LABS: Polychromasia 1+ (0-2) /OIF
[2023-10-10 14:23] LABS: Dohle Bodies PRESENT; Platelet Estimate DECREASED (NORMAL); Platelet Morphology Comment NORMAL; Toxic Granulation PRESENT
[2023-10-10] MEDS: EPINEPHrine 5 MG in Dextrose 5 % 250 ML 130.97 MG IVCONT (14:32)
[2023-10-10 14:44] LABS: Adenovirus F 40/41 Not Detected (Not Detect.); Astrovirus Not Detected (Not Detect.); Campylobacter Not Detected (Not Detect.); Cryptosporidium Not Detected (Not Detect.); Cyclospora cayetanensis Not Detected (Not Detect.); E. coli EAEC Not Detected (Not Detect.); E. coli EPEC Not Detected (Not Detect.); E. coli ETEC Not Detected (Not Detect.); E. coli STEC Not Detected (Not Detect.); Entamoeba histolytica Not Detected (Not Detect.); Giardia lamblia Not Detected (Not Detect.); Norovirus GI/GII Not Detected (Not Detect.); Plesiomonas shigelloides Not Detected (Not Detect.); Rotavirus A Not Detected (Not Detect.); Salmonella Not Detected (Not Detect.); Sapovirus Not Detected (Not Detect.); Shigella sp./EIEC Not Detected (Not Detect.); Vibrio Not Detected (Not Detect.); Vibrio Cholerae Not Detected (Not Detect.); Yersinia enterocolitica Not Detected (Not Detect.)
[2023-10-10 14:48] LABS: Alanine Aminotransferase 116 U/L (0-31); Albumin Level 2.5 g/dL (3.5-5.0); Alkaline Phosphatase 93 U/L (39-117); Anion Gap 53 (12-20); Aspartate Amino Transferase 824 U/L (5-31); Bilirubin Total 5.2 mg/dL (0.0-1.0); Blood Urea Nitrogen 67 mg/dL (9-16); Calcium 7.3 mg/dL (8.4-10.2); Carbon Dioxide 10 mmol/L (22-29); Chloride 86 mmol/L (96-108); Creatinine Clr Calc Pharmacy 10.6; Estimated Glomerular Filt Rate 11; Glucose Random 160 mg/dL (60-115); Sodium 143 mmol/L (135-145); Total Protein 3.7 g/dL (6.5-8.0)
[2023-10-10 15:40] LABS: Reflex Lactate? 2 Y
--- NOTE | 2023-10-10 15:56 | PM.CCN ---
Critical Care Event Note Summary Date of Service: 10/10/23 Code activated: No Narrative: Further discussion held with family regarding progressive clinical deterioration and essentially terminal prognosis. Family reached decision to switch goals of care to palliation. Code status changed to comfort measures only. Critical Care Time (minutes): 0
[2023-10-10] MEDS: fentaNYL citrate/NS 1,000 MCG/100 ML PLAST..BAG 10 MCG IVCONT (16:21)
[2023-10-10] MEDS: fentaNYL citrate/PF 100 MCG/2 ML VIAL IVPUSH (16:24)
[2023-10-10] MEDS: Midazolam HCl/PF 2 MG/2 ML VIAL IVPUSH (16:24)
--- NOTE | 2023-10-10 19:07 | PC.NURSE ---
1216 pt MAP noted to be 37, MD called at bedside, MAP continued to drop, levophed titrated up, Epi IVP x2, Bicarb IVP, and epinephrine gtt administered per MD order.HGB 3.9, 4units RBC transfused, Unable to obtained BP readings. Pt code status change to DNR per mother jenniferloraine. 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
[2023-10-10 22:21] LABS: ABG Refer to POC result
--- NOTE | 2023-10-11 08:18 | PM.EVENT ---
Event Note Date of Service: 10/11/23 Event Note: Date of service 10/10/23 Called to pronounce the patient in ICU Patient at 16:50 Patient noted to have no pulse, no breathing, pupils fixed and dilated Cause of Cardiopulmonary arrest Multi organ failure Time Spent With Patient Time: Total time managing care of this patient today ____ minutes.
--- NOTE | 2023-10-26 11:26 | P.DN_ITS ---
Discharge Sum: Prov Provider Primary care physician: Delta Kurtz MD Consults: 10/08/23 18:55 Consult to Nephrology Routine Consulting Provider: [facility] Reason for consultation: Anorexia with severe electrolyte abnormalities Has provider been notified: Yes 10/10/23 06:09 Consult to Gastroenterology Stat Consulting Provider: Joanne Munguia Reason for consultation: GI bleed Discharge Sum: Diag Contributing Factors (1) Acute kidney injury: (2) Anorexia: (3) Failure to thrive in adult: (4) Pulmonary edema: (5) Acute hypoxic respiratory failure: (6) Metabolic acidosis: (7) Malnutrition: (8) GI bleed: (9) Vitamin K deficiency coagulation disorder: (10) Acute blood loss anemia: (11) Shock: Discharge Sum: Summary Date and Time Date of admission: 10/08/23 21:33 Date of : 10/10/23 Time of : 16:50 Summary Details: 47-year-old lady with underlying anorexia with progressive weakness admitted on 10/08/2023 with failure to thrive with significant electrolyte abnormalities and acute kidney failure secondary to poor p.o. intake. Patient was started on electrolyte and pressor support. Overnight with progressive oliguria to anuria resulting in worsening hypoxia requiring intubation and ventilatory support secondary to development of pulmonary edema. Also, with acute blood loss anemia secondary to GI bleed requiring transfusion of 4 units of packed red blood cells, platelets, and FFP likely secondary to erosive gastritis on the background vitamin K nutritional deficiency and systemic glucocorticoid use, on PPI with Gastroenterology consulted. Furthermore, with progressive metabolic acidosis requiring bicarbonate support, empirically covered with broad-spectrum antibiotics. On 10/10/2023 patient with development of refractory shock requiring high-dose pressor support. Several discussions with patient's parents/family held and no chance for meaningful recovery discussed. Family requests code status to be changed to DNR. Later same day patient with refractory shock and progressive metabolic acidosis additional discussions held with family regarding progressive clinical deterioration and essentially terminal prognosis. Family reached decision to switch goals of care to palliation. Code status changed to comfort measures only. Patient extubated and passed peacefully at 16:50. Additional Data Attending physician: Timmy Lujan MD
== END 2023-10-10 16:50 | disposition expired | DRG 469 ==
LOC: HO.ED 21:16 → HO.EDOVER 21:40 → HO.ICU 21:58
PROVIDERS: Physician Assistant Medical; Admitting Provider Registered Nurse Community Health; Emergency Provider Emergency Medicine Emergency Medical Services; PCP Internal Medicine; Visit Provider Internal Medicine Pulmonary Disease
DX: N17.0 Acute kidney failure with tubular necrosis (principal); J96.01 Acute respiratory failure with hypoxia; E43 Unspecified severe protein-calorie malnutrition; D68.4 Acquired coagulation factor deficiency; E87.20 Acidosis, unspecified; E88.A Wasting disease (syndrome) due to underlying condition; D62 Acute posthemorrhagic anemia; J45.20 Mild intermittent asthma, uncomplicated; Z51.5 Encounter for palliative care; F11.20 Opioid dependence, uncomplicated; Z66 Do not resuscitate; E87.1 Hypo-osmolality and hyponatremia; E83.51 Hypocalcemia; Z20.822 Contact with and (suspected) exposure to COVID-19; Z79.51 Long term (current) use of inhaled steroids; Z68.1 Body mass index [BMI] 19.9 or less, adult; Z79.899 Other long term (current) drug therapy
CPT/HCPCS: 0241U; 36415; 36600; 71045; 74176; 80048; 80053; 81001; 82040; 82550; 82803; 82947; 83605; 83735; 84100; 84443; 84484; 85007; 85025; 85027; 85610; 86850; 86900; 86901; 86923; 87040; 87077; 87086; 87493; 87507; 93005; 94002; 94003; 94799; 99285; C1758; C9113; J0171; J0613; J0637; J1644; J1720; J1940; J1956; J2250; J2543; J2704; J3010; J3370; J3430; J3475; J3480; J7120; P9016; P9017; P9047; P9073

== ENCOUNTER → 2023-10-08 18:39 | Outpatient (BNV) | payer BC, SELFPAY | PROVIDERS: Admitting Provider Registered Nurse Community Health; Emergency Provider Emergency Medicine Emergency Medical Services; PCP Internal Medicine; Visit Provider Internal Medicine Cardiovascular Disease | DX: R94.31 Abnormal electrocardiogram [ECG] [EKG] (principal) | CPT/HCPCS: 93010 ==

== ENCOUNTER → 2023-10-08 21:33 | Outpatient (BNV) | payer BC, SELFPAY | PROVIDERS: Admitting Provider Registered Nurse Community Health; Emergency Provider Emergency Medicine Emergency Medical Services; PCP Internal Medicine; Visit Provider Internal Medicine Pulmonary Disease | DX: R57.9 Shock, unspecified (principal); R62.7 Adult failure to thrive; R63.0 Anorexia; J81.1 Chronic pulmonary edema; N17.9 Acute kidney failure, unspecified; J96.01 Acute respiratory failure with hypoxia; E87.20 Acidosis, unspecified; E46 Unspecified protein-calorie malnutrition; K92.2 Gastrointestinal hemorrhage, unspecified; D68.4 Acquired coagulation factor deficiency; D62 Acute posthemorrhagic anemia | CPT/HCPCS: 99238; 99291; 99292 ==

== ENCOUNTER → 2023-10-08 21:33 | Outpatient (BNV) | payer BC, SELFPAY | PROVIDERS: Admitting Provider Registered Nurse Community Health; Emergency Provider Emergency Medicine Emergency Medical Services; PCP Internal Medicine; Visit Provider Registered Nurse Community Health | DX: R62.7 Adult failure to thrive (principal) | CPT/HCPCS: 31500; 36556; 99291 ==